=== PATIENT | male | born 1925 | race Caucasian/White ===

== ENCOUNTER 2016-04-29 08:48 | Day surgery (SDC) | payer BC ==
[2016-04-28 15:10] VITALS: BMI 21.2
[2016-04-29] MEDS ORDERED: PROPOFOL 20 ML ONE (09:50)
[2016-04-29 10:59] VITALS: TEMP 97.4
[2016-04-29 11:59] VITALS: BP 134/52; PULSE 61
--- NOTE | 2016-04-30 12:42 | PATH ---
Surgical Pathology Report Patient Name: JAYY SPANGLER [facility]. Rec. #: [id number] /Age/Gender: 1925 (Age: 89) / M Account: [id number] Location: [facility]-ENDOSCOPY Taken: 04/29/2016 Received: 04/29/2016 Reported: 04/30/2016 Physicians: Risa Alvarez M.D. Specimen(s) Received A: BX 2ND PORTION DUODENUM & BULB B: BX ANTRUM C: BX GE JUNCTION Clinical History Dysphagia, history of Schatzki's ring Hiatal hernia, hemorrhagic gastritis Final Diagnosis A. DUODENUM, SECOND PORTION AND BULB, BIOPSY: DUODENAL MUCOSA WITH MILD CHRONIC INFLAMMATION AND FOCAL ARABELLA'S GLANDS HYPERPLASIA. NO HISTOLOGIC EVIDENCE OF GLUTEN SENSITIVE ENTEROPATHY (CELIAC DISEASE). B. STOMACH, ANTRUM, BIOPSY: GASTRIC ANTRAL MUCOSA WITH MODERATE CHRONIC GASTRITIS AND MILD REACTIVE GASTROPATHY. IMMUNOSTAIN FOR H. PYLORI IS NEGATIVE FOR ORGANISMS. C. GE JUNCTION, BIOPSY: SQUAMOUS EPITHELIUM WITH CHRONIC INFLAMMATION AND REFLUX TYPE CHANGES. NO COLUMNAR EPITHELIUM PRESENT (NO INTESTINAL METAPLASIA/HOWARD'S ESOPHAGUS IDENTIFIED). Electronically Signed Laureano Moore M.D. Gross Description A. Received in formalin, labeled "biopsy second portion of duodenum and duodenal bulb" are 3 gonzales, irregular portions of soft tissue averaging 0.3 cm in greatest dimension. The specimens are submitted in toto in one cassette. B. Received in formalin, labeled "biopsy antrum" are 2 gonzales, irregular portions of soft tissue measuring 0.2 and 0.6 cm in greatest dimension. The specimens are submitted in toto in one cassette. C. Received in formalin, labeled "biopsy GE junction" are 5 gonzales, irregular portions of soft tissue ranging from 0.1-0.3 cm in greatest dimension. The specimens are submitted in toto in one cassette. DL04/29/2016 saudi04/29/2016
== END 2016-04-29 11:50 | disposition home or self-care (01) ==
LOC: JASU-ENDO 08:48
PROVIDERS: ATTEND Internal Medicine Gastroenterology
PROC: 0DB68ZX Excision of Stomach, Via Natural or Artificial Opening Endoscopic, Diagnostic (ICD-10-PCS; 2016-04-29)
PROC: 0DB58ZX Excision of Esophagus, Via Natural or Artificial Opening Endoscopic, Diagnostic (ICD-10-PCS; 2016-04-29)
PROC: 0DB98ZX Excision of Duodenum, Via Natural or Artificial Opening Endoscopic, Diagnostic (ICD-10-PCS; principal; 2016-04-29 10:00)
DX: K21.9 Gastro-esophageal reflux disease without esophagitis (principal); K44.9 Diaphragmatic hernia without obstruction or gangrene; K22.8 Other specified diseases of esophagus; K31.9 Disease of stomach and duodenum, unspecified
CPT/HCPCS: 88305-TC; 88342-TC

== ENCOUNTER 2016-07-01 07:30 | Inpatient (IN) | payer BC ==
--- NOTE | 2016-07-01 07:45 | PDOC ---
History of Present Illness - General History Source: Patient Exam Limitations: No Limitations - History of Present Illness Initial Comments: 07/01/16 08:09 The patient is a 89 year old male, with a significant past medical history of HTN, lung CA, bladder CA, left nephrectomy and renal failure, CAD, paroxysmal afib, systolic heart failure, and hypercholesterolemia who presents to the emergency department with chest pain and SOB for about 10 days. He reports his symptoms have been getting progressively worse, stating that last night his symptoms had severely worsened. He reports his SOB is often worse with any strenuous activity like walking. He denies any changes in his SOB when lying down. He reports his chest pain is diffuse over his entire chest and is constant in nature. The patient ranks his chest pain a 7/10 in pain intensity. The patient also has chief complaints of a non productive cough. He denies any changes in his medications recently. He denies any recent fevers, chills, headache or dizziness. He denies any recent nausea, vomit, diarrhea or constipation. He denies any recent dysuria, frequency, urgency or hematuria. Allergies: Penicillins, Levofloxacin, and Sulfa. Past surgical history: PPM and left lobectomy. Social History: Former smoker. Denies EtOH use and drug use. PCP:Dr.Annabi MARTIN: <Akil Mcdonlad - Last Filed: 07/01/16 10:16> <Christiano Gomez - Last Filed: 07/01/16 10:22> - General Chief Complaint: Chest Pain Stated Complaint: CHEST PAIN Time Seen by Provider: 07/01/16 07:45 Past History <Akil Mcdonald - Last Filed: 07/01/16 10:16> - Past Medical History Anemia: No Asthma: No Cancer: Yes (lung ca, bladder ca) Cardiac Disorders: No CVA: No COPD: No CHF: No Dementia: No Diabetes: No GI Disorders: Yes (GERD, SCHATZKI'S RING, COLON POLYP, GASTRIC INTESTINAL METAPLASIA) Disorders: Yes (bladder tumor, polyps, BPH) HTN: Yes Hypercholesterolemia: Yes Liver Disease: No Seizures: No Thyroid Disease: No - Surgical History Abdominal Surgery: No Appendectomy: No Cardiac Surgery: Yes (PPM) Cholecystectomy: No Lung Surgery: Yes (left lobectomy) Neurologic Surgery: No Orthopedic Surgery: No - Psycho/Social/Smoking Cessation Hx Anxiety: No Suicidal Ideation: No Smoking Status: No Smoking History: Former smoker Years of Tobacco Use: 0 Have you smoked in the past 12 months: No Number of Cigarettes Smoked Daily: 0 If you are a former smoker, when did you quit?: 1994 Cigars Per Day: 0 Information on smoking cessation initiated: No Hx Alcohol Use: No Drug/Substance Use Hx: No Substance Use Type: None Hx Substance Use Treatment: No <Christiano Gomez - Last Filed: 07/01/16 10:22> - Past Medical History Allergies/Adverse Reactions: Allergies Allergy/AdvReac Type Severity Reaction Status Date / Time Penicillins Allergy Hives, Verified 02/12/15 00:02 throat swelling Sulfa (Sulfonamide Allergy EYE Verified 02/12/15 00:02 Antibiotics) SWELLING, [Sulfa(Sulfonamide ITCHING Antibiotics)] levofloxacin [From Levaquin] AdvReac Severe Itching Verified 02/14/15 19:14 Home Medications: Ambulatory Orders Isosorbide Mononitrate [Imdur] 60 mg PO DAILY 12/16/11 Metoprolol Succinate [Toprol XL -] 100 mg PO HS 08/17/12 Atorvastatin Ca [Lipitor] 10 mg PO HS 04/28/16 Sodium Bicarbonate - 650 mg PO BID 04/29/16 Review of Systems - Review of Systems Constitutional: No: Chills, Fever Respiratory: Yes: Cough, Shortness of Breath, SOB with Exertion Cardiac (ROS): Yes: Chest Pain. No: Edema, Palpitations, Syncope ABD/GI: No: Vomiting Neurological: No: Headache All Other Systems: Reviewed and Negative <Christiano Gomez - Last Filed: 07/01/16 10:22> *Physical Exam - Vital Signs Last Vital Signs Temp Pulse Resp BP Pulse Ox 97.3 F L 94 H 24 147/77 100 07/01/16 07:41 07/01/16 07:41 07/01/16 07:41 07/01/16 07:41 07/01/16 07:41 - Physical Exam Comments: 07/01/16 08:09 GENERAL: The patient is awake, alert, and fully oriented, in no acute distress. HEAD: Normal with no signs of trauma. EYES: Pupils equal, round and reactive to light, extraocular movements intact, sclera anicteric, conjunctiva clear with no pallor. ENT: Ears normal, nares patent, oropharynx clear without exudates. Moist mucous membranes. NECK: Normal range of motion, supple without lymphadenopathy, JVD, or masses. LUNGS: Decreased breath sounds Right Lower Lung field with crackles at the base.No wheezes. HEART: Regular rate and rhythm. 2/6 systolic murmur at the left sternal border. Pacemaker on the left upper chest. ABDOMEN: Soft/nontender/nondistended. BS wnl. No guarding or rebound. No palpable masses. No hepatosplenomegaly. EXTREMITIES: Normal range of motion, no edema. No clubbing or cyanosis. No cords , erythema, or tenderness. NEUROLOGICAL: Cranial nerves II through XII grossly intact. Normal speech, normal gait. PSYCH: Normal mood, normal affect. SKIN: Warm, Dry, normal turgor, no rashes or lesions noted. <Akil Mcdonald - Last Filed: 07/01/16 10:16> - Vital Signs Last Vital Signs Temp Pulse Resp BP Pulse Ox 97.3 F L 94 H 24 147/77 100 07/01/16 07:41 07/01/16 07:41 07/01/16 07:41 07/01/16 07:41 07/01/16 07:41 <Christiano Gomez - Last Filed: 07/01/16 10:22> Heart Score/ECG Review #1 ECG reviewed & interpreted by me at: 07:37 Compared to previous ECG there are: No significant change 07/01/16 08:32 Sinus with first-degree AV block and left bundle branch block, rate of 95. No secondary signs of acute ischemic change. When compared to prior EKGs, those were paced <Christiano Gomez - Last Filed: 07/01/16 10:22> ED Treatment Course - LABORATORY CBC & Chemistry Diagram: 07/01/16 07:52 07/01/16 07:52 - RADIOLOGY Radiograph Interpretation: 07/01/16 09:15 CHEST X-RAY impressions reported by : No evidence of acute intrathoracic abnormality seen. <Akil Mcdonald - Last Filed: 07/01/16 10:16> - LABORATORY CBC & Chemistry Diagram: 07/01/16 07:52 07/01/16 07:52 <Christiano Gomez - Last Filed: 07/01/16 10:22> Medical Decision Making - Medical Decision Making 07/01/16 10:06 Call made to , patient's PCP, awaiting call back. 07/01/16 10:16 Call back from , case discussed. <Akil Mcdonald - Last Filed: 07/01/16 10:16> - Medical Decision Making 07/01/16 08:32 A portion of this note was documented by scribe services under my direction. I have reviewed the details of the note, within reason, and agree with the documentation with the following case summary and management plan written by me. 89-year-old male with history of known CAD and systolic failure, sick sinus syndrome status post pacemaker presents with progressive chest pain and shortness of breath over the last 10 days. Positive cough but no fevers or chills. Vitals as noted. Exam as noted with right basilar crackles and decreased breath sounds No edema No acute distress 89-year-old male with known heart disease presents with progressive chest pain or shortness of breath over the last 10 days. CHF exacerbation, rule out ACS versus worsening valvular disease. Rule out infectious process. Labs, EKG Chest x-ray Aspirin Likely admission 07/01/16 10:06 CBC shows baseline anemia, chemistries notable for creatinine of 3.3 which is slightly above the patient's prior level of renal insufficiency in 2015. Chest x -ray shows no acute pathology. Clinically unchanged, no acute distress, will proceed with admission. Cardiology, Dr. Manzano, consulted. 07/01/16 10:21 Accepted for inpatient tele by Dr. Guillory. <Christiano Gomez - Last Filed: 07/01/16 10:22> *DC/Admit/Observation/Transfer - Attestations Scribe Attestion: 07/01/16 07:55 Documentation prepared by Akil Mcdonald, acting as medical delivery driver for Christiano Gomez MD. <Akil Mcdonald - Last Filed: 07/01/16 10:16> - Discharge Dispostion Admit: Yes <Christiano Gomez - Last Filed: 07/01/16 10:22> Diagnosis at time of Disposition: Acute on chronic systolic (congestive) heart failure, Precordial chest pain - Discharge Dispostion Condition at time of disposition: Fair - Referrals Referrals: Lida Guillory MD [Primary Care Provider] -
[2016-07-01] MEDS ORDERED: ASPIRIN 81 MG CHEWABLE TABLETS PO ONE (07:49)
[2016-07-01] MEDS ORDERED: ASPIRIN 81 MG CHEWABLE TABLETS ONE (07:54)
[2016-07-01 08:18] LABS: BASOPHIL 0.7 % (0-2.0); MCHC 30.4 g/dl (32.0-35.9); MEAN CELL VOLUME 63.3 fl (80-96); MEAN PLT VOLUME 9.1 fl (7.5-11.1); NEUTROPHILS 71.8 % (42.8-82.8); PLATELET COUNT 290 K/MM3 (134-434); RDW 17.6 % (11.9-15.9); WHITE BLOOD COUNT 12.1 K/mm3 (4.0-10.0)
[2016-07-01 08:39] LABS: INR 1.2 (0.82-1.09); PROTHROMBIN TIME (PATIENT) 13.3 SEC (9.98-11.88)
[2016-07-01 08:50] LABS: MCH 19.3 pg (25.7-33.7)
[2016-07-01 09:42] LABS: ALBUMIN 3.2 g/dl (3.4-5.0); ALK PHOS 92 U/L (45-117); ANION GAP 16 (8-16); BILIRUBIN,TOTAL 0.5 mg/dL (0.2-1.0); CALCIUM 9.1 mg/dL (8.5-10.1); CO2 14 mmol/L (21-32); CREATININE 3.3 mg/dL (0.7-1.3); GLUCOSE,RANDOM 93 mg/dL (74-106); MAGNESIUM 1.9 mg/dL (1.8-2.4); SGOT/AST 16 U/L (15-37); SGPT/ALT 16 U/L (12-78); TOT PROT 7.2 g/dl (6.4-8.2); TROPONIN I < 0.02 ng/ml (0.00-0.05)
[2016-07-01 12:02] LABS: HYPOCHROMIA 3+; MICROCYTOSIS 2+; OVALOCYTES 2+; POIKILOCYTOSIS 2+; TEAR DROP CELLS 1+
--- NOTE | 2016-07-01 12:41 | CON.CARD ---
Consult Consult Specialty:: Cardiology Referred by:: Christiano Coats MD Reason for Consultation:: Chest pain, dyspnea - History of Present Illness Chief Complaint: Chest pain, dyspnea History of Present Illness: The patient is a 89 year old male, with a significant past medical history of HTN, lung CA, bladder CA, left nephrectomy and renal failure, CAD, paroxysmal afib not on a/c due to recurrent hematuria and patient refusal, AV block s/p PPM , LV systolic heart failure with mod-severe AR, hyperlipidemia, mild ao root dilatation presented to the emergency department with atypical reproducible left chest wall pain worse with raising arm and exertional SOB, orthopnea and PND. He reports his SOB is often worse with any strenuous activity like walking accompanied with nonproductive cough. He denies near or true syncope, palpitations, PND or LE edema. Allergies: Penicillins, Levofloxacin, and Sulfa. Past surgical history: PPM and left lobectomy. Social History: Former smoker. Denies EtOH use and drug use. PCP:Dr.Annabi LUNAMO: - History Source History Provided By: Patient Limitations to Obtaining History: No Limitations - Past Medical History Cardio/Vascular: Yes: CAD, HTN, Hyperlipdemia Pulmonary: Yes: Cancer (lung--s/p lobectomy), COPD Gastrointestinal: Yes: GERD Renal/: Yes: Renal Inusuff, Cancer (bladder, TCC), Hematuria, Renal Calculi - Past Surgical History Past Surgical History: Yes: Colonoscopy, Nephrectomy, Permanent Pacemaker, Thoracotomy - Alcohol/Substance Use Hx Alcohol Use: No - Smoking History Smoking history: Former smoker Have you smoked in the past 12 months: No Aproximately how many cigarettes per day: 0 If you are a former smoker, when did you quit?: 1994 - Social History Usual Living Arrangement: With Spouse ADL: Independent 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, 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[place] History of Recent Travel: No Home Medications - Allergies Allergies/Adverse Reactions: Allergies Allergy/AdvReac Type Severity Reaction Status Date / Time Penicillins Allergy Hives, Verified 02/12/15 00:02 throat swelling Sulfa (Sulfonamide Allergy EYE Verified 02/12/15 00:02 Antibiotics) SWELLING, [Sulfa(Sulfonamide ITCHING Antibiotics)] levofloxacin [From Levaquin] AdvReac Severe Itching Verified 02/14/15 19:14 - Home Medications Home Medications: Ambulatory Orders Isosorbide Mononitrate [Imdur] 60 mg PO DAILY 12/16/11 Metoprolol Succinate [Toprol XL -] 100 mg PO HS 08/17/12 Atorvastatin Ca [Lipitor] 10 mg PO HS 04/28/16 Sodium Bicarbonate - 650 mg PO BID 04/29/16 Review of Systems - Review of Systems Cardiovascular: reports: Chest Pain Respiratory: reports: Exercise Intolerance, SOB on Exertion Vital Signs: Vital Signs Temperature 97.3 F L 07/01/16 07:41 Pulse Rate 86 07/01/16 11:12 Respiratory Rate 18 07/01/16 11:12 Blood Pressure 131/60 07/01/16 11:12 O2 Sat by Pulse Oximetry (%) 99 07/01/16 11:12 Constitutional: Yes: No Distress, Calm Neck: Yes: Supple Respiratory: Yes: Regular, Diminished, Other (Reproducible left sided chest wall tenderness) Gastrointestinal: Yes: Normal Bowel Sounds, Soft Cardiovascular: Yes: Regular Rate and Rhythm JVD: No Carotid Bruit: No Heart Sounds: Yes: S1, S2 Murmur: Yes: Systolic Murmur, Grade 1 Edema: No - Other Data Labs, Other Data: INR, PTT INR 1.20 (0.82-1.09) H 07/01/16 07:52 A-V paced @ 95 Ejection Fraction %: LVEF > or = 40 % Imaging - Results Chest X-ray: Report Reviewed (NAD) Problem List - Problems (1) Acute on chronic systolic (congestive) heart failure Code(s): I50.23 - ACUTE ON CHRONIC SYSTOLIC (CONGESTIVE) HEART FAILURE (2) CAD (coronary artery disease) Code(s): I25.10 - ATHSCL HEART DISEASE OF [place] CORONARY ARTERY W/O ANG PCTRS Qualifiers: Coronary Disease-Associated Artery/Lesion type: [place] artery Associated angina: without angina (3) Chronic kidney disease (CKD) Code(s): N18.9 - CHRONIC KIDNEY DISEASE, UNSPECIFIED Qualifiers: Chronic kidney disease stage: stage 3 (moderate) Qualified Code(s): N18.3 - Chronic kidney disease, stage 3 (moderate) (4) HTN (hypertension) Code(s): I10 - ESSENTIAL (PRIMARY) HYPERTENSION Qualifiers: Hypertension type: essential hypertension Qualified Code(s): I10 - Essential (primary) hypertension (5) History of permanent cardiac pacemaker placement Code(s): Z95.0 - PRESENCE OF CARDIAC PACEMAKER (6) Hypercholesteremia Code(s): E78.0 - PURE HYPERCHOLESTEROLEMIA * DO NOT USE * (7) Precordial chest pain Code(s): R07.2 - PRECORDIAL PAIN (8) Sick sinus syndrome Code(s): I49.5 - SICK SINUS SYNDROME (9) Paroxysmal atrial fibrillation Code(s): I48.0 - PAROXYSMAL ATRIAL FIBRILLATION Assessment/Plan 03/14/2015 Echo: BSH, mod decreased LV fxn, mild ao dilatation 4.0 cm, mod- severe AR, mild MR, TR, RVSP 30-40 mmHg 1. Acute on chronic systolic failure with h/o mod-severe AR 2. Single vessel CAD with neg MPI 3. PAF not on a/c due to patient refusal and recurrent hematuria 4. AV block s/p PPM ([employer]) 5. HCVD 6. Mild aortic root dilatation 4.0 cm 7. CKD post resection of kidney mass 8. Bladder ca post TURBT with recurrent hematuria 9. Anemia of chronic kidney disease 10. Atypical chest pain syndrome P:1. IV diuresis with monitor diuretic response, renal fxn and electrolytes 2. Continue Toprol XL 100 qd, Imdur 90 qd, Lipitor 10 qd 3. Echocardiogram to assess ventricular and valve fxn 4. Thank you for consultative opportunity
--- NOTE | 2016-07-01 12:48 | EKG ---
Test Reason : Blood Pressure : / mmHG Vent. Rate : 095 BPM Atrial Rate : 095 BPM P-R Int : 270 ms QRS Dur : 144 ms QT Int : 368 ms P-R-T Axes : 025 001 191 degrees QTc Int : 462 ms SINUS RHYTHM WITH 1ST DEGREE A-V BLOCK LEFT BUNDLE BRANCH BLOCK ABNORMAL ECG WHEN COMPARED WITH ECG OF 13-FEB-2015 10:52, SINUS RHYTHM HAS REPLACED ELECTRONIC VENTRICULAR PACEMAKER Confirmed by EBONI IVERSON, MARY KAY ([id number]) on 07/01/2016 12:47:39 PM Referred By: Confirmed By:MARY KAY LYN MD
--- NOTE | 2016-07-01 14:17 | PN ---
[id number] PAIN SYNDROME CHF COPD H/O LUNG CA S/P RESECTION RUL NODULE PAF S/P PPM 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 BLADDER CA GERD PLAN LASIX O2 INHALED BRONCHODILATORS MONITOR LYTES ECHO DAILY WTS Problem List - Problems (1) Acute on chronic systolic (congestive) heart failure Code(s): I50.23 - ACUTE ON CHRONIC SYSTOLIC (CONGESTIVE) HEART FAILURE (2) Acute worsening of stage 3 chronic kidney disease Code(s): N18.3 - CHRONIC KIDNEY DISEASE, STAGE 3 (MODERATE) (3) Angina pectoris Code(s): I20.9 - ANGINA PECTORIS, UNSPECIFIED (4) CAD (coronary artery disease) Code(s): I25.10 - ATHSCL HEART DISEASE OF [place] CORONARY ARTERY W/O ANG PCTRS (5) Chronic kidney disease (CKD) Code(s): N18.9 - CHRONIC KIDNEY DISEASE, UNSPECIFIED (6) Congestive heart failure (CHF) Code(s): I50.9 - HEART FAILURE, UNSPECIFIED Qualifiers: Qualified Code(s): I50.33 - Acute on chronic diastolic (congestive) heart failure (7) HTN (hypertension) Code(s): I10 - ESSENTIAL (PRIMARY) HYPERTENSION Qualifiers: Qualified Code(s): I10 - Essential (primary) hypertension (8) History of lobectomy of lung Code(s): Z98.89 - OTHER SPECIFIED POSTPROCEDURAL STATES * DO NOT USE * (9) History of permanent cardiac pacemaker placement Code(s): Z95.0 - PRESENCE OF CARDIAC PACEMAKER (10) Hypercholesteremia Code(s): E78.0 - PURE HYPERCHOLESTEROLEMIA * DO NOT USE * (11) Lung nodule Code(s): R91.1 - SOLITARY PULMONARY NODULE (12) Paroxysmal atrial fibrillation Code(s): I48.0 - PAROXYSMAL ATRIAL FIBRILLATION (13) COPD (chronic obstructive pulmonary disease) Code(s): J44.9 - CHRONIC OBSTRUCTIVE PULMONARY DISEASE, UNSPECIFIED Qualifiers : Qualified Code(s): J44.9 - Chronic obstructive pulmonary disease, unspecified
[2016-07-01] MEDS: FUROSEMIDE 100 MG/10 ML INJECTABLE VIAL IVPB SCH (15:49)
[2016-07-01] MEDS: HEPARIN NA (PORCINE) 5,000 UNITS/ML 1ML VIAL SQ SCH ×2 (15:50→21:52)
[2016-07-01] MEDS: ACETAMINOPHEN 325 MG TABLET (FP) PO PRN (16:02)
[2016-07-01] MEDS: ALBUTEROL SO4 2.5/IPRATROPIUM 0.5 INH SOL 3 ML VIAL.NEB. NEB PRN ×2 (17:13→22:14)
--- NOTE | 2016-07-01 19:49 | CONS ---
PULMONARY CONSULTATION DATE OF CONSULTATION: 07/01/2016 REFERRING PHYSICIAN: Lida Guillory MD HISTORY OF PRESENT ILLNESS: The patient is an 89-year-old white male known to me in previous office visit as well as hospitalization. PAST MEDICAL HISTORY: COPD, history of hypertension, lung CA status post left lower lobe resection, history of bladder CA, history of left nephrectomy secondary to renal cell CA, chronic kidney disease, ASHD, paroxysmal atrial fibrillation, systolic heart failure, hypercholesterolemia, hypertension. Visits [facility] with complaint of chest pain and shortness of breath for about 10 days duration. Patient denied any nausea, vomiting or diaphoresis. He states he has been getting chest discomfort on both sides of his chest. He also has a cough, which is nonproductive; denies any fevers or chills. He says he has increasing shortness of breath with exertion. Denies any shortness of breath at rest. He denies orthopnea or PND.Pt said this chest pain was diffuse and not exacerbated by movement and/or exertion. He denies hemoptysis. He denies any fevers. He denies any recent travel. There is no history of DVT or PE in the past. PAST MEDICAL HISTORY: Past medical history again includes lung CA status post resection, bladder CA, history of left nephrectomy secondary to the CA, chronic kidney disease, ASHD, paroxysmal atrial fibrillation, congestive heart failure, hypercholesterolemia, COPD and hypertension. REVIEW OF SYSTEMS: No orthopnea, no PND. Positive chest pain, positive shortness of breath with exertion. No fevers, no chills. Positive cough, nonproductive. No abdominal pain. CURRENT MEDICATIONS: Sodium bicarbonate, Tylenol, heparin, Toprol, Lipitor, Lasix and Imdur. PHYSICAL EXAMINATION: General: He is a well-developed male, awake, alert, in no acute distress. Vital signs: He is currently afebrile. Blood pressure is 124/50. Respiratory rate is 22. Heart rate is 74 and regular. O2 saturation 89% on room air. HEENT: Normocephalic/atraumatic. Neck: Supple. Heart: Regular. S1, S2. Chest: Clear. Abdomen: Soft. Bowel sounds are positive. Extremities: No cyanosis or edema. LABS: BUN 84. Creatinine 3.3. BNP 20,018. INR is 1.20. WBC is 12.1, hemoglobin 9.6, hematocrit 31.6 with a platelet count of 290,000. Chest x-ray reveals no acute infiltrates or effusions. IMPRESSION: 1. Dyspnea. History of cough. Positive mild decompensated congestive heart failure. 2. Chronic obstructive pulmonary disease. 3. Chest pain syndrome, likely musculoskeletal. 4. History of lung cancer status post resection. 5. Chronic kidney disease. 6. Atherosclerotic heart disease. 7. Paroxysmal atrial fibrillation. 8. Right upper lobe nodule, as noted on previous CAT scan with increased mild right upper lobe ground-glass opacity. PLAN: 1. Continue Lasix. 2. Supplemental O2. 3. Inhaled bronchodilators. Will follow with you. DONELL FLORES M.D. MANE/[id number] MTDD
--- NOTE | 2016-07-01 20:07 | HP ---
Admitting History and Physical - Admission History of Present Illness: 89 year old male, with a significant past medical history of HTN, lung CA, bladder CA, left nephrectomy and renal failure, CAD, paroxysmal afib, systolic heart failure, and hypercholesterolemia who presents to the emergency department with chest pain and SOB for about 10 days. He reports his symptoms have been getting progressively worse, stating that last night his symptoms had severely worsened. He reports his SOB is often worse with any strenuous activity like walking. He denies any changes in his SOB when lying down. He reports his chest pain is diffuse over his entire chest and is constant in nature. The patient ranks his chest pain a 7/10 in pain intensity. The patient also has chief complaints of a non productive cough. He denies any changes in his medications recently. He denies any recent fevers, chills, headache or dizziness. He denies any recent nausea, vomit, diarrhea or constipation. He denies any recent dysuria, frequency, urgency or hematuria. - Past Medical History Cardiovascular: Yes: CAD, HTN, Hyperlipdemia Pulmonary: Yes: Cancer (lung--s/p lobectomy), COPD Gastrointestinal: Yes: GERD Renal/: Yes: Renal Inusuff, Cancer (bladder, TCC), Hematuria, Renal Calculi Heme/Onc: Yes: Anemia - Past Surgical History Past Surgical History: Yes: Colonoscopy, Nephrectomy, Permanent Pacemaker, Thoracotomy - Smoking History Smoking history: Former smoker Have you smoked in the past 12 months: No Aproximately how many cigarettes per day: 0 If you are a former smoker, when did you quit?: 1994 - Alcohol/Substance Use Hx Alcohol Use: No - Social History ADL: Independent 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, 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[place] History of Recent Travel: No Home Medications - Allergies Allergies/Adverse Reactions: Allergies Allergy/AdvReac Type Severity Reaction Status Date / Time Penicillins Allergy Hives, Verified 02/12/15 00:02 throat swelling Sulfa (Sulfonamide Allergy EYE Verified 02/12/15 00:02 Antibiotics) SWELLING, [Sulfa(Sulfonamide ITCHING Antibiotics)] levofloxacin [From Levaquin] AdvReac Severe Itching Verified 02/14/15 19:14 - Home Medications Home Medications: Ambulatory Orders Isosorbide Mononitrate [Imdur] 60 mg PO DAILY 12/16/11 Metoprolol Succinate [Toprol XL -] 100 mg PO HS 08/17/12 Atorvastatin Ca [Lipitor] 10 mg PO HS 04/28/16 Sodium Bicarbonate - 650 mg PO BID 04/29/16 Review of Systems - Review of Systems Constitutional: reports: Weakness Cardiovascular: reports: Chest Pain, Shortness of Breath Respiratory: reports: SOB on Exertion Gastrointestinal: denies: Abdominal Pain, Constipation Physical Examination Vital Signs: Vital Signs Temperature 97.4 F L 07/01/16 17:00 Pulse Rate 91 H 07/01/16 17:00 Respiratory Rate 20 07/01/16 17:00 Blood Pressure 148/73 07/01/16 17:00 O2 Sat by Pulse Oximetry (%) 99 07/01/16 15:00 Cardiovascular: Yes: Murmur, S1, S2 Respiratory: Yes: Rales (AT THE BASES) Gastrointestinal: Yes: Normal Bowel Sounds, Soft. No: Tenderness Edema: No Imaging - Results X-ray: Report Reviewed Problem List - Problems (1) Acute on chronic systolic (congestive) heart failure Assessment/Plan: IV LASIX MONITOR LABS CARDIO ON BOARD Code(s): I50.23 - ACUTE ON CHRONIC SYSTOLIC (CONGESTIVE) HEART FAILURE (2) CAD (coronary artery disease) Assessment/Plan: FOLLOW CE TELE Code(s): I25.10 - ATHSCL HEART DISEASE OF [place] CORONARY ARTERY W/O ANG PCTRS Qualifiers: Coronary Disease-Associated Artery/Lesion type: [place] artery Associated angina: without angina (3) Lung cancer Assessment/Plan: PULM CONSULT Code(s): C34.90 - MALIGNANT NEOPLASM OF UNSP PART OF UNSP BRONCHUS OR LUNG (4) Valvular heart disease Assessment/Plan: MOD TO SEVERE PER CARDIO Code(s): I38 - ENDOCARDITIS, VALVE UNSPECIFIED
[2016-07-01] MEDS: METOPROLOL SUCCINATE 100 MG TAB.SR.24H (FP) PO SCH (21:51)
[2016-07-01] MEDS: ATORVASTATIN CA 10 MG TABLET (FP) PO SCH (21:52)
[2016-07-01] MEDS: SODIUM BICARBONATE 650 MG TABLET PO SCH (21:52)
[2016-07-02 07:50] LABS: EOSINOPHIL 0.7 % (0-4.5); MCHC 31.4 g/dl (32.0-35.9); MEAN CELL VOLUME 62.4 fl (80-96); MEAN PLT VOLUME 9.5 fl (7.5-11.1); NEUTROPHILS 81.8 % (42.8-82.8); PLATELET COUNT 278 K/MM3 (134-434); RDW 17.7 % (11.9-15.9); WHITE BLOOD COUNT 10.6 K/mm3 (4.0-10.0)
--- NOTE | 2016-07-02 08:07 | PN ---
Progress Note, Physician History of Present Illness: LITTLE IMPROVEMENT - Current Medication List Current Medications: Active Medications Acetaminophen (Tylenol -) 650 mg PO Q4H PRN PRN Reason: FEVER OR PAIN Last Admin: 07/01/16 16:02 Dose: 650 mg Albuterol/Ipratropium (Duoneb -) 1 amp NEB Q4H PRN PRN Reason: SHORTNESS OF BREATH Last Admin: 07/01/16 22:14 Dose: 1 amp Atorvastatin Calcium (Lipitor -) 10 mg PO HS [facility] Last Admin: 07/01/16 21:52 Dose: 10 mg Furosemide (Lasix Injection -) 80 mg IVPB DAILY [facility] Last Admin: 07/01/16 15:49 Dose: 80 mg Heparin Sodium (Porcine) (Heparin -) 5,000 unit SQ BID [facility] Last Admin: 07/01/16 21:52 Dose: 5,000 unit Isosorbide Mononitrate (Imdur -) 60 mg PO DAILY [facility] Metoprolol Succinate (Toprol Xl -) 100 mg PO [facility] Last Admin: 07/01/16 21:51 Dose: 100 mg Sodium Bicarbonate (Sodium Bicarbonate -) 650 mg PO BID [facility] Last Admin: 07/01/16 21:52 Dose: 650 mg - Objective Vital Signs: Vital Signs Temperature 97.2 F L 07/02/16 06:00 Pulse Rate 94 H 07/02/16 06:00 Respiratory Rate 20 07/02/16 06:00 Blood Pressure 131/72 07/02/16 06:00 O2 Sat by Pulse Oximetry (%) 100 07/02/16 06:00 Cardiovascular: Yes: Murmur, S1, S2 Respiratory: Yes: Regular, CTA Bilaterally Gastrointestinal: Yes: Normal Bowel Sounds, Soft Edema: No Labs: INR, PTT INR 1.20 (0.82-1.09) H 07/01/16 07:52 Problem List - Problems (1) Acute on chronic systolic (congestive) heart failure Assessment/Plan: IV LASIX MONITOR LABS CARDIO ON BOARD Code(s): I50.23 - ACUTE ON CHRONIC SYSTOLIC (CONGESTIVE) HEART FAILURE (2) CAD (coronary artery disease) Assessment/Plan: FOLLOW CE TELE Code(s): I25.10 - ATHSCL HEART DISEASE OF [place] CORONARY ARTERY W/O ANG PCTRS Qualifiers: Coronary Disease-Associated Artery/Lesion type: [place] artery Associated angina: without angina (3) Lung cancer Assessment/Plan: PULM CONSULT Code(s): C34.90 - MALIGNANT NEOPLASM OF UNSP PART OF UNSP BRONCHUS OR LUNG (4) Valvular heart disease Assessment/Plan: MOD TO SEVERE PER CARDIO Code(s): I38 - ENDOCARDITIS, VALVE UNSPECIFIED
[2016-07-02 08:18] LABS: MCH 19.6 pg (25.7-33.7)
[2016-07-02 08:31] LABS: ALBUMIN 3.2 g/dl (3.4-5.0); BILIRUBIN,TOTAL 0.3 mg/dL (0.2-1.0); CALCIUM 8.9 mg/dL (8.5-10.1); CREATININE 3.4 mg/dL (0.7-1.3); TOT PROT 7.3 g/dl (6.4-8.2)
[2016-07-02 08:34] LABS: TROPONIN I 0.03 ng/ml (0.00-0.05)
[2016-07-02] MEDS: SODIUM BICARBONATE 650 MG TABLET PO SCH ×3 (09:35→21:26)
[2016-07-02] MEDS: ISOSORBIDE MONONITRATE 60 MG TAB.SR.24H (FP) PO SCH (09:36)
[2016-07-02] MEDS: FUROSEMIDE 100 MG/10 ML INJECTABLE VIAL IVPB SCH (09:36)
[2016-07-02] MEDS: HEPARIN NA (PORCINE) 5,000 UNITS/ML 1ML VIAL SQ SCH ×2 (09:36→21:26)
[2016-07-02 10:20] VITALS: BMI 19.2
--- NOTE | 2016-07-02 10:20 | CON.NEP ---
Consult Consult Specialty:: Nephrology Referred by:: Dr Guillory Reason for Consultation:: CKD - History of Present Illness Chief Complaint: Dyspnea and Chest Pain History of Present Illness: The patient is a 89 year old male, with a significant past medical history of HTN, Lung CA, Bladder CA, Left Nephrectomy and Renal Failure, CAD, Paroxysmal Afib, Systolic heart failure, and Hypercholesterolemia who presents to the emergency department with chest pain and SOB. Pt now without CP or dyspnea and has lost ~ 10 lbs since admission Asked to evaluate pt for his CKD which has been chronic and in stage 4 for more than a year. Recently had a urinary trat infection with suggestion of a moderate right hydronephrosis on out pt sonogram from the urologist office. Pt reports tyhat the recent UC grew out a resistant organism to oral abx and he was advised to come to hospital to receive IV abx Has not been on NSAIDs HAs some dysuria Was on Lasix intermittently as an outpatient (even though he has an allergy to sulfa) but stopped after the edema resolved - History Source History Provided By: Patient, Medical Record - Past Medical History Cardio/Vascular: Yes: CAD, HTN, Hyperlipdemia Pulmonary: Yes: Cancer (lung--s/p lobectomy), COPD Gastrointestinal: Yes: GERD Renal/: Yes: Renal Inusuff, Cancer (bladder, TCC), Hematuria, Renal Calculi - Past Surgical History Past Surgical History: Yes: Colonoscopy, Nephrectomy, Permanent Pacemaker, Thoracotomy - Alcohol/Substance Use Hx Alcohol Use: No - Smoking History Smoking history: Former smoker Have you smoked in the past 12 months: No Aproximately how many cigarettes per day: 0 If you are a former smoker, when did you quit?: 1994 - Social History Usual Living Arrangement: With Spouse ADL: Independent 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, 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[place] History of Recent Travel: No Home Medications - Allergies Allergies/Adverse Reactions: Allergies Allergy/AdvReac Type Severity Reaction Status Date / Time Penicillins Allergy Hives, Verified 02/12/15 00:02 throat swelling Sulfa (Sulfonamide Allergy EYE Verified 02/12/15 00:02 Antibiotics) SWELLING, [Sulfa(Sulfonamide ITCHING Antibiotics)] levofloxacin [From Levaquin] AdvReac Severe Itching Verified 02/14/15 19:14 - Home Medications Home Medications: Ambulatory Orders Isosorbide Mononitrate [Imdur] 60 mg PO DAILY 12/16/11 Metoprolol Succinate [Toprol XL -] 100 mg PO HS 08/17/12 Atorvastatin Ca [Lipitor] 10 mg PO HS 04/28/16 Sodium Bicarbonate - 650 mg PO BID 04/29/16 Nephrology Consult - Height Height: 5 ft 1 in - Weight Weight: 101 lb 12.8 oz - BMI Body Mass Index (BMI): 19.2 - Lab Results CBC,BMP: CBC, BMP 07/02/16 05:35 07/02/16 05:35 Laboratory Tests 07/01/16 07/01/16 07/02/16 07:52 13:54 05:35 Calcium 8.9 Total Bilirubin 0.3 D AST 16 ALT 18 Alkaline Phosphatase 97 Creatine Kinase 38 L Troponin I < 0.02 D 0.02 0.03 D B-Natriuretic Peptide 46992.82 H Total Protein 7.3 Albumin 3.2 L Anion Gap: Anion Gap Anion Gap 11 (8-16) 07/02/16 05:35 - Imaging Chest X-ray: Report Reviewed (No pleural effusion or congestion) EKG: Report Reviewed (NSR with 1st degree AVB and LBBB) - Physical Examination Vital Signs: Vital Signs Temperature 97.2 F L 07/02/16 06:00 Pulse Rate 94 H 07/02/16 06:00 Respiratory Rate 20 07/02/16 06:00 Blood Pressure 131/72 07/02/16 06:00 O2 Sat by Pulse Oximetry (%) 100 07/02/16 06:00 Cardiovascular: Yes: S1, S2, Other (Distant S1 S2 with faint systolic murmur). No: JVD Gastrointestinal: Yes: Abdomen, Obese. 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 with recurrent hematuria and recent resistant UTI S/P Dyspnea and CP from acute on chronic systolic failure with h/o mod-severe AR CAD and PAF not on a/c due to patient refusal and recurrent hematuria S/p PPM ([employer]) Anemia of chronic kidney disease on Procrit Plan Would reduce the lasix to 40 mgs po daily UA and UC Renal US with pre and post void bladder views Hold Procrit for now NaHCO3 to TID Repeat labs in am and pt aware that if he needs a interventional cardiologic procedure he may develop worsening azotemia and need for dialysis Discussed with cardiology Will follow Thank You DR Durant
--- NOTE | 2016-07-02 11:13 | PN ---
Progress Note, Physician History of Present Illness: Dyspnea somewhat improved, reports atypical chest wall discomfort. - Current Medication List Current Medications: Active Medications Acetaminophen (Tylenol -) 650 mg PO Q4H PRN PRN Reason: FEVER OR PAIN Last Admin: 07/01/16 16:02 Dose: 650 mg Albuterol/Ipratropium (Duoneb -) 1 amp NEB Q4H PRN PRN Reason: SHORTNESS OF BREATH Last Admin: 07/01/16 22:14 Dose: 1 amp Atorvastatin Calcium (Lipitor -) 10 mg PO [facility] Last Admin: 07/01/16 21:52 Dose: 10 mg Furosemide (Lasix -) 40 mg PO DAILY [facility] Heparin Sodium (Porcine) (Heparin -) 5,000 unit SQ BID [facility] Last Admin: 07/02/16 09:36 Dose: 5,000 unit Isosorbide Mononitrate (Imdur -) 60 mg PO DAILY [facility] Last Admin: 07/02/16 09:36 Dose: 60 mg Metoprolol Succinate (Toprol Xl -) 100 mg PO [facility] Last Admin: 07/01/16 21:51 Dose: 100 mg Sodium Bicarbonate (Sodium Bicarbonate -) 650 mg PO TID [facility] - Objective Vital Signs: Vital Signs Temperature 98 F 07/02/16 10:00 Pulse Rate 87 07/02/16 10:00 Respiratory Rate 18 07/02/16 10:00 Blood Pressure 114/63 07/02/16 10:00 O2 Sat by Pulse Oximetry (%) 100 07/02/16 06:00 Constitutional: Yes: No Distress, Calm, Thin Neck: Yes: Supple Cardiovascular: Yes: Regular Rate and Rhythm, Murmur Respiratory: Yes: Regular, Diminished Gastrointestinal: Yes: Normal Bowel Sounds, Soft Edema: No Labs: CBC, BMP 07/02/16 05:35 07/02/16 05:35 INR, PTT INR 1.20 (0.82-1.09) H 07/01/16 07:52 Problem List - Problems (1) Acute on chronic systolic (congestive) heart failure Code(s): I50.23 - ACUTE ON CHRONIC SYSTOLIC (CONGESTIVE) HEART FAILURE (2) CAD (coronary artery disease) Code(s): I25.10 - ATHSCL HEART DISEASE OF [place] CORONARY ARTERY W/O ANG PCTRS Qualifiers: Coronary Disease-Associated Artery/Lesion type: [place] artery Associated angina: without angina (3) Chronic kidney disease (CKD) Code(s): N18.9 - CHRONIC KIDNEY DISEASE, UNSPECIFIED Qualifiers: Chronic kidney disease stage: stage 3 (moderate) Qualified Code(s): N18.3 - Chronic kidney disease, stage 3 (moderate) (4) HTN (hypertension) Code(s): I10 - ESSENTIAL (PRIMARY) HYPERTENSION Qualifiers: Hypertension type: essential hypertension Qualified Code(s): I10 - Essential (primary) hypertension (5) History of permanent cardiac pacemaker placement Code(s): Z95.0 - PRESENCE OF CARDIAC PACEMAKER (6) Hypercholesteremia Code(s): E78.0 - PURE HYPERCHOLESTEROLEMIA * DO NOT USE * (7) Precordial chest pain Code(s): R07.2 - PRECORDIAL PAIN (8) Sick sinus syndrome Code(s): I49.5 - SICK SINUS SYNDROME (9) Paroxysmal atrial fibrillation Code(s): I48.0 - PAROXYSMAL ATRIAL FIBRILLATION Assessment/Plan 03/14/2015 Echo: BSH, mod decreased LV fxn, mild ao dilatation 4.0 cm, mod- severe AR, mild MR, TR, RVSP 30-40 mmHg 1. Acute on chronic systolic failure with h/o mod-severe AR improving 2. Single vessel CAD with neg MPI 3. PAF not on a/c due to patient refusal and recurrent hematuria 4. AV block s/p PPM ([employer]) 5. HCVD 6. Mild aortic root dilatation 4.0 cm 7. 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 Bladder ca post TURBT with recurrent hematuria 9. Anemia of chronic kidney disease 10. Atypical chest pain syndrome P:1. Noted reduction to Lasix 40 qd with monitor diuretic response, renal fxn and electrolytes, ruled out for IA 2. Continue Toprol XL 100 qd, Imdur 60 qd, Lipitor 10 qd 3. F/u echocardiogram to assess ventricular and valve fxn, renal ultrasound 4. Encourage ambulation
[2016-07-02 11:43] LABS: BASOPHIL 0.8 % (0-2.0); EOSINOPHIL 1.1 % (0-4.5); MCHC 31.2 g/dl (32.0-35.9); MEAN CELL VOLUME 62.8 fl (80-96); MEAN PLT VOLUME 8.8 fl (7.5-11.1); NEUTROPHILS 69.2 % (42.8-82.8); PLATELET COUNT 276 K/MM3 (134-434); RDW 17.3 % (11.9-15.9); WHITE BLOOD COUNT 10.3 K/mm3 (4.0-10.0)
[2016-07-02 11:55] LABS: MCH 19.6 pg (25.7-33.7)
--- NOTE | 2016-07-02 15:49 | PN ---
Progress Note (short form) - Note Progress Note: Dyspnea seems a little better. Some musculoskeletal discomfort. Intake & Output 06/29/16 06/30/16 07/01/16 07/02/16 23:59 23:59 23:59 23:59 Intake Total 260 130 Output Total 625 75 Balance -365 55 Weight 112 lb 101 lb 12.8 oz Last Vital Signs Temp Pulse Resp BP Pulse Ox 97.4 F L 91 H 18 119/66 99 07/02/16 13:48 07/02/16 13:48 07/02/16 13:48 07/02/16 13:48 07/02/16 09:00 Active Medications Acetaminophen (Tylenol -) 650 mg PO Q4H PRN PRN Reason: FEVER OR PAIN Last Admin: 07/01/16 16:02 Dose: 650 mg Albuterol/Ipratropium (Duoneb -) 1 amp NEB Q4H PRN PRN Reason: SHORTNESS OF BREATH Last Admin: 07/01/16 22:14 Dose: 1 amp Atorvastatin Calcium (Lipitor -) 10 mg PO [facility] Last Admin: 07/01/16 21:52 Dose: 10 mg Furosemide (Lasix -) 40 mg PO DAILY [facility] Heparin Sodium (Porcine) (Heparin -) 5,000 unit SQ BID [facility] Last Admin: 07/02/16 09:36 Dose: 5,000 unit Isosorbide Mononitrate (Imdur -) 60 mg PO DAILY [facility] Last Admin: 07/02/16 09:36 Dose: 60 mg Metoprolol Succinate (Toprol Xl -) 100 mg PO [facility] Last Admin: 07/01/16 21:51 Dose: 100 mg Sodium Bicarbonate (Sodium Bicarbonate -) 650 mg PO TID [facility] Last Admin: 07/02/16 13:36 Dose: 650 mg Constitutional: Yes: NAD Neck: Yes: Supple Cardiovascular: Yes: Regular Rate and Rhythm, Murmur Respiratory: Yes: Regular, Diminished at the bases Gastrointestinal: Yes: Normal Bowel Sounds, Soft Edema: No Labs: Laboratory Results - last 24 hr 07/02/16 07/02/16 07/02/16 05:35 05:35 11:20 WBC 10.6 H 10.3 H RBC 5.09 4.82 Hgb 10.0 L 9.5 L Hct 31.8 L 30.3 L MCV 62.4 L 62.8 L MCHC 31.4 L 31.2 L RDW 17.7 H 17.3 H Plt Count 278 276 MPV 9.5 8.8 Neutrophils % 81.8 69.2 Lymphocytes % 11.2 D 20.9 D Monocytes % 5.3 8.0 Eosinophils % 0.7 1.1 Basophils % 1.0 0.8 Sodium 139 Potassium 4.8 Chloride 108 H Carbon Dioxide 20 L D Anion Gap 11 BUN 90 H Creatinine 3.4 H Creat Clearance w eGFR 17.18 Random Glucose 114 H D Calcium 8.9 Total Bilirubin 0.3 D AST 16 ALT 18 Alkaline Phosphatase 97 Troponin I 0.03 D Total Protein 7.3 Albumin 3.2 L Problem List - Problems (1) Acute on chronic systolic (congestive) heart failure Code(s): I50.23 - ACUTE ON CHRONIC SYSTOLIC (CONGESTIVE) HEART FAILURE (2) CAD (coronary artery disease) Code(s): I25.10 - ATHSCL HEART DISEASE OF [place] CORONARY ARTERY W/O ANG PCTRS Qualifiers: Coronary Disease-Associated Artery/Lesion type: [place] artery Associated angina: without angina (3) Chronic kidney disease (CKD) Code(s): N18.9 - CHRONIC KIDNEY DISEASE, UNSPECIFIED Qualifiers: Chronic kidney disease stage: stage 3 (moderate) Qualified Code(s): N18.3 - Chronic kidney disease, stage 3 (moderate) (4) HTN (hypertension) Code(s): I10 - ESSENTIAL (PRIMARY) HYPERTENSION Qualifiers: Hypertension type: essential hypertension Qualified Code(s): I10 - Essential (primary) hypertension (5) History of permanent cardiac pacemaker placement Code(s): Z95.0 - PRESENCE OF CARDIAC PACEMAKER (6) Hypercholesteremia Code(s): E78.0 - PURE HYPERCHOLESTEROLEMIA * DO NOT USE * (7) Precordial chest pain Code(s): R07.2 - PRECORDIAL PAIN (8) Sick sinus syndrome Code(s): I49.5 - SICK SINUS SYNDROME (9) Paroxysmal atrial fibrillation Code(s): I48.0 - PAROXYSMAL ATRIAL FIBRILLATION (10) 1.9 cm RUL ground glass opacity with solid components (looks like AIS) PLAN: BD TX PRN Lasix O2 as needed Due to age and overall condition, would manage RUL lesion conservatively PT Dr Daigle
[2016-07-02] MEDS: ATORVASTATIN CA 10 MG TABLET (FP) PO SCH (21:26)
[2016-07-02] MEDS: METOPROLOL SUCCINATE 100 MG TAB.SR.24H (FP) PO SCH (21:26)
[2016-07-02 22:29] LABS: URINE APPEARANCE CLOUDY; URINE BILIRUBIN NEGATIVE (NEGATIVE); URINE BLOOD 2+ (NEGATIVE); URINE COLOR YELLOW; URINE GLUCOSE (UA) NEGATIVE (NEGATIVE); URINE KETONE NEGATIVE (NEGATIVE); URINE LEUK ESTERASE 3+ (NEGATIVE); URINE NITRITE NEGATIVE (NEGATIVE); URINE PROTEIN NEGATIVE (NEGATIVE); URINE UROBILINOGEN NEGATIVE E.U./dl (0.2-1.0)
[2016-07-02 22:35] LABS: URINE BACTERIA MODERATE /hpf (NONE SEEN); URINE RBC 46 /hpf (0-3); URINE WBC 1591 /hpf (3-5)
[2016-07-03] MEDS: SODIUM BICARBONATE 650 MG TABLET PO SCH ×3 (05:35→21:16)
[2016-07-03] MEDS: ACETAMINOPHEN 325 MG TABLET (FP) PO PRN ×2 (08:53→18:00)
[2016-07-03] MEDS: HEPARIN NA (PORCINE) 5,000 UNITS/ML 1ML VIAL SQ SCH ×2 (09:13→21:16)
[2016-07-03] MEDS: ISOSORBIDE MONONITRATE 60 MG TAB.SR.24H (FP) PO SCH (09:13)
[2016-07-03] MEDS: FUROSEMIDE 40 MG TABLET (FP) PO SCH (09:13)
--- NOTE | 2016-07-03 09:20 | PN ---
Progress Note, Physician History of Present Illness: SOME IMPROVEMENT STILL SOB ON EXERTION - Current Medication List Current Medications: Active Medications Acetaminophen (Tylenol -) 650 mg PO Q4H PRN PRN Reason: FEVER OR PAIN Last Admin: 07/03/16 08:53 Dose: 650 mg Albuterol/Ipratropium (Duoneb -) 1 amp NEB Q4H PRN PRN Reason: SHORTNESS OF BREATH Last Admin: 07/01/16 22:14 Dose: 1 amp Atorvastatin Calcium (Lipitor -) [address] [facility] Last Admin: 07/02/16 21:26 Dose: 10 mg Furosemide (Lasix -) 40 mg PO DAILY [facility] Last Admin: 07/03/16 09:13 Dose: 40 mg Heparin Sodium (Porcine) (Heparin -) 5,000 unit SQ BID [facility] Last Admin: 07/03/16 09:13 Dose: 5,000 unit Isosorbide Mononitrate (Imdur -) 60 mg PO DAILY [facility] Last Admin: 07/03/16 09:13 Dose: 60 mg Metoprolol Succinate (Toprol Xl -) [address] [facility] Last Admin: 07/02/16 21:26 Dose: 100 mg Sodium Bicarbonate (Sodium Bicarbonate -) 650 mg PO TID [facility] Last Admin: 07/03/16 05:35 Dose: 650 mg - Objective Vital Signs: Vital Signs Temperature 97.9 F 07/03/16 06:27 Pulse Rate 84 07/03/16 06:27 Respiratory Rate 16 07/03/16 06:27 Blood Pressure 123/63 07/03/16 06:27 O2 Sat by Pulse Oximetry (%) 98 07/02/16 20:43 Cardiovascular: Yes: Murmur, S1, S2 Respiratory: Yes: Regular, CTA Bilaterally, On Nasal O2 Gastrointestinal: Yes: Normal Bowel Sounds, Soft Edema: No Labs: CBC, BMP 07/02/16 11:20 07/02/16 05:35 INR, PTT INR 1.20 (0.82-1.09) H 07/01/16 07:52 Problem List - Problems (1) Acute on chronic systolic (congestive) heart failure Assessment/Plan: IV LASIX--TO PO MONITOR LABS CARDIO ON BOARD Code(s): I50.23 - ACUTE ON CHRONIC SYSTOLIC (CONGESTIVE) HEART FAILURE (2) CAD (coronary artery disease) Assessment/Plan: FOLLOW CE TELE Code(s): I25.10 - ATHSCL HEART DISEASE OF [place] CORONARY ARTERY W/O ANG PCTRS Qualifiers: Coronary Disease-Associated Artery/Lesion type: [place] artery Associated angina: without angina (3) Lung cancer Assessment/Plan: PULM CONSULT Code(s): C34.90 - MALIGNANT NEOPLASM OF UNSP PART OF UNSP BRONCHUS OR LUNG (4) Valvular heart disease Assessment/Plan: MOD TO SEVERE PER CARDIO--WILL D/W CARDIO D/W PT AND FAMILY Code(s): I38 - ENDOCARDITIS, VALVE UNSPECIFIED
--- NOTE | 2016-07-03 10:16 | PN ---
Progress Note (short form) - Note Progress Note: S: 89 year old gentleman, known case of Coronary artery disease, angina pectoris , paroxysmal atrial fibrillation, s/p permanent pacemaker for advanced AV block , history of hypertension, s/p left nephrectomy, chronic kidney disease, mitral regurgitation, tricuspid regurgitation, left ventricular systolic dysfunction, hyperlipidemia, aortic valvular disease with aortic regurgitation. Patient was admitted with history of dyspnea and chest discomfort, found to be in congestive heart failure, since admission he has mild dyspnea on exertion, no PND or orthopnea reported. Presently he denies havign chest discomfort. Patient had a syncopal episode while sitting on a toilet. No known history of seizures. Echocardiogram had revealed moderate left ventricular systolic function with regional wall abnormalities and severe mitral and tricuspid regurgitation was reported. There was moderate to severe aortic insufficiency and moderate pulmonary hypertension in association with mild to moderate reduction right ventricular systolic function. Active Medications Generic Name Dose Route Start Last Admin Trade Name Freq PRN Reason Stop Dose Admin Acetaminophen 650 mg 07/01/16 13:05 07/03/16 08:53 Tylenol - PO 650 mg Q4H PRN Administration FEVER OR PAIN Albuterol/Ipratropium 1 amp 07/01/16 14:18 07/01/16 22:14 Duoneb - NEB 1 amp Q4H PRN Administration SHORTNESS OF BREATH Atorvastatin Calcium 10 mg 07/01/16 22:00 07/02/16 21:26 Lipitor - PO 10 mg HS BATSHEVA Administration Furosemide 40 mg 07/03/16 10:00 07/03/16 09:13 Lasix - PO 40 mg DAILY BATSHEVA Administration Heparin Sodium (Porcine) 5,000 unit 07/01/16 13:15 07/03/16 09:13 Heparin - SQ 5,000 unit BID BATSHEVA Administration Isosorbide Mononitrate 60 mg 07/02/16 10:00 07/03/16 09:13 Imdur - PO 60 mg DAILY BATSHEVA Administration Metoprolol Succinate 100 mg 07/01/16 22:00 07/02/16 21:26 Toprol Xl - PO 100 mg HS BATSHEVA Administration Sodium Bicarbonate 650 mg 07/02/16 14:00 07/03/16 05:35 Sodium Bicarbonate - PO 650 mg TID BATSHEVA Administration O: 89 year old male was in no acute distress, mild pallor, no cyanosis, clubbing , or jaundice. Last Vital Signs Temp Pulse Resp BP Pulse Ox 97.9 F 84 16 123/63 98 07/03/16 06:27 07/03/16 06:27 07/03/16 06:27 07/03/16 06:27 07/02/16 20:43 Neck: Supple, no JVD, positive HJR, mildly pulsatile neck veins, carotids were equal and upstrokes were normal, no thyromegaly appreciated. Heart: PMI was in the 5th intercostal space, no heaves or thrills were appreciated, grade I-II/ apical systolic murmur, murmur was also heard along the lower left sternal border. Unable to appreciate a diastolic murmur, no gallops were heard. Lungs: Fine crepitations at the right base posteriorly. Decrease breath sounds at the left base. Abdomen: Soft, nontender, no hepatosplenomegaly appreciated, and no palpable masses were felt. Extremities: No calf tenderness or dependent edema. CBC, BMP 07/02/16 11:20 07/02/16 05:35 Laboratory Results - last 24 hr 07/02/16 07/02/16 11:20 22:05 WBC 10.3 H RBC 4.82 Hgb 9.5 L Hct 30.3 L MCV 62.8 L MCHC 31.2 L RDW 17.3 H Plt Count 276 MPV 8.8 Neutrophils % 69.2 Lymphocytes % 20.9 D Monocytes % 8.0 Eosinophils % 1.1 Basophils % 0.8 Urine Color Yellow Urine Appearance Cloudy Urine pH 5.0 Ur Specific [place] 1.009 Urine Protein Negative Urine Glucose (UA) Negative Urine Ketones Negative Urine Blood 2+ H Urine Nitrite Negative Urine Bilirubin Negative Urine Urobilinogen Negative Ur Leukocyte Esterase 3+ H D Urine RBC 46 Urine WBC 1591 Urine Bacteria Moderate Impression: (1) Acute on chronic systolic (congestive) heart failure, currently NYHA class II Code(s): I50.23 - ACUTE ON CHRONIC SYSTOLIC (CONGESTIVE) HEART FAILURE (2) CAD (coronary artery disease), angina pectoris Code(s): I25.10 - ATHSCL HEART DISEASE OF [place] CORONARY ARTERY W/O ANG PCTRS Qualifiers: Coronary Disease-Associated Artery/Lesion type: [place] artery Associated angina: without angina (3) Left ventricular systolic dysfunction of atleast moderate severity Code(s): I51.9 - HEART DISEASE, UNSPECIFIED (4) Right ventricular systolic dysfunction of atleast moderate severity Code(s): I51.9 - HEART DISEASE, UNSPECIFIED (5) Severe mitral regurgitation by doppler interrogation Code(s): I34.0 - NONRHEUMATIC MITRAL (VALVE) INSUFFICIENCY (6) Severe tricuspid regurgitation by doppler interrogation Code(s): I07.1 - RHEUMATIC TRICUSPID INSUFFICIENCY (7)Moderate to severe aortic regurgitation by doppler interrogation Code(s): I35.1 - NONRHEUMATIC AORTIC (VALVE) INSUFFICIENCY (8) HTN (hypertension), hypertensive cardiovascular disease Code(s): I10 - ESSENTIAL (PRIMARY) HYPERTENSION Qualifiers: Hypertension type: essential hypertension Qualified Code(s): I10 - Essential (primary) hypertension (9) Moderate pulmonary hypertension Code(s): I27.2 - OTHER SECONDARY PULMONARY HYPERTENSION (10) History of permanent cardiac pacemaker placement Code(s): Z95.0 - PRESENCE OF CARDIAC PACEMAKER (11) Hypercholesteremia Code(s): E78.0 - PURE HYPERCHOLESTEROLEMIA * DO NOT USE * (12) History of advanced AV Block Code(s): I44.30 - UNSPECIFIED ATRIOVENTRICULAR BLOCK (13) History of Paroxysmal atrial fibrillation Code(s): I48.0 - PAROXYSMAL ATRIAL FIBRILLATION (14) Chronic kidney disease (CKD) Code(s): N18.9 - CHRONIC KIDNEY DISEASE, UNSPECIFIED Qualifiers: Chronic kidney disease stage: stage 3 (moderate) Qualified Code(s): N18.3 - Chronic kidney disease, stage 3 (moderate) (15) S/P left nephrectomy for Carcinoma Code(s): Z90.5 - ACQUIRED ABSENCE OF KIDNEY (16) S/P partial cystectomy for bladder CA Code(s): Z98.890 - OTHER SPECIFIED POSTPROCEDURAL STATES (17) History of recent syncope, etiology to be determined, possibly vasovagal Code(s): R55 - SYNCOPE AND COLLAPSE (18) Anemia most likely related to chronic kidney disease Code(s): D64.9 - ANEMIA, UNSPECIFIED Recommendations: 1. Increase the dose of Isosorbide to 90 mg under close monitoring of blood pressure and if necessary maximize it to 120 mg PO. 2. If chest pain were to recur consider adding Ranexa 500 mg POD Q12H. 3. Check blood pressure supine and standing. 4. Pacemaker interrogation to exclude the possibility of ventricular or supraventricular arrhythmias. 5. Close follow up of electrolytes and renal function. 6. Monitor daily weights. 7. Further suggestions will depend upon the response to the adjustment of therapy. Case discussed with Dr. Lida Guillory. Prognosis: Guarded Attestation: Documentation prepared by Neel Alberto, acting as medical radiation tech for Renato Irene MD.
--- NOTE | 2016-07-03 10:38 | PN ---
Progress Note, Physician History of Present Illness: Pt seen and examined at bedside. He is awake and alert. He says he feels better today. He denies shortness of breath at rest or while laying down. He denies dysuria. He denies lower extremity edema. - Current Medication List Current Medications: Active Medications Acetaminophen (Tylenol -) 650 mg PO Q4H PRN PRN Reason: FEVER OR PAIN Last Admin: 07/03/16 08:53 Dose: 650 mg Albuterol/Ipratropium (Duoneb -) 1 amp NEB Q4H PRN PRN Reason: SHORTNESS OF BREATH Last Admin: 07/01/16 22:14 Dose: 1 amp Atorvastatin Calcium (Lipitor -) 10 mg PO HS [facility] Last Admin: 07/02/16 21:26 Dose: 10 mg Furosemide (Lasix -) 40 mg PO DAILY [facility] Last Admin: 07/03/16 09:13 Dose: 40 mg Heparin Sodium (Porcine) (Heparin -) 5,000 unit SQ BID [facility] Last Admin: 07/03/16 09:13 Dose: 5,000 unit Isosorbide Mononitrate (Imdur -) 60 mg PO DAILY [facility] Last Admin: 07/03/16 09:13 Dose: 60 mg Metoprolol Succinate (Toprol Xl -) 100 mg PO HS [facility] Last Admin: 07/02/16 21:26 Dose: 100 mg Sodium Bicarbonate (Sodium Bicarbonate -) 650 mg PO TID [facility] Last Admin: 07/03/16 05:35 Dose: 650 mg - Objective Vital Signs: Vital Signs Temperature 97.9 F 07/03/16 06:27 Pulse Rate 84 07/03/16 06:27 Respiratory Rate 16 07/03/16 06:27 Blood Pressure 123/63 07/03/16 06:27 O2 Sat by Pulse Oximetry (%) 98 07/02/16 20:43 Constitutional: Yes: Calm Eyes: Yes: Conjunctiva Clear HENT: Yes: Atraumatic Neck: Yes: Supple Cardiovascular: Yes: S1, S2 Respiratory: Yes: CTA Bilaterally Gastrointestinal: Yes: Soft Genitourinary: Yes: WNL Musculoskeletal: Yes: WNL Edema: No Neurological: Yes: Oriented Psychiatric: Yes: Oriented Labs: CBC, BMP 07/02/16 11:20 07/02/16 05:35 INR, PTT INR 1.20 (0.82-1.09) H 07/01/16 07:52 Problem List - Problems (1) CAD (coronary artery disease) Code(s): I25.10 - ATHSCL HEART DISEASE OF [place] CORONARY ARTERY W/O ANG PCTRS Qualifiers: Coronary Disease-Associated Artery/Lesion type: [place] artery Associated angina: without angina (2) COPD (chronic obstructive pulmonary disease) Code(s): J44.9 - CHRONIC OBSTRUCTIVE PULMONARY DISEASE, UNSPECIFIED (3) Chronic kidney disease (CKD) Code(s): N18.9 - CHRONIC KIDNEY DISEASE, UNSPECIFIED Qualifiers: Chronic kidney disease stage: stage 3 (moderate) Qualified Code(s): N18.3 - Chronic kidney disease, stage 3 (moderate) (4) Congestive heart failure (CHF) Code(s): I50.9 - HEART FAILURE, UNSPECIFIED Qualifiers: Congestive heart failure type: diastolic Congestive heart failure chronicity: acute on chronic Qualified Code(s): I50.33 - Acute on chronic diastolic (congestive) heart failure (5) HTN (hypertension) Code(s): I10 - ESSENTIAL (PRIMARY) HYPERTENSION Qualifiers: Hypertension type: essential hypertension Qualified Code(s): I10 - Essential (primary) hypertension Assessment/Plan Current Medications Generic Name Dose Route Start Last Admin Trade Name Freq PRN Reason Stop Dose Admin Acetaminophen 650 mg 07/01/16 13:05 07/03/16 08:53 Tylenol - PO 650 mg Q4H PRN Administration FEVER OR PAIN Albuterol/Ipratropium 1 amp 07/01/16 14:18 07/01/16 22:14 Duoneb - NEB 1 amp Q4H PRN Administration SHORTNESS OF BREATH Atorvastatin Calcium 10 mg 07/01/16 22:00 07/02/16 21:26 Lipitor - PO 10 mg HS BATSHEVA Administration Furosemide 40 mg 07/03/16 10:00 07/03/16 09:13 Lasix - PO 40 mg DAILY BATSHEVA Administration Heparin Sodium (Porcine) 5,000 unit 07/01/16 13:15 07/03/16 09:13 Heparin - SQ 5,000 unit BID BATSHEVA Administration Isosorbide Mononitrate 60 mg 07/02/16 10:00 07/03/16 09:13 Imdur - PO 60 mg DAILY BATSHEVA Administration Metoprolol Succinate 100 mg 07/01/16 22:00 07/02/16 21:26 Toprol Xl - PO 100 mg HS BATSHEVA Administration Sodium Bicarbonate 650 mg 07/02/16 14:00 07/03/16 05:35 Sodium Bicarbonate - PO 650 mg TID BATSHEVA Administration Impression 1. CKD 2. solitary right kidney 3. hx of bladder cancer 4. hx of UTI 5. CHF 6. CAD 7. mod to severe AR 8. p-a-fib 9. hx PPM 10. anemia Plan - renal ultrasound reviewed, he has mild right sided hydro - recommend urology evaluation - follow up bloodwork from today - cont bicarb - follow up urine culture - can cont with lasix at 40 and monitor volume status closely - will follow Dr Alas
[2016-07-03 11:20] LABS: CREATININE 3.5 mg/dL (0.7-1.3)
--- NOTE | 2016-07-03 11:30 | PN ---
Progress Note, Physician History of Present Illness: pulmonary alert,mild chest discomfort,+ mild helm - Current Medication List Current Medications: Active Medications Acetaminophen (Tylenol -) 650 mg PO Q4H PRN PRN Reason: FEVER OR PAIN Last Admin: 07/03/16 08:53 Dose: 650 mg Albuterol/Ipratropium (Duoneb -) 1 amp NEB Q4H PRN PRN Reason: SHORTNESS OF BREATH Last Admin: 07/01/16 22:14 Dose: 1 amp Atorvastatin Calcium (Lipitor -) 10 mg PO HS [facility] Last Admin: 07/02/16 21:26 Dose: 10 mg Furosemide (Lasix -) 40 mg PO DAILY [facility] Last Admin: 07/03/16 09:13 Dose: 40 mg Heparin Sodium (Porcine) (Heparin -) 5,000 unit SQ BID [facility] Last Admin: 07/03/16 09:13 Dose: 5,000 unit Isosorbide Mononitrate (Imdur -) 60 mg PO DAILY [facility] Last Admin: 07/03/16 09:13 Dose: 60 mg Metoprolol Succinate (Toprol Xl -) 100 mg PO HS [facility] Last Admin: 07/02/16 21:26 Dose: 100 mg Sodium Bicarbonate (Sodium Bicarbonate -) 650 mg PO TID [facility] Last Admin: 07/03/16 05:35 Dose: 650 mg - Objective Vital Signs: Vital Signs Temperature 97.9 F 07/03/16 06:27 Pulse Rate 84 07/03/16 06:27 Respiratory Rate 16 07/03/16 06:27 Blood Pressure 123/63 07/03/16 06:27 O2 Sat by Pulse Oximetry (%) 98 07/03/16 09:00 Constitutional: Yes: Calm, Thin Eyes: Yes: WNL HENT: Yes: WNL Neck: Yes: WNL Cardiovascular: Yes: Regular Rate and Rhythm, S1, S2 Respiratory: Yes: Diminished Gastrointestinal: Yes: Normal Bowel Sounds, Soft Extremities: Yes: WNL Edema: No Labs: CBC, BMP 07/02/16 11:20 07/03/16 10:10 INR, PTT INR 1.20 (0.82-1.09) H 07/01/16 07:52 Problem List - Problems (1) Acute on chronic systolic (congestive) heart failure Code(s): I50.23 - ACUTE ON CHRONIC SYSTOLIC (CONGESTIVE) HEART FAILURE (2) Acute worsening of stage 3 chronic kidney disease Code(s): N18.3 - CHRONIC KIDNEY DISEASE, STAGE 3 (MODERATE) (3) Angina pectoris Code(s): I20.9 - ANGINA PECTORIS, UNSPECIFIED (4) CAD (coronary artery disease) Code(s): I25.10 - ATHSCL HEART DISEASE OF [place] CORONARY ARTERY W/O ANG PCTRS Qualifiers: Coronary Disease-Associated Artery/Lesion type: [place] artery Associated angina: without angina (5) Chronic kidney disease (CKD) Code(s): N18.9 - CHRONIC KIDNEY DISEASE, UNSPECIFIED Qualifiers: Chronic kidney disease stage: stage 3 (moderate) Qualified Code(s): N18.3 - Chronic kidney disease, stage 3 (moderate) (6) Congestive heart failure (CHF) Code(s): I50.9 - HEART FAILURE, UNSPECIFIED Qualifiers: Congestive heart failure type: diastolic Congestive heart failure chronicity: acute on chronic Qualified Code(s): I50.33 - Acute on chronic diastolic (congestive) heart failure (7) HTN (hypertension) Code(s): I10 - ESSENTIAL (PRIMARY) HYPERTENSION Qualifiers: Hypertension type: essential hypertension Qualified Code(s): I10 - Essential (primary) hypertension (8) History of lobectomy of lung Code(s): Z98.89 - OTHER SPECIFIED POSTPROCEDURAL STATES * DO NOT USE * (9) History of permanent cardiac pacemaker placement Code(s): Z95.0 - PRESENCE OF CARDIAC PACEMAKER (10) Hypercholesteremia Code(s): E78.0 - PURE HYPERCHOLESTEROLEMIA * DO NOT USE * (11) Lung nodule Code(s): R91.1 - SOLITARY PULMONARY NODULE (12) Paroxysmal atrial fibrillation Code(s): I48.0 - PAROXYSMAL ATRIAL FIBRILLATION (13) COPD (chronic obstructive pulmonary disease) Code(s): J44.9 - CHRONIC OBSTRUCTIVE PULMONARY DISEASE, UNSPECIFIED Assessment/Plan IMP CHEST PAIN SYNDROME CHF COPD H/O LUNG CA S/P RESECTION RUL NODULE PAF S/P PPM 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 BLADDER CA GERD PLAN LASIX O2 INHALED BRONCHODILATORS MONITOR LYTES DAILY WTS Problem List - Problems (1) Acute on chronic systolic (congestive) heart failure Code(s): I50.23 - ACUTE ON CHRONIC SYSTOLIC (CONGESTIVE) HEART FAILURE (2) Acute worsening of stage 3 chronic kidney disease Code(s): N18.3 - CHRONIC KIDNEY DISEASE, STAGE 3 (MODERATE) (3) Angina pectoris Code(s): I20.9 - ANGINA PECTORIS, UNSPECIFIED (4) CAD (coronary artery disease) Code(s): I25.10 - ATHSCL HEART DISEASE OF [place] CORONARY ARTERY W/O ANG PCTRS Qualifiers: Coronary Disease-Associated Artery/Lesion type: [place] artery Associated angina: without angina (5) Chronic kidney disease (CKD) Code(s): N18.9 - CHRONIC KIDNEY DISEASE, UNSPECIFIED Qualifiers: Chronic kidney disease stage: stage 3 (moderate) Qualified Code(s): N18.3 - Chronic kidney disease, stage 3 (moderate) (6) Congestive heart failure (CHF) Code(s): I50.9 - HEART FAILURE, UNSPECIFIED Qualifiers: Congestive heart failure type: diastolic Congestive heart failure chronicity: acute on chronic Qualified Code(s): I50.33 - Acute on chronic diastolic (congestive) heart failure (7) HTN (hypertension) Code(s): I10 - ESSENTIAL (PRIMARY) HYPERTENSION Qualifiers: Hypertension type: essential hypertension Qualified Code(s): I10 - Essential (primary) hypertension (8) History of lobectomy of lung Code(s): Z98.89 - OTHER SPECIFIED POSTPROCEDURAL STATES * DO NOT USE * (9) History of permanent cardiac pacemaker placement Code(s): Z95.0 - PRESENCE OF CARDIAC PACEMAKER (10) Hypercholesteremia Code(s): E78.0 - PURE HYPERCHOLESTEROLEMIA * DO NOT USE * (11) Lung nodule Code(s): R91.1 - SOLITARY PULMONARY NODULE (12) Paroxysmal atrial fibrillation Code(s): I48.0 - PAROXYSMAL ATRIAL FIBRILLATION (13) COPD (chronic obstructive pulmonary disease) Code(s): J44.9 - CHRONIC OBSTRUCTIVE PULMONARY DISEASE, UNSPECIFIED
[2016-07-03] MEDS: ATORVASTATIN CA 10 MG TABLET (FP) PO SCH (21:16)
[2016-07-03] MEDS: METOPROLOL SUCCINATE 100 MG TAB.SR.24H (FP) PO SCH (21:16)
[2016-07-04] MEDS: SODIUM BICARBONATE 650 MG TABLET PO SCH ×3 (06:17→22:03)
[2016-07-04] MEDS: ISOSORBIDE MONONITRATE 60 MG TAB.SR.24H (FP) PO SCH (09:43)
[2016-07-04] MEDS: HEPARIN NA (PORCINE) 5,000 UNITS/ML 1ML VIAL SQ SCH ×2 (09:43→22:03)
[2016-07-04] MEDS: FUROSEMIDE 40 MG TABLET (FP) PO SCH (09:43)
--- NOTE | 2016-07-04 10:39 | PN ---
Progress Note, Physician Chief Complaint: HAD D/W PATIENT & DOES NOT FEEL GOOD C/O NO BM x 4 DAYS - Current Medication List Current Medications: Active Medications Acetaminophen (Tylenol -) 650 mg PO Q4H PRN PRN Reason: FEVER OR PAIN Last Admin: 07/03/16 18:00 Dose: 650 mg Albuterol/Ipratropium (Duoneb -) 1 amp NEB Q4H PRN PRN Reason: SHORTNESS OF BREATH Last Admin: 07/01/16 22:14 Dose: 1 amp Atorvastatin Calcium (Lipitor -) 10 mg PO HS [facility] Last Admin: 07/03/16 21:16 Dose: 10 mg Furosemide (Lasix -) 40 mg PO DAILY [facility] Last Admin: 07/04/16 09:43 Dose: 40 mg Heparin Sodium (Porcine) (Heparin -) 5,000 unit SQ BID [facility] Last Admin: 07/04/16 09:43 Dose: 5,000 unit Isosorbide Mononitrate (Imdur -) 60 mg PO DAILY [facility] Last Admin: 07/04/16 09:43 Dose: 60 mg Metoprolol Succinate (Toprol Xl -) 100 mg PO [facility] Last Admin: 07/03/16 21:16 Dose: 100 mg Sodium Bicarbonate (Sodium Bicarbonate -) 650 mg PO TID [facility] Last Admin: 07/04/16 06:17 Dose: 650 mg - Objective Vital Signs: Vital Signs Temperature 98 F 07/04/16 06:25 Pulse Rate 85 07/04/16 06:25 Respiratory Rate 16 07/04/16 06:25 Blood Pressure 100/56 07/04/16 06:25 O2 Sat by Pulse Oximetry (%) 98 07/03/16 21:00 Constitutional: Yes: Calm HENT: Yes: WNL Neck: Yes: WNL Cardiovascular: Yes: WNL Respiratory: Yes: WNL Gastrointestinal: Yes: WNL Edema: No Labs: CBC, BMP 07/02/16 11:20 07/03/16 10:10 INR, PTT INR 1.20 (0.82-1.09) H 07/01/16 07:52 Problem List - Problems (1) UTI (urinary tract infection) Code(s): N39.0 - URINARY TRACT INFECTION, SITE NOT SPECIFIED Assessment/Plan (1) Acute on chronic systolic (congestive) heart failure Assessment/Plan: LASIX MONITOR LABS CARDIO ON BOARD Code(s): I50.23 - ACUTE ON CHRONIC SYSTOLIC (CONGESTIVE) HEART FAILURE (2) CAD (coronary artery disease) Assessment/Plan: FOLLOW CE -> NEG TELE Code(s): I25.10 - ATHSCL HEART DISEASE OF [place] CORONARY ARTERY W/O ANG PCTRS Qualifiers: Coronary Disease-Associated Artery/Lesion type: [place] artery Associated angina: without angina (3) Lung cancer Assessment/Plan: PULM CONSULT Code(s): C34.90 - MALIGNANT NEOPLASM OF UNSP PART OF UNSP BRONCHUS OR LUNG (4) Valvular heart disease Assessment/Plan: MOD TO SEVERE PER CARDIO--WILL D/W CARDIO D/W PT AND FAMILY Code(s): I38 - ENDOCARDITIS, VALVE UNSPECIFIED (5) UTI (urinary tract infection) Code(s): N39.0 - URINARY TRACT INFECTION, SITE NOT SPECIFIED WBC ELEVATED UCx +jorge MULTIPLE DRUG ALLERGY ID CONSULTED PASTOR PECK
--- NOTE | 2016-07-04 11:21 | PN ---
Progress Note (short form) - Note Progress Note: RENAL Pt is awake and alert having pain in right flank Last Vital Signs Temp Pulse Resp BP Pulse Ox 97.2 F L 90 20 122/67 98 07/04/16 10:00 07/04/16 10:00 07/04/16 10:00 07/04/16 10:00 07/03/16 21:00 lungs clear cvs s1 s2 rr abd soft ext no edema neuro a+ox3 CBC, BMP 07/02/16 11:20 07/03/16 10:10 Current Medications Generic Name Dose Route Start Last Admin Trade Name Freq PRN Reason Stop Dose Admin Acetaminophen 650 mg 07/01/16 13:05 07/03/16 18:00 Tylenol - PO 650 mg Q4H PRN Administration FEVER OR PAIN Albuterol/Ipratropium 1 amp 07/01/16 14:18 07/01/16 22:14 Duoneb - NEB 1 amp Q4H PRN Administration SHORTNESS OF BREATH Atorvastatin Calcium 10 mg 07/01/16 22:00 07/03/16 21:16 Lipitor - PO 10 mg HS BATSHEVA Administration Furosemide 40 mg 07/03/16 10:00 07/04/16 09:43 Lasix - PO 40 mg DAILY BATSHEVA Administration Heparin Sodium (Porcine) 5,000 unit 07/01/16 13:15 07/04/16 09:43 Heparin - SQ 5,000 unit BID BATSHEVA Administration Isosorbide Mononitrate 60 mg 07/02/16 10:00 07/04/16 09:43 Imdur - PO 60 mg DAILY BATSHEVA Administration Metoprolol Succinate 100 mg 07/01/16 22:00 07/03/16 21:16 Toprol Xl - PO 100 mg HS BATSHEVA Administration Sodium Bicarbonate 650 mg 07/02/16 14:00 07/04/16 06:17 Sodium Bicarbonate - PO 650 mg TID BATSHEVA Administration Impression 1. CKD 2. solitary right kidney 3. hx of bladder cancer 4. hx of UTI 5. CHF 6. CAD 7. mod to severe AR 8. p-a-fib 9. hx PPM 10. anemia Plan - agree with CT scan without contrast -hold lasix for now - monitor renal function MV
--- NOTE | 2016-07-04 11:45 | PN ---
Progress Note, Physician History of Present Illness: PULMONARY ALERT,LESS DYSPNEIC,MILD CHEST DISCOMFORT - Current Medication List Current Medications: Active Medications Acetaminophen (Tylenol -) 650 mg PO Q4H PRN PRN Reason: FEVER OR PAIN Last Admin: 07/03/16 18:00 Dose: 650 mg Albuterol/Ipratropium (Duoneb -) 1 amp NEB Q4H PRN PRN Reason: SHORTNESS OF BREATH Last Admin: 07/01/16 22:14 Dose: 1 amp Atorvastatin Calcium (Lipitor -) 10 mg PO HS [facility] Last Admin: 07/03/16 21:16 Dose: 10 mg Heparin Sodium (Porcine) (Heparin -) 5,000 unit SQ BID [facility] Last Admin: 07/04/16 09:43 Dose: 5,000 unit Isosorbide Mononitrate (Imdur -) 60 mg PO DAILY [facility] Last Admin: 07/04/16 09:43 Dose: 60 mg Metoprolol Succinate (Toprol Xl -) 100 mg PO [facility] Last Admin: 07/03/16 21:16 Dose: 100 mg Sodium Bicarbonate (Sodium Bicarbonate -) 650 mg PO TID [facility] Last Admin: 07/04/16 06:17 Dose: 650 mg - Objective Vital Signs: Vital Signs Temperature 97.2 F L 07/04/16 10:00 Pulse Rate 90 07/04/16 10:00 Respiratory Rate 20 07/04/16 10:00 Blood Pressure 122/67 07/04/16 10:00 O2 Sat by Pulse Oximetry (%) 98 07/03/16 21:00 Constitutional: Yes: Well Nourished, Calm, Thin Eyes: Yes: WNL HENT: Yes: WNL Neck: Yes: WNL Cardiovascular: Yes: Regular Rate and Rhythm, S1, S2 Respiratory: Yes: Diminished Gastrointestinal: Yes: Normal Bowel Sounds, Soft Extremities: Yes: WNL Edema: No Labs: Problem List - Problems (1) Acute on chronic systolic (congestive) heart failure Code(s): I50.23 - ACUTE ON CHRONIC SYSTOLIC (CONGESTIVE) HEART FAILURE (2) Acute worsening of stage 3 chronic kidney disease Code(s): N18.3 - CHRONIC KIDNEY DISEASE, STAGE 3 (MODERATE) (3) Angina pectoris Code(s): I20.9 - ANGINA PECTORIS, UNSPECIFIED (4) CAD (coronary artery disease) Code(s): I25.10 - ATHSCL HEART DISEASE OF [place] CORONARY ARTERY W/O ANG PCTRS Qualifiers: Coronary Disease-Associated Artery/Lesion type: [place] artery Associated angina: without angina (5) Chronic kidney disease (CKD) Code(s): N18.9 - CHRONIC KIDNEY DISEASE, UNSPECIFIED Qualifiers: Chronic kidney disease stage: stage 3 (moderate) Qualified Code(s): N18.3 - Chronic kidney disease, stage 3 (moderate) (6) Congestive heart failure (CHF) Code(s): I50.9 - HEART FAILURE, UNSPECIFIED Qualifiers: Congestive heart failure type: diastolic Congestive heart failure chronicity: acute on chronic Qualified Code(s): I50.33 - Acute on chronic diastolic (congestive) heart failure (7) HTN (hypertension) Code(s): I10 - ESSENTIAL (PRIMARY) HYPERTENSION Qualifiers: Hypertension type: essential hypertension Qualified Code(s): I10 - Essential (primary) hypertension (8) History of lobectomy of lung Code(s): Z98.89 - OTHER SPECIFIED POSTPROCEDURAL STATES * DO NOT USE * (9) History of permanent cardiac pacemaker placement Code(s): Z95.0 - PRESENCE OF CARDIAC PACEMAKER (10) Hypercholesteremia Code(s): E78.0 - PURE HYPERCHOLESTEROLEMIA * DO NOT USE * (11) Lung nodule Code(s): R91.1 - SOLITARY PULMONARY NODULE (12) Paroxysmal atrial fibrillation Code(s): I48.0 - PAROXYSMAL ATRIAL FIBRILLATION (13) COPD (chronic obstructive pulmonary disease) Code(s): J44.9 - CHRONIC OBSTRUCTIVE PULMONARY DISEASE, UNSPECIFIED Assessment/Plan IMP CHEST PAIN SYNDROME CHF COPD H/O LUNG CA S/P RESECTION RUL NODULE PAF S/P PPM 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 BLADDER CA GERD PLAN LASIX O2 INHALED BRONCHODILATORS MONITOR LYTES DAILY WTS Problem List - Problems (1) Acute on chronic systolic (congestive) heart failure Code(s): I50.23 - ACUTE ON CHRONIC SYSTOLIC (CONGESTIVE) HEART FAILURE (2) Acute worsening of stage 3 chronic kidney disease Code(s): N18.3 - CHRONIC KIDNEY DISEASE, STAGE 3 (MODERATE) (3) Angina pectoris Code(s): I20.9 - ANGINA PECTORIS, UNSPECIFIED (4) CAD (coronary artery disease) Code(s): I25.10 - ATHSCL HEART DISEASE OF [place] CORONARY ARTERY W/O ANG PCTRS Qualifiers: Coronary Disease-Associated Artery/Lesion type: [place] artery Associated angina: without angina (5) Chronic kidney disease (CKD) Code(s): N18.9 - CHRONIC KIDNEY DISEASE, UNSPECIFIED Qualifiers: Chronic kidney disease stage: stage 3 (moderate) Qualified Code(s): N18.3 - Chronic kidney disease, stage 3 (moderate) (6) Congestive heart failure (CHF) Code(s): I50.9 - HEART FAILURE, UNSPECIFIED Qualifiers: Congestive heart failure type: diastolic Congestive heart failure chronicity: acute on chronic Qualified Code(s): I50.33 - Acute on chronic diastolic (congestive) heart failure (7) HTN (hypertension) Code(s): I10 - ESSENTIAL (PRIMARY) HYPERTENSION Qualifiers: Hypertension type: essential hypertension Qualified Code(s): I10 - Essential (primary) hypertension (8) History of lobectomy of lung Code(s): Z98.89 - OTHER SPECIFIED POSTPROCEDURAL STATES * DO NOT USE * (9) History of permanent cardiac pacemaker placement Code(s): Z95.0 - PRESENCE OF CARDIAC PACEMAKER (10) Hypercholesteremia Code(s): E78.0 - PURE HYPERCHOLESTEROLEMIA * DO NOT USE * (11) Lung nodule Code(s): R91.1 - SOLITARY PULMONARY NODULE (12) Paroxysmal atrial fibrillation Code(s): I48.0 - PAROXYSMAL ATRIAL FIBRILLATION (13) COPD (chronic obstructive pulmonary disease) Code(s): J44.9 - CHRONIC OBSTRUCTIVE PULMONARY DISEASE, UNSPECIFIED
--- NOTE | 2016-07-04 11:46 | PN ---
Progress Note (short form) - Note Progress Note: ID Consult dictated
--- NOTE | 2016-07-04 13:48 | PN ---
Progress Note, Physician Chief Complaint: Events noted Complains of weakness Less shortness of breath today History of Present Illness: Patient was seen and examined. Awake and alert. Chart was reviewed Denies chest pain or palpitations. Less SOB, but feels weak and loss of appetite - Current Medication List Current Medications: Active Medications Acetaminophen (Tylenol -) 650 mg PO Q4H PRN PRN Reason: FEVER OR PAIN Last Admin: 07/03/16 18:00 Dose: 650 mg Albuterol/Ipratropium (Duoneb -) 1 amp NEB Q4H PRN PRN Reason: SHORTNESS OF BREATH Last Admin: 07/01/16 22:14 Dose: 1 amp Atorvastatin Calcium (Lipitor -) 10 mg PO HS [facility] Last Admin: 07/03/16 21:16 Dose: 10 mg Heparin Sodium (Porcine) (Heparin -) 5,000 unit SQ BID [facility] Last Admin: 07/04/16 09:43 Dose: 5,000 unit Aztreonam 1 gm/ Dextrose 50 mls @ 100 mls/hr IVPB DAILY [facility] PRN Reason: Protocol Isosorbide Mononitrate (Imdur -) 60 mg PO DAILY [facility] Last Admin: 07/04/16 09:43 Dose: 60 mg Metoprolol Succinate (Toprol Xl -) 100 mg PO HS [facility] Last Admin: 07/03/16 21:16 Dose: 100 mg Sodium Bicarbonate (Sodium Bicarbonate -) 650 mg PO TID [facility] Last Admin: 07/04/16 06:17 Dose: 650 mg - Objective Vital Signs: Vital Signs Temperature 97.2 F L 07/04/16 10:00 Pulse Rate 90 07/04/16 10:00 Respiratory Rate 20 07/04/16 10:00 Blood Pressure 122/67 07/04/16 10:00 O2 Sat by Pulse Oximetry (%) 98 07/03/16 21:00 Neck: Yes: Supple Cardiovascular: Yes: Regular Rate and Rhythm, Murmur (Soft SM), S1, S2 Respiratory: Yes: Diminished Gastrointestinal: Yes: Normal Bowel Sounds, Soft. No: Tenderness Edema: No Additional Findings/Remarks: - Review of Systems Constitutional: denies: Chills, Fever Cardiovascular: denies: Chest Pain, Palpitations, (+) Shortness of Breath Respiratory: denies: Cough, Hemoptysis, Orthopnea, PND, (+) SOB, SOB on Exertion Gastrointestinal: denies: Melena, Nausea. denies: Abdominal Pain, Constipation , Diarrhea, Rectal Bleeding, Vomiting Genitourinary: denies: Dysuria Neurological: denies: Syncope. denies: Dizziness, Headache, Seizure Labs: CBC, BMP 07/02/16 11:20 07/03/16 10:10 INR, PTT INR 1.20 (0.82-1.09) H 07/01/16 07:52 - ....Imaging Cat Scan: Report Reviewed (Abdomen CT as noted) Problem List - Problems (1) Acute on chronic systolic (congestive) heart failure Code(s): I50.23 - ACUTE ON CHRONIC SYSTOLIC (CONGESTIVE) HEART FAILURE (2) Angina pectoris Code(s): I20.9 - ANGINA PECTORIS, UNSPECIFIED (3) Aortic regurgitation Code(s): I35.1 - NONRHEUMATIC AORTIC (VALVE) INSUFFICIENCY Qualifiers: Cardiac valve disease etiology: nonrheumatic Qualified Code(s): I35.1 - Nonrheumatic aortic (valve) insufficiency (4) CAD (coronary artery disease) Code(s): I25.10 - ATHSCL HEART DISEASE OF [place] CORONARY ARTERY W/O ANG PCTRS Qualifiers: Coronary Disease-Associated Artery/Lesion type: [place] artery Associated angina: without angina (5) COPD (chronic obstructive pulmonary disease) Code(s): J44.9 - CHRONIC OBSTRUCTIVE PULMONARY DISEASE, UNSPECIFIED Qualifiers : COPD type: unspecified COPD Qualified Code(s): J44.9 - Chronic obstructive pulmonary disease, unspecified (6) Chronic kidney disease (CKD) Code(s): N18.9 - CHRONIC KIDNEY DISEASE, UNSPECIFIED Qualifiers: Chronic kidney disease stage: stage 3 (moderate) Qualified Code(s): N18.3 - Chronic kidney disease, stage 3 (moderate) (7) Congestive heart failure (CHF) Code(s): I50.9 - HEART FAILURE, UNSPECIFIED Qualifiers: Congestive heart failure type: diastolic Congestive heart failure chronicity: acute on chronic Qualified Code(s): I50.33 - Acute on chronic diastolic (congestive) heart failure (8) HTN (hypertension) Code(s): I10 - ESSENTIAL (PRIMARY) HYPERTENSION Qualifiers: Hypertension type: essential hypertension Qualified Code(s): I10 - Essential (primary) hypertension (9) History of permanent cardiac pacemaker placement Code(s): Z95.0 - PRESENCE OF CARDIAC PACEMAKER (10) Hypercholesteremia Code(s): E78.0 - PURE HYPERCHOLESTEROLEMIA * DO NOT USE * (11) Left ventricular dysfunction Code(s): I51.9 - HEART DISEASE, UNSPECIFIED (12) Mitral regurgitation Code(s): I34.0 - NONRHEUMATIC MITRAL (VALVE) INSUFFICIENCY Qualifiers: Cardiac valve disease etiology: nonrheumatic Qualified Code(s): I34.0 - Nonrheumatic mitral (valve) insufficiency (13) Paroxysmal atrial fibrillation Code(s): I48.0 - PAROXYSMAL ATRIAL FIBRILLATION (14) Pulmonary hypertension Code(s): I27.2 - OTHER SECONDARY PULMONARY HYPERTENSION (15) Sick sinus syndrome Code(s): I49.5 - SICK SINUS SYNDROME (16) Tricuspid regurgitation Code(s): I07.1 - RHEUMATIC TRICUSPID INSUFFICIENCY Qualifiers: Cardiac valve disease etiology: nonrheumatic Qualified Code(s): I36.1 - Nonrheumatic tricuspid (valve) insufficiency Assessment/Plan 1. Acute on chronic systolic failure with h/o mod-severe aortic valve regurgitation 2. Single vessel CAD with negative nuclear myocardial perfusion imaging 3. PAF not on a/c due to patient refusal and recurrent hematuria 4. AV block s/p PPM (Medtronic) 5. HCVD 6. Mild aortic root dilatation 7. 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 Bladder cancer post TURBT with recurrent hematuria 9. Anemia of chronic kidney disease 10. Atypical chest pain syndrome PLAN: 1. Continue Toprol XL 100 mg qd, Imdur 60 mg qd and Lipitor 10 mg qd (titrate as tolerated) 2. Transthoracic echocardiography revealed moderate LV systolic dysfunction, moderate RV systolic dysfunction, severe MR, severe TR, moderate to severe AR and moderate TR 3. Imdur may be uptitrated or Ranexa may be added if clinically indicated 4. Diuretic has been stopped, but may be used as needed. Monitor renal function and electrolytes Further plans are to follow Donn Batres MD
[2016-07-04] MEDS: AZTREONAM 1 GM in DEXTROSE 5%-WATER - 50 ML IVPB SCH (14:14)
[2016-07-04] MEDS: POLYETHYLENE GLYCOL 3350 119 GM BTL PO SCH (14:24)
[2016-07-04] MEDS: ACETAMINOPHEN 325 MG TABLET (FP) PO PRN (22:00)
[2016-07-04] MEDS: METOPROLOL SUCCINATE 100 MG TAB.SR.24H (FP) PO SCH (22:03)
[2016-07-04] MEDS: ATORVASTATIN CA 10 MG TABLET (FP) PO SCH (22:03)
[2016-07-05] MEDS: SODIUM BICARBONATE 650 MG TABLET PO SCH ×3 (05:15→21:32)
[2016-07-05 07:28] LABS: BASOPHIL 0.5 % (0-2.0); EOSINOPHIL 0.6 % (0-4.5); MCHC 31.1 g/dl (32.0-35.9); MEAN CELL VOLUME 61.7 fl (80-96); MEAN PLT VOLUME 9.7 fl (7.5-11.1); NEUTROPHILS 76.5 % (42.8-82.8); PLATELET COUNT 242 K/MM3 (134-434); WHITE BLOOD COUNT 11.3 K/mm3 (4.0-10.0)
[2016-07-05 07:41] LABS: MCH 19.2 pg (25.7-33.7)
[2016-07-05 08:01] LABS: ALBUMIN 2.7 g/dl (3.4-5.0); CALCIUM 8.8 mg/dL (8.5-10.1)
[2016-07-05 08:04] LABS: BILIRUBIN,TOTAL 0.3 mg/dL (0.2-1.0); CREATININE 3.7 mg/dL (0.7-1.3); TOT PROT 6.7 g/dl (6.4-8.2)
[2016-07-05] MEDS: HEPARIN NA (PORCINE) 5,000 UNITS/ML 1ML VIAL SQ SCH ×2 (09:09→21:32)
[2016-07-05] MEDS: AZTREONAM 1 GM in DEXTROSE 5%-WATER - 50 ML IVPB SCH (09:09)
[2016-07-05] MEDS: POLYETHYLENE GLYCOL 3350 119 GM BTL PO SCH (09:10)
--- NOTE | 2016-07-05 09:28 | PN ---
Progress Note, Physician Chief Complaint: HAD D/W /PATIENT/FAMILY CONCERNED ABOUT PAST REACTION TO A DIURETIC AT HOME -> NO REACTION ON LASIX ASKING IF PATIENT WILL CONTINUE PROCRIT -> RENAL ON CASE - Current Medication List Current Medications: Active Medications Acetaminophen (Tylenol -) 650 mg PO Q4H PRN PRN Reason: FEVER OR PAIN Last Admin: 07/04/16 22:00 Dose: 650 mg Albuterol/Ipratropium (Duoneb -) 1 amp NEB Q4H PRN PRN Reason: SHORTNESS OF BREATH Last Admin: 07/01/16 22:14 Dose: 1 amp Atorvastatin Calcium (Lipitor -) 10 mg PO HS [facility] Last Admin: 07/04/16 22:03 Dose: 10 mg Heparin Sodium (Porcine) (Heparin -) 5,000 unit SQ BID [facility] Last Admin: 07/05/16 09:09 Dose: 5,000 unit Aztreonam 1 gm/ Dextrose 50 mls @ 100 mls/hr IVPB DAILY [facility] PRN Reason: Protocol Last Admin: 07/05/16 09:09 Dose: 100 mls/hr Isosorbide Mononitrate (Imdur -) 60 mg PO DAILY [facility] Last Admin: 07/04/16 09:43 Dose: 60 mg Metoprolol Succinate (Toprol Xl -) 100 mg PO HS [facility] Last Admin: 07/04/16 22:03 Dose: 100 mg Polyethylene Glycol (Miralax (For Daily Use) -) 17 gm PO DAILY [facility] Last Admin: 07/05/16 09:10 Dose: 17 gm Sodium Bicarbonate (Sodium Bicarbonate -) 650 mg PO TID [facility] Last Admin: 07/05/16 05:15 Dose: 650 mg - Objective Vital Signs: Vital Signs Temperature 97.9 F 07/05/16 06:00 Pulse Rate 85 07/05/16 06:00 Respiratory Rate 18 07/05/16 06:00 Blood Pressure 97/53 07/05/16 06:00 O2 Sat by Pulse Oximetry (%) 98 07/04/16 21:00 Constitutional: Yes: Calm Neck: Yes: WNL Cardiovascular: Yes: WNL Respiratory: Yes: WNL Gastrointestinal: Yes: WNL Edema: No Labs: CBC, BMP 07/05/16 05:35 07/05/16 05:35 INR, PTT INR 1.20 (0.82-1.09) H 07/01/16 07:52 Problem List - Problems (1) UTI (urinary tract infection) Code(s): N39.0 - URINARY TRACT INFECTION, SITE NOT SPECIFIED (2) CAD (coronary artery disease) Code(s): I25.10 - ATHSCL HEART DISEASE OF [place] CORONARY ARTERY W/O ANG PCTRS Qualifiers: Coronary Disease-Associated Artery/Lesion type: [place] artery Associated angina: without angina (3) Chronic kidney disease (CKD) Code(s): N18.9 - CHRONIC KIDNEY DISEASE, UNSPECIFIED Qualifiers: Chronic kidney disease stage: stage 3 (moderate) Qualified Code(s): N18.3 - Chronic kidney disease, stage 3 (moderate) (4) Congestive heart failure (CHF) Code(s): I50.9 - HEART FAILURE, UNSPECIFIED Qualifiers: Congestive heart failure type: diastolic Congestive heart failure chronicity: acute on chronic Qualified Code(s): I50.33 - Acute on chronic diastolic (congestive) heart failure (5) HTN (hypertension) Code(s): I10 - ESSENTIAL (PRIMARY) HYPERTENSION Qualifiers: Hypertension type: essential hypertension Qualified Code(s): I10 - Essential (primary) hypertension (6) Hydronephrosis Code(s): N13.30 - UNSPECIFIED HYDRONEPHROSIS (7) S/p nephrectomy Code(s): Z90.5 - ACQUIRED ABSENCE OF KIDNEY Assessment/Plan (1) Acute on chronic systolic (congestive) heart failure Assessment/Plan: LASIX STOPPED -> WILL D/W PCP IF HAD PAST REACTION TO DIURETIC AT HOME MONITOR LABS CARDIO ON BOARD Code(s): I50.23 - ACUTE ON CHRONIC SYSTOLIC (CONGESTIVE) HEART FAILURE (2) CAD (coronary artery disease) Assessment/Plan: FOLLOW CE -> NEG TELE Code(s): I25.10 - ATHSCL HEART DISEASE OF [place] CORONARY ARTERY W/O ANG PCTRS Qualifiers: Coronary Disease-Associated Artery/Lesion type: [place] artery Associated angina: without angina (3) Lung cancer Assessment/Plan: PULM CONSULT Code(s): C34.90 - MALIGNANT NEOPLASM OF UNSP PART OF UNSP BRONCHUS OR LUNG (4) Valvular heart disease Assessment/Plan: MOD TO SEVERE CARDIO ON CASE Code(s): I38 - ENDOCARDITIS, VALVE UNSPECIFIED (5) UTI (urinary tract infection) Code(s): N39.0 - URINARY TRACT INFECTION, SITE NOT SPECIFIED WBC ELEVATED UCx +jorge MULTIPLE DRUG ALLERGY ID CONSULTED CT SHOWS WORSE R HYDRONEPHROSIS. BLADDER NODULE. PROSTATE HYPODENSITY? 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
[2016-07-05 09:38] LABS: HYPOCHROMIA 2+; PLATELET COMMENT2 NO CLOTTING DETECTED; PLATELET COMMENT3 FEW LARGE PLTS; PLATELET ESTIMATE ADEQUATE (NORMAL); POIKILOCYTOSIS 2+; POLYCHROMASIA 1+
[2016-07-05 09:39] LABS: ANISOCYTOSIS 2+; MICROCYTOSIS 2+; SPHEROCYTE 1+; TEAR DROP CELLS 1+
[2016-07-05] MEDS: ISOSORBIDE MONONITRATE 60 MG TAB.SR.24H (FP) PO SCH (10:00)
--- NOTE | 2016-07-05 10:05 | PN ---
Progress Note, Physician Chief Complaint: Events noted Complains of weakness Less shortness of breath and feels better History of Present Illness: Patient was seen and examined. Awake and alert. Chart was reviewed Denies chest pain or palpitations. Less SOB. Weakness and loss of appetite persists - Current Medication List Current Medications: Active Medications Acetaminophen (Tylenol -) 650 mg PO Q4H PRN PRN Reason: FEVER OR PAIN Last Admin: 07/04/16 22:00 Dose: 650 mg Albuterol/Ipratropium (Duoneb -) 1 amp NEB Q4H PRN PRN Reason: SHORTNESS OF BREATH Last Admin: 07/01/16 22:14 Dose: 1 amp Atorvastatin Calcium (Lipitor -) 10 mg PO HS [facility] Last Admin: 07/04/16 22:03 Dose: 10 mg Heparin Sodium (Porcine) (Heparin -) 5,000 unit SQ BID [facility] Last Admin: 07/05/16 09:09 Dose: 5,000 unit Aztreonam 1 gm/ Dextrose 50 mls @ 100 mls/hr IVPB DAILY [facility] PRN Reason: Protocol Last Admin: 07/05/16 09:09 Dose: 100 mls/hr Isosorbide Mononitrate (Imdur -) 60 mg PO DAILY [facility] Last Admin: 07/04/16 09:43 Dose: 60 mg Metoprolol Succinate (Toprol Xl -) 100 mg PO [facility] Last Admin: 07/04/16 22:03 Dose: 100 mg Polyethylene Glycol (Miralax (For Daily Use) -) 17 gm PO DAILY [facility] Last Admin: 07/05/16 09:10 Dose: 17 gm Sodium Bicarbonate (Sodium Bicarbonate -) 650 mg PO TID [facility] Last Admin: 07/05/16 05:15 Dose: 650 mg - Objective Vital Signs: Vital Signs Temperature 97.9 F 07/05/16 06:00 Pulse Rate 85 07/05/16 06:00 Respiratory Rate 18 07/05/16 06:00 Blood Pressure 97/53 07/05/16 06:00 O2 Sat by Pulse Oximetry (%) 98 07/04/16 21:00 Neck: Yes: Supple Cardiovascular: Yes: Regular Rate and Rhythm, Murmur (Soft SM), S1, S2 Respiratory: Yes: Diminished Gastrointestinal: Yes: Normal Bowel Sounds, Soft. No: Tenderness Edema: No Additional Findings/Remarks: - Review of Systems Constitutional: denies: Chills, Fever Cardiovascular: denies: Chest Pain, Palpitations, (+) Shortness of Breath Respiratory: denies: Cough, Hemoptysis, Orthopnea, PND, (+) SOB, SOB on Exertion Gastrointestinal: denies: Melena, Nausea. denies: Abdominal Pain, Constipation , Diarrhea, Rectal Bleeding, Vomiting Genitourinary: denies: Dysuria Neurological: denies: Syncope. denies: Dizziness, Headache, Seizure Labs: CBC, BMP 07/05/16 05:35 07/05/16 05:35 INR, PTT INR 1.20 (0.82-1.09) H 07/01/16 07:52 Problem List - Problems (1) Acute on chronic systolic (congestive) heart failure Code(s): I50.23 - ACUTE ON CHRONIC SYSTOLIC (CONGESTIVE) HEART FAILURE (2) Angina pectoris Code(s): I20.9 - ANGINA PECTORIS, UNSPECIFIED (3) Aortic regurgitation Code(s): I35.1 - NONRHEUMATIC AORTIC (VALVE) INSUFFICIENCY Qualifiers: Cardiac valve disease etiology: nonrheumatic Qualified Code(s): I35.1 - Nonrheumatic aortic (valve) insufficiency (4) CAD (coronary artery disease) Code(s): I25.10 - ATHSCL HEART DISEASE OF [place] CORONARY ARTERY W/O ANG PCTRS Qualifiers: Coronary Disease-Associated Artery/Lesion type: [place] artery Associated angina: without angina (5) COPD (chronic obstructive pulmonary disease) Code(s): J44.9 - CHRONIC OBSTRUCTIVE PULMONARY DISEASE, UNSPECIFIED Qualifiers : COPD type: unspecified COPD Qualified Code(s): J44.9 - Chronic obstructive pulmonary disease, unspecified (6) Chronic kidney disease (CKD) Code(s): N18.9 - CHRONIC KIDNEY DISEASE, UNSPECIFIED Qualifiers: Chronic kidney disease stage: stage 3 (moderate) Qualified Code(s): N18.3 - Chronic kidney disease, stage 3 (moderate) (7) Congestive heart failure (CHF) Code(s): I50.9 - HEART FAILURE, UNSPECIFIED Qualifiers: Congestive heart failure type: diastolic Congestive heart failure chronicity: acute on chronic Qualified Code(s): I50.33 - Acute on chronic diastolic (congestive) heart failure (8) HTN (hypertension) Code(s): I10 - ESSENTIAL (PRIMARY) HYPERTENSION Qualifiers: Hypertension type: essential hypertension Qualified Code(s): I10 - Essential (primary) hypertension (9) History of permanent cardiac pacemaker placement Code(s): Z95.0 - PRESENCE OF CARDIAC PACEMAKER (10) Hypercholesteremia Code(s): E78.0 - PURE HYPERCHOLESTEROLEMIA * DO NOT USE * (11) Left ventricular dysfunction Code(s): I51.9 - HEART DISEASE, UNSPECIFIED (12) Mitral regurgitation Code(s): I34.0 - NONRHEUMATIC MITRAL (VALVE) INSUFFICIENCY Qualifiers: Cardiac valve disease etiology: nonrheumatic Qualified Code(s): I34.0 - Nonrheumatic mitral (valve) insufficiency (13) Paroxysmal atrial fibrillation Code(s): I48.0 - PAROXYSMAL ATRIAL FIBRILLATION (14) Pulmonary hypertension Code(s): I27.2 - OTHER SECONDARY PULMONARY HYPERTENSION (15) Sick sinus syndrome Code(s): I49.5 - SICK SINUS SYNDROME (16) Tricuspid regurgitation Code(s): I07.1 - RHEUMATIC TRICUSPID INSUFFICIENCY Qualifiers: Cardiac valve disease etiology: nonrheumatic Qualified Code(s): I36.1 - Nonrheumatic tricuspid (valve) insufficiency Assessment/Plan 1. Acute on chronic systolic failure with h/o mod-severe aortic valve regurgitation 2. Mitral valve and tricuspid valve disease 3. Single vessel CAD with negative nuclear myocardial perfusion imaging 4. 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 HCVD 8. Mild aortic root dilatation 9. 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 Continue Toprol XL 100 mg qd, Imdur 60 mg qd and Lipitor 10 mg qd (titrate as tolerated) 2. Transthoracic echocardiography revealed moderate LV systolic dysfunction, moderate RV systolic dysfunction, severe MR, severe TR, moderate to severe AR and moderate TR 3. Imdur may be uptitrated or Ranexa may be added if clinically indicated 4. Diuretic may be used as needed. Monitor renal function and electrolytes Further plans are to follow Donn Batres MD
--- NOTE | 2016-07-05 11:18 | PN ---
Progress Note, Physician History of Present Illness: PULMONARY ALERT,FEELING BETTER,LESS CP,,LESS - Current Medication List Current Medications: Active Medications Acetaminophen (Tylenol -) 650 mg PO Q4H PRN PRN Reason: FEVER OR PAIN Last Admin: 07/04/16 22:00 Dose: 650 mg Albuterol/Ipratropium (Duoneb -) 1 amp NEB Q4H PRN PRN Reason: SHORTNESS OF BREATH Last Admin: 07/01/16 22:14 Dose: 1 amp Atorvastatin Calcium (Lipitor -) 10 mg PO HS [facility] Last Admin: 07/04/16 22:03 Dose: 10 mg Heparin Sodium (Porcine) (Heparin -) 5,000 unit SQ BID [facility] Last Admin: 07/05/16 09:09 Dose: 5,000 unit Aztreonam 1 gm/ Dextrose 50 mls @ 100 mls/hr IVPB DAILY [facility] PRN Reason: Protocol Last Admin: 07/05/16 09:09 Dose: 100 mls/hr Isosorbide Mononitrate (Imdur -) 60 mg PO DAILY [facility] Last Admin: 07/04/16 09:43 Dose: 60 mg Metoprolol Succinate (Toprol Xl -) 100 mg PO HS [facility] Last Admin: 07/04/16 22:03 Dose: 100 mg Polyethylene Glycol (Miralax (For Daily Use) -) 17 gm PO DAILY [facility] Last Admin: 07/05/16 09:10 Dose: 17 gm Sodium Bicarbonate (Sodium Bicarbonate -) 650 mg PO TID [facility] Last Admin: 07/05/16 05:15 Dose: 650 mg - Objective Vital Signs: Vital Signs Temperature 97.4 F L 07/05/16 10:00 Pulse Rate 84 07/05/16 10:00 Respiratory Rate 20 07/05/16 10:00 Blood Pressure 98/54 07/05/16 10:00 O2 Sat by Pulse Oximetry (%) 97 07/05/16 09:00 Constitutional: Yes: Calm, Thin Eyes: Yes: WNL HENT: Yes: WNL Neck: Yes: WNL Cardiovascular: Yes: Regular Rate and Rhythm, S1, S2 Respiratory: Yes: Diminished Gastrointestinal: Yes: Normal Bowel Sounds, Soft Extremities: Yes: WNL Edema: No Labs: CBC, BMP 07/05/16 05:35 07/05/16 05:35 INR, PTT INR 1.20 (0.82-1.09) H 07/01/16 07:52 Problem List - Problems (1) Acute on chronic systolic (congestive) heart failure Code(s): I50.23 - ACUTE ON CHRONIC SYSTOLIC (CONGESTIVE) HEART FAILURE (2) Acute worsening of stage 3 chronic kidney disease Code(s): N18.3 - CHRONIC KIDNEY DISEASE, STAGE 3 (MODERATE) (3) Angina pectoris Code(s): I20.9 - ANGINA PECTORIS, UNSPECIFIED (4) CAD (coronary artery disease) Code(s): I25.10 - ATHSCL HEART DISEASE OF [place] CORONARY ARTERY W/O ANG PCTRS Qualifiers: Coronary Disease-Associated Artery/Lesion type: [place] artery Associated angina: without angina (5) Chronic kidney disease (CKD) Code(s): N18.9 - CHRONIC KIDNEY DISEASE, UNSPECIFIED Qualifiers: Chronic kidney disease stage: stage 3 (moderate) Qualified Code(s): N18.3 - Chronic kidney disease, stage 3 (moderate) (6) Congestive heart failure (CHF) Code(s): I50.9 - HEART FAILURE, UNSPECIFIED Qualifiers: Congestive heart failure type: diastolic Congestive heart failure chronicity: acute on chronic Qualified Code(s): I50.33 - Acute on chronic diastolic (congestive) heart failure (7) HTN (hypertension) Code(s): I10 - ESSENTIAL (PRIMARY) HYPERTENSION Qualifiers: Hypertension type: essential hypertension Qualified Code(s): I10 - Essential (primary) hypertension (8) History of lobectomy of lung Code(s): Z98.89 - OTHER SPECIFIED POSTPROCEDURAL STATES * DO NOT USE * (9) History of permanent cardiac pacemaker placement Code(s): Z95.0 - PRESENCE OF CARDIAC PACEMAKER (10) Hypercholesteremia Code(s): E78.0 - PURE HYPERCHOLESTEROLEMIA * DO NOT USE * (11) Lung nodule Code(s): R91.1 - SOLITARY PULMONARY NODULE (12) Paroxysmal atrial fibrillation Code(s): I48.0 - PAROXYSMAL ATRIAL FIBRILLATION (13) COPD (chronic obstructive pulmonary disease) Code(s): J44.9 - CHRONIC OBSTRUCTIVE PULMONARY DISEASE, UNSPECIFIED Qualifiers : COPD type: unspecified COPD Qualified Code(s): J44.9 - Chronic obstructive pulmonary disease, unspecified Assessment/Plan IMP CHEST PAIN SYNDROME IMPROVING CHF COPD H/O LUNG CA S/P RESECTION RUL NODULE PAF S/P PPM 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 BLADDER CA GERD PLAN ANTIBIOTICS O2 INHALED BRONCHODILATORS MONITOR LYTES DAILY WTS Problem List - Problems (1) Acute on chronic systolic (congestive) heart failure Code(s): I50.23 - ACUTE ON CHRONIC SYSTOLIC (CONGESTIVE) HEART FAILURE (2) Acute worsening of stage 3 chronic kidney disease Code(s): N18.3 - CHRONIC KIDNEY DISEASE, STAGE 3 (MODERATE) (3) Angina pectoris Code(s): I20.9 - ANGINA PECTORIS, UNSPECIFIED (4) CAD (coronary artery disease) Code(s): I25.10 - ATHSCL HEART DISEASE OF [place] CORONARY ARTERY W/O ANG PCTRS Qualifiers: Coronary Disease-Associated Artery/Lesion type: [place] artery Associated angina: without angina (5) Chronic kidney disease (CKD) Code(s): N18.9 - CHRONIC KIDNEY DISEASE, UNSPECIFIED Qualifiers: Chronic kidney disease stage: stage 3 (moderate) Qualified Code(s): N18.3 - Chronic kidney disease, stage 3 (moderate) (6) Congestive heart failure (CHF) Code(s): I50.9 - HEART FAILURE, UNSPECIFIED Qualifiers: Congestive heart failure type: diastolic Congestive heart failure chronicity: acute on chronic Qualified Code(s): I50.33 - Acute on chronic diastolic (congestive) heart failure (7) HTN (hypertension) Code(s): I10 - ESSENTIAL (PRIMARY) HYPERTENSION Qualifiers: Hypertension type: essential hypertension Qualified Code(s): I10 - Essential (primary) hypertension (8) History of lobectomy of lung Code(s): Z98.89 - OTHER SPECIFIED POSTPROCEDURAL STATES * DO NOT USE * (9) History of permanent cardiac pacemaker placement Code(s): Z95.0 - PRESENCE OF CARDIAC PACEMAKER (10) Hypercholesteremia Code(s): E78.0 - PURE HYPERCHOLESTEROLEMIA * DO NOT USE * (11) Lung nodule Code(s): R91.1 - SOLITARY PULMONARY NODULE (12) Paroxysmal atrial fibrillation Code(s): I48.0 - PAROXYSMAL ATRIAL FIBRILLATION (13) COPD (chronic obstructive pulmonary disease) Code(s): J44.9 - CHRONIC OBSTRUCTIVE PULMONARY DISEASE, UNSPECIFIED
--- NOTE | 2016-07-05 12:36 | PN ---
Progress Note (short form) - Note Progress Note: RENAL Pt is awake and alert having pain in right flank lungs clear cvs s1 s2 rr abd soft ext no edema neuro a+ox3 CBC, BMP 07/05/16 05:35 07/05/16 05:35 Current Medications Generic Name Dose Route Start Last Admin Trade Name Freq PRN Reason Stop Dose Admin Acetaminophen 650 mg 07/01/16 13:05 07/04/16 22:00 Tylenol - PO 650 mg Q4H PRN Administration FEVER OR PAIN Albuterol/Ipratropium 1 amp 07/01/16 14:18 07/01/16 22:14 Duoneb - NEB 1 amp Q4H PRN Administration SHORTNESS OF BREATH Atorvastatin Calcium 10 mg 07/01/16 22:00 07/04/16 22:03 Lipitor - PO 10 mg HS BATSHEVA Administration Heparin Sodium (Porcine) 5,000 unit 07/01/16 13:15 07/05/16 09:09 Heparin - SQ 5,000 unit BID BATSHEVA Administration Aztreonam 1 gm/ Dextrose 50 mls @ 100 mls/hr 07/04/16 12:15 07/05/16 09:09 IVPB 100 mls/hr DAILY BATSHEVA Administration Protocol Isosorbide Mononitrate 60 mg 07/02/16 10:00 07/04/16 09:43 Imdur - PO 60 mg DAILY BATSHEVA Administration Metoprolol Succinate 100 mg 07/01/16 22:00 07/04/16 22:03 Toprol Xl - PO 100 mg HS BATSHEVA Administration Polyethylene Glycol 17 gm 07/04/16 14:00 07/05/16 09:10 Miralax (For Daily Use) - PO 17 gm DAILY BATSHEVA Administration Sodium Bicarbonate 650 mg 07/02/16 14:00 07/05/16 05:15 Sodium Bicarbonate - PO 650 mg TID BATSHEVA Administration Impression 1. CKD 2. solitary right kidney 3. hx of bladder cancer 4. hx of UTI 5. CHF 6. CAD 7. mod to severe AR 8. p-a-fib 9. hx PPM 10. anemia 11. increased hydronephrosis, bladder nodule Plan - urology follow - hold lasix for now - monitor renal function MV
[2016-07-05] MEDS: ACETAMINOPHEN 325 MG TABLET (FP) PO PRN (14:13)
--- NOTE | 2016-07-05 16:07 | CONS ---
DATE OF CONSULTATION: DATE OF DICTATION: 07/05/2016 The patient is an 89-year-old male with multiple medical problems, evaluated for urinary tract infection. The patient has a history of bladder cancer as well as kidney cancer, status post left nephrectomy, according to the notes. He had been seen as an outpatient in a urologist's office and was found to have a resistant urinary tract infection as well as right-sided hydronephrosis. He is now admitted to the hospital on July 01, 2016, with increasing shortness of breath and chest discomfort for 10 days. A urine analysis done on admission showed many white cells, urine culture is growing gram-negative rods. CAT scan of the abdomen and pelvis shows mild right hydronephrosis. He denies any dysuria or hematuria. He states he has had some right-sided flank pain. Past medical history positive for bladder cancer, lung cancer, COPD, paroxysmal atrial fibrillation, hyperlipidemia, hypertension, chronic kidney disease, coronary artery disease. PAST SURGICAL HISTORY: Status post left nephrectomy, history of lobectomy, permanent pacemaker. Allergies to PENICILLIN, SULFA, and LEVAQUIN. Patient reports developing some difficulty breathing and throat swelling after PENICILLIN approximately 25 years ago. He developed a rashes with SULFA and LEVAQUIN. Medications include Imdur, Toprol, Lipitor. SOCIAL HISTORY: Former smoker. Originally from [place], [place] the [place]. LABORATORY DATA: White count 10.3, creatinine 3.5. Urine analysis: 1591 white cells. PHYSICAL EXAMINATION: General: He is chronically ill appearing, not acutely toxic. Vital Signs: Temperature 97.9. Blood pressure 124/65. Pulse 84, regular. Respirations 20 per minute. Eyes: Sclerae anicteric. Heart Sounds: S1, S2. Lungs: Diminished breath sounds bilaterally. Abdomen: Soft. No tenderness elicited. No suprapubic or flank tenderness. Extremities: Positive for edema. IMPRESSION: 1. Urinary tract infection. 2. Possible right pyelonephritis. 3. Right hydronephrosis. 4. Multiple antibiotic allergies. 5. Chronic kidney disease, status post left nephrectomy. Pending identification of urine isolates, empiric antibiotic coverage with Azactam, adjusted for renal failure. Further recommendations pending culture results. Will follow. Thank you for the kind referral. NBA MATHEW M.D. [id number]
[2016-07-05] MEDS: ATORVASTATIN CA 10 MG TABLET (FP) PO SCH (21:32)
[2016-07-05] MEDS: METOPROLOL SUCCINATE 100 MG TAB.SR.24H (FP) PO SCH (21:32)
[2016-07-06] MEDS: ACETAMINOPHEN 325 MG TABLET (FP) PO PRN (04:01)
[2016-07-06] MEDS: SODIUM BICARBONATE 650 MG TABLET PO SCH ×3 (06:25→22:27)
--- NOTE | 2016-07-06 08:29 | PN ---
Progress Note, Physician History of Present Illness: SOME IMPROVEMENT STILL SOB ON EXERTION - Current Medication List Current Medications: Active Medications Acetaminophen (Tylenol -) 650 mg PO Q4H PRN PRN Reason: FEVER OR PAIN Last Admin: 07/06/16 04:01 Dose: 650 mg Albuterol/Ipratropium (Duoneb -) 1 amp NEB Q4H PRN PRN Reason: SHORTNESS OF BREATH Last Admin: 07/01/16 22:14 Dose: 1 amp Atorvastatin Calcium (Lipitor -) 10 mg PO [facility] Last Admin: 07/05/16 21:32 Dose: 10 mg Heparin Sodium (Porcine) (Heparin -) 5,000 unit SQ BID [facility] Last Admin: 07/05/16 21:32 Dose: 5,000 unit Aztreonam 1 gm/ Dextrose 50 mls @ 100 mls/hr IVPB DAILY [facility] PRN Reason: Protocol Last Admin: 07/05/16 09:09 Dose: 100 mls/hr Isosorbide Mononitrate (Imdur -) 60 mg PO DAILY [facility] Last Admin: 07/05/16 10:00 Dose: Not Given Metoprolol Succinate (Toprol Xl -) 100 mg PO [facility] Last Admin: 07/05/16 21:32 Dose: 100 mg Polyethylene Glycol (Miralax (For Daily Use) -) 17 gm PO DAILY [facility] Last Admin: 07/05/16 09:10 Dose: 17 gm Sodium Bicarbonate (Sodium Bicarbonate -) 650 mg PO TID [facility] Last Admin: 07/06/16 06:25 Dose: 650 mg - Objective Vital Signs: Vital Signs Temperature 98.1 F 07/06/16 06:00 Pulse Rate 82 07/06/16 06:00 Respiratory Rate 18 07/06/16 06:00 Blood Pressure 100/54 07/06/16 06:00 O2 Sat by Pulse Oximetry (%) 99 07/06/16 06:00 Cardiovascular: Yes: Murmur, S1, S2 Respiratory: Yes: Regular, CTA Bilaterally Gastrointestinal: Yes: Normal Bowel Sounds, Soft Labs: CBC, BMP 07/05/16 05:35 07/05/16 05:35 INR, PTT INR 1.20 (0.82-1.09) H 07/01/16 07:52 Problem List - Problems (1) Acute on chronic systolic (congestive) heart failure Assessment/Plan: IV LASIX--TO PO--ON HOLD MONITOR LABS CARDIO ON BOARD Code(s): I50.23 - ACUTE ON CHRONIC SYSTOLIC (CONGESTIVE) HEART FAILURE (2) CAD (coronary artery disease) Assessment/Plan: FOLLOW CE TELE Code(s): I25.10 - ATHSCL HEART DISEASE OF [place] CORONARY ARTERY W/O ANG PCTRS Qualifiers: Coronary Disease-Associated Artery/Lesion type: [place] artery Associated angina: without angina (3) Lung cancer Assessment/Plan: PULM CONSULT Code(s): C34.90 - MALIGNANT NEOPLASM OF UNSP PART OF UNSP BRONCHUS OR LUNG (4) Valvular heart disease Assessment/Plan: MOD TO SEVERE PER CARDIO-- D/W CARDIO--TO REVIEW OLD TESTING AND ASSES IF CANDIDATE FOR SURGERY D/W PT AND FAMILY Code(s): I38 - ENDOCARDITIS, VALVE UNSPECIFIED
[2016-07-06 08:54] LABS: BASOPHIL 0.8 % (0-2.0); EOSINOPHIL 1.8 % (0-4.5); MCHC 30.6 g/dl (32.0-35.9); MEAN CELL VOLUME 62.1 fl (80-96); MEAN PLT VOLUME 8.8 fl (7.5-11.1); NEUTROPHILS 76.3 % (42.8-82.8); PLATELET COUNT 239 K/MM3 (134-434); RDW 17.4 % (11.9-15.9); WHITE BLOOD COUNT 9.6 K/mm3 (4.0-10.0)
[2016-07-06] MEDS: AZTREONAM 1 GM in DEXTROSE 5%-WATER - 50 ML IVPB SCH (09:17)
[2016-07-06] MEDS: HEPARIN NA (PORCINE) 5,000 UNITS/ML 1ML VIAL SQ SCH ×2 (09:18→22:27)
[2016-07-06] MEDS: ISOSORBIDE MONONITRATE 60 MG TAB.SR.24H (FP) PO SCH (09:18)
[2016-07-06] MEDS: POLYETHYLENE GLYCOL 3350 119 GM BTL PO SCH (09:29)
[2016-07-06 09:42] LABS: CALCIUM 8.9 mg/dL (8.5-10.1); CREATININE 3.8 mg/dL (0.7-1.3)
--- NOTE | 2016-07-06 11:04 | PN ---
Progress Note, Physician History of Present Illness: PULMONARY ALERT,FEELING BETTER,LESS CP,DYSPNEA IMPROVING - Current Medication List Current Medications: Active Medications Acetaminophen (Tylenol -) 650 mg PO Q4H PRN PRN Reason: FEVER OR PAIN Last Admin: 07/06/16 04:01 Dose: 650 mg Albuterol/Ipratropium (Duoneb -) 1 amp NEB Q4H PRN PRN Reason: SHORTNESS OF BREATH Last Admin: 07/01/16 22:14 Dose: 1 amp Atorvastatin Calcium (Lipitor -) 10 mg PO HS [facility] Last Admin: 07/05/16 21:32 Dose: 10 mg Heparin Sodium (Porcine) (Heparin -) 5,000 unit SQ BID [facility] Last Admin: 07/06/16 09:18 Dose: 5,000 unit Aztreonam 1 gm/ Dextrose 50 mls @ 100 mls/hr IVPB DAILY [facility] PRN Reason: Protocol Last Admin: 07/06/16 09:17 Dose: 100 mls/hr Isosorbide Mononitrate (Imdur -) 60 mg PO DAILY [facility] Last Admin: 07/06/16 09:18 Dose: 60 mg Metoprolol Succinate (Toprol Xl -) 100 mg PO HS [facility] Last Admin: 07/05/16 21:32 Dose: 100 mg Polyethylene Glycol (Miralax (For Daily Use) -) 17 gm PO DAILY [facility] Last Admin: 07/06/16 09:29 Dose: Not Given Sodium Bicarbonate (Sodium Bicarbonate -) 650 mg PO TID [facility] Last Admin: 07/06/16 06:25 Dose: 650 mg - Objective Vital Signs: Vital Signs Temperature 98.1 F 07/06/16 06:00 Pulse Rate 82 07/06/16 06:00 Respiratory Rate 18 07/06/16 06:00 Blood Pressure 100/54 07/06/16 06:00 O2 Sat by Pulse Oximetry (%) 99 07/06/16 06:00 Constitutional: Yes: Calm, Thin Eyes: Yes: WNL HENT: Yes: WNL Neck: Yes: WNL Cardiovascular: Yes: Regular Rate and Rhythm, S1, S2 Respiratory: Yes: Diminished Gastrointestinal: Yes: Normal Bowel Sounds, Soft Extremities: Yes: WNL Edema: No Labs: CBC, BMP 07/06/16 08:35 07/06/16 08:35 INR, PTT INR 1.20 (0.82-1.09) H 07/01/16 07:52 Problem List - Problems (1) Acute on chronic systolic (congestive) heart failure Code(s): I50.23 - ACUTE ON CHRONIC SYSTOLIC (CONGESTIVE) HEART FAILURE (2) Acute worsening of stage 3 chronic kidney disease Code(s): N18.3 - CHRONIC KIDNEY DISEASE, STAGE 3 (MODERATE) (3) Angina pectoris Code(s): I20.9 - ANGINA PECTORIS, UNSPECIFIED (4) CAD (coronary artery disease) Code(s): I25.10 - ATHSCL HEART DISEASE OF [place] CORONARY ARTERY W/O ANG PCTRS Qualifiers: Coronary Disease-Associated Artery/Lesion type: [place] artery Associated angina: without angina (5) Chronic kidney disease (CKD) Code(s): N18.9 - CHRONIC KIDNEY DISEASE, UNSPECIFIED Qualifiers: Chronic kidney disease stage: stage 3 (moderate) Qualified Code(s): N18.3 - Chronic kidney disease, stage 3 (moderate) (6) Congestive heart failure (CHF) Code(s): I50.9 - HEART FAILURE, UNSPECIFIED Qualifiers: Congestive heart failure type: diastolic Congestive heart failure chronicity: acute on chronic Qualified Code(s): I50.33 - Acute on chronic diastolic (congestive) heart failure (7) HTN (hypertension) Code(s): I10 - ESSENTIAL (PRIMARY) HYPERTENSION Qualifiers: Hypertension type: essential hypertension Qualified Code(s): I10 - Essential (primary) hypertension (8) History of lobectomy of lung Code(s): Z98.89 - OTHER SPECIFIED POSTPROCEDURAL STATES * DO NOT USE * (9) History of permanent cardiac pacemaker placement Code(s): Z95.0 - PRESENCE OF CARDIAC PACEMAKER (10) Hypercholesteremia Code(s): E78.0 - PURE HYPERCHOLESTEROLEMIA * DO NOT USE * (11) Lung nodule Code(s): R91.1 - SOLITARY PULMONARY NODULE (12) Paroxysmal atrial fibrillation Code(s): I48.0 - PAROXYSMAL ATRIAL FIBRILLATION (13) COPD (chronic obstructive pulmonary disease) Code(s): J44.9 - CHRONIC OBSTRUCTIVE PULMONARY DISEASE, UNSPECIFIED Qualifiers : COPD type: unspecified COPD Qualified Code(s): J44.9 - Chronic obstructive pulmonary disease, unspecified Assessment/Plan IMP CHEST PAIN SYNDROME IMPROVING CHF COPD H/O LUNG CA S/P RESECTION RUL NODULE PAF S/P PPM 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 BLADDER CA UTI GERD PLAN ANTIBIOTICS O2 INHALED BRONCHODILATORS MONITOR LYTES DAILY WTS Problem List - Problems (1) Acute on chronic systolic (congestive) heart failure Code(s): I50.23 - ACUTE ON CHRONIC SYSTOLIC (CONGESTIVE) HEART FAILURE (2) Acute worsening of stage 3 chronic kidney disease Code(s): N18.3 - CHRONIC KIDNEY DISEASE, STAGE 3 (MODERATE) (3) Angina pectoris Code(s): I20.9 - ANGINA PECTORIS, UNSPECIFIED (4) CAD (coronary artery disease) Code(s): I25.10 - ATHSCL HEART DISEASE OF [place] CORONARY ARTERY W/O ANG PCTRS Qualifiers: Coronary Disease-Associated Artery/Lesion type: [place] artery Associated angina: without angina (5) Chronic kidney disease (CKD) Code(s): N18.9 - CHRONIC KIDNEY DISEASE, UNSPECIFIED Qualifiers: Chronic kidney disease stage: stage 3 (moderate) Qualified Code(s): N18.3 - Chronic kidney disease, stage 3 (moderate) (6) Congestive heart failure (CHF) Code(s): I50.9 - HEART FAILURE, UNSPECIFIED Qualifiers: Congestive heart failure type: diastolic Congestive heart failure chronicity: acute on chronic Qualified Code(s): I50.33 - Acute on chronic diastolic (congestive) heart failure (7) HTN (hypertension) Code(s): I10 - ESSENTIAL (PRIMARY) HYPERTENSION Qualifiers: Hypertension type: essential hypertension Qualified Code(s): I10 - Essential (primary) hypertension (8) History of lobectomy of lung Code(s): Z98.89 - OTHER SPECIFIED POSTPROCEDURAL STATES * DO NOT USE * (9) History of permanent cardiac pacemaker placement Code(s): Z95.0 - PRESENCE OF CARDIAC PACEMAKER (10) Hypercholesteremia Code(s): E78.0 - PURE HYPERCHOLESTEROLEMIA * DO NOT USE * (11) Lung nodule Code(s): R91.1 - SOLITARY PULMONARY NODULE (12) Paroxysmal atrial fibrillation Code(s): I48.0 - PAROXYSMAL ATRIAL FIBRILLATION (13) COPD (chronic obstructive pulmonary disease) Code(s): J44.9 - CHRONIC OBSTRUCTIVE PULMONARY DISEASE, UNSPECIFIED
--- NOTE | 2016-07-06 15:41 | CONSULT ---
Consult Consult Specialty:: urology Referred by:: medicine Reason for Consultation:: hydronephrosis - History of Present Illness Chief Complaint: hematuria, hydronephrosis History of Present Illness: 89 year old male admitted with a UTI who has a history of bladder cancer and a unilateral kidney. He has ureteral dilation down to the level of the bladder on CT. but he us making blood tinged urine. Approx 500 cc / day - History Source History Provided By: Patient, Medical Record Limitations to Obtaining History: No Limitations - Past Medical History Cardio/Vascular: Yes: CAD, HTN, Hyperlipdemia Pulmonary: Yes: Cancer (lung--s/p lobectomy), COPD Gastrointestinal: Yes: GERD Renal/: Yes: Renal Inusuff, Cancer (bladder, TCC), Hematuria, Renal Calculi - Past Surgical History Past Surgical History: Yes: Colonoscopy, Nephrectomy, Permanent Pacemaker, Thoracotomy - Alcohol/Substance Use Hx Alcohol Use: No - Smoking History Smoking history: Former smoker Have you smoked in the past 12 months: No Aproximately how many cigarettes per day: 0 If you are a former smoker, when did you quit?: 1994 - Social History Usual Living Arrangement: With Spouse ADL: Independent 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, 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[place] History of Recent Travel: No Home Medications - Allergies Allergies/Adverse Reactions: Allergies Allergy/AdvReac Type Severity Reaction Status Date / Time Penicillins Allergy Hives, Verified 02/12/15 00:02 throat swelling Sulfa (Sulfonamide Allergy EYE Verified 02/12/15 00:02 Antibiotics) SWELLING, [Sulfa(Sulfonamide ITCHING Antibiotics)] levofloxacin [From Levaquin] AdvReac Severe Itching Verified 02/14/15 19:14 - Home Medications Home Medications: Ambulatory Orders Isosorbide Mononitrate [Imdur] 60 mg PO DAILY 12/16/11 Metoprolol Succinate [Toprol XL -] 100 mg PO HS 08/17/12 Atorvastatin Ca [Lipitor] 10 mg PO HS 04/28/16 Sodium Bicarbonate - 650 mg PO BID 04/29/16 Physical Exam Vital Signs: Vital Signs Temperature 98 F 07/06/16 10:00 Pulse Rate 90 07/06/16 11:00 Respiratory Rate 20 07/06/16 10:00 Blood Pressure 112/60 07/06/16 10:00 O2 Sat by Pulse Oximetry (%) 98 07/06/16 11:00 Constitutional: Yes: Well Nourished, No Distress, Calm Renal/: Yes: Hematuria. No: Bladder Distention, CVA Tenderness - Left, CVA Tenderness - Right, Valenzuela Present Labs: CBC, BMP 07/06/16 08:35 07/06/16 08:35 Imaging - Results Cat Scan: Report Reviewed Problem List - Problems (1) UTI (urinary tract infection) Code(s): N39.0 - URINARY TRACT INFECTION, SITE NOT SPECIFIED (2) Hydronephrosis determined by ultrasound Assessment/Plan: patient with chronically dilated ureter probably with reflux. He is making urine and is not likely obstructed. New finding on bladder on CT, will plan for cystoscopy once UTI is cleared. Code(s): N13.30 - UNSPECIFIED HYDRONEPHROSIS
--- NOTE | 2016-07-06 15:46 | PN ---
Progress Note, Physician History of Present Illness: No c/o dysuria No c/o R flank or suprapubic pain Afebrile WBC improved Tolerating Aztreonam without adverse rxn - Current Medication List Current Medications: Active Medications Acetaminophen (Tylenol -) 650 mg PO Q4H PRN PRN Reason: FEVER OR PAIN Last Admin: 07/06/16 04:01 Dose: 650 mg Atorvastatin Calcium (Lipitor -) 10 mg PO HS [facility] Last Admin: 07/05/16 21:32 Dose: 10 mg Heparin Sodium (Porcine) (Heparin -) 5,000 unit SQ BID [facility] Last Admin: 07/06/16 09:18 Dose: 5,000 unit Aztreonam 1 gm/ Dextrose 50 mls @ 100 mls/hr IVPB DAILY [facility] PRN Reason: Protocol Last Admin: 07/06/16 09:17 Dose: 100 mls/hr Isosorbide Mononitrate (Imdur -) 60 mg PO DAILY [facility] Last Admin: 07/06/16 09:18 Dose: 60 mg Metoprolol Succinate (Toprol Xl -) 100 mg PO [facility] Last Admin: 07/05/16 21:32 Dose: 100 mg Polyethylene Glycol (Miralax (For Daily Use) -) 17 gm PO DAILY [facility] Last Admin: 07/06/16 09:29 Dose: Not Given Sodium Bicarbonate (Sodium Bicarbonate -) 650 mg PO TID [facility] Last Admin: 07/06/16 14:26 Dose: 650 mg - Objective Vital Signs: Vital Signs Temperature 98 F 07/06/16 10:00 Pulse Rate 90 07/06/16 11:00 Respiratory Rate 20 07/06/16 10:00 Blood Pressure 112/60 07/06/16 10:00 O2 Sat by Pulse Oximetry (%) 98 07/06/16 11:00 Constitutional: Yes: No Distress Eyes: Yes: Conjunctiva Clear Cardiovascular: Yes: Regular Rate and Rhythm, S1, S2 Respiratory: Yes: CTA Bilaterally Gastrointestinal: Yes: Normal Bowel Sounds, Soft. No: Tenderness Labs: CBC, BMP 07/06/16 08:35 07/06/16 08:35 INR, PTT INR 1.20 (0.82-1.09) H 07/01/16 07:52 Assessment/Plan UTI- E coli Leukocytosis-improved CKD S/P nephrectomy Multiple drug allergies Continue aztreonam, adjusted for renal failure
--- NOTE | 2016-07-06 15:49 | PN ---
Progress Note, Physician History of Present Illness: Pt seen and examined at bedside. He is awake and alert. He denies shortness of breath. - Current Medication List Current Medications: Active Medications Acetaminophen (Tylenol -) 650 mg PO Q4H PRN PRN Reason: FEVER OR PAIN Last Admin: 07/06/16 04:01 Dose: 650 mg Atorvastatin Calcium (Lipitor -) 10 mg PO HS [facility] Last Admin: 07/05/16 21:32 Dose: 10 mg Heparin Sodium (Porcine) (Heparin -) 5,000 unit SQ BID [facility] Last Admin: 07/06/16 09:18 Dose: 5,000 unit Aztreonam 1 gm/ Dextrose 50 mls @ 100 mls/hr IVPB DAILY [facility] PRN Reason: Protocol Last Admin: 07/06/16 09:17 Dose: 100 mls/hr Isosorbide Mononitrate (Imdur -) 60 mg PO DAILY [facility] Last Admin: 07/06/16 09:18 Dose: 60 mg Metoprolol Succinate (Toprol Xl -) 100 mg PO [facility] Last Admin: 07/05/16 21:32 Dose: 100 mg Polyethylene Glycol (Miralax (For Daily Use) -) 17 gm PO DAILY [facility] Last Admin: 07/06/16 09:29 Dose: Not Given Sodium Bicarbonate (Sodium Bicarbonate -) 650 mg PO TID [facility] Last Admin: 07/06/16 14:26 Dose: 650 mg - Objective Vital Signs: Vital Signs Temperature 98 F 07/06/16 10:00 Pulse Rate 90 07/06/16 11:00 Respiratory Rate 20 07/06/16 10:00 Blood Pressure 112/60 07/06/16 10:00 O2 Sat by Pulse Oximetry (%) 98 07/06/16 11:00 Constitutional: Yes: Calm Eyes: Yes: Conjunctiva Clear HENT: Yes: Atraumatic Neck: Yes: Supple Cardiovascular: Yes: S1, S2 Respiratory: Yes: CTA Bilaterally Gastrointestinal: Yes: Soft Genitourinary: Yes: WNL Musculoskeletal: Yes: WNL Edema: No Neurological: Yes: Oriented Psychiatric: Yes: Oriented Labs: CBC, BMP 07/06/16 08:35 07/06/16 08:35 INR, PTT INR 1.20 (0.82-1.09) H 07/01/16 07:52 Problem List - Problems (1) CAD (coronary artery disease) Code(s): I25.10 - ATHSCL HEART DISEASE OF [place] CORONARY ARTERY W/O ANG PCTRS Qualifiers: Coronary Disease-Associated Artery/Lesion type: [place] artery Associated angina: without angina (2) COPD (chronic obstructive pulmonary disease) Code(s): J44.9 - CHRONIC OBSTRUCTIVE PULMONARY DISEASE, UNSPECIFIED Qualifiers : COPD type: unspecified COPD Qualified Code(s): J44.9 - Chronic obstructive pulmonary disease, unspecified (3) Chronic kidney disease (CKD) Code(s): N18.9 - CHRONIC KIDNEY DISEASE, UNSPECIFIED Qualifiers: Chronic kidney disease stage: stage 3 (moderate) Qualified Code(s): N18.3 - Chronic kidney disease, stage 3 (moderate) (4) Congestive heart failure (CHF) Code(s): I50.9 - HEART FAILURE, UNSPECIFIED Qualifiers: Congestive heart failure type: diastolic Congestive heart failure chronicity: acute on chronic Qualified Code(s): I50.33 - Acute on chronic diastolic (congestive) heart failure (5) HTN (hypertension) Code(s): I10 - ESSENTIAL (PRIMARY) HYPERTENSION Qualifiers: Hypertension type: essential hypertension Qualified Code(s): I10 - Essential (primary) hypertension Assessment/Plan Current Medications Generic Name Dose Route Start Last Admin Trade Name Freq PRN Reason Stop Dose Admin Acetaminophen 650 mg 07/01/16 13:05 07/06/16 04:01 Tylenol - PO 650 mg Q4H PRN Administration FEVER OR PAIN Atorvastatin Calcium 10 mg 07/01/16 22:00 07/05/16 21:32 Lipitor - PO 10 mg HS BATSHEVA Administration Heparin Sodium (Porcine) 5,000 unit 07/01/16 13:15 07/06/16 09:18 Heparin - SQ 5,000 unit BID BATSHEVA Administration Aztreonam 1 gm/ Dextrose 50 mls @ 100 mls/hr 07/04/16 12:15 07/06/16 09:17 IVPB 100 mls/hr DAILY [facility]HEVA Administration Protocol Isosorbide Mononitrate 60 mg 07/02/16 10:00 07/06/16 09:18 Imdur - PO 60 mg DAILY [facility]HEVA Administration Metoprolol Succinate 100 mg 07/01/16 22:00 07/05/16 21:32 Toprol Xl - PO 100 mg HS BATSHEVA Administration Polyethylene Glycol 17 gm 07/04/16 14:00 07/06/16 09:29 Miralax (For Daily Use) - PO Not Given DAILY [facility]HEVA Sodium Bicarbonate 650 mg 07/02/16 14:00 07/06/16 14:26 Sodium Bicarbonate - PO 650 mg TID BATSHEVA Administration Impression 1. CKD 2. solitary right kidney 3. hx of bladder cancer 4. UTI 5. CHF 6. CAD 7. mod to severe AR 8. p-a-fib 9. hx PPM 10. anemia Plan - renal function is worsening - hold lasix for now - follow up renal scan - will monitor renal function and evaluate for lasix daily - cont with bicarb - urology input appreciated - will follow Dr Alas
--- NOTE | 2016-07-06 15:59 | PN ---
Progress Note, Physician Chief Complaint: Events noted Complains of weakness Renal function noted History of Present Illness: Patient was seen and examined. Awake and alert. Chart was reviewed Denies chest pain or palpitations. Less SOB. Weakness and loss of appetite persists and renal function appears to be slowly worsening - Current Medication List Current Medications: Active Medications Acetaminophen (Tylenol -) 650 mg PO Q4H PRN PRN Reason: FEVER OR PAIN Last Admin: 07/06/16 04:01 Dose: 650 mg Atorvastatin Calcium (Lipitor -) 10 mg PO HS [facility] Last Admin: 07/05/16 21:32 Dose: 10 mg Heparin Sodium (Porcine) (Heparin -) 5,000 unit SQ BID [facility] Last Admin: 07/06/16 09:18 Dose: 5,000 unit Aztreonam 1 gm/ Dextrose 50 mls @ 100 mls/hr IVPB DAILY [facility] PRN Reason: Protocol Last Admin: 07/06/16 09:17 Dose: 100 mls/hr Isosorbide Mononitrate (Imdur -) 60 mg PO DAILY [facility] Last Admin: 07/06/16 09:18 Dose: 60 mg Metoprolol Succinate (Toprol Xl -) 100 mg PO [facility] Last Admin: 07/05/16 21:32 Dose: 100 mg Polyethylene Glycol (Miralax (For Daily Use) -) 17 gm PO DAILY [facility] Last Admin: 07/06/16 09:29 Dose: Not Given Sodium Bicarbonate (Sodium Bicarbonate -) 650 mg PO TID [facility] Last Admin: 07/06/16 14:26 Dose: 650 mg - Objective Vital Signs: Vital Signs Temperature 98 F 07/06/16 10:00 Pulse Rate 90 07/06/16 11:00 Respiratory Rate 20 07/06/16 10:00 Blood Pressure 112/60 07/06/16 10:00 O2 Sat by Pulse Oximetry (%) 98 07/06/16 11:00 Neck: Yes: Supple Cardiovascular: Yes: Regular Rate and Rhythm, S1, S2 Respiratory: Yes: Diminished Gastrointestinal: Yes: Normal Bowel Sounds, Soft. No: Tenderness Edema: No Additional Findings/Remarks: - Review of Systems Constitutional: denies: Chills, Fever Cardiovascular: denies: Chest Pain, Palpitations, (+) Shortness of Breath Respiratory: denies: Cough, Hemoptysis, Orthopnea, PND, (+) SOB, SOB on Exertion Gastrointestinal: denies: Melena, Nausea. denies: Abdominal Pain, Constipation , Diarrhea, Rectal Bleeding, Vomiting Genitourinary: denies: Dysuria Neurological: denies: Syncope. denies: Dizziness, Headache, Seizure Labs: CBC, BMP 07/06/16 08:35 07/06/16 08:35 INR, PTT INR 1.20 (0.82-1.09) H 07/01/16 07:52 Problem List - Problems (1) Acute on chronic systolic (congestive) heart failure Code(s): I50.23 - ACUTE ON CHRONIC SYSTOLIC (CONGESTIVE) HEART FAILURE (2) Angina pectoris Code(s): I20.9 - ANGINA PECTORIS, UNSPECIFIED (3) Aortic regurgitation Code(s): I35.1 - NONRHEUMATIC AORTIC (VALVE) INSUFFICIENCY Qualifiers: Cardiac valve disease etiology: nonrheumatic Qualified Code(s): I35.1 - Nonrheumatic aortic (valve) insufficiency (4) CAD (coronary artery disease) Code(s): I25.10 - ATHSCL HEART DISEASE OF [place] CORONARY ARTERY W/O ANG PCTRS Qualifiers: Coronary Disease-Associated Artery/Lesion type: [place] artery Associated angina: without angina (5) COPD (chronic obstructive pulmonary disease) Code(s): J44.9 - CHRONIC OBSTRUCTIVE PULMONARY DISEASE, UNSPECIFIED Qualifiers : COPD type: unspecified COPD Qualified Code(s): J44.9 - Chronic obstructive pulmonary disease, unspecified (6) Chronic kidney disease (CKD) Code(s): N18.9 - CHRONIC KIDNEY DISEASE, UNSPECIFIED Qualifiers: Chronic kidney disease stage: stage 3 (moderate) Qualified Code(s): N18.3 - Chronic kidney disease, stage 3 (moderate) (7) Congestive heart failure (CHF) Code(s): I50.9 - HEART FAILURE, UNSPECIFIED Qualifiers: Congestive heart failure type: diastolic Congestive heart failure chronicity: acute on chronic Qualified Code(s): I50.33 - Acute on chronic diastolic (congestive) heart failure (8) HTN (hypertension) Code(s): I10 - ESSENTIAL (PRIMARY) HYPERTENSION Qualifiers: Hypertension type: essential hypertension Qualified Code(s): I10 - Essential (primary) hypertension (9) History of permanent cardiac pacemaker placement Code(s): Z95.0 - PRESENCE OF CARDIAC PACEMAKER (10) Hypercholesteremia Code(s): E78.0 - PURE HYPERCHOLESTEROLEMIA * DO NOT USE * (11) Left ventricular dysfunction Code(s): I51.9 - HEART DISEASE, UNSPECIFIED (12) Mitral regurgitation Code(s): I34.0 - NONRHEUMATIC MITRAL (VALVE) INSUFFICIENCY Qualifiers: Cardiac valve disease etiology: nonrheumatic Qualified Code(s): I34.0 - Nonrheumatic mitral (valve) insufficiency (13) Paroxysmal atrial fibrillation Code(s): I48.0 - PAROXYSMAL ATRIAL FIBRILLATION (14) Pulmonary hypertension Code(s): I27.2 - OTHER SECONDARY PULMONARY HYPERTENSION (15) Sick sinus syndrome Code(s): I49.5 - SICK SINUS SYNDROME (16) Tricuspid regurgitation Code(s): I07.1 - RHEUMATIC TRICUSPID INSUFFICIENCY Qualifiers: Cardiac valve disease etiology: nonrheumatic Qualified Code(s): I36.1 - Nonrheumatic tricuspid (valve) insufficiency Assessment/Plan 1. Acute on chronic systolic failure with h/o mod-severe aortic valve regurgitation 2. Mitral valve and tricuspid valve disease 3. Single vessel CAD with negative nuclear myocardial perfusion imaging 4. 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 HCVD 8. Mild aortic root dilatation 9. 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 Continue Toprol XL 100 mg qd, Imdur 60 mg qd and Lipitor 10 mg qd (titrate as tolerated) 2. input noted. Further work up to follow 3. Imdur may be uptitrated or Ranexa may be added if clinically indicated 4. Diuretic may be used as needed. Monitor renal function and electrolytes Further plans are to follow Donn Batres MD
[2016-07-06] MEDS: METOPROLOL SUCCINATE 100 MG TAB.SR.24H (FP) PO SCH (22:27)
[2016-07-06] MEDS: ATORVASTATIN CA 10 MG TABLET (FP) PO SCH (22:27)
[2016-07-07] MEDS: ACETAMINOPHEN 325 MG TABLET (FP) PO PRN (03:13)
[2016-07-07] MEDS: SODIUM BICARBONATE 650 MG TABLET PO SCH ×3 (06:47→21:33)
[2016-07-07] MEDS ORDERED: PT OWN MED DRAWER 7, Y5N ONE (08:25)
--- NOTE | 2016-07-07 08:35 | PN ---
Progress Note (short form) - Note Progress Note: afebrile feels weak urine grossly clear CT with new finding of ventral exophytic bladder mass will plan for cystoscopy on am
--- NOTE | 2016-07-07 09:24 | PN ---
Progress Note, Physician History of Present Illness: SOME IMPROVEMENT LESS SOB ON EXERTION - Current Medication List Current Medications: Active Medications Acetaminophen (Tylenol -) 650 mg PO Q4H PRN PRN Reason: FEVER OR PAIN Last Admin: 07/07/16 03:13 Dose: 650 mg Atorvastatin Calcium (Lipitor -) 10 mg PO HS [facility] Last Admin: 07/06/16 22:27 Dose: 10 mg Heparin Sodium (Porcine) (Heparin -) 5,000 unit SQ BID [facility] Last Admin: 07/06/16 22:27 Dose: 5,000 unit Aztreonam 1 gm/ Dextrose 50 mls @ 100 mls/hr IVPB DAILY [facility] PRN Reason: Protocol Last Admin: 07/06/16 09:17 Dose: 100 mls/hr Isosorbide Mononitrate (Imdur -) 60 mg PO DAILY [facility] Last Admin: 07/06/16 09:18 Dose: 60 mg Metoprolol Succinate (Toprol Xl -) 100 mg PO [facility] Last Admin: 07/06/16 22:27 Dose: 100 mg Polyethylene Glycol (Miralax (For Daily Use) -) 17 gm PO DAILY [facility] Last Admin: 07/06/16 09:29 Dose: Not Given Sodium Bicarbonate (Sodium Bicarbonate -) 650 mg PO TID [facility] Last Admin: 07/07/16 06:47 Dose: 650 mg - Objective Vital Signs: Vital Signs Temperature 97.4 F L 07/07/16 02:00 Pulse Rate 72 07/07/16 06:00 Respiratory Rate 20 07/07/16 06:00 Blood Pressure 137/62 07/07/16 06:00 O2 Sat by Pulse Oximetry (%) 98 07/06/16 21:00 Cardiovascular: Yes: Regular Rate and Rhythm, Murmur Respiratory: Yes: Regular, CTA Bilaterally Gastrointestinal: Yes: Normal Bowel Sounds, Soft Labs: CBC, BMP 07/06/16 08:35 07/06/16 08:35 INR, PTT INR 1.20 (0.82-1.09) H 07/01/16 07:52 Problem List - Problems (1) Acute on chronic systolic (congestive) heart failure Assessment/Plan: IV LASIX--TO PO--ON HOLD MONITOR LABS CARDIO ON BOARD Code(s): I50.23 - ACUTE ON CHRONIC SYSTOLIC (CONGESTIVE) HEART FAILURE (2) CAD (coronary artery disease) Assessment/Plan: FOLLOW CE TELE Code(s): I25.10 - ATHSCL HEART DISEASE OF [place] CORONARY ARTERY W/O ANG PCTRS Qualifiers: Coronary Disease-Associated Artery/Lesion type: [place] artery Associated angina: without angina (3) Lung cancer Assessment/Plan: PULM CONSULT Code(s): C34.90 - MALIGNANT NEOPLASM OF UNSP PART OF UNSP BRONCHUS OR LUNG (4) Valvular heart disease Assessment/Plan: MOD TO SEVERE PER CARDIO-- D/W CARDIO--TO REVIEW OLD TESTING AND ASSES IF CANDIDATE FOR SURGERY D/W PT AND FAMILY Code(s): I38 - ENDOCARDITIS, VALVE UNSPECIFIED (5) Bladder mass Assessment/Plan: FOR CYSTO ON WEDNESDAY Code(s): N32.89 - OTHER SPECIFIED DISORDERS OF [place]
[2016-07-07] MEDS: AZTREONAM 1 GM in DEXTROSE 5%-WATER - 50 ML IVPB SCH (10:17)
[2016-07-07] MEDS: HEPARIN NA (PORCINE) 5,000 UNITS/ML 1ML VIAL SQ SCH ×2 (10:17→21:33)
[2016-07-07] MEDS: POLYETHYLENE GLYCOL 3350 119 GM BTL PO SCH (10:17)
[2016-07-07] MEDS: ISOSORBIDE MONONITRATE 60 MG TAB.SR.24H (FP) PO SCH (10:17)
--- NOTE | 2016-07-07 11:44 | PN ---
Progress Note (short form) - Note Progress Note: Chief Complaint: Events noted, notes reviewed, denies any chest pain or dyspnea , complaining of generalized weakness History of Present Illness: Seen and examined on telemetry. Events noted, notes reviewed, denies any chest pain or dyspnea, complaining of generalized weakness - Current Medication List Current Medications Acetaminophen (Tylenol -) 650 mg PO Q4H PRN PRN Reason: FEVER OR PAIN Last Admin: 07/07/16 03:13 Dose: 650 mg Atorvastatin Calcium (Lipitor -) 10 mg PO HS [facility] Last Admin: 07/06/16 22:27 Dose: 10 mg Heparin Sodium (Porcine) (Heparin -) 5,000 unit SQ BID [facility] Last Admin: 07/07/16 10:17 Dose: 5,000 unit Aztreonam 1 gm/ Dextrose 50 mls @ 100 mls/hr IVPB DAILY [facility] PRN Reason: Protocol Last Admin: 07/07/16 10:17 Dose: 100 mls/hr Isosorbide Mononitrate (Imdur -) 60 mg PO DAILY [facility] Last Admin: 07/07/16 10:17 Dose: 60 mg Metoprolol Succinate (Toprol Xl -) 100 mg PO [facility] Last Admin: 07/06/16 22:27 Dose: 100 mg Polyethylene Glycol (Miralax (For Daily Use) -) 17 gm PO DAILY [facility] Last Admin: 07/07/16 10:17 Dose: Not Given Sodium Bicarbonate (Sodium Bicarbonate -) 650 mg PO TID [facility] Last Admin: 07/07/16 06:47 Dose: 650 mg - Review of Systems Cardiovascular: As noted above Respiratory: denies: Cough or Sputum Production Gastrointestinal: denies: Nausea, Vomiting, Diarrhea, Constipation or Abdominal Pain Musculoskeletal: No symptoms reported Neurological: No symptoms reported - Objective Vital Signs: Last Vital Signs Temp Pulse Resp BP Pulse Ox 98.7 F 98 H 18 119/68 97 07/07/16 10:00 07/07/16 11:09 07/07/16 10:00 07/07/16 10:00 07/07/16 11:09 Neck: Supple Negative JVD Cardiovascular: S1 S2 Regular Rate and Rhythm Grade 2/6 SM Respiratory: Diminished Breath Sounds at the Bases Gastrointestinal: Soft benign Normal Bowel Sounds Ext: No Edema Labs: CBC, BMP 07/06/16 08:35 07/06/16 08:35 Assessment/Plan ASSESSMENT: 1. Acute on chronic LV systolic failure class II-III NYHA classification LV failure, resolving 2. Moderate-severe aortic valve regurgitation 3. Mitral valve and tricuspid valve regurgitation 4. CAD negative MPI study angina pectoris 5. PAF not on A/C due to patient refusal 6. AV block post PPM ([employer]'s device) 7. HTN 8. Acute on CKD 9. Bladder cancer post TURBT with recurrent hematuria 10. Anemia PLAN: 1. Continue Toprol XL 2. Continue Imdur 3. Continue Lipitor 4. Long conversation with the patient and his in reference to his progressive renal disease/renal failure and indication for HD in the near future , patient currently is reluctant to proceed with HD Nathaniel Manzano MD
--- NOTE | 2016-07-07 13:11 | PN ---
Progress Note, Physician History of Present Illness: Reports less R flank pain No dysuria. no hematuria No c/o fever/ chills WBC WNL Tolerating Aztreonam - Current Medication List Current Medications: Active Medications Acetaminophen (Tylenol -) 650 mg PO Q4H PRN PRN Reason: FEVER OR PAIN Last Admin: 07/07/16 03:13 Dose: 650 mg Atorvastatin Calcium (Lipitor -) 10 mg PO HS [facility] Last Admin: 07/06/16 22:27 Dose: 10 mg Heparin Sodium (Porcine) (Heparin -) 5,000 unit SQ BID [facility] Last Admin: 07/07/16 10:17 Dose: 5,000 unit Aztreonam 1 gm/ Dextrose 50 mls @ 100 mls/hr IVPB DAILY [facility] PRN Reason: Protocol Last Admin: 07/07/16 10:17 Dose: 100 mls/hr Isosorbide Mononitrate (Imdur -) 60 mg PO DAILY [facility] Last Admin: 07/07/16 10:17 Dose: 60 mg Metoprolol Succinate (Toprol Xl -) 100 mg PO HS [facility] Last Admin: 07/06/16 22:27 Dose: 100 mg Polyethylene Glycol (Miralax (For Daily Use) -) 17 gm PO DAILY [facility] Last Admin: 07/07/16 10:17 Dose: Not Given Sodium Bicarbonate (Sodium Bicarbonate -) 650 mg PO TID [facility] Last Admin: 07/07/16 06:47 Dose: 650 mg - Objective Vital Signs: Vital Signs Temperature 98.7 F 07/07/16 10:00 Pulse Rate 98 H 07/07/16 11:09 Respiratory Rate 18 07/07/16 10:00 Blood Pressure 119/68 07/07/16 10:00 O2 Sat by Pulse Oximetry (%) 97 07/07/16 11:09 Constitutional: Yes: No Distress Eyes: Yes: Conjunctiva Clear Cardiovascular: Yes: Regular Rate and Rhythm, S1, S2 Respiratory: Yes: CTA Bilaterally Gastrointestinal: Yes: Normal Bowel Sounds, Soft. No: Tenderness Genitourinary: No: CVA Tenderness - Right Labs: CBC, BMP 07/06/16 08:35 07/06/16 08:35 INR, PTT INR 1.20 (0.82-1.09) H 07/01/16 07:52 Assessment/Plan UTI- E coli Leukocytosis- resolved CKD S/P nephrectomy Multiple drug allergies Continue aztreonam, adjusted for renal failure
--- NOTE | 2016-07-07 13:38 | PN ---
Progress Note (short form) - Note Progress Note: PULMONARY Breathing continues to improve. No chest pain. No cough or wheezing. Last Vital Signs Temp Pulse Resp BP Pulse Ox 98.7 F 98 H 18 119/68 97 07/07/16 10:00 07/07/16 11:09 07/07/16 10:00 07/07/16 10:00 07/07/16 11:09 Gen: NAD at rest Heart: RRR Lung: decreased breath sounds at the bases Abd: soft, nontender Ext: no edema CBC, BMP 07/06/16 08:35 07/06/16 08:35 Active Medications Acetaminophen (Tylenol -) 650 mg PO Q4H PRN PRN Reason: FEVER OR PAIN Last Admin: 07/07/16 03:13 Dose: 650 mg Atorvastatin Calcium (Lipitor -) 10 mg PO HS [facility] Last Admin: 07/06/16 22:27 Dose: 10 mg Heparin Sodium (Porcine) (Heparin -) 5,000 unit SQ BID [facility] Last Admin: 07/07/16 10:17 Dose: 5,000 unit Aztreonam 1 gm/ Dextrose 50 mls @ 100 mls/hr IVPB DAILY [facility] PRN Reason: Protocol Last Admin: 07/07/16 10:17 Dose: 100 mls/hr Isosorbide Mononitrate (Imdur -) 60 mg PO DAILY [facility] Last Admin: 07/07/16 10:17 Dose: 60 mg Metoprolol Succinate (Toprol Xl -) 100 mg PO HS [facility] Last Admin: 07/06/16 22:27 Dose: 100 mg Polyethylene Glycol (Miralax (For Daily Use) -) 17 gm PO DAILY [facility] Last Admin: 07/07/16 10:17 Dose: Not Given Sodium Bicarbonate (Sodium Bicarbonate -) 650 mg PO TID [facility] Last Admin: 07/07/16 13:37 Dose: 650 mg A/P Acute on Chronic LV Systolic Heart Failure Aortic Regurgitation Acute on Chronic Renal Failure Paroxysmal Atrial Fibrillation h/o Lung Ca COPD Lung Nodule UTI - lasix as needed - monitor urine output, creatinine - beta rohan - complete antibiotics - O2 as needed - DVT prophylaxis
--- NOTE | 2016-07-07 14:05 | PN ---
Progress Note, Physician History of Present Illness: Pt seen and examined at bedside. He is awake and alert. He denies shortness of breath. He is able to ambulate without difficulty with rehab. - Current Medication List Current Medications: Active Medications Acetaminophen (Tylenol -) 650 mg PO Q4H PRN PRN Reason: FEVER OR PAIN Last Admin: 07/07/16 03:13 Dose: 650 mg Atorvastatin Calcium (Lipitor -) 10 mg PO HS [facility] Last Admin: 07/06/16 22:27 Dose: 10 mg Heparin Sodium (Porcine) (Heparin -) 5,000 unit SQ BID [facility] Last Admin: 07/07/16 10:17 Dose: 5,000 unit Aztreonam 1 gm/ Dextrose 50 mls @ 100 mls/hr IVPB DAILY [facility] PRN Reason: Protocol Last Admin: 07/07/16 10:17 Dose: 100 mls/hr Isosorbide Mononitrate (Imdur -) 60 mg PO DAILY [facility] Last Admin: 07/07/16 10:17 Dose: 60 mg Metoprolol Succinate (Toprol Xl -) 100 mg PO HS [facility] Last Admin: 07/06/16 22:27 Dose: 100 mg Polyethylene Glycol (Miralax (For Daily Use) -) 17 gm PO DAILY [facility] Last Admin: 07/07/16 10:17 Dose: Not Given Sodium Bicarbonate (Sodium Bicarbonate -) 650 mg PO TID [facility] Last Admin: 07/07/16 13:37 Dose: 650 mg - Objective Vital Signs: Vital Signs Temperature 98.7 F 07/07/16 10:00 Pulse Rate 98 H 07/07/16 11:09 Respiratory Rate 18 07/07/16 10:00 Blood Pressure 119/68 07/07/16 10:00 O2 Sat by Pulse Oximetry (%) 97 07/07/16 11:09 Constitutional: Yes: Calm Eyes: Yes: Conjunctiva Clear HENT: Yes: Atraumatic Neck: Yes: Supple Cardiovascular: Yes: S1, S2 Respiratory: Yes: CTA Bilaterally Gastrointestinal: Yes: Soft Genitourinary: Yes: WNL Musculoskeletal: Yes: WNL Edema: No Neurological: Yes: Oriented Psychiatric: Yes: Oriented Labs: CBC, BMP 07/06/16 08:35 07/06/16 08:35 INR, PTT INR 1.20 (0.82-1.09) H 07/01/16 07:52 Problem List - Problems (1) CAD (coronary artery disease) Code(s): I25.10 - ATHSCL HEART DISEASE OF [place] CORONARY ARTERY W/O ANG PCTRS Qualifiers: Coronary Disease-Associated Artery/Lesion type: [place] artery Associated angina: without angina (2) COPD (chronic obstructive pulmonary disease) Code(s): J44.9 - CHRONIC OBSTRUCTIVE PULMONARY DISEASE, UNSPECIFIED Qualifiers : COPD type: unspecified COPD Qualified Code(s): J44.9 - Chronic obstructive pulmonary disease, unspecified (3) Chronic kidney disease (CKD) Code(s): N18.9 - CHRONIC KIDNEY DISEASE, UNSPECIFIED Qualifiers: Chronic kidney disease stage: stage 3 (moderate) Qualified Code(s): N18.3 - Chronic kidney disease, stage 3 (moderate) (4) Congestive heart failure (CHF) Code(s): I50.9 - HEART FAILURE, UNSPECIFIED Qualifiers: Congestive heart failure type: diastolic Congestive heart failure chronicity: acute on chronic Qualified Code(s): I50.33 - Acute on chronic diastolic (congestive) heart failure (5) HTN (hypertension) Code(s): I10 - ESSENTIAL (PRIMARY) HYPERTENSION Qualifiers: Hypertension type: essential hypertension Qualified Code(s): I10 - Essential (primary) hypertension Assessment/Plan Current Medications Generic Name Dose Route Start Last Admin Trade Name Freq PRN Reason Stop Dose Admin Acetaminophen 650 mg 07/01/16 13:05 07/07/16 03:13 Tylenol - PO 650 mg Q4H PRN Administration FEVER OR PAIN Atorvastatin Calcium 10 mg 07/01/16 22:00 07/06/16 22:27 Lipitor - PO 10 mg HS BATSHEVA Administration Heparin Sodium (Porcine) 5,000 unit 07/01/16 13:15 07/07/16 10:17 Heparin - SQ 5,000 unit BID BATSHEVA Administration Aztreonam 1 gm/ Dextrose 50 mls @ 100 mls/hr 07/04/16 12:15 07/07/16 10:17 IVPB 100 mls/hr DAILY B[facility]HEVA Administration Protocol Isosorbide Mononitrate 60 mg 07/02/16 10:00 07/07/16 10:17 Imdur - PO 60 mg DAILY BATSHEVA Administration Metoprolol Succinate 100 mg 07/01/16 22:00 07/06/16 22:27 Toprol Xl - PO 100 mg HS BATSHEVA Administration Polyethylene Glycol 17 gm 07/04/16 14:00 07/07/16 10:17 Miralax (For Daily Use) - PO Not Given DAILY BATSHEVA Sodium Bicarbonate 650 mg 07/02/16 14:00 07/07/16 13:37 Sodium Bicarbonate - PO 650 mg TID BATSHEVA Administration IMPRESSION: Scintigraphic findings of right ureteral outlet obstruction. Status post left nephrectomy Impression 1. CKD 2. solitary right kidney 3. hx of bladder cancer 4. UTI 5. CHF 6. CAD 7. mod to severe AR 8. p-a-fib 9. hx PPM 10. anemia Plan - check bmp as renal function was worsening - again discussed possibility of HD with pt and his , he would like to hold off for now - cont current meds - renal diet and fluid restriction - urology follow up for renal scan findings noted - cont with bicarb - will follow Dr Alas
[2016-07-07] MEDS: METOPROLOL SUCCINATE 100 MG TAB.SR.24H (FP) PO SCH (21:33)
[2016-07-07] MEDS: ATORVASTATIN CA 10 MG TABLET (FP) PO SCH (21:33)
[2016-07-08] MEDS: SODIUM BICARBONATE 650 MG TABLET PO SCH ×3 (05:44→21:37)
[2016-07-08 07:08] LABS: ALBUMIN 2.7 g/dl (3.4-5.0); BILIRUBIN,TOTAL 0.2 mg/dL (0.2-1.0); CALCIUM 8.8 mg/dL (8.5-10.1); TOT PROT 6.6 g/dl (6.4-8.2)
[2016-07-08 07:09] LABS: CREATININE 3.2 mg/dL (0.7-1.3)
[2016-07-08] MEDS ORDERED: PT OWN MED DRAWER 7, Y5N ONE (08:46)
--- NOTE | 2016-07-08 09:03 | PN ---
Progress Note, Physician History of Present Illness: SOME IMPROVEMENT LESS SOB ON EXERTION - Current Medication List Current Medications: Active Medications Acetaminophen (Tylenol -) 650 mg PO Q4H PRN PRN Reason: FEVER OR PAIN Last Admin: 07/07/16 03:13 Dose: 650 mg Atorvastatin Calcium (Lipitor -) 10 mg PO HS [facility] Last Admin: 07/07/16 21:33 Dose: 10 mg Heparin Sodium (Porcine) (Heparin -) 5,000 unit SQ BID [facility] Last Admin: 07/07/16 21:33 Dose: 5,000 unit Aztreonam 1 gm/ Dextrose 50 mls @ 100 mls/hr IVPB DAILY [facility] PRN Reason: Protocol Last Admin: 07/07/16 10:17 Dose: 100 mls/hr Isosorbide Mononitrate (Imdur -) 60 mg PO DAILY [facility] Last Admin: 07/07/16 10:17 Dose: 60 mg Metoprolol Succinate (Toprol Xl -) 100 mg PO [facility] Last Admin: 07/07/16 21:33 Dose: 100 mg Polyethylene Glycol (Miralax (For Daily Use) -) 17 gm PO DAILY [facility] Last Admin: 07/07/16 10:17 Dose: Not Given Sodium Bicarbonate (Sodium Bicarbonate -) 650 mg PO TID [facility] Last Admin: 07/08/16 05:44 Dose: 650 mg - Objective Vital Signs: Vital Signs Temperature 98 F 07/08/16 07:44 Pulse Rate 74 07/08/16 07:44 Respiratory Rate 22 07/08/16 07:44 Blood Pressure 122/59 07/08/16 07:44 O2 Sat by Pulse Oximetry (%) 98 07/07/16 21:00 Cardiovascular: Yes: Regular Rate and Rhythm Respiratory: Yes: Regular, CTA Bilaterally Gastrointestinal: Yes: Normal Bowel Sounds, Soft Edema: No Labs: CBC, BMP 07/06/16 08:35 07/08/16 05:35 INR, PTT INR 1.20 (0.82-1.09) H 07/01/16 07:52 Problem List - Problems (1) Acute on chronic systolic (congestive) heart failure Assessment/Plan: IV LASIX--TO PO--ON HOLD MONITOR LABS CARDIO ON BOARD Code(s): I50.23 - ACUTE ON CHRONIC SYSTOLIC (CONGESTIVE) HEART FAILURE (2) CAD (coronary artery disease) Assessment/Plan: FOLLOW CE TELE Code(s): I25.10 - ATHSCL HEART DISEASE OF [place] CORONARY ARTERY W/O ANG PCTRS Qualifiers: Coronary Disease-Associated Artery/Lesion type: [place] artery Associated angina: without angina (3) Lung cancer Assessment/Plan: PULM CONSULT Code(s): C34.90 - MALIGNANT NEOPLASM OF UNSP PART OF UNSP BRONCHUS OR LUNG (4) Valvular heart disease Assessment/Plan: MOD TO SEVERE PER CARDIO-- D/W CARDIO--TO REVIEW OLD TESTING AND ASSES IF CANDIDATE FOR SURGERY D/W PT AND FAMILY Code(s): I38 - ENDOCARDITIS, VALVE UNSPECIFIED (5) Bladder mass Assessment/Plan: FOR CYSTO ON WEDNESDAY Code(s): N32.89 - OTHER SPECIFIED DISORDERS OF BLADDER
[2016-07-08] MEDS: HEPARIN NA (PORCINE) 5,000 UNITS/ML 1ML VIAL SQ SCH (10:21)
[2016-07-08] MEDS: AZTREONAM 1 GM in DEXTROSE 5%-WATER - 50 ML IVPB SCH (10:21)
[2016-07-08] MEDS: POLYETHYLENE GLYCOL 3350 119 GM BTL PO SCH (10:21)
[2016-07-08] MEDS: ISOSORBIDE MONONITRATE 60 MG TAB.SR.24H (FP) PO SCH (10:21)
--- NOTE | 2016-07-08 10:27 | PN ---
Progress Note (short form) - Note Progress Note: S: 89 year old gentleman, known case of Coronary artery disease, angina pectoris , paroxysmal atrial fibrillation, s/p permanent pacemaker for advanced AV block , mitral regurgitation, tricuspid regurgitation, left ventricular systolic dysfunction, hyperlipidemia, aortic valvular disease with aortic regurgitation, history of hypertension, s/p left nephrectomy, chronic kidney disease. Patient is scheduled to undergo a cystoscopy. He denies having chest pain or discomfort, no dyspnea reported. Has been ambulating without symptoms, no history of palpitations. Active Medications Generic Name Dose Route Start Last Admin Trade Name Freq PRN Reason Stop Dose Admin Acetaminophen 650 mg 07/01/16 13:05 07/07/16 03:13 Tylenol - PO 650 mg Q4H PRN Administration FEVER OR PAIN Atorvastatin Calcium 10 mg 07/01/16 22:00 07/07/16 21:33 Lipitor - PO 10 mg HS BATSHEVA Administration Heparin Sodium (Porcine) 5,000 unit 07/01/16 13:15 07/08/16 10:21 Heparin - SQ 5,000 unit BID BATSHEVA Administration Aztreonam 1 gm/ Dextrose 50 mls @ 100 mls/hr 07/04/16 12:15 07/08/16 10:21 IVPB 100 mls/hr DAILY [facility]HE[facility] Administration Protocol Isosorbide Mononitrate 60 mg 07/02/16 10:00 07/08/16 10:21 Imdur - PO 60 mg DAILY [facility]HEVA Administration Metoprolol Succinate 100 mg 07/01/16 22:00 07/07/16 21:33 Toprol Xl - PO 100 mg HS BATSHEVA Administration Polyethylene Glycol 17 gm 07/04/16 14:00 07/08/16 10:21 Miralax (For Daily Use) - PO Not Given DAILY [facility]HEVA Sodium Bicarbonate 650 mg 07/02/16 14:00 07/08/16 05:44 Sodium Bicarbonate - PO 650 mg TID BATSHEVA Administration O: 89 year old male was in no acute distress, no pallor, cyanosis, clubbing, or jaundice. Last Vital Signs Temp Pulse Resp BP Pulse Ox 98 F 74 22 122/59 98 07/08/16 07:44 07/08/16 07:44 07/08/16 07:44 07/08/16 07:44 07/07/16 21:00 Neck: Supple, no JVD, negative HJR, carotids were equal and upstrokes were normal, no thyromegaly appreciated. Heart: PMI was in the 5th intercostal space, no heaves or thrills, S1 was normal , S2 was split, ejection systolic murmur grade I/ at the second right intercoastal space No diastolic murmur or gallops were appreciated. Lungs: Clear on auscultation bilaterally. Abdomen: Soft, nontender, no hepatosplenomegaly appreciated, and no palpable masses were felt. Extremities: No calf tenderness or dependent edema. CBC, BMP 07/06/16 08:35 07/08/16 05:35 Laboratory Results - last 24 hr 07/08/16 05:35 Sodium 141 Potassium 5.0 Chloride 105 Carbon Dioxide 25 Anion Gap 11 BUN 105 H* Creatinine 3.2 H Creat Clearance w eGFR 18.42 Random Glucose 83 D Calcium 8.8 Total Bilirubin 0.2 D AST 35 D ALT 31 D Alkaline Phosphatase 78 Total Protein 6.6 Albumin 2.7 L Impression: (1) Acute on chronic systolic (congestive) heart failure, currently NYHA class II Code(s): I50.23 - ACUTE ON CHRONIC SYSTOLIC (CONGESTIVE) HEART FAILURE (2) CAD (coronary artery disease), angina pectoris Code(s): I25.10 - ATHSCL HEART DISEASE OF [place] CORONARY ARTERY W/O ANG PCTRS Qualifiers: Coronary Disease-Associated Artery/Lesion type: [place] artery Associated angina: without angina (3) Chronic kidney disease (CKD) Code(s): N18.9 - CHRONIC KIDNEY DISEASE, UNSPECIFIED Qualifiers: Chronic kidney disease stage: stage 3 (moderate) Qualified Code(s): N18.3 - Chronic kidney disease, stage 3 (moderate) (4) S/P left nephrectomy for Carcinoma Code(s): Z90.5 - ACQUIRED ABSENCE OF KIDNEY (5) Severe mitral regurgitation by doppler interrogation Code(s): I34.0 - NONRHEUMATIC MITRAL (VALVE) INSUFFICIENCY (6) Severe tricuspid regurgitation by doppler interrogation Code(s): I07.1 - RHEUMATIC TRICUSPID INSUFFICIENCY (7)Moderate to severe aortic regurgitation by doppler interrogation Code(s): I35.1 - NONRHEUMATIC AORTIC (VALVE) INSUFFICIENCY (8) HTN (hypertension), hypertensive cardiovascular disease Code(s): I10 - ESSENTIAL (PRIMARY) HYPERTENSION Qualifiers: Hypertension type: essential hypertension Qualified Code(s): I10 - Essential (primary) hypertension (9) Moderate pulmonary hypertension Code(s): I27.2 - OTHER SECONDARY PULMONARY HYPERTENSION (10) History of permanent cardiac pacemaker placement Code(s): Z95.0 - PRESENCE OF CARDIAC PACEMAKER (11) Hypercholesteremia Code(s): E78.0 - PURE HYPERCHOLESTEROLEMIA * DO NOT USE * (12) History of advanced AV Block Code(s): I44.30 - UNSPECIFIED ATRIOVENTRICULAR BLOCK (13) History of Paroxysmal atrial fibrillation Code(s): I48.0 - PAROXYSMAL ATRIAL FIBRILLATION (14) Left ventricular systolic dysfunction of atleast moderate severity Code(s): I51.9 - HEART DISEASE, UNSPECIFIED (15) Right ventricular systolic dysfunction of atleast moderate severity Code(s): I51.9 - HEART DISEASE, UNSPECIFIED (16) S/P partial cystectomy for bladder CA Code(s): Z98.890 - OTHER SPECIFIED POSTPROCEDURAL STATES (17) History of recent syncope, etiology to be determined, possibly vasovagal Code(s): R55 - SYNCOPE AND COLLAPSE (18) Anemia most likely related to chronic kidney disease Code(s): D64.9 - ANEMIA, UNSPECIFIED Recommendations: 1. Patient should receive his cardiac medications with a sip of water on the day of the contemplated procedure. 2. close cardiopulmonary monitoring during and following the procedure. Prognosis: Guarded Attestation: Documentation prepared by Neel Alberto, acting as medical receptionist for Renato Irene MD.
--- NOTE | 2016-07-08 11:39 | PN ---
Progress Note, Physician History of Present Illness: Pt seen and examined at bedside. He is awake and alert. He denies shortness of breath. He is ambulating without difficulty. - Current Medication List Current Medications: Active Medications Acetaminophen (Tylenol -) 650 mg PO Q4H PRN PRN Reason: FEVER OR PAIN Last Admin: 07/07/16 03:13 Dose: 650 mg Atorvastatin Calcium (Lipitor -) 10 mg PO HS [facility] Last Admin: 07/07/16 21:33 Dose: 10 mg Heparin Sodium (Porcine) (Heparin -) 5,000 unit SQ BID [facility] Last Admin: 07/08/16 10:21 Dose: 5,000 unit Aztreonam 1 gm/ Dextrose 50 mls @ 100 mls/hr IVPB DAILY [facility] PRN Reason: Protocol Last Admin: 07/08/16 10:21 Dose: 100 mls/hr Isosorbide Mononitrate (Imdur -) 60 mg PO DAILY [facility] Last Admin: 07/08/16 10:21 Dose: 60 mg Metoprolol Succinate (Toprol Xl -) 100 mg PO [facility] Last Admin: 07/07/16 21:33 Dose: 100 mg Polyethylene Glycol (Miralax (For Daily Use) -) 17 gm PO DAILY [facility] Last Admin: 07/08/16 10:21 Dose: Not Given Sodium Bicarbonate (Sodium Bicarbonate -) 650 mg PO TID [facility] Last Admin: 07/08/16 05:44 Dose: 650 mg - Objective Vital Signs: Vital Signs Temperature 98 F 07/08/16 07:44 Pulse Rate 74 07/08/16 07:44 Respiratory Rate 22 07/08/16 08:00 Blood Pressure 122/59 07/08/16 07:44 O2 Sat by Pulse Oximetry (%) 96 07/08/16 08:00 Constitutional: Yes: Calm Eyes: Yes: Conjunctiva Clear HENT: Yes: Atraumatic Neck: Yes: Supple Cardiovascular: Yes: S1, S2 Respiratory: Yes: Regular Gastrointestinal: Yes: Normal Bowel Sounds, Soft Genitourinary: Yes: WNL Musculoskeletal: Yes: WNL Extremities: Yes: WNL Edema: No Neurological: Yes: Oriented Psychiatric: Yes: Oriented Labs: CBC, BMP 07/06/16 08:35 07/08/16 05:35 INR, PTT INR 1.20 (0.82-1.09) H 07/01/16 07:52 Problem List - Problems (1) CAD (coronary artery disease) Code(s): I25.10 - ATHSCL HEART DISEASE OF [place] CORONARY ARTERY W/O ANG PCTRS Qualifiers: Coronary Disease-Associated Artery/Lesion type: [place] artery Associated angina: without angina (2) COPD (chronic obstructive pulmonary disease) Code(s): J44.9 - CHRONIC OBSTRUCTIVE PULMONARY DISEASE, UNSPECIFIED Qualifiers : COPD type: unspecified COPD Qualified Code(s): J44.9 - Chronic obstructive pulmonary disease, unspecified (3) Chronic kidney disease (CKD) Code(s): N18.9 - CHRONIC KIDNEY DISEASE, UNSPECIFIED Qualifiers: Chronic kidney disease stage: stage 3 (moderate) Qualified Code(s): N18.3 - Chronic kidney disease, stage 3 (moderate) (4) Congestive heart failure (CHF) Code(s): I50.9 - HEART FAILURE, UNSPECIFIED Qualifiers: Congestive heart failure type: diastolic Congestive heart failure chronicity: acute on chronic Qualified Code(s): I50.33 - Acute on chronic diastolic (congestive) heart failure (5) HTN (hypertension) Code(s): I10 - ESSENTIAL (PRIMARY) HYPERTENSION Qualifiers: Hypertension type: essential hypertension Qualified Code(s): I10 - Essential (primary) hypertension Assessment/Plan Current Medications Generic Name Dose Route Start Last Admin Trade Name Freq PRN Reason Stop Dose Admin Acetaminophen 650 mg 07/01/16 13:05 07/07/16 03:13 Tylenol - PO 650 mg Q4H PRN Administration FEVER OR PAIN Atorvastatin Calcium 10 mg 07/01/16 22:00 07/07/16 21:33 Lipitor - PO 10 mg HS BATSHEVA Administration Heparin Sodium (Porcine) 5,000 unit 07/01/16 13:15 07/08/16 10:21 Heparin - SQ 5,000 unit BID BATSHEVA Administration Aztreonam 1 gm/ Dextrose 50 mls @ 100 mls/hr 07/04/16 12:15 07/08/16 10:21 IVPB 100 mls/hr DAILY B[facility]HE[facility] Administration Protocol Isosorbide Mononitrate 60 mg 07/02/16 10:00 07/08/16 10:21 Imdur - PO 60 mg DAILY [facility]HEVA Administration Metoprolol Succinate 100 mg 07/01/16 22:00 07/07/16 21:33 Toprol Xl - PO 100 mg HS BATSHEVA Administration Polyethylene Glycol 17 gm 07/04/16 14:00 07/08/16 10:21 Miralax (For Daily Use) - PO Not Given DAILY B[facility]HEVA Sodium Bicarbonate 650 mg 07/02/16 14:00 07/08/16 05:44 Sodium Bicarbonate - PO 650 mg TID BATSHEVA Administration IMPRESSION: Scintigraphic findings of right ureteral outlet obstruction. Status post left nephrectomy Impression 1. CKD 2. solitary right kidney 3. hx of bladder cancer 4. UTI 5. CHF 6. CAD 7. mod to severe AR 8. p-a-fib 9. hx PPM 10. anemia Plan - cysto in am - renal function is improving - will hold off lasix - cont renal diet - cont current meds - cotn with sodium bicarb - will follow Dr Alas
--- NOTE | 2016-07-08 12:29 | PN ---
Progress Note, Physician History of Present Illness: PULMONARY ALERT,DOING WELL,-C/O SOB,-CP - Current Medication List Current Medications: Active Medications Acetaminophen (Tylenol -) 650 mg PO Q4H PRN PRN Reason: FEVER OR PAIN Last Admin: 07/07/16 03:13 Dose: 650 mg Atorvastatin Calcium (Lipitor -) 10 mg PO HS [facility] Last Admin: 07/07/16 21:33 Dose: 10 mg Heparin Sodium (Porcine) (Heparin -) 5,000 unit SQ BID [facility] Last Admin: 07/08/16 10:21 Dose: 5,000 unit Aztreonam 1 gm/ Dextrose 50 mls @ 100 mls/hr IVPB DAILY [facility] PRN Reason: Protocol Last Admin: 07/08/16 10:21 Dose: 100 mls/hr Isosorbide Mononitrate (Imdur -) 60 mg PO DAILY [facility] Last Admin: 07/08/16 10:21 Dose: 60 mg Metoprolol Succinate (Toprol Xl -) 100 mg PO HS [facility] Last Admin: 07/07/16 21:33 Dose: 100 mg Polyethylene Glycol (Miralax (For Daily Use) -) 17 gm PO DAILY [facility] Last Admin: 07/08/16 10:21 Dose: Not Given Sodium Bicarbonate (Sodium Bicarbonate -) 650 mg PO TID [facility] Last Admin: 07/08/16 05:44 Dose: 650 mg - Objective Vital Signs: Vital Signs Temperature 98 F 07/08/16 07:44 Pulse Rate 74 07/08/16 07:44 Respiratory Rate 22 07/08/16 08:00 Blood Pressure 122/59 07/08/16 07:44 O2 Sat by Pulse Oximetry (%) 96 07/08/16 08:00 Constitutional: Yes: Calm, Thin Eyes: Yes: WNL HENT: Yes: WNL Neck: Yes: WNL Cardiovascular: Yes: Regular Rate and Rhythm, S1, S2 Respiratory: Yes: Diminished Gastrointestinal: Yes: Normal Bowel Sounds, Soft Extremities: Yes: WNL Edema: No Labs: CBC, BMP 07/06/16 08:35 07/08/16 05:35 INR, PTT INR 1.20 (0.82-1.09) H 07/01/16 07:52 Problem List - Problems (1) Acute on chronic systolic (congestive) heart failure Code(s): I50.23 - ACUTE ON CHRONIC SYSTOLIC (CONGESTIVE) HEART FAILURE (2) Acute worsening of stage 3 chronic kidney disease Code(s): N18.3 - CHRONIC KIDNEY DISEASE, STAGE 3 (MODERATE) (3) Angina pectoris Code(s): I20.9 - ANGINA [place], UNSPECIFIED (4) CAD (coronary artery disease) Code(s): I25.10 - ATHSCL HEART DISEASE OF [place] CORONARY ARTERY W/O ANG PCTRS Qualifiers: Coronary Disease-Associated Artery/Lesion type: [place] artery Associated angina: without angina (5) Chronic kidney disease (CKD) Code(s): N18.9 - CHRONIC KIDNEY DISEASE, UNSPECIFIED Qualifiers: Chronic kidney disease stage: stage 3 (moderate) Qualified Code(s): N18.3 - Chronic kidney disease, stage 3 (moderate) (6) Congestive heart failure (CHF) Code(s): I50.9 - HEART FAILURE, UNSPECIFIED Qualifiers: Congestive heart failure type: diastolic Congestive heart failure chronicity: acute on chronic Qualified Code(s): I50.33 - Acute on chronic diastolic (congestive) heart failure (7) HTN (hypertension) Code(s): I10 - ESSENTIAL (PRIMARY) HYPERTENSION Qualifiers: Hypertension type: essential hypertension Qualified Code(s): I10 - Essential (primary) hypertension (8) History of lobectomy of lung Code(s): Z98.89 - OTHER SPECIFIED POSTPROCEDURAL STATES * DO NOT USE * (9) History of permanent cardiac pacemaker placement Code(s): Z95.0 - PRESENCE OF CARDIAC PACEMAKER (10) Hypercholesteremia Code(s): E78.0 - PURE HYPERCHOLESTEROLEMIA * DO NOT USE * (11) Lung nodule Code(s): R91.1 - SOLITARY PULMONARY NODULE (12) Paroxysmal atrial fibrillation Code(s): I48.0 - PAROXYSMAL ATRIAL FIBRILLATION (13) COPD (chronic obstructive pulmonary disease) Code(s): J44.9 - CHRONIC OBSTRUCTIVE PULMONARY DISEASE, UNSPECIFIED Qualifiers : COPD type: unspecified COPD Qualified Code(s): J44.9 - Chronic obstructive pulmonary disease, unspecified Assessment/Plan IMP CHEST PAIN SYNDROME IMPROVING CHF COPD H/O LUNG CA S/P RESECTION RUL NODULE PAF S/P PPM 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 BLADDER CA UTI GERD PLAN ANTIBIOTICS O2 INHALED BRONCHODILATORS MONITOR LYTES DAILY WTS CYSTO IN AM Problem List - Problems (1) Acute on chronic systolic (congestive) heart failure Code(s): I50.23 - ACUTE ON CHRONIC SYSTOLIC (CONGESTIVE) HEART FAILURE (2) Acute worsening of stage 3 chronic kidney disease Code(s): N18.3 - CHRONIC KIDNEY DISEASE, STAGE 3 (MODERATE) (3) Angina pectoris Code(s): I20.9 - ANGINA [place], UNSPECIFIED (4) CAD (coronary artery disease) Code(s): I25.10 - ATHSCL HEART DISEASE OF [place] CORONARY ARTERY W/O ANG PCTRS Qualifiers: Coronary Disease-Associated Artery/Lesion type: [place] artery Associated angina: without angina (5) Chronic kidney disease (CKD) Code(s): N18.9 - CHRONIC KIDNEY DISEASE, UNSPECIFIED Qualifiers: Chronic kidney disease stage: stage 3 (moderate) Qualified Code(s): N18.3 - Chronic kidney disease, stage 3 (moderate) (6) Congestive heart failure (CHF) Code(s): I50.9 - HEART FAILURE, UNSPECIFIED Qualifiers: Congestive heart failure type: diastolic Congestive heart failure chronicity: acute on chronic Qualified Code(s): I50.33 - Acute on chronic diastolic (congestive) heart failure (7) HTN (hypertension) Code(s): I10 - ESSENTIAL (PRIMARY) HYPERTENSION Qualifiers: Hypertension type: essential hypertension Qualified Code(s): I10 - Essential (primary) hypertension (8) History of lobectomy of lung Code(s): Z98.89 - OTHER SPECIFIED POSTPROCEDURAL STATES * DO NOT USE * (9) History of permanent cardiac pacemaker placement Code(s): Z95.0 - PRESENCE OF CARDIAC PACEMAKER (10) Hypercholesteremia Code(s): E78.0 - PURE HYPERCHOLESTEROLEMIA * DO NOT USE * (11) Lung nodule Code(s): R91.1 - SOLITARY PULMONARY NODULE (12) Paroxysmal atrial fibrillation Code(s): I48.0 - PAROXYSMAL ATRIAL FIBRILLATION (13) COPD (chronic obstructive pulmonary disease) Code(s): J44.9 - CHRONIC OBSTRUCTIVE PULMONARY DISEASE, UNSPECIFIED
[2016-07-08] MEDS: ATORVASTATIN CA 10 MG TABLET (FP) PO SCH (21:37)
[2016-07-08] MEDS: ACETAMINOPHEN 325 MG TABLET (FP) PO PRN (21:37)
[2016-07-08] MEDS: METOPROLOL SUCCINATE 100 MG TAB.SR.24H (FP) PO SCH (21:37)
[2016-07-09] MEDS: SODIUM BICARBONATE 650 MG TABLET PO SCH ×3 (06:49→22:55)
--- NOTE | 2016-07-09 08:54 | PN ---
Progress Note, Physician History of Present Illness: SOME IMPROVEMENT LESS SOB ON EXERTION - Current Medication List Current Medications: Active Medications Acetaminophen (Tylenol -) 650 mg PO Q4H PRN PRN Reason: FEVER OR PAIN Last Admin: 07/08/16 21:37 Dose: 650 mg Atorvastatin Calcium (Lipitor -) 10 mg PO HS [facility] Last Admin: 07/08/16 21:37 Dose: 10 mg Aztreonam 1 gm/ Dextrose 50 mls @ 100 mls/hr IVPB DAILY [facility] PRN Reason: Protocol Last Admin: 07/08/16 10:21 Dose: 100 mls/hr Isosorbide Mononitrate (Imdur -) 60 mg PO DAILY [facility] Last Admin: 07/08/16 10:21 Dose: 60 mg Metoprolol Succinate (Toprol Xl -) 100 mg PO HS [facility] Last Admin: 07/08/16 21:37 Dose: 100 mg Polyethylene Glycol (Miralax (For Daily Use) -) 17 gm PO DAILY [facility] Last Admin: 07/08/16 10:21 Dose: Not Given Sodium Bicarbonate (Sodium Bicarbonate -) 650 mg PO TID [facility] Last Admin: 07/09/16 06:49 Dose: 650 mg - Objective Vital Signs: Vital Signs Temperature 98.1 F 07/09/16 08:08 Pulse Rate 64 07/09/16 08:08 Respiratory Rate 18 07/09/16 08:08 Blood Pressure 123/64 07/09/16 08:08 O2 Sat by Pulse Oximetry (%) 98 07/08/16 21:00 Cardiovascular: Yes: Regular Rate and Rhythm, Murmur Respiratory: Yes: Regular, CTA Bilaterally Gastrointestinal: Yes: Normal Bowel Sounds, Soft Labs: CBC, BMP 07/06/16 08:35 07/08/16 05:35 INR, PTT INR 1.20 (0.82-1.09) H 07/01/16 07:52 Problem List - Problems (1) Acute on chronic systolic (congestive) heart failure Assessment/Plan: IV LASIX--TO PO--ON HOLD MONITOR LABS CARDIO ON BOARD Code(s): I50.23 - ACUTE ON CHRONIC SYSTOLIC (CONGESTIVE) HEART FAILURE (2) CAD (coronary artery disease) Assessment/Plan: FOLLOW CE TELE Code(s): I25.10 - ATHSCL HEART DISEASE OF [place] CORONARY ARTERY W/O ANG PCTRS Qualifiers: Coronary Disease-Associated Artery/Lesion type: [place] artery Associated angina: without angina (3) Lung cancer Assessment/Plan: PULM CONSULT Code(s): C34.90 - MALIGNANT NEOPLASM OF UNSP PART OF UNSP BRONCHUS OR LUNG (4) Valvular heart disease Assessment/Plan: MOD TO SEVERE PER CARDIO-- D/W CARDIO--TO REVIEW OLD TESTING AND ASSES IF CANDIDATE FOR SURGERY D/W PT AND FAMILY Code(s): I38 - ENDOCARDITIS, VALVE UNSPECIFIED (5) Bladder mass Assessment/Plan: FOR CYSTO ON WEDNESDAY Code(s): N32.89 - OTHER SPECIFIED DISORDERS OF BLADDER
[2016-07-09] MEDS ORDERED: ONDANSETRON 4 MG/2 ML VIAL IVPUSH PRN ×2 (09:55→12:02)
[2016-07-09] MEDS ORDERED: PROMETHAZINE HCL 25 MG/1 ML VIAL IVPUSH PRN (09:55)
[2016-07-09] MEDS ORDERED: LACTATED RINGERS SOLUTION 1,000 ML IV SCH ×2 (10:00→12:02)
[2016-07-09] MEDS: POLYETHYLENE GLYCOL 3350 119 GM BTL PO SCH (10:00)
[2016-07-09] MEDS ORDERED: LIDOCAINE HCL/PF 2% SDV 5ML VIAL ONE (10:04)
[2016-07-09] MEDS ORDERED: PROPOFOL 20 ML ONE (10:04)
[2016-07-09] MEDS ORDERED: AZTREONAM 1 GM VIAL (RESTRICTED TO ID) IVPB ONE (10:10)
[2016-07-09] MEDS ORDERED: DEXAMETHASONE SOD PHOSPHATE 4 MG/1 ML VIAL ONE (10:25)
[2016-07-09] MEDS ORDERED: SEVOFLURANE 250 ML BTL ONE (11:11)
[2016-07-09] MEDS ORDERED: FUROSEMIDE 40 MG/4 ML INJECTABLE VIAL ONE (11:19)
--- NOTE | 2016-07-09 11:32 | OP ---
Operative Note - Note: Operative Date: 07/09/16 Pre-Operative Diagnosis: bladder tumor Operation: cysto/turbt Post-Operative Diagnosis: Same as Pre-op Surgeon: William Dc Anesthesiologist/MANAGEMENT NURSE RN: Rafat Joseph Anesthesia: General Specimens Removed: bladder tumor Estimated Blood Loss (mls): 5 Drains & Tubes with Location: 18fr newman Operative Report Dictated: Yes
[2016-07-09] MEDS: ISOSORBIDE MONONITRATE 60 MG TAB.SR.24H (FP) PO SCH ×2 (13:36→13:38)
[2016-07-09] MEDS: AZTREONAM 1 GM in DEXTROSE 5%-WATER - 50 ML IVPB SCH (13:38)
--- NOTE | 2016-07-09 13:46 | PN ---
Progress Note (short form) - Note Progress Note: PULMONARY s/p cysto/TURBT. Denies shortness of breath or chest pain. Last Vital Signs Temp Pulse Resp BP Pulse Ox 97.8 F 99 H 18 143/72 100 07/09/16 13:05 07/09/16 13:05 07/09/16 13:05 07/09/16 13:05 07/09/16 13:05 Gen: NAD at rest Heart: RRR Lung: decreased breath sounds at the bases Abd: soft, nontender Ext: no edema CBC, BMP 07/06/16 08:35 07/08/16 05:35 Active Medications Acetaminophen (Tylenol -) 650 mg PO Q4H PRN PRN Reason: FEVER OR PAIN Atorvastatin Calcium (Lipitor -) 10 mg PO HS [facility] Aztreonam 1 gm/ Dextrose 50 mls @ 100 mls/hr IVPB DAILY [facility] PRN Reason: Protocol Lactated Ringer's (Lactated Ringers Solution) 1,000 mls @ 125 mls/hr IV ASDIR [facility] Isosorbide Mononitrate (Imdur -) 60 mg PO DAILY [facility] Last Admin: 07/09/16 13:36 Dose: 60 mg Metoprolol Succinate (Toprol Xl -) 100 mg PO HS [facility] Ondansetron HCl (Zofran Injection) 4 mg IVPUSH Q6H PRN PRN Reason: NAUSEA AND/OR VOMITING Stop: 07/09/16 15:56 Polyethylene Glycol (Miralax (For Daily Use) -) 17 gm PO DAILY [facility] Sodium Bicarbonate (Sodium Bicarbonate -) 650 mg PO TID [facility] Last Admin: 07/09/16 13:36 Dose: 650 mg A/P Acute on Chronic LV Systolic Heart Failure Aortic Regurgitation Acute on Chronic Renal Failure Paroxysmal Atrial Fibrillation h/o Lung Ca COPD Lung Nodule UTI - lasix as needed - monitor urine output, creatinine - beta rohan - s/p antibiotics - O2 as needed - DVT prophylaxis
--- NOTE | 2016-07-09 15:50 | PN ---
Progress Note, Physician History of Present Illness: Pt seen and examined at bedside. He is awake and appears comfortable. He had the cysto today. Pt now has a newman. He denies shortness of breath. - Current Medication List Current Medications: Active Medications Acetaminophen (Tylenol -) 650 mg PO Q4H PRN PRN Reason: FEVER OR PAIN Atorvastatin Calcium (Lipitor -) 10 mg PO HS [facility] Aztreonam 1 gm/ Dextrose 50 mls @ 100 mls/hr IVPB DAILY [facility] PRN Reason: Protocol Lactated Ringer's (Lactated Ringers Solution) 1,000 mls @ 125 mls/hr IV ASDIR [facility] Isosorbide Mononitrate (Imdur -) 60 mg PO DAILY [facility] Last Admin: 07/09/16 13:36 Dose: 60 mg Metoprolol Succinate (Toprol Xl -) 100 mg PO HS [facility] Ondansetron HCl (Zofran Injection) 4 mg IVPUSH Q6H PRN PRN Reason: NAUSEA AND/OR VOMITING Stop: 07/09/16 15:56 Polyethylene Glycol (Miralax (For Daily Use) -) 17 gm PO DAILY [facility] Sodium Bicarbonate (Sodium Bicarbonate -) 650 mg PO TID [facility] Last Admin: 07/09/16 13:36 Dose: 650 mg - Objective Vital Signs: Vital Signs Temperature 97.6 F 07/09/16 14:15 Pulse Rate 74 07/09/16 14:15 Respiratory Rate 20 07/09/16 14:15 Blood Pressure 121/65 07/09/16 14:15 O2 Sat by Pulse Oximetry (%) 100 07/09/16 13:05 Constitutional: Yes: Calm Eyes: Yes: Conjunctiva Clear HENT: Yes: Atraumatic Neck: Yes: Supple Cardiovascular: Yes: S1, S2 Respiratory: Yes: CTA Bilaterally Gastrointestinal: Yes: Normal Bowel Sounds, Soft Genitourinary: Yes: Newman Present, Hematuria Musculoskeletal: Yes: WNL Edema: No Neurological: Yes: Oriented Psychiatric: Yes: Oriented Labs: CBC, BMP 07/06/16 08:35 07/08/16 05:35 INR, PTT INR 1.20 (0.82-1.09) H 07/01/16 07:52 Problem List - Problems (1) CAD (coronary artery disease) Code(s): I25.10 - ATHSCL HEART DISEASE OF [place] CORONARY ARTERY W/O ANG PCTRS Qualifiers: Coronary Disease-Associated Artery/Lesion type: [place] artery Associated angina: without angina (2) COPD (chronic obstructive pulmonary disease) Code(s): J44.9 - CHRONIC OBSTRUCTIVE PULMONARY DISEASE, UNSPECIFIED Qualifiers : COPD type: unspecified COPD Qualified Code(s): J44.9 - Chronic obstructive pulmonary disease, unspecified (3) Chronic kidney disease (CKD) Code(s): N18.9 - CHRONIC KIDNEY DISEASE, UNSPECIFIED Qualifiers: Chronic kidney disease stage: stage 3 (moderate) Qualified Code(s): N18.3 - Chronic kidney disease, stage 3 (moderate) (4) Congestive heart failure (CHF) Code(s): I50.9 - HEART FAILURE, UNSPECIFIED Qualifiers: Congestive heart failure type: diastolic Congestive heart failure chronicity: acute on chronic Qualified Code(s): I50.33 - Acute on chronic diastolic (congestive) heart failure (5) HTN (hypertension) Code(s): I10 - ESSENTIAL (PRIMARY) HYPERTENSION Qualifiers: Hypertension type: essential hypertension Qualified Code(s): I10 - Essential (primary) hypertension Assessment/Plan Current Medications Generic Name Dose Route Start Last Admin Trade Name Freq PRN Reason Stop Dose Admin Acetaminophen 650 mg 07/09/16 12:02 Tylenol - PO Q4H PRN FEVER OR PAIN Atorvastatin Calcium 10 mg 07/09/16 22:00 Lipitor - PO HS [facility] Aztreonam 1 gm/ Dextrose 50 mls @ 100 mls/hr 07/10/16 10:00 IVPB DAILY [facility] Protocol Lactated Ringer's 1,000 mls @ 125 mls/hr 07/09/16 12:02 Lactated Ringers Solution IV ASDIR [facility] Isosorbide Mononitrate 60 mg 07/10/16 10:00 07/09/16 13:36 Imdur - PO 60 mg DAILY [facility] Administration Metoprolol Succinate 100 mg 07/09/16 22:00 Toprol Xl - PO HS [facility] Ondansetron HCl 4 mg 07/09/16 12:02 Zofran Injection IVPUSH 07/09/16 15:56 Q6H PRN NAUSEA AND/OR VOMITING Polyethylene Glycol 17 gm 07/10/16 10:00 Miralax (For Daily Use) - PO DAILY [facility] Sodium Bicarbonate 650 mg 07/09/16 14:00 07/09/16 13:36 Sodium Bicarbonate - PO 650 mg TID [facility] Administration IMPRESSION: Scintigraphic findings of right ureteral outlet obstruction. Status post left nephrectomy Impression 1. CKD 2. solitary right kidney 3. hx of bladder cancer 4. UTI 5. CHF 6. CAD 7. mod to severe AR 8. p-a-fib 9. hx PPM 10. anemia 11. s/p cysto 12. gross hematuria Plan - stop LR - will order bloodwork - monitor urine output - urology input appreciated - will hold off lasix - cont renal diet - cont current meds - will follow Dr Alas
--- NOTE | 2016-07-09 16:34 | PN ---
Progress Note, Physician Chief Complaint: Events noted Post cystoscopy/TURBT History of Present Illness: Patient was seen and examined. Awake and alert. Chart was reviewed Denies chest pain or palpitations. Less SOB. Post TURBT Hematuria - Current Medication List Current Medications: Active Medications Acetaminophen (Tylenol -) 650 mg PO Q4H PRN PRN Reason: FEVER OR PAIN Atorvastatin Calcium (Lipitor -) 10 mg PO HS [facility] Aztreonam 1 gm/ Dextrose 50 mls @ 100 mls/hr IVPB DAILY [facility] PRN Reason: Protocol Isosorbide Mononitrate (Imdur -) 60 mg PO DAILY [facility] Last Admin: 07/09/16 13:36 Dose: 60 mg Metoprolol Succinate (Toprol Xl -) 100 mg PO HS [facility] Polyethylene Glycol (Miralax (For Daily Use) -) 17 gm PO DAILY [facility] Sodium Bicarbonate (Sodium Bicarbonate -) 650 mg PO TID [facility] Last Admin: 07/09/16 13:36 Dose: 650 mg - Objective Vital Signs: Vital Signs Temperature 97.6 F 07/09/16 14:15 Pulse Rate 74 07/09/16 14:15 Respiratory Rate 20 07/09/16 14:15 Blood Pressure 121/65 07/09/16 14:15 O2 Sat by Pulse Oximetry (%) 100 07/09/16 13:05 Neck: Yes: Supple Cardiovascular: Yes: Regular Rate and Rhythm, S1, S2 Respiratory: Yes: CTA Bilaterally Gastrointestinal: Yes: Normal Bowel Sounds, Soft. No: Tenderness Edema: No Additional Findings/Remarks: - Review of Systems Constitutional: denies: Chills, Fever Cardiovascular: denies: Chest Pain, Palpitations, (-) Shortness of Breath Respiratory: denies: Cough, Hemoptysis, Orthopnea, PND, (-) SOB, SOB on Exertion Gastrointestinal: denies: Melena, Nausea. denies: Abdominal Pain, Constipation , Diarrhea, Rectal Bleeding, Vomiting Genitourinary: denies: Dysuria Neurological: denies: Syncope. denies: Dizziness, Headache, Seizure Labs: 07/08/16 05:35 Problem List - Problems (1) Acute on chronic systolic (congestive) heart failure Code(s): I50.23 - ACUTE ON CHRONIC SYSTOLIC (CONGESTIVE) HEART FAILURE (2) Angina pectoris Code(s): I20.9 - ANGINA PECTORIS, UNSPECIFIED (3) Aortic regurgitation Code(s): I35.1 - NONRHEUMATIC AORTIC (VALVE) INSUFFICIENCY Qualifiers: Cardiac valve disease etiology: nonrheumatic Qualified Code(s): I35.1 - Nonrheumatic aortic (valve) insufficiency (4) CAD (coronary artery disease) Code(s): I25.10 - ATHSCL HEART DISEASE OF [place] CORONARY ARTERY W/O ANG PCTRS Qualifiers: Coronary Disease-Associated Artery/Lesion type: [place] artery Associated angina: without angina (5) COPD (chronic obstructive pulmonary disease) Code(s): J44.9 - CHRONIC OBSTRUCTIVE PULMONARY DISEASE, UNSPECIFIED Qualifiers : COPD type: unspecified COPD Qualified Code(s): J44.9 - Chronic obstructive pulmonary disease, unspecified (6) Chronic kidney disease (CKD) Code(s): N18.9 - CHRONIC KIDNEY DISEASE, UNSPECIFIED Qualifiers: Chronic kidney disease stage: stage 3 (moderate) Qualified Code(s): N18.3 - Chronic kidney disease, stage 3 (moderate) (7) Congestive heart failure (CHF) Code(s): I50.9 - HEART FAILURE, UNSPECIFIED Qualifiers: Congestive heart failure type: diastolic Congestive heart failure chronicity: acute on chronic Qualified Code(s): I50.33 - Acute on chronic diastolic (congestive) heart failure (8) HTN (hypertension) Code(s): I10 - ESSENTIAL (PRIMARY) HYPERTENSION Qualifiers: Hypertension type: essential hypertension Qualified Code(s): I10 - Essential (primary) hypertension (9) History of permanent cardiac pacemaker placement Code(s): Z95.0 - PRESENCE OF CARDIAC PACEMAKER (10) Hypercholesteremia Code(s): E78.0 - PURE HYPERCHOLESTEROLEMIA * DO NOT USE * (11) Left ventricular dysfunction Code(s): I51.9 - HEART DISEASE, UNSPECIFIED (12) Mitral regurgitation Code(s): I34.0 - NONRHEUMATIC MITRAL (VALVE) INSUFFICIENCY Qualifiers: Cardiac valve disease etiology: nonrheumatic Qualified Code(s): I34.0 - Nonrheumatic mitral (valve) insufficiency (13) Paroxysmal atrial fibrillation Code(s): I48.0 - PAROXYSMAL ATRIAL FIBRILLATION (14) Pulmonary hypertension Code(s): I27.2 - OTHER SECONDARY PULMONARY HYPERTENSION (15) Sick sinus syndrome Code(s): I49.5 - SICK SINUS SYNDROME (16) Tricuspid regurgitation Code(s): I07.1 - RHEUMATIC TRICUSPID INSUFFICIENCY Qualifiers: Cardiac valve disease etiology: nonrheumatic Qualified Code(s): I36.1 - Nonrheumatic tricuspid (valve) insufficiency Assessment/Plan 1. Acute on chronic systolic failure with h/o mod-severe aortic valve regurgitation 2. Mitral valve and tricuspid valve disease 3. Single vessel CAD with negative nuclear myocardial perfusion imaging 4. 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 HCVD 8. Mild aortic root dilatation 9. 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 Continue Toprol XL 100 mg qd, Imdur 60 mg qd and Lipitor 10 mg qd (titrate as tolerated) 2. Continue Imdur 3. Diuretic may be used as needed. Monitor renal function and electrolytes 4. follow up Further plans are to follow Donn Batres MD
[2016-07-09] MEDS: ACETAMINOPHEN 325 MG TABLET (FP) PO PRN (18:14)
[2016-07-09] MEDS ORDERED: HYDROmorphone HCL CARPU-JECT 1 MG/1 ML DISP.SYRIN IVPB PRN (21:38)
[2016-07-09] MEDS ORDERED: METOPROLOL SUCCINATE 100 MG TAB.SR.24H (FP) PO SCH (22:00)
[2016-07-09] MEDS ORDERED: ATORVASTATIN CA 10 MG TABLET (FP) PO SCH (22:00)
--- NOTE | 2016-07-09 22:11 | OP ---
DATE OF OPERATION: DATE OF DICTATION: 07/09/2016 PREOPERATIVE DIAGNOSIS: Bladder tumor. POSTOPERATIVE DIAGNOSIS: Bladder tumor. PROCEDURE: Transurethral resection of bladder tumor. 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 Most recently admitted for fluid overload. CT scan was done on admission and he is noted to have a mass, appeared mostly exophytic on the anterior wall of the bladder. for cystoscopy and resection. 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 DESCRIPTION OF PROCEDURE: The patient was taken to the operating room and placed on the operating table. With cardiac monitoring and general anesthesia established, he was prepped and draped in the dorsal lithotomy position. The 26 sheath resectoscope was inserted through the urethra without difficulty and it was noted prostatic urethra was status post TUR and wide open. The bladder was visualized. The bladder has, in the past, looked somewhat irregular. There was a large diverticulum anteriorly and a portion of this had a lot of erythema but no mass per se. This area of erythema and irregularity was resected and sent to Pathology for analysis and then was cauterized. A very large right ureteral orifice was seen consistent with his reflux nephropathy. No actual intraluminal mass lesions were seen. Resectoscope was then removed and an 18-[place] Valenzuela was placed to straight drainage. [place] tinged urine was retrieved. The patient was awoken from anesthesia and transferred to the recovery room in stable condition. There were no complications. Estimated blood loss was minimal. KALLI MCKENNA M.D. 1 [id number]
[2016-07-10] MEDS: ACETAMINOPHEN 325 MG TABLET (FP) PO PRN (05:28)
[2016-07-10] MEDS: SODIUM BICARBONATE 650 MG TABLET PO SCH (05:28)
--- NOTE | 2016-07-10 08:00 | PN ---
Progress Note, Physician Chief Complaint: Pt. pain controlled, eating comfortably. No GA complaints. - Current Medication List Current Medications: Active Medications Acetaminophen (Tylenol -) 650 mg PO Q4H PRN PRN Reason: FEVER OR PAIN Last Admin: 07/10/16 05:28 Dose: 650 mg Atorvastatin Calcium (Lipitor -) 10 mg PO HS [facility] Last Admin: 07/09/16 22:55 Dose: 10 mg Hydromorphone HCl (Dilaudid Injection -) 1 mg IVPB Q3H PRN PRN Reason: PAIN Last Admin: 07/09/16 22:55 Dose: 1 mg Aztreonam 1 gm/ Dextrose 50 mls @ 100 mls/hr IVPB DAILY [facility] PRN Reason: Protocol Isosorbide Mononitrate (Imdur -) 60 mg PO DAILY [facility] Last Admin: 07/09/16 13:36 Dose: 60 mg Metoprolol Succinate (Toprol Xl -) 100 mg PO HS [facility] Last Admin: 07/09/16 22:55 Dose: 100 mg Polyethylene Glycol (Miralax (For Daily Use) -) 17 gm PO DAILY [facility] Sodium Bicarbonate (Sodium Bicarbonate -) 650 mg PO TID [facility] Last Admin: 07/10/16 05:28 Dose: 650 mg - Objective Vital Signs: Vital Signs Temperature 97.9 F 07/10/16 05:00 Pulse Rate 97 H 07/10/16 05:00 Respiratory Rate 18 07/10/16 05:00 Blood Pressure 129/60 07/10/16 05:00 O2 Sat by Pulse Oximetry (%) 98 07/09/16 21:00 Constitutional: Yes: Well Nourished, No Distress, Calm Musculoskeletal: Yes: WNL Neurological: Yes: WNL, Alert, Oriented ...Motor Strength: WNL Labs: CBC, BMP 07/06/16 08:35 INR, PTT INR 1.20 (0.82-1.09) H 07/01/16 07:52 Assessment/Plan POD#1 s/p Cysto with TURBT under GA. Doing well. D/C from anesthesia care.
[2016-07-10 08:24] VITALS: BP 128/77; PULSE 64; TEMP 98
[2016-07-10 08:32] LABS: CALCIUM 8.6 mg/dL (8.5-10.1)
[2016-07-10 08:34] LABS: CREATININE 3.3 mg/dL (0.7-1.3)
--- NOTE | 2016-07-10 08:53 | DS ---
Physical Examination Vital Signs: Vital Signs Temperature 98 F 07/10/16 08:23 Pulse Rate 64 07/10/16 08:23 Respiratory Rate 22 07/10/16 08:23 Blood Pressure 128/77 07/10/16 08:23 O2 Sat by Pulse Oximetry (%) 98 07/09/16 21:00 Cardiovascular: Yes: Regular Rate and Rhythm Respiratory: Yes: Regular, CTA Bilaterally Gastrointestinal: Yes: Normal Bowel Sounds, Soft Labs: CBC, BMP 07/06/16 08:35 07/10/16 06:07 Discharge Summary Reason For Visit: CHF,CHEST PAIN Current Active Problems ACS (acute coronary syndrome) (Acute) AV block (Acute) Acute on chronic systolic (congestive) heart failure (Acute) Acute pulmonary edema (Acute) Acute worsening of stage 3 chronic kidney disease (Acute) Allergy to multiple antibiotics (Acute) Anemia (Acute) Angina pectoris (Acute) Aortic regurgitation (Acute) Back pain (Acute) Bladder mass (Acute) CAD (coronary artery disease) (Acute) COPD (chronic obstructive pulmonary disease) (Acute) Chronic kidney disease (CKD) (Acute) Congestive heart failure (CHF) (Acute) HTN (hypertension) (Acute) Hemoptysis (Acute) History of lobectomy of lung (Acute) History of partial cystectomy (Acute) History of permanent cardiac pacemaker placement (Acute) Hydronephrosis (Acute) Hydronephrosis determined by ultrasound (Acute) Hypercholesteremia (Acute) Left ventricular dysfunction (Acute) Lung cancer (Acute) Lung nodule (Acute) Mitral regurgitation (Acute) PNA (pneumonia) (Acute) Paroxysmal atrial fibrillation (Acute) Precordial chest pain (Acute) Pulmonary hypertension (Acute) Right ventricular dysfunction (Acute) S/p nephrectomy (Acute) Sick sinus syndrome (Acute) Syncope (Acute) Tricuspid regurgitation (Acute) Valvular heart disease (Acute) Hospital Course: 89 year old male, with a significant past medical history of HTN, lung CA, bladder CA, left nephrectomy and renal failure, CAD, paroxysmal afib, systolic heart failure, and hypercholesterolemia who presents to the emergency department with chest pain and SOB for about 10 days. He reports his symptoms have been getting progressively worse, stating that last night his symptoms had severely worsened. He reports his SOB is often worse with any strenuous activity like walking. He denies any changes in his SOB when lying down. He reports his chest pain is diffuse over his entire chest and is constant in nature. The patient ranks his chest pain a 7/10 in pain intensity. The patient also has chief complaints of a non productive cough. He denies any changes in his medications recently. He denies any recent fevers, chills, headache or dizziness. He denies any recent nausea, vomit, diarrhea or constipation. He denies any recent dysuria, frequency, urgency or hematuria. - Past Medical History Cardiovascular: Yes: CAD, HTN, Hyperlipdemia Pulmonary: Yes: Cancer (lung--s/p lobectomy), COPD Gastrointestinal: Yes: GERD Renal/: Yes: Renal Inusuff, Cancer (bladder, TCC), Hematuria, Renal Calculi Heme/Onc: Yes: Anemia - Past Surgical History Past Surgical History: Yes: Colonoscopy, Nephrectomy, Permanent Pacemaker, Thoracotomy Problems (1) Acute on chronic systolic (congestive) heart failure Assessment/Plan: IV LASIX--TO PO--ON HOLD MONITOR LABS CARDIO ON BOARD Code(s): I50.23 - ACUTE ON CHRONIC SYSTOLIC (CONGESTIVE) HEART FAILURE (2) CAD (coronary artery disease) Assessment/Plan: FOLLOW CE TELE Code(s): I25.10 - ATHSCL HEART DISEASE OF [place] CORONARY ARTERY W/O ANG PCTRS Qualifiers: Coronary Disease-Associated Artery/Lesion type: [place] artery Associated angina: without angina (3) Lung cancer Assessment/Plan: PULM CONSULT Code(s): C34.90 - MALIGNANT NEOPLASM OF UNSP PART OF UNSP BRONCHUS OR LUNG (4) Valvular heart disease Assessment/Plan: MOD TO SEVERE PER CARDIO-- D/W CARDIO--TO REVIEW OLD TESTING AND ASSES IF CANDIDATE FOR SURGERY D/W PT AND FAMILY Code(s): I38 - ENDOCARDITIS, VALVE UNSPECIFIED (5) Bladder mass Assessment/Plan: Operative Date: 07/09/16 Pre-Operative Diagnosis: bladder tumor Operation: cysto/turbt Post-Operative Diagnosis: Same as Pre-op Surgeon: William Dc Code(s): N32.89 - OTHER SPECIFIED DISORDERS OF BLADDER - Instructions Diet, Activity, Other Instructions: regular diet. resume pre admission meds. follow up next week with Dr. Dc for newman removal. Referrals: Lida Guillory MD [Primary Care Provider] - 2 Weeks Disposition: HOME - Home Medications Comprehensive Discharge Medication List: Ambulatory Orders Isosorbide Mononitrate [Imdur] 60 mg PO DAILY 12/16/11 Metoprolol Succinate [Toprol XL -] 100 mg PO HS 08/17/12 Atorvastatin Ca [Lipitor] 10 mg PO HS 04/28/16 Sodium Bicarbonate - 650 mg PO BID 04/29/16 Polyethylene Glycol 3350 [Miralax 119 gm Btl -] 17 gm PO DAILY [facility] 07/10/16
[2016-07-10] MEDS: ISOSORBIDE MONONITRATE 60 MG TAB.SR.24H (FP) PO SCH (09:45)
[2016-07-10] MEDS ORDERED: POLYETHYLENE GLYCOL 3350 119 GM BTL PO SCH (10:00)
[2016-07-10] MEDS ORDERED: AZTREONAM 1 GM in DEXTROSE 5%-WATER - 50 ML IVPB SCH (10:00)
--- NOTE | 2016-07-10 10:02 | PN ---
Progress Note (short form) - Note Progress Note: S: 89 year old gentleman, known case of Coronary artery disease, angina pectoris , paroxysmal atrial fibrillation, s/p permanent pacemaker for advanced AV block , hyperlipidemia, aortic valvular disease with aortic regurgitation, history of hypertension, s/p left nephrectomy, chronic kidney disease, tricuspid regurgitation, mitral regurgitation and left ventricular systolic dysfunction. Patient had TURBT, no history of chest pain or discomfort, dyspnea, lightheadedness or dizziness. Discharge is being contemplated. Active Medications Generic Name Dose Route Start Last Admin Trade Name Freq PRN Reason Stop Dose Admin Acetaminophen 650 mg 07/09/16 12:02 07/10/16 05:28 Tylenol - PO 650 mg Q4H PRN Administration FEVER OR PAIN Atorvastatin Calcium 10 mg 07/09/16 22:00 07/09/16 22:55 Lipitor - PO 10 mg HS BATSHEVA Administration Hydromorphone HCl 1 mg 07/09/16 21:38 07/09/16 22:55 Dilaudid Injection - IVPB 1 mg Q3H PRN Administration PAIN Aztreonam 1 gm/ Dextrose 50 mls @ 100 mls/hr 07/10/16 10:00 07/10/16 09:45 IVPB 100 mls/hr DAILY BATSHEVA Administration Protocol Isosorbide Mononitrate 60 mg 07/10/16 10:00 07/10/16 09:45 Imdur - PO 60 mg DAILY BATSHEVA Administration Metoprolol Succinate 100 mg 07/09/16 22:00 07/09/16 22:55 Toprol Xl - PO 100 mg HS BATSHEVA Administration Polyethylene Glycol 17 gm 07/10/16 10:00 07/10/16 09:47 Miralax (For Daily Use) - PO 17 gm DAILY BATSHEVA Administration Sodium Bicarbonate 650 mg 07/09/16 14:00 07/10/16 05:28 Sodium Bicarbonate - PO 650 mg TID BATSHEVA Administration O: 89 year old male was in no acute distress, no pallor, cyanosis, clubbing, or jaundice. Last Vital Signs Temp Pulse Resp BP Pulse Ox 98 F 64 22 128/77 98 07/10/16 08:23 07/10/16 08:23 07/10/16 08:23 07/10/16 08:23 07/09/16 21:00 Neck: Supple, no JVD, negative HJR, carotids were equal and upstrokes were normal, no thyromegaly appreciated. Heart: PMI was in the 5th intercostal space, no heaves or thrills, S1 was normal , S2 was split, ejection systolic murmur grade I/ at the second right intercoastal space No diastolic murmur or gallops were appreciated. Lungs: Clear on auscultation bilaterally. Abdomen: Soft, nontender, no hepatosplenomegaly appreciated, and no palpable masses were felt. Extremities: No calf tenderness or dependent edema. CBC, BMP 07/06/16 08:35 07/10/16 06:07 Laboratory Results - last 24 hr 07/10/16 06:07 Sodium 137 Potassium 5.6 H Chloride 100 Carbon Dioxide 28 Anion Gap 9 BUN 95 H Creatinine 3.3 H Random Glucose 100 D Calcium 8.6 Impression: (1) CAD (coronary artery disease), angina pectoris Code(s): I25.10 - ATHSCL HEART DISEASE OF [place] CORONARY ARTERY W/O ANG PCTRS Qualifiers: Coronary Disease-Associated Artery/Lesion type: [place] artery Associated angina: without angina (2) Acute on chronic systolic (congestive) heart failure, currently NYHA class II Code(s): I50.23 - ACUTE ON CHRONIC SYSTOLIC (CONGESTIVE) HEART FAILURE (3) Chronic kidney disease (CKD) Code(s): N18.9 - CHRONIC KIDNEY DISEASE, UNSPECIFIED Qualifiers: Chronic kidney disease stage: stage 3 (moderate) Qualified Code(s): N18.3 - Chronic kidney disease, stage 3 (moderate) (4) S/P left nephrectomy for Carcinoma Code(s): Z90.5 - ACQUIRED ABSENCE OF KIDNEY (5) Severe mitral regurgitation by doppler interrogation Code(s): I34.0 - NONRHEUMATIC MITRAL (VALVE) INSUFFICIENCY (6) Severe tricuspid regurgitation by doppler interrogation Code(s): I07.1 - RHEUMATIC TRICUSPID INSUFFICIENCY (7)Moderate to severe aortic regurgitation by doppler interrogation Code(s): I35.1 - NONRHEUMATIC AORTIC (VALVE) INSUFFICIENCY (8) HTN (hypertension), hypertensive cardiovascular disease Code(s): I10 - ESSENTIAL (PRIMARY) HYPERTENSION Qualifiers: Hypertension type: essential hypertension Qualified Code(s): I10 - Essential (primary) hypertension (9) Moderate pulmonary hypertension Code(s): I27.2 - OTHER SECONDARY PULMONARY HYPERTENSION (10) History of permanent cardiac pacemaker placement Code(s): Z95.0 - PRESENCE OF CARDIAC PACEMAKER (11) Hypercholesteremia Code(s): E78.0 - PURE HYPERCHOLESTEROLEMIA * DO NOT USE * (12) History of advanced AV Block Code(s): I44.30 - UNSPECIFIED ATRIOVENTRICULAR BLOCK (13) History of Paroxysmal atrial fibrillation Code(s): I48.0 - PAROXYSMAL ATRIAL FIBRILLATION (14) Left ventricular systolic dysfunction of atleast moderate severity Code(s): I51.9 - HEART DISEASE, UNSPECIFIED (15) Right ventricular systolic dysfunction of atleast moderate severity Code(s): I51.9 - HEART DISEASE, UNSPECIFIED (16) S/P partial cystectomy for bladder CA Code(s): Z98.890 - OTHER SPECIFIED POSTPROCEDURAL STATES (17) History of recent syncope, etiology to be determined, possibly vasovagal Code(s): R55 - SYNCOPE AND COLLAPSE (18) Anemia most likely related to chronic kidney disease Code(s): D64.9 - ANEMIA, UNSPECIFIED Recommendations: 1. Outpatient follow up with Dr. Manzano. 2. Continue current cardiac medications. 3. Pacemaker follow up according to protocol. Attestation: Documentation prepared by Neel Alberto, acting as medical aides teacher for Renato Irene MD.
--- NOTE | 2016-07-10 10:42 | PN ---
Progress Note (short form) - Note Progress Note: patient feels better this morning, urine draining from newman, minimally tinged discharge home with newman, return next week for removal Problem List - Problems (1) UTI (urinary tract infection) Code(s): N39.0 - URINARY TRACT INFECTION, SITE NOT SPECIFIED (2) Hydronephrosis determined by ultrasound Code(s): N13.30 - UNSPECIFIED HYDRONEPHROSIS
--- NOTE | 2016-07-10 11:00 | PATH ---
Surgical Pathology Report Patient Name: JAYY SPANGLER Med. Rec. #: [id number] /Age/Gender: 1925 (Age: 89) / M Account: [id number] Location: 4 W TELEMETRY U Taken: 07/09/2016 Received: 07/09/2016 Reported: 07/10/2016 Physicians: William Dc M.D. Specimen(s) Received BLADDER TUMOR Clinical History Bladder tumor Final Diagnosis BLADDER TUMOR, TUR: PORTIONS OF UROTHELIAL MUCOSA WITH THERMAL ARTIFACT AND DENUDMENT OF EPITHELIUM, ALONG WITH ACUTE INFLAMMATION. NO CARCINOMA IS IDENTIFIED. FIBROSIS AND ELASTOSIS OF LAMINA PROPRIA PRESENT. MUSCULARIS PROPRIA IS PRESENT AND IS FREE OF CARCINOMA. Comment: Recommend correlation with clinical findings and follow up as clinically indicated. Electronically Signed Archie Sandra M.D. Gross Description Received in formalin labeled "bladder tumor," are 4 gonzales soft tissue fragments ranging from less than 0.1-0.4 cm in greatest dimension. The specimens are submitted in toto in one cassette. 07/09/201607/09/2016
== END 2016-07-10 13:12 | disposition home or self-care (01) | DRG 987 ==
LOC: JER 07:30 → JERBED 10:22 → J4W 11:20
PROVIDERS: ADMIT Family Medicine; ATTEND Family Medicine
PROC: 0TBB8ZZ Excision of Bladder, Via Natural or Artificial Opening Endoscopic (ICD-10-PCS; principal; 2016-07-09 11:00)
DX: I13.0 Hypertensive heart and chronic kidney disease with heart failure and stage 1 through stage 4 chronic kidney disease, or unspecified chronic kidney disease (principal); I50.23 Acute on chronic systolic (congestive) heart failure; N39.0 Urinary tract infection, site not specified; Q60.0 Renal agenesis, unilateral; N18.4 Chronic kidney disease, stage 4 (severe); N13.30 Unspecified hydronephrosis; N17.9 Acute kidney failure, unspecified; I25.10 Atherosclerotic heart disease of native coronary artery without angina pectoris; I48.0 Paroxysmal atrial fibrillation; K21.9 Gastro-esophageal reflux disease without esophagitis; B96.20 Unspecified Escherichia coli [E. coli] as the cause of diseases classified elsewhere; E78.00 Pure hypercholesterolemia, unspecified; N32.89 Other specified disorders of bladder; K22.2 Esophageal obstruction; I08.2 Rheumatic disorders of both aortic and tricuspid valves; R07.2 Precordial pain; K63.5 Polyp of colon; I27.2 Other secondary pulmonary hypertension; R91.1 Solitary pulmonary nodule; J44.9 Chronic obstructive pulmonary disease, unspecified; D63.1 Anemia in chronic kidney disease; N40.0 Benign prostatic hyperplasia without lower urinary tract symptoms; Z85.118 Personal history of other malignant neoplasm of bronchus and lung; Z95.0 Presence of cardiac pacemaker; Z85.51 Personal history of malignant neoplasm of bladder; Z90.5 Acquired absence of kidney; Z87.891 Personal history of nicotine dependence; Z87.442 Personal history of urinary calculi; Z88.8 Allergy status to other drugs, medicaments and biological substances
CPT/HCPCS: 36415; 71010-TC; 74176-TC; 76775-TC; 76856-TC; 78708-TC; 80048; 80053; 81003; 81015; 82550; 83735; 83880; 84484; 85025; 85610; 87086; 87186; 88307-TC; 93005; 93010; 93306-TC; 94640; 94760; 97116-GP; 97161-GP; 97164-GP; 99284-25; A9562; J1644

== ENCOUNTER 2016-07-13 06:03 | Inpatient (IN) | payer BC, OTHER ==
--- NOTE | 2016-07-13 06:51 | PDOC ---
History of Present Illness - General Chief Complaint: Hematuria Stated Complaint: NOT ABLE TO UNRINATE Time Seen by Provider: 07/13/16 06:16 History Source: Family Exam Limitations: No Limitations - History of Present Illness Travel History: No Initial Comments: 07/13/16 06:41 89yo Male patient w/ PmHx: Bladder Ca, Lung Nodule, CHF, presented to ED by son c/o inability to urinate. Son states patient recently admitted to this hospital for CHF by Dr. Guillory and d/c on Wednesday. Son also states patient had a procedure done by Dr. Dc, "scraping of bladder" Wednesday morning. He was d/ c'd to home with newman, which was removed by visiting nurse at home. Since then , patient experiencing dysuria per son. He states patient has not emptied bladder since yesterday evening, and not blood in urine when he tried to go. Denies fever, Abd pain, n/v/d, rash, diff breathing, back pain, chills, or any other complaints at this time. Past History - Travel Traveled outside of the country in the last 30 days: No Close contact w/someone who was outside of country & ill: No - Past Medical History Allergies/Adverse Reactions: Allergies Allergy/AdvReac Type Severity Reaction Status Date / Time Penicillins Allergy Hives, Verified 07/13/16 06:28 throat swelling Sulfa (Sulfonamide Allergy EYE Verified 07/13/16 06:28 Antibiotics) SWELLING, [Sulfa(Sulfonamide ITCHING Antibiotics)] levofloxacin [From Levaquin] AdvReac Severe Itching Verified 07/13/16 06:28 Home Medications: Ambulatory Orders Isosorbide Mononitrate [Imdur] 60 mg PO DAILY 12/16/11 Metoprolol Succinate [Toprol XL -] 100 mg PO HS 08/17/12 Atorvastatin Ca [Lipitor] 10 mg PO HS 04/28/16 Sodium Bicarbonate - 650 mg PO BID 04/29/16 Polyethylene Glycol 3350 [Miralax 119 gm Btl -] 17 gm PO DAILY bottle 07/10/16 Anemia: No Asthma: No Cancer: Yes (lung ca, bladder ca) Cardiac Disorders: No CVA: No COPD: No CHF: No Dementia: No Diabetes: No GI Disorders: Yes (GERD, SCHATZKI'S RING, COLON POLYP, GASTRIC INTESTINAL METAPLASIA) Disorders: Yes (bladder tumor, polyps, BPH) HTN: Yes Hypercholesterolemia: Yes Liver Disease: No Seizures: No Thyroid Disease: No - Surgical History Abdominal Surgery: No Appendectomy: No Cardiac Surgery: Yes (PPM) Cholecystectomy: No Lung Surgery: Yes (left lobectomy) Neurologic Surgery: No Orthopedic Surgery: No - Psycho/Social/Smoking Cessation Hx Anxiety: No Suicidal Ideation: No Smoking Status: No Smoking History: Former smoker Years of Tobacco Use: 0 Have you smoked in the past 12 months: No Number of Cigarettes Smoked Daily: 0 If you are a former smoker, when did you quit?: 1994 Cigars Per Day: 0 Information on smoking cessation initiated: No Hx Alcohol Use: No Drug/Substance Use Hx: No Substance Use Type: None Hx Substance Use Treatment: No Abd/GI Specific PMHX - Complaint Specific PMHX Colitis: No Diverticulitis: No Gall Bladder Disease: No GERD: No Hepatitis: No Irritable Bowel Synd (IBS): No Pancreatitis: No GI Ulcer Disease: No Review of Systems - Review of Systems Able to Perform ROS?: Yes Is the patient limited Chilean proficient: No Constitutional: No: Chills, Fever Respiratory: No: Cough, Stridor, Wheezing, Hemoptysis Cardiac (ROS): No: Chest Pain, Palpitations, Syncope, Chest Tightness ABD/GI: No: Diarrhea, Nausea, Rectal Bleeding, Vomiting : Yes: Dysuria, Hematuria, Pain. No: Burning, Discharge, Frequency, Flank Pain, Urgency Musculoskeletal: No: Back Pain All Other Systems: Reviewed and Negative *Physical Exam - Vital Signs Last Vital Signs Temp Pulse Resp BP Pulse Ox 98.7 F 109 H 22 123/79 99 07/13/16 06:27 07/13/16 06:27 07/13/16 06:27 07/13/16 06:27 07/13/16 06:27 - Physical Exam General Appearance: Yes: Appropriately Dressed, Apparent Distress, Moderate Distress. No: Mild Distress, Severe Distress Neck: positive: Trachea midline, Supple. negative: Stridor, Lymphadenopathy (R) , Lymphadenopathy (L) Respiratory/Chest: positive: Lungs Clear, Decreased Breath Sounds. negative: Respiratory Distress, Accessory Muscle Use, Labored Respiration, Rapid RR Cardiovascular: positive: Regular Rhythm, Tachycardia Gastrointestinal/Abdominal: positive: Normal Bowel Sounds, Soft, Distended ( Bladder). negative: Tender, Guarding, Rebound Musculoskeletal: positive: Normal Inspection. negative: CVA Tenderness, Vertebral Tenderness Extremity: positive: Normal Capillary Refill, Normal Inspection, Normal Range of Motion Integumentary: positive: Dry, Warm, Pale Neurologic: positive: Fully Oriented, Alert, Normal Mood/Affect, Normal Response *DC/Admit/Observation/Transfer Diagnosis at time of Disposition: Hematuria, Dysuria - Discharge Dispostion Condition at time of disposition: Improved Admit: Yes
[2016-07-13] MEDS ORDERED: LIDOCAINE HCL 2% JELLY 10 ML CARTRIDGE ONE (06:58)
[2016-07-13 07:58] LABS: BASOPHIL 0.6 % (0-2.0); EOSINOPHIL 0.9 % (0-4.5); MCHC 30.8 g/dl (32.0-35.9); MEAN CELL VOLUME 62.8 fl (80-96); MEAN PLT VOLUME 8.6 fl (7.5-11.1); NEUTROPHILS 80.7 % (42.8-82.8); PLATELET COUNT 218 K/MM3 (134-434); RDW 16.8 % (11.9-15.9); WHITE BLOOD COUNT 9.9 K/mm3 (4.0-10.0)
[2016-07-13 08:07] LABS: MCH 19.3 pg (25.7-33.7)
[2016-07-13 08:08] LABS: INR 1.12 (0.82-1.09); PROTHROMBIN TIME (PATIENT) 12.3 SEC (9.98-11.88)
[2016-07-13 08:11] LABS: ACTIVATED PTT 30.7 SECONDS (26.9-34.4)
[2016-07-13 08:14] LABS: ALBUMIN 2.7 g/dl (3.4-5.0); BILIRUBIN,TOTAL 0.4 mg/dL (0.2-1.0); CALCIUM 8.4 mg/dL (8.5-10.1); CREATININE 2.7 mg/dL (0.7-1.3); TOT PROT 6.4 g/dl (6.4-8.2)
[2016-07-13 08:14] LABS: URINE APPEARANCE CLOUDY; URINE BILIRUBIN NEGATIVE (NEGATIVE); URINE COLOR RED; URINE GLUCOSE (UA) NEGATIVE (NEGATIVE); URINE KETONE NEGATIVE (NEGATIVE); URINE NITRITE NEGATIVE (NEGATIVE); URINE UROBILINOGEN NEGATIVE E.U./dl (0.2-1.0)
[2016-07-13 08:18] LABS: TROPONIN I 0.07 ng/ml (0.00-0.05)
[2016-07-13 08:18] LABS: URINE BLOOD 3+ (NEGATIVE); URINE LEUK ESTERASE 3+ (NEGATIVE); URINE PROTEIN 2+ (NEGATIVE)
[2016-07-13 08:19] LABS: CALCIUM OXALATE CRYSTALS MANY /hpf (NONE SEEN); URINE BACTERIA MANY /hpf (NONE SEEN); URINE RBC 4212 /hpf (0-3); URINE WBC 426 /hpf (3-5)
[2016-07-13] MEDS ORDERED: ACETAMINOPHEN 325 MG TABLET (FP) ONE (08:44)
[2016-07-13] MEDS ORDERED: ACETAMINOPHEN 500 MG TABLET (FP) PO ONE (08:50)
--- NOTE | 2016-07-13 09:05 | HP ---
Admitting History and Physical - Admission History of Present Illness: 89yo Male patient w/ PmHx: Bladder Ca, Lung Nodule, CHF, presented to ED by son c/o inability to urinate. Son states patient recently admitted to this hospital for CHF by Dr. Guillory and d/c on Wednesday. Son also states patient had a procedure done by Dr. Dc, "scraping of bladder" Wednesday morning. He was d/ c'd to home with newman, which was removed by visiting nurse at home. Since then , patient experiencing dysuria per son. He states patient has not emptied bladder since yesterday evening, and not blood in urine when he tried to go. Denies fever, Abd pain, n/v/d, rash, diff breathing, back pain, chills, or any other complaints at this time. now with a catheter--feels some relief c/o suprapubic pain - Past Medical History Cardiovascular: Yes: CAD, HTN, Hyperlipdemia Pulmonary: Yes: Cancer (lung--s/p lobectomy), COPD Gastrointestinal: Yes: GERD Renal/: Yes: Renal Inusuff, Cancer (bladder, TCC), Hematuria, Renal Calculi Heme/Onc: Yes: Anemia - Past Surgical History Past Surgical History: Yes: Colonoscopy, Nephrectomy, Permanent Pacemaker, Thoracotomy - Smoking History Smoking history: Former smoker Have you smoked in the past 12 months: No Aproximately how many cigarettes per day: 0 If you are a former smoker, when did you quit?: 1994 - Alcohol/Substance Use Hx Alcohol Use: No - Social History ADL: Independent 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, 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[place] History of Recent Travel: No Home Medications - Allergies Allergies/Adverse Reactions: Allergies Allergy/AdvReac Type Severity Reaction Status Date / Time Penicillins Allergy Hives, Verified 07/13/16 06:28 throat swelling Sulfa (Sulfonamide Allergy EYE Verified 07/13/16 06:28 Antibiotics) SWELLING, [Sulfa(Sulfonamide ITCHING Antibiotics)] levofloxacin [From Levaquin] AdvReac Severe Itching Verified 07/13/16 06:28 - Home Medications Home Medications: Ambulatory Orders Isosorbide Mononitrate [Imdur] 60 mg PO DAILY 12/16/11 Metoprolol Succinate [Toprol XL -] 100 mg PO HS 08/17/12 Atorvastatin Ca [Lipitor] 10 mg PO HS 04/28/16 Sodium Bicarbonate - 650 mg PO BID 04/29/16 Polyethylene Glycol 3350 [Miralax 119 gm Btl -] 17 gm PO DAILY bottle 07/10/16 Review of Systems - Review of Systems Cardiovascular: reports: No Symptoms Respiratory: reports: No Symptoms Gastrointestinal: reports: No Symptoms Genitourinary: reports: Dysuria, Hematuria Physical Examination Vital Signs: Vital Signs Temperature 98.7 F 07/13/16 06:27 Pulse Rate 106 H 07/13/16 08:01 Respiratory Rate 18 07/13/16 08:01 Blood Pressure 127/79 07/13/16 08:01 O2 Sat by Pulse Oximetry (%) 99 07/13/16 08:01 Cardiovascular: Yes: Regular Rate and Rhythm, Murmur Respiratory: Yes: Regular, CTA Bilaterally Gastrointestinal: Yes: Normal Bowel Sounds, Soft, Tenderness Edema: No Labs: CBC, BMP 07/13/16 07:25 07/13/16 07:25 Problem List - Problems (1) Chronic kidney disease (CKD) Assessment/Plan: monitor renal function Code(s): N18.9 - CHRONIC KIDNEY DISEASE, UNSPECIFIED (2) Hematuria Assessment/Plan: CBI Code(s): R31.9 - HEMATURIA, UNSPECIFIED (3) UTI (urinary tract infection) Assessment/Plan: ABX PER ID Code(s): N39.0 - URINARY TRACT INFECTION, SITE NOT SPECIFIED (4) Urinary retention Assessment/Plan: NEWMAN CBI Code(s): R33.9 - RETENTION OF URINE, UNSPECIFIED
[2016-07-13] MEDS ORDERED: CEFTRIAXONE 1 GM in DEXTROSE 5%-WATER - 100 ML IVPB SCH (10:00)
[2016-07-13] MEDS: SODIUM BICARBONATE 650 MG TABLET PO SCH ×2 (10:41→21:41)
[2016-07-13] MEDS: POLYETHYLENE GLYCOL 3350 119 GM BTL PO SCH (10:41)
[2016-07-13] MEDS: ISOSORBIDE MONONITRATE 60 MG TAB.SR.24H (FP) PO SCH (10:41)
[2016-07-13 10:55] VITALS: BMI 21.2
[2016-07-13 11:46] LABS: ANISOCYTOSIS 2+; HYPOCHROMIA 3+; MICROCYTOSIS 2+; TARGET CELLS FEW; TEAR DROP CELLS FEW
[2016-07-13] MEDS: ALBUTEROL SO4 2.5/IPRATROPIUM 0.5 INH SOL 3 ML VIAL.NEB. NEB SCH ×3 (13:07→23:36)
--- NOTE | 2016-07-13 14:03 | PN ---
Progress Note (short form) - Note Progress Note: ID Consult dictated UTI/Sepsis secondary to UTI Bladder ca S/P TURBT S/P AUR Multiple antibiotic allergies CKD Solitary kidney Pending c/s empiric Aztreonam CBI follow up
[2016-07-13] MEDS: ACETAMINOPHEN 325 MG TABLET (FP) PO PRN (17:01)
--- NOTE | 2016-07-13 17:21 | CON.GU ---
Consult - History of Present Illness History of Present Illness: 89 yo male s/p cysto/bladder biopsy last week, now readmitted with urinary retntion and gross hematuria. Currenlty foly with CBI and urine pink. No fever/ chills. Path shows inflammation-no carcinoma - Past Medical History Cardio/Vascular: Yes: CAD, HTN, Hyperlipdemia Pulmonary: Yes: Cancer (lung--s/p lobectomy), COPD Gastrointestinal: Yes: GERD Renal/: Yes: Renal Inusuff, Cancer (bladder, TCC), Hematuria, Renal Calculi - Past Surgical History Past Surgical History: Yes: Colonoscopy, Nephrectomy, Permanent Pacemaker, Thoracotomy - Alcohol/Substance Use Hx Alcohol Use: No - Smoking History Smoking history: Former smoker Have you smoked in the past 12 months: No Aproximately how many cigarettes per day: 0 If you are a former smoker, when did you quit?: 1994 - Social History Usual Living Arrangement: With Spouse ADL: Independent 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, 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[place] History of Recent Travel: No Home Medications - Allergies Allergies/Adverse Reactions: Allergies Allergy/AdvReac Type Severity Reaction Status Date / Time Penicillins Allergy Hives, Verified 07/13/16 06:28 throat swelling Sulfa (Sulfonamide Allergy EYE Verified 07/13/16 06:28 Antibiotics) SWELLING, [Sulfa(Sulfonamide ITCHING Antibiotics)] levofloxacin [From Levaquin] AdvReac Severe Itching Verified 07/13/16 06:28 - Home Medications Home Medications: Ambulatory Orders Isosorbide Mononitrate [Imdur] 60 mg PO DAILY 12/16/11 Metoprolol Succinate [Toprol XL -] 100 mg PO HS 08/17/12 Atorvastatin Ca [Lipitor] 10 mg PO HS 04/28/16 Sodium Bicarbonate - 650 mg PO BID 04/29/16 Polyethylene Glycol 3350 [Miralax 119 gm Btl -] 17 gm PO DAILY bottle 07/10/16 Physical Exam- Vital Signs: Vital Signs Temperature 98.2 F 07/13/16 10:48 Pulse Rate 101 H 07/13/16 10:48 Respiratory Rate 20 07/13/16 10:48 Blood Pressure 115/59 07/13/16 10:48 O2 Sat by Pulse Oximetry (%) 97 07/13/16 10:48 Gastrointestinal: Yes: Soft (non distended, not tender) Problem List - Problems (1) Gross hematuria Assessment/Plan: cont newman to CBI will stop cbi in am if urine clear Code(s): R31.0 - GROSS HEMATURIA
--- NOTE | 2016-07-13 20:45 | CONS ---
DATE OF CONSULTATION: 07/13/2016 The patient is an 89-year-old male who was evaluated for UTI and possible urosepsis. He was recently admitted to [facility] from July 01 to July 10 after presenting with congestive heart failure. His course at that time was complicated by urinary tract infection, dysuria, right-sided flank pain. He was noted to have many white cells. He was empirically treated with Azactam. Urine culture grew pansensitive E coli. The patient underwent a TURBT on July 09, 2016, after CAT scan revealed a bladder lesion. Postoperatively he had gross hematuria. He was discharged home with a Valenzuela catheter. The Valenzuela catheter was discontinued by visiting nurse services. He now returns with complaints of acute urinary retention. He reports that since the Valenzuela catheter was removed, he had been unable to void. He experienced some suprapubic and right-sided flank pain. He was advised to return to the emergency room, where a catheter was placed. He is presently on continuous bladder irrigation. Urine has remained hemorrhagic. He denies any recent fever or chills. Patient has multiple antibiotic allergies, however, had tolerated Azactam on his past admission. Past medical history positive for lung cancer, bladder cancer, COPD, paroxysmal atrial fibrillation, hypertension, hyperlipidemia, coronary artery disease, chronic kidney disease. PAST SURGICAL HISTORY: Status post pacemaker, status post left nephrectomy. Allergies to PENICILLIN, SULFA, LEVAQUIN. Patient reported dyspnea and throat swelling with PENICILLIN 25 years ago. SOCIAL HISTORY: Lives at home with his . He is a former smoker. SYSTEMS REVIEW: Neurologic: No loss of consciousness, seizure activity, focal weakness. Cardiac: Negative chest pain or palpitations. Respiratory: Negative cough or sputum production. Gastrointestinal: Negative vomiting or diarrhea. Genitourinary: As per HPI. LABORATORY DATA: White count 9.9, hematocrit 27.0, platelet count 218. BUN 60, creatinine 2.7. Liver enzymes normal. Urinalysis: 426 white cells, 4212 red cells. PHYSICAL EXAMINATION: General: He is awake and alert. He is not acutely toxic appearing. Vital Signs: Temperature 98.2. Blood pressure 115/59. Pulse 101, irregular. Respirations 20 per minute. Eyes: Sclerae anicteric. Heart Sounds: Irregular, S1, S2. Lungs: Clear. Abdomen: Soft. There is mild right-sided abdominal and right flank tenderness as well as some suprapubic tenderness. Extremities: Negative for edema. IMPRESSION: 1. Status post acute urinary retention, likely secondary to clot retention. 2. Urinary tract infection, possible sepsis secondary to urinary tract infection. 3. Chronic kidney disease, status post left nephrectomy. 4. Bladder cancer. 5. Multiple antibiotic allergies. Will obtain blood cultures, await urine culture. Empiric antibiotic coverage of this patient with multiple antibiotic allergies, with Azactam adjusted for chronic kidney disease. Will follow. Thank you for the kind referral. NBA MATHEW M.D. YEHUDA/[id number]
[2016-07-13] MEDS: ATORVASTATIN CA 10 MG TABLET (FP) PO SCH (21:41)
[2016-07-13] MEDS: AZTREONAM 0.5 GM in DEXTROSE 5%-WATER - 50 ML IVPB SCH (21:41)
[2016-07-13] MEDS: METOPROLOL SUCCINATE 100 MG TAB.SR.24H (FP) PO SCH (21:41)
[2016-07-14] MEDS: ACETAMINOPHEN 325 MG TABLET (FP) PO PRN ×3 (01:45→23:44)
[2016-07-14] MEDS: ALBUTEROL SO4 2.5/IPRATROPIUM 0.5 INH SOL 3 ML VIAL.NEB. NEB SCH ×4 (06:01→23:32)
[2016-07-14 07:45] LABS: BASOPHIL 0.3 % (0-2.0); EOSINOPHIL 0.4 % (0-4.5); MCHC 30.7 g/dl (32.0-35.9); MEAN CELL VOLUME 62.8 fl (80-96); MEAN PLT VOLUME 8.6 fl (7.5-11.1); NEUTROPHILS 77.2 % (42.8-82.8); PLATELET COUNT 219 K/MM3 (134-434); RDW 16.9 % (11.9-15.9); WHITE BLOOD COUNT 9.4 K/mm3 (4.0-10.0)
[2016-07-14 07:54] LABS: MCH 19.3 pg (25.7-33.7)
[2016-07-14 08:14] LABS: ALBUMIN 2.5 g/dl (3.4-5.0); CALCIUM 8.4 mg/dL (8.5-10.1)
[2016-07-14 08:17] LABS: BILIRUBIN,TOTAL 0.5 mg/dL (0.2-1.0); CREATININE 2.7 mg/dL (0.7-1.3); TOT PROT 5.9 g/dl (6.4-8.2)
--- NOTE | 2016-07-14 08:43 | PN ---
Progress Note (short form) - Note Progress Note: Tm 89 feels better has urethral pain no suprapubic tenderness on Azactam urine clear on brisk CBI HCT 25.8 Creat 2.7 (stable) will slow down CBI blood transfusion as per DR Guillory Problem List - Problems (1) Gross hematuria Code(s): R31.0 - GROSS HEMATURIA
--- NOTE | 2016-07-14 09:05 | PN ---
Progress Note, Physician History of Present Illness: FEELS BETTER - Current Medication List Current Medications: Active Medications Acetaminophen (Tylenol -) 650 mg PO Q4H PRN PRN Reason: FEVER OR PAIN Last Admin: 07/14/16 01:45 Dose: 650 mg Albuterol/Ipratropium (Duoneb -) 1 amp NEB QIDR [facility] Last Admin: 07/14/16 06:01 Dose: 1 amp Atorvastatin Calcium (Lipitor -) 10 mg PO HS [facility] Last Admin: 07/13/16 21:41 Dose: 10 mg Furosemide (Lasix Injection -) 40 mg IVPUSH ONCE ONE Stop: 07/14/16 09:05 Aztreonam 0.5 gm/ Dextrose 50 mls @ 100 mls/hr IVPB BID BATSHEVA PRN Reason: Protocol Last Admin: 07/13/16 21:41 Dose: 100 mls/hr Isosorbide Mononitrate (Imdur -) 60 mg PO DAILY [facility] Last Admin: 07/13/16 10:41 Dose: 60 mg Metoprolol Succinate (Toprol Xl -) 100 mg PO [facility] Last Admin: 07/13/16 21:41 Dose: 100 mg Polyethylene Glycol (Miralax (For Daily Use) -) 17 gm PO DAILY [facility] Last Admin: 07/13/16 10:41 Dose: 17 gm Sodium Bicarbonate (Sodium Bicarbonate -) 650 mg PO BID [facility] Last Admin: 07/13/16 21:41 Dose: 650 mg - Objective Vital Signs: Vital Signs Temperature 98.4 F 07/14/16 06:30 Pulse Rate 20 L 07/14/16 06:30 Respiratory Rate 90 H 07/14/16 06:30 Blood Pressure 117/63 07/14/16 06:30 O2 Sat by Pulse Oximetry (%) 97 07/13/16 20:33 Cardiovascular: Yes: Regular Rate and Rhythm Respiratory: Yes: Regular, CTA Bilaterally Gastrointestinal: Yes: Normal Bowel Sounds, Soft Genitourinary: Yes: Garcia Present, Other (CBI) Labs: CBC, BMP 07/14/16 06:00 07/14/16 06:00 INR, PTT INR 1.12 (0.82-1.09) 07/13/16 07:25 Problem List - Problems (1) Chronic kidney disease (CKD) Assessment/Plan: monitor renal function Code(s): N18.9 - CHRONIC KIDNEY DISEASE, UNSPECIFIED (2) Hematuria Assessment/Plan: CBI PER URO Code(s): R31.9 - HEMATURIA, UNSPECIFIED (3) UTI (urinary tract infection) Assessment/Plan: ABX PER ID Code(s): N39.0 - URINARY TRACT INFECTION, SITE NOT SPECIFIED (4) Urinary retention Assessment/Plan: GARCIA CBI Code(s): R33.9 - RETENTION OF URINE, UNSPECIFIED (5) Anemia Assessment/Plan: TRANSFUSE PRBC Code(s): D64.9 - ANEMIA, UNSPECIFIED
[2016-07-14] MEDS ORDERED: PT OWN MED DRAWER 7, Y5N ONE ×2 (10:39→11:49)
[2016-07-14] MEDS: POLYETHYLENE GLYCOL 3350 119 GM BTL PO SCH (10:46)
[2016-07-14] MEDS: SODIUM BICARBONATE 650 MG TABLET PO SCH ×2 (10:46→21:34)
[2016-07-14] MEDS ORDERED: FUROSEMIDE 40 MG/4 ML INJECTABLE VIAL IVPUSH ONE (11:00)
[2016-07-14] MEDS: ISOSORBIDE MONONITRATE 60 MG TAB.SR.24H (FP) PO SCH (11:23)
[2016-07-14] MEDS: AZTREONAM 0.5 GM in DEXTROSE 5%-WATER - 50 ML IVPB SCH ×2 (12:52→21:34)
[2016-07-14] MEDS ORDERED: FUROSEMIDE 40 MG/4 ML INJECTABLE VIAL ONE (14:08)
--- NOTE | 2016-07-14 15:21 | PN ---
Progress Note, Physician History of Present Illness: CBI in progress No c/o flank or suprapubic pain Temps down- afebrile - Current Medication List Current Medications: Active Medications Acetaminophen (Tylenol -) 650 mg PO Q4H PRN PRN Reason: FEVER OR PAIN Last Admin: 07/14/16 01:45 Dose: 650 mg Albuterol/Ipratropium (Duoneb -) 1 amp NEB QIDR [facility] Last Admin: 07/14/16 13:00 Dose: 1 amp Atorvastatin Calcium (Lipitor -) 10 mg PO [facility] Last Admin: 07/13/16 21:41 Dose: 10 mg Aztreonam 0.5 gm/ Dextrose 50 mls @ 100 mls/hr IVPB BID [facility] PRN Reason: Protocol Last Admin: 07/14/16 12:52 Dose: Not Given Isosorbide Mononitrate (Imdur -) 60 mg PO DAILY [facility] Last Admin: 07/14/16 11:23 Dose: Not Given Metoprolol Succinate (Toprol Xl -) 100 mg PO [facility] Last Admin: 07/13/16 21:41 Dose: 100 mg Polyethylene Glycol (Miralax (For Daily Use) -) 17 gm PO DAILY [facility] Last Admin: 07/14/16 10:46 Dose: 17 gm Sodium Bicarbonate (Sodium Bicarbonate -) 650 mg PO BID [facility] Last Admin: 07/14/16 10:46 Dose: 650 mg - Objective Vital Signs: Vital Signs Temperature 98.0 F 07/14/16 14:00 Pulse Rate 72 07/14/16 14:00 Respiratory Rate 20 07/14/16 14:00 Blood Pressure 112/59 07/14/16 09:45 O2 Sat by Pulse Oximetry (%) 97 07/14/16 09:00 Constitutional: Yes: No Distress Eyes: Yes: Conjunctiva Clear Cardiovascular: Yes: Regular Rate and Rhythm, S1, S2 Respiratory: Yes: CTA Bilaterally Gastrointestinal: Yes: Normal Bowel Sounds, Soft. No: Tenderness Genitourinary: Yes: Other (CBI in progress Clear urine in newman bag) Edema: No Labs: CBC, BMP 07/14/16 06:00 07/14/16 06:00 INR, PTT INR 1.12 (0.82-1.09) 07/13/16 07:25 Assessment/Plan UTI/Possible sepsis secondary to UTI Bladder ca s/p TURBT S/P AUR CKD/ Solitary kidney Multiple antibiotic allergies Await urine c/s Continue Aztreonam
--- NOTE | 2016-07-14 17:30 | EKG ---
Test Reason : Blood Pressure : / mmHG Vent. Rate : 099 BPM Atrial Rate : 099 BPM P-R Int : 258 ms QRS Dur : 140 ms QT Int : 390 ms P-R-T Axes : 006 038 239 degrees QTc Int : 500 ms SINUS RHYTHM WITH 1ST DEGREE A-V BLOCK POSSIBLE LEFT ATRIAL ENLARGEMENT LEFT BUNDLE BRANCH BLOCK ABNORMAL ECG WHEN COMPARED WITH ECG OF 13-JUL-2016 09:17, NO SIGNIFICANT CHANGE WAS FOUND Confirmed by TACHO IVERSON, ONIEL ([id number]) on 07/14/2016 5:30:44 PM Referred By: TIMMY MARIEE Confirmed By:ONIEL TITUS MD
--- NOTE | 2016-07-14 17:43 | EKG ---
Test Reason : Blood Pressure : / mmHG Vent. Rate : 110 BPM Atrial Rate : 096 BPM P-R Int : 000 ms QRS Dur : 130 ms QT Int : 348 ms P-R-T Axes : 000 071 265 degrees QTc Int : 470 ms WIDE QRS RHYTHM LIKELY SINUS TACHYCARDIA LEFT BUNDLE BRANCH BLOCK ABNORMAL ECG WHEN COMPARED WITH ECG OF 01-JUL-2016 07:37, VENT. RATE HAS INCREASED Confirmed by ONIEL TITUS MD ([id number]) on 07/14/2016 5:42:40 PM Referred By: Confirmed By:ONIEL TITUS MD
[2016-07-14] MEDS: METOPROLOL SUCCINATE 100 MG TAB.SR.24H (FP) PO SCH (21:34)
[2016-07-14] MEDS: ATORVASTATIN CA 10 MG TABLET (FP) PO SCH (21:34)
[2016-07-15] MEDS: ALBUTEROL SO4 2.5/IPRATROPIUM 0.5 INH SOL 3 ML VIAL.NEB. NEB SCH ×3 (06:31→18:25)
[2016-07-15 08:46] LABS: BASOPHIL 0.4 % (0-2.0); EOSINOPHIL 0.9 % (0-4.5); MCH 21.6 pg (25.7-33.7); MCHC 32.1 g/dl (32.0-35.9); MEAN CELL VOLUME 67.5 fl (80-96); MEAN PLT VOLUME 8.8 fl (7.5-11.1); NEUTROPHILS 80.2 % (42.8-82.8); PLATELET COUNT 222 K/MM3 (134-434); RDW 22.5 % (11.9-15.9); WHITE BLOOD COUNT 7.6 K/mm3 (4.0-10.0)
[2016-07-15 09:11] LABS: ALBUMIN 2.6 g/dl (3.4-5.0); CALCIUM 8.4 mg/dL (8.5-10.1)
[2016-07-15 09:12] LABS: BILIRUBIN,TOTAL 0.4 mg/dL (0.2-1.0); CREATININE 2.7 mg/dL (0.7-1.3); TOT PROT 6.8 g/dl (6.4-8.2)
[2016-07-15] MEDS ORDERED: PT OWN MED DRAWER 7, Y5N ONE ×2 (09:20→23:05)
[2016-07-15] MEDS: POLYETHYLENE GLYCOL 3350 119 GM BTL PO SCH (09:21)
[2016-07-15] MEDS: AZTREONAM 0.5 GM in DEXTROSE 5%-WATER - 50 ML IVPB SCH ×2 (09:21→23:51)
[2016-07-15] MEDS: SODIUM BICARBONATE 650 MG TABLET PO SCH ×2 (09:22→23:09)
[2016-07-15] MEDS: ISOSORBIDE MONONITRATE 60 MG TAB.SR.24H (FP) PO SCH (09:22)
--- NOTE | 2016-07-15 10:17 | PN ---
Progress Note, Physician History of Present Illness: FEELS BETTER NO CP OR SOB NO FURTHER BLEEDING - Current Medication List Current Medications: Active Medications Acetaminophen (Tylenol -) 650 mg PO Q4H PRN PRN Reason: FEVER OR PAIN Last Admin: 07/14/16 23:44 Dose: 650 mg Albuterol/Ipratropium (Duoneb -) 1 amp NEB QIDR [facility] Last Admin: 07/15/16 06:31 Dose: 1 amp Atorvastatin Calcium (Lipitor -) 10 mg PO [facility] Last Admin: 07/14/16 21:34 Dose: 10 mg Aztreonam 0.5 gm/ Dextrose 50 mls @ 100 mls/hr IVPB BID [facility] PRN Reason: Protocol Last Admin: 07/15/16 09:21 Dose: 100 mls/hr Isosorbide Mononitrate (Imdur -) 60 mg PO DAILY [facility] Last Admin: 07/15/16 09:22 Dose: 60 mg Metoprolol Succinate (Toprol Xl -) 100 mg PO [facility] Last Admin: 07/14/16 21:34 Dose: 100 mg Polyethylene Glycol (Miralax (For Daily Use) -) 17 gm PO DAILY [facility] Last Admin: 07/15/16 09:21 Dose: Not Given Sodium Bicarbonate (Sodium Bicarbonate -) 650 mg PO BID [facility] Last Admin: 07/15/16 09:22 Dose: 650 mg - Objective Vital Signs: Vital Signs Temperature 98.0 F 07/15/16 06:35 Pulse Rate 100 H 07/15/16 06:35 Respiratory Rate 20 07/15/16 06:35 Blood Pressure 137/60 07/15/16 06:35 O2 Sat by Pulse Oximetry (%) 98 07/15/16 07:56 Cardiovascular: Yes: Regular Rate and Rhythm, Murmur Respiratory: Yes: Regular, CTA Bilaterally Gastrointestinal: Yes: Normal Bowel Sounds, Soft. No: Tenderness Genitourinary: Yes: Garcia Present. No: Hematuria Labs: CBC, BMP 07/15/16 08:00 07/15/16 08:00 INR, PTT INR 1.12 (0.82-1.09) 07/13/16 07:25 Problem List - Problems (1) Chronic kidney disease (CKD) Assessment/Plan: monitor renal function Code(s): N18.9 - CHRONIC KIDNEY DISEASE, UNSPECIFIED (2) Hematuria Assessment/Plan: CBI PER URO Code(s): R31.9 - HEMATURIA, UNSPECIFIED (3) UTI (urinary tract infection) Assessment/Plan: ABX PER ID Code(s): N39.0 - URINARY TRACT INFECTION, SITE NOT SPECIFIED (4) Urinary retention Assessment/Plan: GARCIA CBI Code(s): R33.9 - RETENTION OF URINE, UNSPECIFIED (5) Anemia Assessment/Plan: S/P TRANSFUSE PRBC STABLE NOW Code(s): D64.9 - ANEMIA, UNSPECIFIED
--- NOTE | 2016-07-15 10:32 | PN ---
Progress Note (short form) - Note Progress Note: urine is clear on slow CBI. Patient is feeling better. Clamp CBI discharge planning
[2016-07-15] MEDS ORDERED: HEPARIN NA (PORCINE) 5,000 UNITS/ML 1ML VIAL IVPUSH PRN ×8 (12:30→15:36)
[2016-07-15] MEDS ORDERED: HEPARIN - 25,000 UNIT in SODIUM CHLORIDE 495 ML IV SCH (12:30)
[2016-07-15] MEDS ORDERED: CLOPIDOGREL BISULFATE 300 MG TABLET PO ONE (12:31)
[2016-07-15] MEDS ORDERED: ASPIRIN 325 MG TABLET PO ONE (12:31)
--- NOTE | 2016-07-15 12:44 | RAPID ---
Physical Examination Vital Signs: Vital Signs Temperature 97.8 F 07/15/16 12:09 Pulse Rate 111 H 07/15/16 12:09 Respiratory Rate 16 07/15/16 09:30 Blood Pressure 122/68 07/15/16 12:09 O2 Sat by Pulse Oximetry (%) 98 07/15/16 07:56 Constitutional: Yes: Anxious, Moderate Distress, Thin Cardiovascular: Yes: Regular Rate and Rhythm, Murmur, S1, S2 Respiratory: Yes: Regular, Diminished, Rales Gastrointestinal: Yes: Normal Bowel Sounds, Soft Musculoskeletal: Yes: WNL Extremities: Yes: WNL Edema: No Peripheral Pulses WNL: Yes Integumentary: Yes: WNL Neurological: Yes: Alert, Oriented ...Motor Strength: WNL Psychiatric: Yes: Alert, Oriented Labs: CBC, BMP 07/15/16 08:00 07/15/16 08:00 Rapid Response - Rapid Response Assessment: rapid response was called about a 89 year old Male patient with past medical history Bladder Ca, Lung Nodule, CHF, recently discharge from the hospital for CHF who presented to ED by son c/o inability to urinate. Pt patient suddenly had dull substernal severe chest pain, feeling likely someone is sitting on my chest accompanied by shortness of breath, feeling of impending doom. Chest pain was non radiating, chest pain reduced after a few minutes. Pt said he never had chest pain like that before. No n/v, no diaphoresis, no fever or chills. Chest r/o ACS -NSTEMI Plan STAT ekg Chest XRay Cardiac profile ASA 325mg once Plavix 300mg PO one Heparin drip Pt is already on betablocker and statin case discussed with ophthalmic tech Dr Batres, consulted Transfer to telemetry Dr Guillory made aware by nursing staff and is supposed to follow up on all labs and imaging, and provide further management
[2016-07-15] MEDS ORDERED: HEPARIN INFUSION - 500 ML IVPB SCH ×2 (12:45→15:36)
--- NOTE | 2016-07-15 13:21 | EKG ---
Test Reason : Blood Pressure : / mmHG Vent. Rate : 094 BPM Atrial Rate : 094 BPM P-R Int : 000 ms QRS Dur : 134 ms QT Int : 364 ms P-R-T Axes : 000 024 255 degrees QTc Int : 455 ms SINUS RHYTHM WITH MARKED SINUS ARRHYTHMIA WITH 1ST DEGREE A-V BLOCK LEFT BUNDLE BRANCH BLOCK ABNORMAL ECG WHEN COMPARED WITH ECG OF 13-JUL-2016 06:33, SINUS RHYTHM HAS REPLACED WIDE QRS RHYTHM Confirmed by EBONI IVERSON, MARY KAY ([id number]) on 07/15/2016 1:21:16 PM Referred By: Confirmed By:MARY KAY LYN MD
--- NOTE | 2016-07-15 20:43 | PN ---
Progress Note, Physician History of Present Illness: Developed chest pain; transferred to telemetry CBI in progress No c/o suprapubic or flank pain Temps down Afebrile - Current Medication List Current Medications: Active Medications Acetaminophen (Tylenol -) 650 mg PO Q4H PRN PRN Reason: FEVER OR PAIN Albuterol/Ipratropium (Duoneb -) 1 amp NEB QIDR [facility] Last Admin: 07/15/16 18:25 Dose: 1 amp Atorvastatin Calcium (Lipitor -) 10 mg PO HS [facility] Heparin Sodium (Porcine) (Heparin -) 5,000 unit IVPUSH PRN PRN PRN Reason: Heparin Heparin Sodium (Porcine) (Heparin -) 1,000 unit IVPUSH PRN PRN PRN Reason: Heparin Aztreonam 0.5 gm/ Dextrose 50 mls @ 100 mls/hr IVPB BID [facility] PRN Reason: Protocol Heparin Sodium/Dextrose (Heparin Infusion -) 500 mls @ 16 mls/hr IVPB TITR [facility] ; 800 UNITS/HR PRN Reason: Protocol Isosorbide Mononitrate (Imdur -) 60 mg PO DAILY [facility] Metoprolol Succinate (Toprol Xl -) 100 mg PO HS [facility] Polyethylene Glycol (Miralax (For Daily Use) -) 17 gm PO DAILY [facility] Sodium Bicarbonate (Sodium Bicarbonate -) 650 mg PO BID [facility] - Objective Vital Signs: Vital Signs Temperature 97.5 F L 07/15/16 17:00 Pulse Rate 96 H 07/15/16 17:00 Respiratory Rate 18 07/15/16 17:00 Blood Pressure 114/63 07/15/16 17:00 O2 Sat by Pulse Oximetry (%) 98 07/15/16 07:56 Constitutional: Yes: No Distress Eyes: Yes: Conjunctiva Clear Cardiovascular: Yes: Regular Rate and Rhythm, S1, S2 Respiratory: Yes: CTA Bilaterally Gastrointestinal: Yes: Normal Bowel Sounds, Soft Genitourinary: Yes: Other (urine in newman pink-tinged) Labs: CBC, BMP 07/15/16 08:00 07/15/16 08:00 INR, PTT INR 1.12 (0.82-1.09) 07/13/16 07:25 Assessment/Plan UTI/Possible sepsis secondary to UTI Bladder ca s/p TURBT S/P AUR CKD/ Solitary kidney Multiple antibiotic allergies Urine c/s E coli (s) Aztreonam Continue Aztreonam
[2016-07-15] MEDS: ATORVASTATIN CA 10 MG TABLET (FP) PO SCH (23:09)
[2016-07-15] MEDS: METOPROLOL SUCCINATE 100 MG TAB.SR.24H (FP) PO SCH (23:09)
[2016-07-15] MEDS: ACETAMINOPHEN 325 MG TABLET (FP) PO PRN (23:09)
[2016-07-16] MEDS: ALBUTEROL SO4 2.5/IPRATROPIUM 0.5 INH SOL 3 ML VIAL.NEB. NEB SCH ×5 (00:14→23:36)
[2016-07-16] MEDS ORDERED: oxyCODONE HCL 5 MG TABLET PO ONE ×2 (01:26→02:00)
[2016-07-16] MEDS: ACETAMINOPHEN 325 MG TABLET (FP) PO PRN (06:05)
[2016-07-16 08:01] LABS: BASOPHIL 0.3 % (0-2.0); EOSINOPHIL 0.7 % (0-4.5); MCH 21.8 pg (25.7-33.7); MCHC 32.3 g/dl (32.0-35.9); MEAN CELL VOLUME 67.6 fl (80-96); MEAN PLT VOLUME 8.9 fl (7.5-11.1); NEUTROPHILS 73.7 % (42.8-82.8); PLATELET COUNT 246 K/MM3 (134-434); WHITE BLOOD COUNT 8.6 K/mm3 (4.0-10.0)
[2016-07-16] MEDS ORDERED: LIDOCAINE HCL 2% JELLY (30 ML/TUBE) TP PRN (08:26)
--- NOTE | 2016-07-16 08:27 | PN ---
Progress Note, Physician History of Present Illness: FEELS BETTER--NO FURTHER CP NO SOB RECURRENCE OF BLEEDING--HEMATURIA C/O PAIN IN PENIS - Current Medication List Current Medications: Active Medications Acetaminophen (Tylenol -) 650 mg PO Q4H PRN PRN Reason: FEVER OR PAIN Last Admin: 07/16/16 06:05 Dose: 650 mg Albuterol/Ipratropium (Duoneb -) 1 amp NEB QIDR [facility]S [facility]CLUDE 234 BEDS AT [facility] Last Admin: 07/16/16 06:13 Dose: 1 amp Atorvastatin Calcium (Lipitor -) 10 mg PO [facility] Last Admin: 07/15/16 23:09 Dose: 10 mg Heparin Sodium (Porcine) (Heparin -) 5,000 unit IVPUSH PRN PRN PRN Reason: Heparin Heparin Sodium (Porcine) (Heparin -) 1,000 unit IVPUSH PRN PRN PRN Reason: Heparin Last Admin: 07/15/16 21:36 Dose: 1,000 unit Aztreonam 0.5 gm/ Dextrose 50 mls @ 100 mls/hr IVPB BID [facility]CLUDE 234 BEDS AT [facility] PRN Reason: Protocol Last Admin: 07/15/16 23:51 Dose: 100 mls/hr Heparin Sodium/Dextrose (Heparin Infusion -) 500 mls @ 16 mls/hr IVPB TITR [facility] ; 800 UNITS/HR PRN Reason: Protocol Last Titration: 07/15/16 21:48 Dose: 900 units/hr Isosorbide Mononitrate (Imdur -) 60 mg PO DAILY [facility] 234 BEDS AT [facility] Metoprolol Succinate (Toprol Xl -) 100 mg PO [facility] Last Admin: 07/15/16 23:09 Dose: 100 mg Polyethylene Glycol (Miralax (For Daily Use) -) 17 gm PO DAILY [facility] 234 BEDS AT [facility] Sodium Bicarbonate (Sodium Bicarbonate -) 650 mg PO BID [facility] 234 BEDS AT [facility] Last Admin: 07/15/16 23:09 Dose: 650 mg - Objective Vital Signs: Vital Signs Temperature 98.1 F 07/16/16 06:00 Pulse Rate 102 H 07/16/16 06:00 Respiratory Rate 20 07/16/16 06:00 Blood Pressure 138/74 07/16/16 06:00 O2 Sat by Pulse Oximetry (%) 97 07/15/16 21:00 Cardiovascular: Yes: Tachycardia, S1, S2 Respiratory: Yes: Regular, CTA Bilaterally Gastrointestinal: Yes: Normal Bowel Sounds, Soft, Hernia (INGUINAL). No: Tenderness Genitourinary: Yes: Hematuria. No: Scrotal Edema Edema: No Labs: INR, PTT INR 1.12 (0.82-1.09) 07/13/16 07:25 Problem List - Problems (1) Hematuria Assessment/Plan: CBI URO F/U STOP HEPARIN Code(s): R31.9 - HEMATURIA, UNSPECIFIED (2) Chronic kidney disease (CKD) Assessment/Plan: monitor renal function Code(s): N18.9 - CHRONIC KIDNEY DISEASE, UNSPECIFIED (3) UTI (urinary tract infection) Assessment/Plan: ABX PER ID Code(s): N39.0 - URINARY TRACT INFECTION, SITE NOT SPECIFIED (4) Urinary retention Code(s): R33.9 - RETENTION OF URINE, UNSPECIFIED (5) Anemia Assessment/Plan: S/P TRANSFUSE PRBC STABLE NOW Code(s): D64.9 - ANEMIA, UNSPECIFIED (6) Chest pain Assessment/Plan: FOLLOW LABS EKG DC HEPARIN DUE TO HEMATURIA Code(s): R07.9 - CHEST PAIN, UNSPECIFIED (7) Penile pain Assessment/Plan: LIDOCAINE URO Code(s): N48.89 - OTHER SPECIFIED DISORDERS OF PENIS (8) Arrhythmia Assessment/Plan: CHECK LYTES Code(s): I49.9 - CARDIAC ARRHYTHMIA, UNSPECIFIED
[2016-07-16 09:07] LABS: ALBUMIN 2.5 g/dl (3.4-5.0); BILIRUBIN,TOTAL 0.4 mg/dL (0.2-1.0); CALCIUM 8.3 mg/dL (8.5-10.1); CREATININE 2.5 mg/dL (0.7-1.3); TOT PROT 6.6 g/dl (6.4-8.2)
[2016-07-16 09:10] LABS: TROPONIN I 0.04 ng/ml (0.00-0.05)
[2016-07-16] MEDS ORDERED: LIDOCAINE HCL 2% JELLY (5 ML/TUBE) TP PRN (10:06)
--- NOTE | 2016-07-16 10:18 | PN ---
Progress Note (short form) - Note Progress Note: afebrile CBI had been stopped yesterday for clear urine, however, pt then received heparin for acute chest pain and subsequenty had to have CBI restarted for development of hematuria No suprapubic tenderness abd soft cont CBI to stop Heparin Problem List - Problems (1) Gross hematuria Code(s): R31.0 - GROSS HEMATURIA
--- NOTE | 2016-07-16 10:55 | CON.CARD ---
Consult Consult Specialty:: Cardiology Referred by:: Dr. 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 He had TURBT last hospitalization. He presented this time with urinary retention and hematuria. He had cystoscopy. He developed chest pain yesterday and was transferred to telemetry. ECG does not reveal significant changes and serial troponin was not elevated. Currently, he denies chest pain, shortness of breath or palpitation. He denies paroxysmal nocturnal dyspnea or orthopnea. He denies fever or chills. He denies headache or lightheadedness. Cardiology consultation was called for further evaluation. - History Source History Provided By: Patient, Medical Record Limitations to Obtaining History: No Limitations - Past Medical History Cardio/Vascular: Yes: AFIB, CAD, CHF, HTN, Hyperlipdemia Pulmonary: Yes: Cancer (lung--s/p lobectomy), COPD Gastrointestinal: Yes: GERD Renal/: Yes: Renal Inusuff, Cancer (bladder, TCC), Hematuria, Renal Calculi - Past Surgical History Past Surgical History: Yes: Colonoscopy, Nephrectomy, Permanent Pacemaker, Thoracotomy - Alcohol/Substance Use Hx Alcohol Use: No - Smoking History Smoking history: Former smoker Have you smoked in the past 12 months: No Aproximately how many cigarettes per day: 0 If you are a former smoker, when did you quit?: 1994 - Social History Usual Living Arrangement: With Spouse ADL: Independent 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, 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[place] History of Recent Travel: No Home Medications - Allergies Allergies/Adverse Reactions: Allergies Allergy/AdvReac Type Severity Reaction Status Date / Time Penicillins Allergy Hives, Verified 07/13/16 06:28 throat swelling Sulfa (Sulfonamide Allergy EYE Verified 07/13/16 06:28 Antibiotics) SWELLING, [Sulfa(Sulfonamide ITCHING Antibiotics)] levofloxacin [From Levaquin] AdvReac Severe Itching Verified 07/13/16 06:28 - Home Medications Home Medications: Ambulatory Orders Isosorbide Mononitrate [Imdur] 60 mg PO DAILY 12/16/11 Metoprolol Succinate [Toprol XL -] 100 mg PO HS 08/17/12 Atorvastatin Ca [Lipitor] 10 mg PO HS 04/28/16 Sodium Bicarbonate - 650 mg PO BID 04/29/16 Polyethylene Glycol 3350 [Miralax 119 gm Btl -] 17 gm PO DAILY bottle 07/10/16 Review of Systems - Review of Systems Constitutional: denies: Chills, Fever Cardiovascular: reports: Chest Pain. denies: Palpitations, Shortness of Breath Respiratory: denies: Cough, Hemoptysis, Orthopnea, PND, SOB, SOB on Exertion Gastrointestinal: denies: Abdominal Pain, Constipation, Diarrhea, Melena, Nausea , Rectal Bleeding, Vomiting Genitourinary: reports: Hematuria Neurological: denies: Dizziness, Headache, Seizure, Syncope Vital Signs: Vital Signs Temperature 98.1 F 07/16/16 06:00 Pulse Rate 102 H 07/16/16 06:00 Respiratory Rate 20 07/16/16 06:00 Blood Pressure 138/74 07/16/16 06:00 O2 Sat by Pulse Oximetry (%) 97 07/15/16 21:00 Neck: Yes: Supple Respiratory: Yes: Diminished Gastrointestinal: Yes: Normal Bowel Sounds, Soft. No: Tenderness Renal/: Yes: Hematuria Cardiovascular: Yes: Regular Rate and Rhythm JVD: No Carotid Bruit: No PMI: Non-Displaced Heart Sounds: Yes: S1, S2. No: Gallop Murmur: Yes: Systolic Murmur, Grade 1 Edema: No - Other Data Labs, Other Data: CBC, BMP 07/16/16 05:50 07/16/16 05:50 INR, PTT INR 1.12 (0.82-1.09) 07/13/16 07:25 Troponin, BNP 07/15/16 07/16/16 12:45 05:50 Troponin I 0.04 D 0.04 Sinus with LBBB and T abnormality Echo: Report Reviewed Imaging - Results Chest X-ray: Report Reviewed (No infiltrates) X-ray: Report Reviewed (Abdominal Xray) EKG: Report Reviewed Problem List - Problems (1) CAD (coronary artery disease) Code(s): I25.10 - ATHSCL HEART DISEASE OF [place] CORONARY ARTERY W/O ANG PCTRS Qualifiers: Coronary Disease-Associated Artery/Lesion type: [place] artery Associated angina: without angina (2) Chest pain Code(s): R07.9 - CHEST PAIN, UNSPECIFIED Qualifiers: Chest pain type: unspecified Qualified Code(s): R07.9 - Chest pain, unspecified (3) Chronic kidney disease (CKD) Code(s): N18.9 - CHRONIC KIDNEY DISEASE, UNSPECIFIED (4) HTN (hypertension) Code(s): I10 - ESSENTIAL (PRIMARY) HYPERTENSION Qualifiers: Hypertension type: essential hypertension Qualified Code(s): I10 - Essential (primary) hypertension (5) Hematuria Code(s): R31.9 - HEMATURIA, UNSPECIFIED (6) History of permanent cardiac pacemaker placement Code(s): Z95.0 - PRESENCE OF CARDIAC PACEMAKER (7) Hypercholesteremia Code(s): E78.0 - PURE HYPERCHOLESTEROLEMIA * DO NOT USE * (8) Sick sinus syndrome Code(s): I49.5 - SICK SINUS SYNDROME (9) Urinary retention Code(s): R33.9 - RETENTION OF URINE, UNSPECIFIED (10) AV block Code(s): I44.30 - UNSPECIFIED ATRIOVENTRICULAR BLOCK (11) Acute on chronic systolic (congestive) heart failure Code(s): I50.23 - ACUTE ON CHRONIC SYSTOLIC (CONGESTIVE) HEART FAILURE (12) Anemia Code(s): D64.9 - ANEMIA, UNSPECIFIED (13) Aortic regurgitation Code(s): I35.1 - NONRHEUMATIC AORTIC (VALVE) INSUFFICIENCY Qualifiers: Cardiac valve disease etiology: nonrheumatic Qualified Code(s): I35.1 - Nonrheumatic aortic (valve) insufficiency (14) Bladder mass Code(s): N32.89 - OTHER SPECIFIED DISORDERS OF BLADDER (15) COPD (chronic obstructive pulmonary disease) Code(s): J44.9 - CHRONIC OBSTRUCTIVE PULMONARY DISEASE, UNSPECIFIED Qualifiers : COPD type: unspecified COPD Qualified Code(s): J44.9 - Chronic obstructive pulmonary disease, unspecified (16) Paroxysmal atrial fibrillation Code(s): I48.0 - PAROXYSMAL ATRIAL FIBRILLATION (17) S/p nephrectomy Code(s): Z90.5 - ACQUIRED ABSENCE OF KIDNEY Assessment/Plan 1. Hematuria post cystoscopy, underlying bladder CA 2. Acute on chronic systolic LV failure and history of moderate to severe AR 3. CAD with negative MPI 4. AV block s/p PPM 5. PAF not on A/C due to above reasons 6. HTN/HCVD 7. CKD post resection of kidney mass 8. Anemia of chronic kidney disease PLAN: 1. Serial cardiac enzyme negative X 2 sets and currently asymptomatic and ECG unremarkable 2. Continue Toprol XL, Imdur and Lipitor 3. Continue with management 4. Antibiotic coverage per ID May transfer back to floor care Further plans are to follow Donn Batres MD
[2016-07-16] MEDS: oxyCODONE HCL 5 MG TABLET PO PRN (11:28)
[2016-07-16] MEDS: ISOSORBIDE MONONITRATE 60 MG TAB.SR.24H (FP) PO SCH (11:29)
[2016-07-16] MEDS: SODIUM BICARBONATE 650 MG TABLET PO SCH ×2 (11:29→22:26)
[2016-07-16] MEDS: AZTREONAM 0.5 GM in DEXTROSE 5%-WATER - 50 ML IVPB SCH ×2 (11:30→23:03)
[2016-07-16] MEDS: POLYETHYLENE GLYCOL 3350 119 GM BTL PO SCH (11:31)
[2016-07-16 11:56] LABS: ANISOCYTOSIS 1+; FRAGMENTED CELL 1+; HYPOCHROMIA 3+; MICROCYTOSIS 1+; OVALOCYTES 2+; TARGET CELLS 1+; TEAR DROP CELLS RARE
[2016-07-16] MEDS ORDERED: MAG HYDROX/AL HYDROX/SIMETH 30 ML UNIT-DOSE CUP PO PRN (14:58)
--- NOTE | 2016-07-16 16:17 | EKG ---
Test Reason : Blood Pressure : / mmHG Vent. Rate : 105 BPM Atrial Rate : 107 BPM P-R Int : 000 ms QRS Dur : 138 ms QT Int : 380 ms P-R-T Axes : 000 050 250 degrees QTc Int : 502 ms SINUS TACHYCARDIA WITH 1ST DEGREE A-V BLOCK PREMATURE VENTRICULAR COMPLEXES LEFT BUNDLE BRANCH BLOCK ABNORMAL ECG WHEN COMPARED WITH ECG OF 15-JUL-2016 12:23, PREMATURE VENTRICULAR COMPLEXES ARE NOW PRESENT Confirmed by ABRAHAN IVERSON, MARISSA ([id number]) on 07/16/2016 4:16:46 PM Referred By: Confirmed By:MARISSA GAUTHIER MD
--- NOTE | 2016-07-16 16:20 | EKG ---
Test Reason : Blood Pressure : / mmHG Vent. Rate : 106 BPM Atrial Rate : 106 BPM P-R Int : 000 ms QRS Dur : 134 ms QT Int : 362 ms P-R-T Axes : 000 038 220 degrees QTc Int : 480 ms SINUS TACHYCARDIA WITH 1ST DEGREE A-V BLOCK LEFT BUNDLE BRANCH BLOCK ABNORMAL ECG Confirmed by MARISSA GAUTHIER MD ([id number]) on 07/16/2016 4:20:04 PM Referred By: Jaxon MAIER Confirmed By:MARISSA GAUTHIER MD
[2016-07-16] MEDS ORDERED: PT OWN MED DRAWER 7, Y5N ONE (22:17)
[2016-07-16] MEDS: ATORVASTATIN CA 10 MG TABLET (FP) PO SCH (22:26)
[2016-07-16] MEDS: METOPROLOL SUCCINATE 100 MG TAB.SR.24H (FP) PO SCH (22:26)
[2016-07-17] MEDS: oxyCODONE HCL 5 MG TABLET PO PRN (04:24)
[2016-07-17] MEDS: ALBUTEROL SO4 2.5/IPRATROPIUM 0.5 INH SOL 3 ML VIAL.NEB. NEB SCH ×3 (06:59→17:50)
[2016-07-17 07:43] LABS: MCH 21.6 pg (25.7-33.7); MEAN CELL VOLUME 67.6 fl (80-96); MEAN PLT VOLUME 8.4 fl (7.5-11.1); PLATELET COUNT 250 K/MM3 (134-434); RDW 22.5 % (11.9-15.9)
--- NOTE | 2016-07-17 08:51 | PN ---
Progress Note, Physician History of Present Illness: FEELS BETTER--NO FURTHER CP NO SOB RECURRENCE OF BLEEDING--HEMATURIA--RESOLVING C/O PAIN IN PENIS--RESOLVED - Current Medication List Current Medications: Active Medications Acetaminophen (Tylenol -) 650 mg PO Q4H PRN PRN Reason: FEVER OR PAIN Last Admin: 07/16/16 06:05 Dose: 650 mg Al Hydroxide/Mg Hydroxide (Mylanta Oral Suspension -) 30 ml PO QID PRN PRN Reason: INDIGESTION Albuterol/Ipratropium (Duoneb -) 1 amp NEB QIDR [facility] Last Admin: 07/17/16 06:59 Dose: Not Given Atorvastatin Calcium (Lipitor -) 10 mg PO [facility] Last Admin: 07/16/16 22:26 Dose: 10 mg Aztreonam 0.5 gm/ Dextrose 50 mls @ 100 mls/hr IVPB BID [facility] PRN Reason: Protocol Last Admin: 07/16/16 23:03 Dose: 100 mls/hr Isosorbide Mononitrate (Imdur -) 60 mg PO DAILY [facility] Last Admin: 07/16/16 11:29 Dose: 60 mg Lidocaine HCl (Xylocaine 2% Jelly) 1 applic TP TID PRN PRN Reason: PAIN Metoprolol Succinate (Toprol Xl -) 100 mg PO [facility] Last Admin: 07/16/16 22:26 Dose: 100 mg Oxycodone HCl (Roxicodone -) 5 mg PO Q6H PRN PRN Reason: PAIN Last Admin: 07/17/16 04:24 Dose: 5 mg Polyethylene Glycol (Miralax (For Daily Use) -) 17 gm PO DAILY [facility] Last Admin: 07/16/16 11:31 Dose: Not Given Sodium Bicarbonate (Sodium Bicarbonate -) 650 mg PO BID [facility] Last Admin: 07/16/16 22:26 Dose: 650 mg - Objective Vital Signs: Vital Signs Temperature 98.1 F 07/17/16 06:00 Pulse Rate 97 H 07/17/16 06:00 Respiratory Rate 20 07/17/16 06:00 Blood Pressure 116/66 07/17/16 06:00 O2 Sat by Pulse Oximetry (%) 97 07/16/16 21:00 Cardiovascular: Yes: Regular Rate and Rhythm Respiratory: Yes: Regular, CTA Bilaterally Gastrointestinal: Yes: Normal Bowel Sounds, Soft Genitourinary: Yes: Valenzuela Present, Hematuria (MUCH BETTER) Labs: CBC, BMP 07/17/16 06:30 07/16/16 05:50 INR, PTT INR 1.12 (0.82-1.09) 07/13/16 07:25 Problem List - Problems (1) Hematuria Assessment/Plan: CBI ON HOLD BY URO URO F/U OFF HEPARIN Code(s): R31.9 - HEMATURIA, UNSPECIFIED (2) Chronic kidney disease (CKD) Assessment/Plan: monitor renal function Code(s): N18.9 - CHRONIC KIDNEY DISEASE, UNSPECIFIED (3) UTI (urinary tract infection) Assessment/Plan: ABX PER ID ON AZTREONAM ID F/U Code(s): N39.0 - URINARY TRACT INFECTION, SITE NOT SPECIFIED (4) Urinary retention Code(s): R33.9 - RETENTION OF URINE, UNSPECIFIED (5) Anemia Assessment/Plan: S/P TRANSFUSE PRBC STABLE NOW Code(s): D64.9 - ANEMIA, UNSPECIFIED (6) Chest pain Assessment/Plan: RESOLVED FOLLOW LABS--CE NEGATIVE EKG NO ISCHEMIC CHANGES DC HEPARIN DUE TO HEMATURIA CARDIO CONSULT NOTED--PT CLEARED Code(s): R07.9 - CHEST PAIN, UNSPECIFIED Qualifiers: Chest pain type: unspecified Qualified Code(s): R07.9 - Chest pain, unspecified (7) Penile pain Assessment/Plan: LIDOCAINE URO Code(s): N48.89 - OTHER SPECIFIED DISORDERS OF PENIS (8) Arrhythmia Assessment/Plan: CHECK LYTES--SEE CARDIO NOTE Laboratory Tests 07/16/16 07/16/16 05:50 08:45 Potassium 4.6 Magnesium 1.8 Code(s): I49.9 - CARDIAC ARRHYTHMIA, UNSPECIFIED
[2016-07-17] MEDS ORDERED: PT OWN MED DRAWER 7, Y5N ONE (09:16)
--- NOTE | 2016-07-17 11:02 | PN ---
Progress Note, Physician History of Present Illness: Denies chest pain or dyspnea. Hematuria improving. - Current Medication List Current Medications: Active Medications Acetaminophen (Tylenol -) 650 mg PO Q4H PRN PRN Reason: FEVER OR PAIN Last Admin: 07/16/16 06:05 Dose: 650 mg Al Hydroxide/Mg Hydroxide (Mylanta Oral Suspension -) 30 ml PO QID PRN PRN Reason: INDIGESTION Albuterol/Ipratropium (Duoneb -) 1 amp NEB QIDR [facility] Last Admin: 07/17/16 06:59 Dose: Not Given Atorvastatin Calcium (Lipitor -) 10 mg PO HS [facility] Last Admin: 07/16/16 22:26 Dose: 10 mg Aztreonam 0.5 gm/ Dextrose 50 mls @ 100 mls/hr IVPB BID [facility] PRN Reason: Protocol Last Admin: 07/16/16 23:03 Dose: 100 mls/hr Isosorbide Mononitrate (Imdur -) 60 mg PO DAILY [facility] Last Admin: 07/16/16 11:29 Dose: 60 mg Lidocaine HCl (Xylocaine 2% Jelly) 1 applic TP TID PRN PRN Reason: PAIN Metoprolol Succinate (Toprol Xl -) 100 mg PO [facility] Last Admin: 07/16/16 22:26 Dose: 100 mg Oxycodone HCl (Roxicodone -) 5 mg PO Q6H PRN PRN Reason: PAIN Last Admin: 07/17/16 04:24 Dose: 5 mg Polyethylene Glycol (Miralax (For Daily Use) -) 17 gm PO DAILY [facility] Last Admin: 07/16/16 11:31 Dose: Not Given Sodium Bicarbonate (Sodium Bicarbonate -) 650 mg PO BID [facility] Last Admin: 07/16/16 22:26 Dose: 650 mg - Objective Vital Signs: Vital Signs Temperature 98.1 F 07/17/16 06:00 Pulse Rate 97 H 07/17/16 06:00 Respiratory Rate 20 07/17/16 06:00 Blood Pressure 116/66 07/17/16 06:00 O2 Sat by Pulse Oximetry (%) 97 07/16/16 21:00 Constitutional: Yes: No Distress, Calm Neck: Yes: Supple Cardiovascular: Yes: Regular Rate and Rhythm Respiratory: Yes: Regular, Diminished Gastrointestinal: Yes: Normal Bowel Sounds, Soft Genitourinary: Yes: Hematuria Edema: No Labs: CBC, BMP 07/17/16 06:30 07/16/16 05:50 INR, PTT INR 1.12 (0.82-1.09) 07/13/16 07:25 Problem List - Problems (1) CAD (coronary artery disease) Code(s): I25.10 - ATHSCL HEART DISEASE OF [place] CORONARY ARTERY W/O ANG PCTRS Qualifiers: Coronary Disease-Associated Artery/Lesion type: [place] artery Associated angina: without angina (2) Chronic kidney disease (CKD) Code(s): N18.9 - CHRONIC KIDNEY DISEASE, UNSPECIFIED (3) HTN (hypertension) Code(s): I10 - ESSENTIAL (PRIMARY) HYPERTENSION Qualifiers: Hypertension type: essential hypertension Qualified Code(s): I10 - Essential (primary) hypertension (4) Hematuria Code(s): R31.9 - HEMATURIA, UNSPECIFIED (5) History of permanent cardiac pacemaker placement Code(s): Z95.0 - PRESENCE OF CARDIAC PACEMAKER (6) Hypercholesteremia Code(s): E78.0 - PURE HYPERCHOLESTEROLEMIA * DO NOT USE * (7) Sick sinus syndrome Code(s): I49.5 - SICK SINUS SYNDROME (8) AV block Code(s): I44.30 - UNSPECIFIED ATRIOVENTRICULAR BLOCK (9) Anemia Code(s): D64.9 - ANEMIA, UNSPECIFIED (10) Aortic regurgitation Code(s): I35.1 - NONRHEUMATIC AORTIC (VALVE) INSUFFICIENCY Qualifiers: Cardiac valve disease etiology: nonrheumatic Qualified Code(s): I35.1 - Nonrheumatic aortic (valve) insufficiency (11) History of partial cystectomy Code(s): Z98.890 - OTHER SPECIFIED POSTPROCEDURAL STATES (12) Left ventricular dysfunction Code(s): I51.9 - HEART DISEASE, UNSPECIFIED (13) Paroxysmal atrial fibrillation Code(s): I48.0 - PAROXYSMAL ATRIAL FIBRILLATION (14) S/p nephrectomy Code(s): Z90.5 - ACQUIRED ABSENCE OF KIDNEY Assessment/Plan 1. Hematuria post cystoscopy, underlying bladder CA 2. Chronic systolic LV failure and history of moderate to severe AR 3. CAD with negative MPI 4. AV block s/p PPM 5. PAF not on A/C due to above reasons 6. HTN/HCVD 7. CKD post resection of kidney mass 8. Anemia of chronic kidney disease PLAN: 1. Ruled out for [place] 2. Continue Toprol XL 100 qd, Imdur 60 qd and Lipitor 10 qhs 3. Continue with management 4. Antibiotic course per ID
[2016-07-17] MEDS: SODIUM BICARBONATE 650 MG TABLET PO SCH ×2 (11:50→23:01)
[2016-07-17] MEDS: AZTREONAM 0.5 GM in DEXTROSE 5%-WATER - 50 ML IVPB SCH ×2 (11:50→23:02)
[2016-07-17] MEDS: ISOSORBIDE MONONITRATE 60 MG TAB.SR.24H (FP) PO SCH (11:50)
[2016-07-17] MEDS: POLYETHYLENE GLYCOL 3350 119 GM BTL PO SCH (12:00)
--- NOTE | 2016-07-17 12:41 | PN ---
Progress Note (short form) - Note Progress Note: afebrile urine light pink abd soft if urine remains grossly clear/light pink-will d/c newman tomorrow Problem List - Problems (1) Gross hematuria Code(s): R31.0 - GROSS HEMATURIA
[2016-07-17] MEDS: METOPROLOL SUCCINATE 100 MG TAB.SR.24H (FP) PO SCH (23:01)
[2016-07-17] MEDS: ATORVASTATIN CA 10 MG TABLET (FP) PO SCH (23:02)
[2016-07-18] MEDS: ALBUTEROL SO4 2.5/IPRATROPIUM 0.5 INH SOL 3 ML VIAL.NEB. NEB SCH ×4 (00:33→18:10)
[2016-07-18] MEDS: ACETAMINOPHEN 325 MG TABLET (FP) PO PRN (03:59)
[2016-07-18 08:04] LABS: MCH 21.6 pg (25.7-33.7); MCHC 31.9 g/dl (32.0-35.9); MEAN CELL VOLUME 67.6 fl (80-96); MEAN PLT VOLUME 8.5 fl (7.5-11.1); PLATELET COUNT 242 K/MM3 (134-434); RDW 22.5 % (11.9-15.9); WHITE BLOOD COUNT 7.4 K/mm3 (4.0-10.0)
[2016-07-18] MEDS ORDERED: PT OWN MED DRAWER 7, Y5N ONE (09:45)
[2016-07-18] MEDS: POLYETHYLENE GLYCOL 3350 119 GM BTL PO SCH (10:00)
--- NOTE | 2016-07-18 10:27 | PN ---
Progress Note (short form) - Note Progress Note: afebrile urine light pink off CBI x 4 hrs abd soft will d/c newman for voiding trial Problem List - Problems (1) Gross hematuria Code(s): R31.0 - GROSS HEMATURIA
--- NOTE | 2016-07-18 10:43 | PN ---
Progress Note, Physician Chief Complaint: had d/w patient & dressed ready to go home urinated a little mild blood - Current Medication List Current Medications: Active Medications Acetaminophen (Tylenol -) 650 mg PO Q4H PRN PRN Reason: FEVER OR PAIN Last Admin: 07/18/16 03:59 Dose: 650 mg Al Hydroxide/Mg Hydroxide (Mylanta Oral Suspension -) 30 ml PO QID PRN PRN Reason: INDIGESTION Albuterol/Ipratropium (Duoneb -) 1 amp NEB QIDR [facility] Last Admin: 07/18/16 07:42 Dose: 1 amp Atorvastatin Calcium (Lipitor -) 10 mg PO [facility] Last Admin: 07/17/16 23:02 Dose: 10 mg Aztreonam 0.5 gm/ Dextrose 50 mls @ 100 mls/hr IVPB BID [facility] PRN Reason: Protocol Last Admin: 07/17/16 23:02 Dose: 100 mls/hr Isosorbide Mononitrate (Imdur -) 60 mg PO DAILY [facility] Last Admin: 07/17/16 11:50 Dose: 60 mg Lidocaine HCl (Xylocaine 2% Jelly) 1 applic TP TID PRN PRN Reason: PAIN Metoprolol Succinate (Toprol Xl -) 100 mg PO [facility] Last Admin: 07/17/16 23:01 Dose: 100 mg Oxycodone HCl (Roxicodone -) 5 mg PO Q6H PRN PRN Reason: PAIN Last Admin: 07/17/16 04:24 Dose: 5 mg Polyethylene Glycol (Miralax (For Daily Use) -) 17 gm PO DAILY [facility] Last Admin: 07/17/16 12:00 Dose: Not Given Sodium Bicarbonate (Sodium Bicarbonate -) 650 mg PO BID [facility] Last Admin: 07/17/16 23:01 Dose: 650 mg - Objective Vital Signs: Vital Signs Temperature 98 F 07/18/16 07:00 Pulse Rate 87 07/18/16 07:00 Respiratory Rate 18 07/18/16 07:00 Blood Pressure 115/66 07/18/16 07:00 O2 Sat by Pulse Oximetry (%) 97 07/17/16 21:00 Constitutional: Yes: Calm Neck: Yes: WNL Cardiovascular: Yes: WNL Respiratory: Yes: WNL Gastrointestinal: Yes: WNL Edema: No Labs: CBC, BMP 07/18/16 06:00 04/06/17 05:50 INR, PTT INR 1.12 (0.82-1.09) 07/13/16 07:25 Problem List - Problems (1) HTN (hypertension) Code(s): I10 - ESSENTIAL (PRIMARY) HYPERTENSION Qualifiers: Hypertension type: essential hypertension Qualified Code(s): I10 - Essential (primary) hypertension (2) Hematuria Code(s): R31.9 - HEMATURIA, UNSPECIFIED (3) UTI (urinary tract infection) Code(s): N39.0 - URINARY TRACT INFECTION, SITE NOT SPECIFIED Assessment/Plan (1) Hematuria Assessment/Plan: F/U VOIDING TRIAL S/P DC GARCIA URO F/U Code(s): R31.9 - HEMATURIA, UNSPECIFIED (2) Chronic kidney disease (CKD) Assessment/Plan: monitor renal function Code(s): N18.9 - CHRONIC KIDNEY DISEASE, UNSPECIFIED (3) UTI (urinary tract infection) Assessment/Plan: ABX PER ID AZTREONAM -> STOPPED. NOW OBSERVING ID F/U Code(s): N39.0 - URINARY TRACT INFECTION, SITE NOT SPECIFIED (4) Urinary retention Code(s): R33.9 - RETENTION OF URINE, UNSPECIFIED (5) Anemia Assessment/Plan: S/P TRANSFUSE PRBC STABLE NOW Code(s): D64.9 - ANEMIA, UNSPECIFIED (6) Chest pain Assessment/Plan: RESOLVED FOLLOW LABS--CE NEGATIVE EKG NO ISCHEMIC CHANGES DC HEPARIN DUE TO HEMATURIA CARDIO CONSULT NOTED--PT CLEARED Code(s): R07.9 - CHEST PAIN, UNSPECIFIED Qualifiers: Chest pain type: unspecified Qualified Code(s): R07.9 - Chest pain, unspecified (7) Penile pain Assessment/Plan: LIDOCAINE URO Code(s): N48.89 - OTHER SPECIFIED DISORDERS OF PENIS (8) Arrhythmia Assessment/Plan: CHECK LYTES--SEE CARDIO NOTE Code(s): I49.9 - CARDIAC ARRHYTHMIA, UNSPECIFIED 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
[2016-07-18] MEDS: ISOSORBIDE MONONITRATE 60 MG TAB.SR.24H (FP) PO SCH (10:50)
[2016-07-18] MEDS: SODIUM BICARBONATE 650 MG TABLET PO SCH ×2 (10:50→21:37)
[2016-07-18] MEDS: AZTREONAM 0.5 GM in DEXTROSE 5%-WATER - 50 ML IVPB SCH ×2 (10:50→21:37)
--- NOTE | 2016-07-18 12:03 | PN ---
Progress Note, Physician Chief Complaint: Valenzuela catheter removed Pt waiting to void No c/o flank pain No fever/ chillls- afebrile WBC WNL BC (-) Completing course of aztreonam - Current Medication List Current Medications: Active Medications Acetaminophen (Tylenol -) 650 mg PO Q4H PRN PRN Reason: FEVER OR PAIN Last Admin: 07/18/16 03:59 Dose: 650 mg Al Hydroxide/Mg Hydroxide (Mylanta Oral Suspension -) 30 ml PO QID PRN PRN Reason: INDIGESTION Albuterol/Ipratropium (Duoneb -) 1 amp NEB QIDR [facility] Last Admin: 07/18/16 11:12 Dose: 1 amp Atorvastatin Calcium (Lipitor -) 10 mg PO [facility] Last Admin: 07/17/16 23:02 Dose: 10 mg Aztreonam 0.5 gm/ Dextrose 50 mls @ 100 mls/hr IVPB BID [facility] PRN Reason: Protocol Last Admin: 07/18/16 10:50 Dose: 100 mls/hr Isosorbide Mononitrate (Imdur -) 60 mg PO DAILY [facility] Last Admin: 07/18/16 10:50 Dose: 60 mg Lidocaine HCl (Xylocaine 2% Jelly) 1 applic TP TID PRN PRN Reason: PAIN Metoprolol Succinate (Toprol Xl -) 100 mg PO [facility] Last Admin: 07/17/16 23:01 Dose: 100 mg Oxycodone HCl (Roxicodone -) 5 mg PO Q6H PRN PRN Reason: PAIN Last Admin: 07/17/16 04:24 Dose: 5 mg Polyethylene Glycol (Miralax (For Daily Use) -) 17 gm PO DAILY [facility] Last Admin: 07/17/16 12:00 Dose: Not Given Sodium Bicarbonate (Sodium Bicarbonate -) 650 mg PO BID [facility] Last Admin: 07/18/16 10:50 Dose: 650 mg - Objective Vital Signs: Vital Signs Temperature 98 F 07/18/16 07:00 Pulse Rate 87 07/18/16 07:00 Respiratory Rate 18 07/18/16 07:00 Blood Pressure 115/66 07/18/16 07:00 O2 Sat by Pulse Oximetry (%) 97 07/17/16 21:00 Constitutional: Yes: No Distress Eyes: Yes: Conjunctiva Clear Cardiovascular: Yes: Regular Rate and Rhythm, S1, S2 Respiratory: Yes: CTA Bilaterally Gastrointestinal: Yes: Normal Bowel Sounds, Soft. No: Tenderness Labs: CBC, BMP 07/18/16 06:00 07/16/16 05:50 INR, PTT INR 1.12 (0.82-1.09) 07/13/16 07:25 Assessment/Plan UTI/Possible sepsis secondary to UTI Bladder ca s/p TURBT S/P AUR CKD/ Solitary kidney Multiple antibiotic allergies D/C Aztreonam after today, observe off
[2016-07-18] MEDS: METOPROLOL SUCCINATE 100 MG TAB.SR.24H (FP) PO SCH (21:37)
[2016-07-18] MEDS: ATORVASTATIN CA 10 MG TABLET (FP) PO SCH (21:37)
[2016-07-19] MEDS: ALBUTEROL SO4 2.5/IPRATROPIUM 0.5 INH SOL 3 ML VIAL.NEB. NEB SCH ×4 (00:11→18:28)
[2016-07-19 07:34] LABS: MCH 21.6 pg (25.7-33.7); MCHC 31.8 g/dl (32.0-35.9); MEAN PLT VOLUME 8.1 fl (7.5-11.1); PLATELET COUNT 258 K/MM3 (134-434); RDW 22.3 % (11.9-15.9); WHITE BLOOD COUNT 7.6 K/mm3 (4.0-10.0)
[2016-07-19 08:08] LABS: ALBUMIN 2.3 g/dl (3.4-5.0); BILIRUBIN,TOTAL 0.4 mg/dL (0.2-1.0); CALCIUM 8.2 mg/dL (8.5-10.1); COCKROFT - GAULT 14.17; CREATININE 2.6 mg/dL (0.7-1.3); MAGNESIUM 1.9 mg/dL (1.8-2.4)
[2016-07-19 08:09] LABS: TOT PROT 5.9 g/dl (6.4-8.2)
--- NOTE | 2016-07-19 09:02 | DS ---
Physical Examination Vital Signs: Vital Signs Temperature 98.3 F 07/19/16 06:00 Pulse Rate 99 H 07/19/16 06:00 Respiratory Rate 18 07/19/16 06:00 Blood Pressure 115/64 07/19/16 06:00 O2 Sat by Pulse Oximetry (%) 98 07/18/16 21:00 Findings/Remarks: NO DISTRESS AT BEDSIDE ANXIOUS TO GO HOME HAS SUPPORT & FAMILY WAITING FOR HIM AT HOME INSURES SAFETY Constitutional: Yes: Calm Neck: Yes: WNL Cardiovascular: Yes: WNL Respiratory: Yes: WNL Gastrointestinal: Yes: WNL Edema: No Integumentary: Yes: WNL. No: Laceration, Skin Tear Labs: CBC, BMP 07/19/16 06:00 07/19/16 06:00 Discharge Summary Reason For Visit: HEMATURIA/CHF/DYSURIA Current Active Problems ACS (acute coronary syndrome) (Acute) Acute pulmonary edema (Acute) Acute worsening of stage 3 chronic kidney disease (Acute) Allergy to multiple antibiotics (Acute) Angina pectoris (Acute) Arrhythmia (Acute) Back pain (Acute) CAD (coronary artery disease) (Acute) Chest pain (Acute) Chronic kidney disease (CKD) (Acute) Congestive heart failure (CHF) (Acute) Dysuria (Acute) Gross hematuria (Acute) HTN (hypertension) (Acute) Hematuria (Acute) Hemoptysis (Acute) History of lobectomy of lung (Acute) History of permanent cardiac pacemaker placement (Acute) Hydronephrosis (Acute) Hypercholesteremia (Acute) Lung cancer (Acute) Lung nodule (Acute) PNA (pneumonia) (Acute) Penile pain (Acute) Sick sinus syndrome (Acute) Urinary retention (Acute) Hospital Course: (1) Hematuria Assessment/Plan: GARCIA STOPPED URINATING URO ON CASE Code(s): R31.9 - HEMATURIA, UNSPECIFIED (2) Chronic kidney disease (CKD) Assessment/Plan: monitor renal function Code(s): N18.9 - CHRONIC KIDNEY DISEASE, UNSPECIFIED (3) UTI (urinary tract infection) Assessment/Plan: ABX PER ID AZTREONAM -> STOPPED. NOW OBSERVING ID F/U NO FEVER WBC NEG Code(s): N39.0 - URINARY TRACT INFECTION, SITE NOT SPECIFIED (4) Urinary retention Code(s): R33.9 - RETENTION OF URINE, UNSPECIFIED GARCIA STOPPED PVR 100 -> URO AWARE NEEDS OUTPT URO F/U (5) Anemia Assessment/Plan: S/P TRANSFUSE PRBC STABLE NOW Code(s): D64.9 - ANEMIA, UNSPECIFIED (6) Chest pain Assessment/Plan: RESOLVED FOLLOW LABS--CE NEGATIVE EKG NO ISCHEMIC CHANGES DC HEPARIN DUE TO HEMATURIA CARDIO CONSULT NOTED--PT CLEARED Code(s): R07.9 - CHEST PAIN, UNSPECIFIED Qualifiers: Chest pain type: unspecified Qualified Code(s): R07.9 - Chest pain, unspecified (7) Penile pain Assessment/Plan: LIDOCAINE URO Code(s): N48.89 - OTHER SPECIFIED DISORDERS OF [place] (8) Arrhythmia Assessment/Plan: CHECK LYTES--SEE CARDIO NOTE NEED OUTPT CARDIO F/U HAS H/O OCCASIONAL LIGHT DIZZINESS -> EDUCATION GIVEN. FAMILY INSURES SAFETY. 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
--- NOTE | 2016-07-19 09:43 | PN ---
Progress Note (short form) - Note Progress Note: afebrile urine light pink voiding spontaneously abd soft minimal pvr stable for discharge from standpoint Problem List - Problems (1) Gross hematuria Code(s): R31.0 - GROSS HEMATURIA
[2016-07-19] MEDS ORDERED: PT OWN MED DRAWER 7, Y5N ONE (09:51)
[2016-07-19] MEDS: SODIUM BICARBONATE 650 MG TABLET PO SCH (09:55)
[2016-07-19] MEDS: ISOSORBIDE MONONITRATE 60 MG TAB.SR.24H (FP) PO SCH (09:55)
--- NOTE | 2016-07-19 12:25 | PN ---
Progress Note, Physician History of Present Illness: Denies chest pain or dyspnea. Hematuria resolved, newman d/kristal, post mechanical fall without syncope. - Current Medication List Current Medications: Active Medications Acetaminophen (Tylenol -) 650 mg PO Q4H PRN PRN Reason: FEVER OR PAIN Last Admin: 07/18/16 03:59 Dose: 650 mg Al Hydroxide/Mg Hydroxide (Mylanta Oral Suspension -) 30 ml PO QID PRN PRN Reason: INDIGESTION Albuterol/Ipratropium (Duoneb -) 1 amp NEB QIDR [facility] Last Admin: 07/19/16 12:23 Dose: 1 amp Atorvastatin Calcium (Lipitor -) 10 mg PO HS [facility] Last Admin: 07/18/16 21:37 Dose: 10 mg Aztreonam 0.5 gm/ Dextrose 50 mls @ 100 mls/hr IVPB BID [facility] PRN Reason: Protocol Last Admin: 07/18/16 21:37 Dose: 100 mls/hr Isosorbide Mononitrate (Imdur -) 60 mg PO DAILY [facility] Last Admin: 07/19/16 09:55 Dose: 60 mg Lidocaine HCl (Xylocaine 2% Jelly) 1 applic TP TID PRN PRN Reason: PAIN Metoprolol Succinate (Toprol Xl -) 100 mg PO HS [facility] Last Admin: 07/18/16 21:37 Dose: 100 mg Oxycodone HCl (Roxicodone -) 5 mg PO Q6H PRN PRN Reason: PAIN Last Admin: 07/17/16 04:24 Dose: 5 mg Polyethylene Glycol (Miralax (For Daily Use) -) 17 gm PO DAILY [facility] Last Admin: 07/18/16 10:00 Dose: Not Given Sodium Bicarbonate (Sodium Bicarbonate -) 650 mg PO BID [facility] Last Admin: 07/19/16 09:55 Dose: 650 mg - Objective Vital Signs: Vital Signs Temperature 98.3 F 07/19/16 06:00 Pulse Rate 99 H 07/19/16 06:00 Respiratory Rate 18 07/19/16 06:00 Blood Pressure 115/64 07/19/16 06:00 O2 Sat by Pulse Oximetry (%) 98 07/18/16 21:00 Constitutional: Yes: No Distress, Calm Neck: Yes: Supple Cardiovascular: Yes: Regular Rate and Rhythm, Murmur (2/6 DM) Respiratory: Yes: Regular, Diminished Gastrointestinal: Yes: Normal Bowel Sounds, Soft Edema: No Labs: CBC, BMP 07/19/16 06:00 07/19/16 06:00 INR, PTT INR 1.12 (0.82-1.09) 07/13/16 07:25 Problem List - Problems (1) CAD (coronary artery disease) Code(s): I25.10 - ATHSCL HEART DISEASE OF [place] CORONARY ARTERY W/O ANG PCTRS (2) Chronic kidney disease (CKD) Code(s): N18.9 - CHRONIC KIDNEY DISEASE, UNSPECIFIED (3) HTN (hypertension) Code(s): I10 - ESSENTIAL (PRIMARY) HYPERTENSION Qualifiers: Qualified Code(s): I10 - Essential (primary) hypertension (4) Hematuria Code(s): R31.9 - HEMATURIA, UNSPECIFIED (5) History of permanent cardiac pacemaker placement Code(s): Z95.0 - PRESENCE OF CARDIAC PACEMAKER (6) Hypercholesteremia Code(s): E78.0 - PURE HYPERCHOLESTEROLEMIA * DO NOT USE * (7) Sick sinus syndrome Code(s): I49.5 - SICK SINUS SYNDROME (8) AV block Code(s): I44.30 - UNSPECIFIED ATRIOVENTRICULAR BLOCK (9) Anemia Code(s): D64.9 - ANEMIA, UNSPECIFIED (10) Aortic regurgitation Code(s): I35.1 - NONRHEUMATIC AORTIC (VALVE) INSUFFICIENCY Qualifiers: Qualified Code(s): I35.1 - Nonrheumatic aortic (valve) insufficiency (11) History of partial cystectomy Code(s): Z98.890 - OTHER SPECIFIED POSTPROCEDURAL STATES (12) Left ventricular dysfunction Code(s): I51.9 - HEART DISEASE, UNSPECIFIED (13) Paroxysmal atrial fibrillation Code(s): I48.0 - PAROXYSMAL ATRIAL FIBRILLATION (14) S/p nephrectomy Code(s): Z90.5 - ACQUIRED ABSENCE OF KIDNEY Assessment/Plan 1. Hematuria post cystoscopy, underlying bladder CA s/p TURBT 2. Chronic systolic LV failure and history of moderate to severe AR 3. CAD with negative MPI 4. AV block s/p PPM 5. PAF not on A/C due to above reasons 6. HTN/HCVD 7. CKD post resection of kidney mass 8. Anemia of chronic kidney disease 9. Gait instability PLAN: 1. Ruled out for [place] 2. Continue Toprol XL 100 qd, Imdur 60 qd and Lipitor 10 qhs 3. Continue with management 4. Completed antibiotic course per ID 5. PT, gait training
[2016-07-19] MEDS: AZTREONAM 0.5 GM in DEXTROSE 5%-WATER - 50 ML IVPB SCH (12:54)
[2016-07-19] MEDS: POLYETHYLENE GLYCOL 3350 119 GM BTL PO SCH (12:57)
[2016-07-19 17:26] VITALS: TEMP 97.5
[2016-07-19 17:27] VITALS: BP 126/72; PULSE 100
--- NOTE | 2016-07-19 18:11 | CONSULT ---
Consult - text type - Consultation Consultation Note: NEUROLOGY CONSULTATION is greatly appreciated: This 89 yo RH woman lives with his of 65 years. 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 Maintained on isordil, metoprolol, atorvastatin. S/P cystoscopy in June complicated by E. coli UTI treated here with azactam -07/10. D/C'ed to home with Valenzuela which was removed prior to readmission on 07/13 for urinary retention. Found to have recurrent E. coli UTI (urine TLL=558) again treated with azactam, completed today. Also, Valenzuela removed and urinating with some hesitancy. Admission bloods sig for microcystic anemia (H/H=7.9/25.8, MCV=62.8) and Cr/BUN= 2.7/59. Pt now wants to go home but claims he fell in the bathroom this AM without any prodromal symptoms such as lightheadedness, weakness, or visual changes. . He "slipped." No head trauma or LOC. He denies any pain in back, hips, etc. Denies prior falls or difficulty walking to me but did tell the RN's about prior falls. Walks at home independently without assistive devices. BP's today range from 88/58-126/72 without orthostatic chenges. MILO: Thin. No evidence of external head trauma. Full neck ROM. No spinal palpation tenderness. - Dioni's. NEURO: MS/speech: Normal CN II-XII: Normal without nystagmus. Motor: Course rest tremor. Normal strength. + cogwheel rigidity (L>R) . Normal reflexes. Toes downgoing. Coord: No FTN dystaxia Sensory: Normal. Romberg - Gait slightly flexed and shortened strides. No obvious festination. 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 Doubt syncope. SUGGEST:Follow orthostatic BP's and decrease BP and vasoactive meds if remains low. Follow H/H for continued blood loss (hematuria?). PT for gait as out patient. Neuro f/u as out patient for possible Rx of PD. Thank you very much, Ke Zamora MD
== END 2016-07-18 18:45 | disposition home or self-care (01) | DRG 699 ==
LOC: JER 06:03 → JERBED 06:55 → OBSVTOIN 08:58 → J6S 10:18 → J4W 07-15 14:25 → J7W 07-16 18:53
PROVIDERS: ADMIT Family Medicine; ATTEND Family Medicine
PROC: 30233N1 Transfusion of Nonautologous Red Blood Cells into Peripheral Vein, Percutaneous Approach (ICD-10-PCS; principal; 2016-07-14)
DX: N99.89 Other postprocedural complications and disorders of genitourinary system (principal); N39.0 Urinary tract infection, site not specified; I13.0 Hypertensive heart and chronic kidney disease with heart failure and stage 1 through stage 4 chronic kidney disease, or unspecified chronic kidney disease; R33.8 Other retention of urine; R91.1 Solitary pulmonary nodule; K21.9 Gastro-esophageal reflux disease without esophagitis; K22.2 Esophageal obstruction; K63.5 Polyp of colon; R31.0 Gross hematuria; E78.00 Pure hypercholesterolemia, unspecified; N40.0 Benign prostatic hyperplasia without lower urinary tract symptoms; I25.10 Atherosclerotic heart disease of native coronary artery without angina pectoris; I10 Essential (primary) hypertension; J44.9 Chronic obstructive pulmonary disease, unspecified; D64.9 Anemia, unspecified; R07.89 Other chest pain; I48.0 Paroxysmal atrial fibrillation; I49.9 Cardiac arrhythmia, unspecified; N48.89 Other specified disorders of penis; N18.9 Chronic kidney disease, unspecified; I50.9 Heart failure, unspecified; I35.1 Nonrheumatic aortic (valve) insufficiency; R26.89 Other abnormalities of gait and mobility; G20 Parkinson's disease; W01.0XXA Fall on same level from slipping, tripping and stumbling without subsequent striking against object, initial encounter; Z87.442 Personal history of urinary calculi; Z87.891 Personal history of nicotine dependence; Z95.0 Presence of cardiac pacemaker; Z85.51 Personal history of malignant neoplasm of bladder; Z85.118 Personal history of other malignant neoplasm of bronchus and lung; Z88.1 Allergy status to other antibiotic agents; Z90.5 Acquired absence of kidney; Y93.89 Activity, other specified; Y83.8 Other surgical procedures as the cause of abnormal reaction of the patient, or of later complication, without mention of misadventure at the time of the procedure; Y92.238 Other place in hospital as the place of occurrence of the external cause; Y99.8 Other external cause status
CPT/HCPCS: 36415; 36430; 71010-TC; 74000-TC; 80053; 81003; 81015; 82550; 83735; 84100; 84484; 85025; 85027; 85610; 85730; 86850; 86900; 86901; 86922; 87040; 87086; 87186; 93005; 93010; 94640; 97116-GP; 97161-GP; 99285-25; G0378; J1644; P9038; P9058

== ENCOUNTER 2016-07-21 00:58 | Observation (INO) | payer BC ==
--- NOTE | 2016-07-21 02:31 | PDOC ---
History of Present Illness - General History Source: Patient, Family <Neel Begum - Last Filed: 07/21/16 04:55> - General History Source: Patient Exam Limitations: No Limitations - History of Present Illness Initial Comments: 07/21/16 03:19 Patient is a 89 year old male with a significant past medical history of bladder ca, lung nodule and CHF who presents to the ED with hematuria and dysuria. Patient was recently admitted 07/13/16 for urinary retention and gross hematuria. Patient is cysto bladder biopsy previous week. On 07/13 patient had newman with CBI ordered by Dr. Dc. Prior to that patient was admitted on 07/01 for CHF and was dc on 07/10. He returns today as result of the dysuria and hematuria returning. He denies fever, chills, nausea, vomiting or diarrhea. Allergy: penicillins, sulfa, levofloxacin <Lavinia Pizarro - Last Filed: 07/21/16 05:55> - General Chief Complaint: Hematuria Stated Complaint: URINARY PROBLEM/BLEEDING Time Seen by Provider: 07/21/16 02:31 Past History - Past Medical History Anemia: No Asthma: No Cancer: Yes (lung ca, bladder ca) Cardiac Disorders: No CVA: No COPD: No CHF: No Dementia: No Diabetes: No GI Disorders: Yes (GERD, SCHATZKI'S RING, COLON POLYP, GASTRIC INTESTINAL METAPLASIA) Disorders: Yes (bladder tumor, polyps, BPH) HTN: Yes Hypercholesterolemia: Yes Liver Disease: No Seizures: No Thyroid Disease: No - Surgical History Abdominal Surgery: No Appendectomy: No Cardiac Surgery: Yes (PPM) Cholecystectomy: No Lung Surgery: Yes (left lobectomy) Neurologic Surgery: No Orthopedic Surgery: No - Psycho/Social/Smoking Cessation Hx Anxiety: No Suicidal Ideation: No Smoking Status: No Smoking History: Former smoker Years of Tobacco Use: 0 Have you smoked in the past 12 months: No Number of Cigarettes Smoked Daily: 0 If you are a former smoker, when did you quit?: 1995 Cigars Per Day: 0 Information on smoking cessation initiated: No Hx Alcohol Use: No Drug/Substance Use Hx: No Substance Use Type: None Hx Substance Use Treatment: No <Neel Begum - Last Filed: 07/21/16 04:55> <Lavinia Pizarro - Last Filed: 07/21/16 05:55> - Past Medical History Allergies/Adverse Reactions: Allergies Allergy/AdvReac Type Severity Reaction Status Date / Time Penicillins Allergy Hives, Verified 07/21/16 01:36 throat swelling Sulfa (Sulfonamide Allergy EYE Verified 07/21/16 01:36 Antibiotics) SWELLING, [Sulfa(Sulfonamide ITCHING Antibiotics)] levofloxacin [From Levaquin] AdvReac Severe Itching Verified 07/21/16 01:36 Home Medications: Ambulatory Orders Isosorbide Mononitrate [Imdur] 60 mg PO DAILY 12/16/11 Metoprolol Succinate [Toprol XL -] 100 mg PO HS 08/17/12 Atorvastatin Ca [Lipitor] 10 mg PO HS 04/28/16 Sodium Bicarbonate - 650 mg PO BID 04/29/16 Polyethylene Glycol 3350 [Miralax 119 gm Btl -] 17 gm PO DAILY bottle 07/10/16 Acetaminophen [Tylenol .Regular Strength -] 650 mg PO Q6H PRN #0 tablet Abd/GI Specific PMHX - Complaint Specific PMHX Colitis: No Diverticulitis: No Gall Bladder Disease: No GERD: No Hepatitis: No Irritable Bowel Synd (IBS): No Pancreatitis: No GI Ulcer Disease: No <Neel Begum - Last Filed: 07/21/16 04:55> Review of Systems - Review of Systems Able to Perform ROS?: Yes Comments:: 07/21/16 03:20 CONSTITUTIONAL: Absent: fever, chills, diaphoresis, generalized weakness, malaise, loss of appetite HEENT: Absent: rhinorrhea, nasal congestion, throat pain, throat swelling, difficulty swallowing, mouth swelling, ear pain, eye pain, visual Changes CARDIOVASCULAR: Absent: chest pain, syncope, palpitations, irregular heart rate, lightheadedness , peripheral edema RESPIRATORY: Absent: cough, shortness of breath, dyspnea with exertion, orthopnea, wheezing, stridor, hemoptysis GASTROINTESTINAL: Absent: abdominal pain, abdominal distension, nausea, vomiting, diarrhea, constipation, melena, hematochezia GENITOURINARY: Present: hematuria, dysuria Absent: frequency, urgency, hesitancy, flank pain, genital pain MUSCULOSKELETAL: Absent: myalgia, arthralgia, joint swelling SKIN: Absent: rash, itching, pallor HEMATOLOGIC/IMMUNOLOGIC: Absent: easy bleeding, easy bruising, lymphadenopathy, frequent infections ENDOCRINE: Absent: unexplained weight gain, unexplained weight loss, heat intolerance, cold intolerance NEUROLOGIC: Absent: headache, focal weakness or paresthesias, dizziness, unsteady gait, seizure, mental status changes, bladder or bowel incontinence PSYCHIATRIC: Absent: anxiety, depression, suicidal or homicidal ideation, hallucinations. <MoiraLavinia - Last Filed: 07/21/16 05:55> *Physical Exam - Vital Signs Last Vital Signs Temp Pulse Resp BP Pulse Ox 97.8 F 105 H 22 143/65 99 07/21/16 00:59 07/21/16 00:59 07/21/16 00:59 07/21/16 00:59 07/21/16 00:59 <Neel Begum - Last Filed: 07/21/16 04:55> - Vital Signs Last Vital Signs Temp Pulse Resp BP Pulse Ox 97.8 F 105 H 22 143/65 99 07/21/16 00:59 07/21/16 00:59 07/21/16 00:59 07/21/16 00:59 07/21/16 00:59 - Physical Exam Comments: 07/21/16 03:21 GENERAL: Well developed, well nourished. Awake and alert. In no acute distress. HEENT: Normocephalic, atraumatic. PERRLA, EOMI. No conjunctival pallor. Sclerae are non -icteric. Moist mucous membranes. Oropharynx is clear. NECK: Supple. Full ROM. No JVD. Carotid pulses 2+ and symmetric, without bruits. No thyromegaly. No lymphadenopathy. CARDIOVASCULAR: Regular rate and rhythm. No murmurs, rubs, or gallops. Distal pulses are 2+ and symmetric. PULMONARY: No evidence of respiratory distress. Lungs clear to auscultation bilaterally. No wheezing, rales or rhonchi. ABDOMINAL: Soft. Non-tender. Non-distended. No rebound or guarding. No organomegaly. Normoactive bowel sounds. MUSCULOSKELETAL Normal range of motion at all joints. No bony deformities or tenderness. No CVA tenderness. EXTREMITIES: No cyanosis. No clubbing. No edema. No calf tenderness. SKIN: Warm and dry. Normal capillary refill. No rashes. No jaundice. NEUROLOGICAL: Alert, awake, appropriate. Cranial nerves 2-12 intact. No deficits to light touch and temperature in face, upper extremities and lower extremities. No motor deficits in the in face, upper extremities and lower extremities. Normoreflexic in the upper and lower extremities. Normal speech. Toes are downgoing bilaterally. Gait is normal without ataxia. PSYCHIATRIC: Cooperative. Good eye contact. Appropriate mood and affect. <Lavinia Pizarro - Last Filed: 07/21/16 05:55> ED Treatment Course - LABORATORY CBC & Chemistry Diagram: 07/21/16 02:40 07/21/16 02:40 <Neel Begum - Last Filed: 07/21/16 04:55> - LABORATORY CBC & Chemistry Diagram: 07/21/16 02:40 07/21/16 02:40 <Lavinia Pizarro - Last Filed: 07/21/16 05:55> Medical Decision Making - Medical Decision Making 07/21/16 04:55 Dr. Begum: The scribe's documentation has been prepared under my direction and personally reviewed by me in its entirery. I confirm that the note above accurately reflects all work, treatment, procedures, and medical decision making performed by me. Pt will be readmitted for Hematuria and UTI. Pt was last on aztreonam, will restart, as pt has multiple drug allergies. <Neel Begum - Last Filed: 07/21/16 04:55> - Medical Decision Making 07/21/16 05:30 A page was placed to Dr. Chu at his service covering for Dr. Guillory. Awaiting a call back. 07/21/16 05:50 A second page was placed to Dr. Chu at his service. Awaiting a call back. 07/21/16 05:[address] Chu. <Lavinia Pizarro - Last Filed: 07/21/16 05:55> *DC/Admit/Observation/Transfer - Discharge Dispostion Admit: Yes <Neel Begum - Last Filed: 07/21/16 04:55> - Attestations Scribe Attestion: 07/21/16 03:21 Documentation prepared by CHAIM Staples, acting as medical technologist hematology for Neel Beugm DO. <Lavinia Pizarro - Last Filed: 07/21/16 05:55> Diagnosis at time of Disposition: Hematuria UTI (urinary tract infection) Qualifiers: Urinary tract infection type: acute cystitis Hematuria presence: without hematuria Qualified Code(s): N30.00 - Acute cystitis without hematuria - Referrals Referrals: Lida Guillory MD [Primary Care Provider] -
[2016-07-21 03:08] LABS: EOSINOPHIL 2.1 % (0-4.5); MCH 21.4 pg (25.7-33.7); MCHC 31.5 g/dl (32.0-35.9); MEAN CELL VOLUME 68.1 fl (80-96); MEAN PLT VOLUME 8.3 fl (7.5-11.1); NEUTROPHILS 73.8 % (42.8-82.8); PLATELET COUNT 309 K/MM3 (134-434); RDW 22.4 % (11.9-15.9); WHITE BLOOD COUNT 8.4 K/mm3 (4.0-10.0)
[2016-07-21 03:37] LABS: ALBUMIN 2.3 g/dl (3.4-5.0); CALCIUM 7.9 mg/dL (8.5-10.1); CREATININE 2.7 mg/dL (0.7-1.3)
[2016-07-21 03:38] LABS: BILIRUBIN,TOTAL 0.3 mg/dL (0.2-1.0); TOT PROT 6.1 g/dl (6.4-8.2)
[2016-07-21 04:42] LABS: URINE APPEARANCE TURBID; URINE BILIRUBIN 3+ (NEGATIVE); URINE COLOR DK. RED; URINE GLUCOSE (UA) TRACE (NEGATIVE); URINE KETONE 1+ (NEGATIVE); URINE UROBILINOGEN 4.0 E.U/dl E.U./dl (0.2-1.0)
[2016-07-21 04:43] LABS: URINE BLOOD 3+ (NEGATIVE); URINE LEUK ESTERASE 3+ (NEGATIVE); URINE NITRITE POSITIVE (NEGATIVE); URINE PROTEIN 3+ (NEGATIVE)
[2016-07-21 04:50] LABS: URINE BACTERIA FEW /hpf (NONE SEEN); URINE RBC >100 /hpf (0-3)
[2016-07-21] MEDS ORDERED: AZTREONAM 1 GM in DEXTROSE 5%-WATER - 50 ML IVPB ONE (04:57)
[2016-07-21 05:23] LABS: INR 1.2 (0.82-1.09); PROTHROMBIN TIME (PATIENT) 13.2 SEC (9.98-11.88)
[2016-07-21] MEDS ORDERED: ACETAMINOPHEN 325 MG TABLET (FP) PO PRN (06:27)
[2016-07-21 06:52] LABS: HYPOCHROMIA 2+; PLATELET ESTIMATE ADEQUATE (NORMAL); POIKILOCYTOSIS 2+; POLYCHROMASIA 1+
[2016-07-21 06:53] LABS: ANISOCYTOSIS 2+; MICROCYTOSIS 2+; OVALOCYTES 1+
[2016-07-21] MEDS ORDERED: SODIUM BICARBONATE 650 MG TABLET PO SCH (10:00)
[2016-07-21] MEDS: POLYETHYLENE GLYCOL 3350 119 GM BTL PO SCH (10:52)
[2016-07-21] MEDS: ISOSORBIDE MONONITRATE 60 MG TAB.SR.24H (FP) PO SCH (10:52)
--- NOTE | 2016-07-21 11:22 | PN ---
Progress Note (short form) - Note Progress Note: ID Consult dictated Recurrent gross hematuria Azotemia S/P nephrectomy Multiple antibiotic allergies Presently afebrile with normal WBC U/A only 10-20 WBC No evidence for systemic infection Observe off antibiotics Urology evaluation
--- NOTE | 2016-07-21 12:03 | CONS ---
DATE OF CONSULTATION: DATE OF DICTATION: 07/21/2016 INFECTIOUS DISEASE CONSULTATION HISTORY OF PRESENT ILLNESS: The patient is an 89-year-old male who was evaluated for recurrent gross hematuria. The patient has had several recent hospital admissions for gross hematuria and urinary tract infection. He had undergone a TURBT on July 09, 2016. His postoperative course was complicated by gross hematuria and clot retention. He required continuous bladder irrigation. Urine cultures recently have grown E. coli for which he received a course of Azactam. He has a history of multiple antibiotics. At the present time the patient is awake and responsive. He had experienced some mild dysuria which he reports has since resolved. He denies any suprapubic or flank pain. He denies any fever or chills. In the emergency room the patient was afebrile with a normal white blood cell count. Cultures are pending. PAST MEDICAL HISTORY: Positive for bladder CA status post TURBT, hypertension, congestive heart failure, history of kidney cancer status post left nephrectomy, lung cancer status post left lobectomy, and permanent pacemaker. ALLERGIES: THE PATIENT HAS A HISTORY OF MULTIPLE ANTIBIOTIC ALLERGIES INCLUDING PENICILLIN, SULFA, AND LEVOFLOXACIN. He has tolerated Azactam in the past. MEDICATIONS: Tylenol, Toprol, Lipitor, and Imdur. SOCIAL HISTORY: He lives at home with his . No active tobacco or alcohol use. He is a former smoker. SYSTEMS REVIEW: Neurologic: No loss of consciousness, seizure activity, or focal weakness. Cardiac: Negative chest pain or palpitations. Respiratory: Negative cough or sputum production. Gastrointestinal: Negative vomiting or diarrhea. Genitourinary: As per history of present illness. LABORATORY DATA: White count of 8.4, hematocrit of 27.5, and platelet count of 309. BUN of 54 and creatinine of 2.7. Urinalysis greater than 100 red cells, 10 to 20 white cells, cultures are pending. Chest x-ray shows some increased markings right lung field; officially read as negative. PHYSICAL EXAMINATION: General: He is awake and responsive. He is in no acute distress. Vital Signs: Temperature of 98.9, blood pressure of 143/65, pulse of 105 and regular, and respirations of 18 per minute. HEENT: Sclerae are anicteric. Cardiovascular: Heart sounds S1, S2. Lungs: Rales left mid and lower lung field. Abdomen: Soft. No tenderness is elicited. No suprapubic or flank tenderness. Extremities: Negative for edema. IMPRESSION: 1. Recurrent gross hematuria. 2. Azotemia. 3. Status post left nephrectomy. 4. Multiple antibiotic allergies. 5. History of Escherichia coli urinary tract infection. At the present time the patient is comfortable. He is afebrile with a normal white blood cell count. Urinalysis shows minimal pyuria. Advise urology evaluation. Will observe off antibiotic therapy. He presently has no symptoms of systemic infection. Concerned about the potential for developing resistant urinary tract pathogens in this patient with multiple antibiotic allergies. Thank you for the kind referral. NBA MATHEW M.D. [id number]
--- NOTE | 2016-07-21 12:23 | HP ---
Admitting History and Physical - Primary Care Physician PCP: Lida Guillory - Admission Chief Complaint: hematuria History of Present Illness: Patient is a 89 year old male with a significant past medical history of bladder ca, lung nodule and CHF who presents to the ED with hematuria and dysuria. Patient was recently admitted 07/13/16 for urinary retention and gross hematuria. Patient is cysto bladder biopsy previous week. On 07/13 patient had newman with CBI ordered by Dr. Dc. Prior to that patient was admitted on 07/01 for CHF and was dc on 07/10. He returns today as result of the dysuria and hematuria returning. He denies fever, chills, nausea, vomiting or diarrhea. Allergy: penicillins, sulfa, levofloxacin per patient yesterday he notice a few drops of blood while voiding then he felt the urge to go eveyr 15 minutes to urinate and noticed more blood to the point that it was neha bleeding with urinary frequency then he decided to come to ER h/h 8.11/05 in ER he got aztreonam as he multple drug allergies d/w ID no need for abx at this time as UA as there are only 10-20 WBC and multiple >300 rbc History Source: Patient, Medical Record - Past Medical History Cardiovascular: Yes: AFIB, CAD, CHF, HTN, Hyperlipdemia Pulmonary: Yes: Cancer (lung--s/p lobectomy), COPD Gastrointestinal: Yes: GERD Renal/: Yes: Renal Inusuff, Cancer (bladder, TCC), Hematuria, Renal Calculi Heme/Onc: Yes: Anemia - Past Surgical History Past Surgical History: Yes: Colonoscopy, Nephrectomy, Permanent Pacemaker, Thoracotomy - Smoking History Smoking history: Former smoker Have you smoked in the past 12 months: No Aproximately how many cigarettes per day: 0 If you are a former smoker, when did you quit?: 1994 - Alcohol/Substance Use Hx Alcohol Use: No - Social History ADL: Independent 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, 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[place] History of Recent Travel: No Home Medications - Allergies Allergies/Adverse Reactions: Allergies Allergy/AdvReac Type Severity Reaction Status Date / Time Penicillins Allergy Hives, Verified 07/21/16 01:36 throat swelling Sulfa (Sulfonamide Allergy EYE Verified 07/21/16 01:36 Antibiotics) SWELLING, [Sulfa(Sulfonamide ITCHING Antibiotics)] levofloxacin [From Levaquin] AdvReac Severe Itching Verified 07/21/16 01:36 - Home Medications Home Medications: Ambulatory Orders Isosorbide Mononitrate [Imdur] 60 mg PO DAILY 12/16/11 Metoprolol Succinate [Toprol XL -] 100 mg PO HS 08/17/12 Atorvastatin Ca [Lipitor] 10 mg PO HS 04/28/16 Sodium Bicarbonate - 650 mg PO BID 04/29/16 Polyethylene Glycol 3350 [Miralax 119 gm Btl -] 17 gm PO DAILY bottle 07/10/16 Acetaminophen [Tylenol .Regular Strength -] 650 mg PO Q6H PRN #0 tablet Review of Systems - Review of Systems Genitourinary: reports: Hematuria Physical Examination Vital Signs: Vital Signs Temperature 98.9 F 07/21/16 09:13 Pulse Rate 100 H 07/21/16 09:13 Respiratory Rate 18 07/21/16 09:13 Blood Pressure 130/77 07/21/16 09:13 O2 Sat by Pulse Oximetry (%) 99 07/21/16 09:13 Constitutional: Yes: Calm, Thin Neck: Yes: Trachea Midline Cardiovascular: Yes: Regular Rate and Rhythm, S1, S2 Respiratory: Yes: CTA Bilaterally Gastrointestinal: Yes: Normal Bowel Sounds, Soft Edema: No Neurological: Yes: Alert, Oriented Imaging - Results Chest X-ray: Report Reviewed Problem List - Problems (1) Hematuria Assessment/Plan: urolgy eval no need for abx iron awake overnight monitor h/h Code(s): R31.9 - HEMATURIA, UNSPECIFIED (2) Congestive heart failure (CHF) Assessment/Plan: imdur and metoprolol Code(s): I50.9 - HEART FAILURE, UNSPECIFIED Qualifiers: Congestive heart failure type: diastolic Congestive heart failure chronicity: acute on chronic Qualified Code(s): I50.33 - Acute on chronic diastolic (congestive) heart failure (3) Chronic kidney disease (CKD) Assessment/Plan: renal eval stop sodium bicarbonate Code(s): N18.9 - CHRONIC KIDNEY DISEASE, UNSPECIFIED (4) Hypercholesteremia Assessment/Plan: statin Code(s): E78.0 - PURE HYPERCHOLESTEROLEMIA * DO NOT USE *
--- NOTE | 2016-07-21 12:34 | EKG ---
Test Reason : Blood Pressure : / mmHG Vent. Rate : 094 BPM Atrial Rate : 094 BPM P-R Int : 000 ms QRS Dur : 138 ms QT Int : 380 ms P-R-T Axes : 000 010 217 degrees QTc Int : 475 ms SINUS RHYTHM WITH 1ST DEGREE A-V BLOCK WITH OCCASIONAL PREMATURE VENTRICULAR COMPLEXES LEFT BUNDLE BRANCH BLOCK ABNORMAL ECG WHEN COMPARED WITH ECG OF 16-JUL-2016 09:20, RHYTHM ABOVE CLINICAL CORRELATION IS RECOMMENDED Confirmed by STEPHANY IVERSON, JORDIN ([id number]) on 07/21/2016 12:34:46 PM Referred By: Confirmed By:JORDIN HAMMOND MD
--- NOTE | 2016-07-21 19:31 | CONSULT ---
Consult Consult Specialty:: Nephrology Reason for Consultation:: ckd and hematuria - History of Present Illness Chief Complaint: hematuria and dysuria History of Present Illness: Pt is an 89 year old male with pmhx of CKD, lung nodule, and bladder cancer who presents to the ER with hematuria and dysuria. He was recently admitted for retention. He follows with Dr Dc. He denies fevers or chills. He does have history of drug resistant UTI. He is awake and alert. - History Source History Provided By: Patient, Medical Record - Past Medical History Cardio/Vascular: Yes: AFIB, CAD, CHF, HTN, Hyperlipdemia Pulmonary: Yes: Cancer (lung--s/p lobectomy), COPD Gastrointestinal: Yes: GERD Renal/: Yes: Renal Inusuff, Cancer (bladder, TCC), Hematuria, Renal Calculi - Past Surgical History Past Surgical History: Yes: Colonoscopy, Nephrectomy, Permanent Pacemaker, Thoracotomy - Alcohol/Substance Use Hx Alcohol Use: No - Smoking History Smoking history: Former smoker Have you smoked in the past 12 months: No Aproximately how many cigarettes per day: 0 If you are a former smoker, when did you quit?: 1994 - Social History Usual Living Arrangement: With Spouse ADL: Independent 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, 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[place] History of Recent Travel: No Home Medications - Allergies Allergies/Adverse Reactions: Allergies Allergy/AdvReac Type Severity Reaction Status Date / Time Penicillins Allergy Hives, Verified 07/21/16 01:36 throat swelling Sulfa (Sulfonamide Allergy EYE Verified 07/21/16 01:36 Antibiotics) SWELLING, [Sulfa(Sulfonamide ITCHING Antibiotics)] levofloxacin [From Levaquin] AdvReac Severe Itching Verified 07/21/16 01:36 - Home Medications Home Medications: Ambulatory Orders Isosorbide Mononitrate [Imdur] 60 mg PO DAILY 12/16/11 Metoprolol Succinate [Toprol XL -] 100 mg PO HS 08/17/12 Atorvastatin Ca [Lipitor] 10 mg PO HS 04/28/16 Sodium Bicarbonate - 650 mg PO BID 04/29/16 Polyethylene Glycol 3350 [Miralax 119 gm Btl -] 17 gm PO DAILY bottle 07/10/16 Acetaminophen [Tylenol .Regular Strength -] 650 mg PO Q6H PRN #0 tablet Family Disease History - Family Disease History Family History: Denies Review of Systems - Review of Systems Constitutional: reports: No Symptoms Eyes: reports: No Symptoms HENT: reports: No Symptoms Neck: reports: No Symptoms Cardiovascular: reports: No Symptoms Respiratory: reports: No Symptoms Gastrointestinal: reports: No Symptoms Genitourinary: reports: Dysuria, Hematuria Musculoskeletal: reports: No Symptoms Neurological: reports: No Symptoms Endocrine: reports: No Symptoms Hematology/Lymphatic: reports: No Symptoms Physical Exam Vital Signs: Vital Signs Temperature 98.4 F 07/21/16 17:56 Pulse Rate 111 H 07/21/16 17:56 Respiratory Rate 16 07/21/16 18:03 Blood Pressure 110/57 07/21/16 17:56 O2 Sat by Pulse Oximetry (%) 96 07/21/16 18:03 Constitutional: Yes: Calm Eyes: Yes: Conjunctiva Clear HENT: Yes: Atraumatic Neck: Yes: Supple Cardiovascular: Yes: S1, S2 Respiratory: Yes: CTA Bilaterally Gastrointestinal: Yes: Soft Renal/: Yes: Hematuria Edema: No Neurological: Yes: Oriented Psychiatric: Yes: Oriented Imaging - Results Chest X-ray: Report Reviewed Problem List - Problems (1) CAD (coronary artery disease) Code(s): I25.10 - ATHSCL HEART DISEASE OF [place] CORONARY ARTERY W/O ANG PCTRS Qualifiers: Coronary Disease-Associated Artery/Lesion type: [place] artery Associated angina: without angina (2) Chronic kidney disease (CKD) Code(s): N18.9 - CHRONIC KIDNEY DISEASE, UNSPECIFIED (3) Congestive heart failure (CHF) Code(s): I50.9 - HEART FAILURE, UNSPECIFIED Qualifiers: Congestive heart failure type: diastolic Congestive heart failure chronicity: acute on chronic Qualified Code(s): I50.33 - Acute on chronic diastolic (congestive) heart failure (4) Gross hematuria Code(s): R31.0 - GROSS HEMATURIA (5) HTN (hypertension) Code(s): I10 - ESSENTIAL (PRIMARY) HYPERTENSION Qualifiers: Hypertension type: essential hypertension Qualified Code(s): I10 - Essential (primary) hypertension Assessment/Plan Current Medications Generic Name Dose Route Start Last Admin Trade Name Freq PRN Reason Stop Dose Admin Acetaminophen 650 mg 07/21/16 06:27 Tylenol - PO Q6H PRN FEVER OR PAIN Atorvastatin Calcium 10 mg 07/21/16 22:00 Lipitor - PO HS BATSHEVA Isosorbide Mononitrate 60 mg 07/21/16 10:00 07/21/16 10:52 Imdur - PO 60 mg DAILY BATSHEVA Administration Metoprolol Succinate 100 mg 07/21/16 22:00 Toprol Xl - PO HS BATSHEVA Polyethylene Glycol 17 gm 07/21/16 10:00 07/21/16 10:52 Miralax (For Daily Use) - PO 17 gm DAILY BATSHEVA Administration Laboratory Tests 07/08/16 07/10/16 07/21/16 05:35 06:07 02:40 Creatinine 3.2 H 3.3 H 2.7 H Impression 1. CKD 2. solitary right kidney 3. hx of bladder cancer 4. UTI 5. CHF 6. CAD 7. mod to severe AR 8. p-a-fib 9. hx PPM 10. anemia 11. s/p cysto 12. gross hematuria Plan - renal function is stable - urology evaluation - cont home meds - monitor renal function - follow up cultures - will follow Dr Alas
[2016-07-21] MEDS ORDERED: ATORVASTATIN CA 10 MG TABLET (FP) PO SCH (22:00)
[2016-07-21] MEDS ORDERED: METOPROLOL SUCCINATE 100 MG TAB.SR.24H (FP) PO SCH (22:00)
[2016-07-21] MEDS ORDERED: PT OWN MED DRAWER 7, Y5N ONE (22:08)
[2016-07-22 06:32] VITALS: PULSE 98
[2016-07-22 07:44] LABS: BASOPHIL 1.3 % (0-2.0); EOSINOPHIL 2.5 % (0-4.5); MCH 21.3 pg (25.7-33.7); MCHC 31.3 g/dl (32.0-35.9); MEAN CELL VOLUME 68.1 fl (80-96); MEAN PLT VOLUME 7.6 fl (7.5-11.1); NEUTROPHILS 65.8 % (42.8-82.8); PLATELET COUNT 297 K/MM3 (134-434); RDW 22.2 % (11.9-15.9)
[2016-07-22 08:02] LABS: ALBUMIN 2.2 g/dl (3.4-5.0); CALCIUM 8.3 mg/dL (8.5-10.1)
[2016-07-22 08:03] LABS: CALCIUM 8.3 mg/dL (8.5-10.1)
[2016-07-22 08:05] LABS: BILIRUBIN,TOTAL 0.5 mg/dL (0.2-1.0); COCKROFT - GAULT 15.14; CREATININE 2.3 mg/dL (0.7-1.3)
[2016-07-22 08:08] LABS: COCKROFT - GAULT 14.51; CREATININE 2.4 mg/dL (0.7-1.3); FERRITIN 280.599 ng/ml (16.4-293.9)
[2016-07-22] MEDS: POLYETHYLENE GLYCOL 3350 119 GM BTL PO SCH (09:25)
[2016-07-22] MEDS: ISOSORBIDE MONONITRATE 60 MG TAB.SR.24H (FP) PO SCH (09:25)
--- NOTE | 2016-07-22 10:29 | DS ---
Physical Examination Vital Signs: Vital Signs Temperature 97.5 F L 07/22/16 06:32 Pulse Rate 98 H 07/22/16 06:32 Respiratory Rate 20 07/22/16 06:32 Blood Pressure 111/68 07/22/16 06:32 O2 Sat by Pulse Oximetry (%) 96 07/21/16 18:03 Findings/Remarks: NO COMPLAINTS Cardiovascular: Yes: Regular Rate and Rhythm Respiratory: Yes: Regular, CTA Bilaterally Gastrointestinal: Yes: Normal Bowel Sounds. No: Tenderness Labs: CBC, BMP 07/22/16 06:00 07/22/16 06:00 Discharge Summary Reason For Visit: HEMATURIA UTI Current Active Problems ACS (acute coronary syndrome) (Acute) Acute pulmonary edema (Acute) Acute worsening of stage 3 chronic kidney disease (Acute) Allergy to multiple antibiotics (Acute) Angina pectoris (Acute) Arrhythmia (Acute) Back pain (Acute) CAD (coronary artery disease) (Acute) Chest pain (Acute) Chronic kidney disease (CKD) (Acute) Congestive heart failure (CHF) (Acute) Dysuria (Acute) Gross hematuria (Acute) HTN (hypertension) (Acute) Hematuria (Acute) Hemoptysis (Acute) History of lobectomy of lung (Acute) History of permanent cardiac pacemaker placement (Acute) Hydronephrosis (Acute) Hypercholesteremia (Acute) Lung cancer (Acute) Lung nodule (Acute) PNA (pneumonia) (Acute) Penile pain (Acute) Sick sinus syndrome (Acute) UTI (urinary tract infection) (Acute) Urinary retention (Acute) Hospital Course: Patient is a 89 year old male with a significant past medical history of bladder ca, lung nodule and CHF who presents to the ED with hematuria and dysuria. Patient was recently admitted 07/13/16 for urinary retention and gross hematuria. Patient is cysto bladder biopsy previous week. On 07/13 patient had newman with CBI ordered by Dr. Dc. Prior to that patient was admitted on 07/01 for CHF and was dc on 07/10. He returns today as result of the dysuria and hematuria returning. He denies fever, chills, nausea, vomiting or diarrhea. Allergy: penicillins, sulfa, levofloxacin per patient yesterday he notice a few drops of blood while voiding then he felt the urge to go eveyr 15 minutes to urinate and noticed more blood to the point that it was neha bleeding with urinary frequency then he decided to come to ER h/h 8.11/05 in ER he got aztreonam as he multple drug allergies d/w ID no need for abx at this time as UA as there are only 10-20 WBC and multiple >300 rbc History Source: Patient, Medical Record - Past Medical History Cardiovascular: Yes: AFIB, CAD, CHF, HTN, Hyperlipdemia Pulmonary: Yes: Cancer (lung--s/p lobectomy), COPD Gastrointestinal: Yes: GERD Renal/: Yes: Renal Inusuff, Cancer (bladder, TCC), Hematuria, Renal Calculi Heme/Onc: Yes: Anemia - Past Surgical History Past Surgical History: Yes: Colonoscopy, Nephrectomy, Permanent Pacemaker, Thoracotomy Problems (1) Hematuria Assessment/Plan: urolgy eval IF CLEARED THEN DC HOME no need for abx 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 h/h Code(s): R31.9 - HEMATURIA, UNSPECIFIED (2) Congestive heart failure (CHF) Assessment/Plan: imdur and metoprolol Code(s): I50.9 - HEART FAILURE, UNSPECIFIED Qualifiers: Congestive heart failure type: diastolic Congestive heart failure chronicity: acute on chronic Qualified Code(s): I50.33 - Acute on chronic diastolic (congestive) heart failure (3) Chronic kidney disease (CKD) Assessment/Plan: renal eval stop sodium bicarbonate Code(s): N18.9 - CHRONIC KIDNEY DISEASE, UNSPECIFIED (4) Hypercholesteremia Assessment/Plan: statin Code(s): E78.0 - PURE HYPERCHOLESTEROLEMIA * DO NOT USE * Condition: Improved - Instructions Referrals: Lida Guillory MD [Primary Care Provider] - 1 Week Disposition: HOME - Home Medications Comprehensive Discharge Medication List: Ambulatory Orders Isosorbide Mononitrate [Imdur] 60 mg PO DAILY 12/16/11 Metoprolol Succinate [Toprol XL -] 100 mg PO HS 08/17/12 Atorvastatin Ca [Lipitor] 10 mg PO HS 04/28/16 Sodium Bicarbonate - 650 mg PO BID 04/29/16 Polyethylene Glycol 3350 [Miralax 119 gm Btl -] 17 gm PO DAILY bottle 07/10/16 Acetaminophen [Tylenol .Regular Strength -] 650 mg PO Q6H PRN #0 tablet
--- NOTE | 2016-07-22 11:34 | PN ---
Progress Note, Physician History of Present Illness: Pt seen and examined at bedside. He feels that the urine is clearing up. He denies dysuria. He denies fevers or chills. - Current Medication List Current Medications: Active Medications Acetaminophen (Tylenol -) 650 mg PO Q6H PRN PRN Reason: FEVER OR PAIN Atorvastatin Calcium (Lipitor -) 10 mg PO HS [facility] Last Admin: 07/21/16 21:30 Dose: 10 mg Isosorbide Mononitrate (Imdur -) 60 mg PO DAILY [facility] Last Admin: 07/22/16 09:25 Dose: 60 mg Metoprolol Succinate (Toprol Xl -) 100 mg PO HS [facility] Last Admin: 07/21/16 21:30 Dose: 100 mg Polyethylene Glycol (Miralax (For Daily Use) -) 17 gm PO DAILY [facility] Last Admin: 07/22/16 09:25 Dose: Not Given - Objective Vital Signs: Vital Signs Temperature 97.5 F L 07/22/16 06:32 Pulse Rate 98 H 07/22/16 06:32 Respiratory Rate 20 07/22/16 06:32 Blood Pressure 111/68 07/22/16 06:32 O2 Sat by Pulse Oximetry (%) 96 07/21/16 18:03 Constitutional: Yes: Calm Eyes: Yes: Conjunctiva Clear HENT: Yes: Atraumatic Cardiovascular: Yes: S1, S2 Respiratory: Yes: Regular Gastrointestinal: Yes: Soft Genitourinary: Yes: WNL Musculoskeletal: Yes: WNL Edema: No Neurological: Yes: Oriented Psychiatric: Yes: Oriented Labs: CBC, BMP 07/22/16 06:00 07/22/16 06:00 INR, PTT INR 1.20 (0.82-1.09) H 07/21/16 02:45 Problem List - Problems (1) CAD (coronary artery disease) Code(s): I25.10 - ATHSCL HEART DISEASE OF [place] CORONARY ARTERY W/O ANG PCTRS Qualifiers: Coronary Disease-Associated Artery/Lesion type: [place] artery Associated angina: without angina (2) Chronic kidney disease (CKD) Code(s): N18.9 - CHRONIC KIDNEY DISEASE, UNSPECIFIED (3) Congestive heart failure (CHF) Code(s): I50.9 - HEART FAILURE, UNSPECIFIED Qualifiers: Congestive heart failure type: diastolic Congestive heart failure chronicity: acute on chronic Qualified Code(s): I50.33 - Acute on chronic diastolic (congestive) heart failure (4) Gross hematuria Code(s): R31.0 - GROSS HEMATURIA (5) HTN (hypertension) Code(s): I10 - ESSENTIAL (PRIMARY) HYPERTENSION Qualifiers: Hypertension type: essential hypertension Qualified Code(s): I10 - Essential (primary) hypertension Assessment/Plan Current Medications Generic Name Dose Route Start Last Admin Trade Name Freq PRN Reason Stop Dose Admin Acetaminophen 650 mg 07/21/16 06:27 Tylenol - PO Q6H PRN FEVER OR PAIN Atorvastatin Calcium 10 mg 07/21/16 22:00 07/21/16 21:30 Lipitor - PO 10 mg HS BATSHEVA Administration Isosorbide Mononitrate 60 mg 07/21/16 10:00 07/22/16 09:25 Imdur - PO 60 mg DAILY BATSHEVA Administration Metoprolol Succinate 100 mg 07/21/16 22:00 07/21/16 21:30 Toprol Xl - PO 100 mg HS BATSHEVA Administration Polyethylene Glycol 17 gm 07/21/16 10:00 07/22/16 09:25 Miralax (For Daily Use) - PO Not Given DAILY BATSHEVA Impression 1. CKD 2. solitary right kidney 3. hx of bladder cancer 4. UTI 5. CHF 6. CAD 7. mod to severe AR 8. p-a-fib 9. hx PPM 10. anemia 11. s/p cysto 12. gross hematuria Plan - hematuria is improving - urine culture negative - prelim blood culture negative - urology eval pending - pt can follow with us as outpt - cont current meds - will follow PRN Dr Alas
[2016-07-22 12:47] VITALS: BP 124/65; TEMP 97.7
[2016-07-23 06:06] LABS: SERUM IRON 39 ug/dL (38-169); TOTAL IRON BINDING CAPACITY 182 ug/dL (250-450); UIBC 143 ug/dL (111-343)
== END 2016-07-22 14:21 | disposition home or self-care (01) ==
LOC: JER 00:58 → INTOOBSV 04:53 → JERBED 04:53 → UNDOADMOB 04:53 → JERBED 06:25 → J8W 14:49 → JERBED 14:49 → J8W 14:49
PROVIDERS: ADMIT Family Medicine; ATTEND Family Medicine
DX: N30.01 Acute cystitis with hematuria (principal); I50.33 Acute on chronic diastolic (congestive) heart failure; K21.9 Gastro-esophageal reflux disease without esophagitis; R79.89 Other specified abnormal findings of blood chemistry; I12.9 Hypertensive chronic kidney disease with stage 1 through stage 4 chronic kidney disease, or unspecified chronic kidney disease; N18.9 Chronic kidney disease, unspecified; K22.2 Esophageal obstruction; Z86.010 Personal history of colon polyps; N40.0 Benign prostatic hyperplasia without lower urinary tract symptoms; E78.00 Pure hypercholesterolemia, unspecified; Z95.0 Presence of cardiac pacemaker; Z87.891 Personal history of nicotine dependence; Z85.51 Personal history of malignant neoplasm of bladder; Z85.118 Personal history of other malignant neoplasm of bronchus and lung; Z85.528 Personal history of other malignant neoplasm of kidney; Z90.5 Acquired absence of kidney; Z90.89 Acquired absence of other organs; Z90.2 Acquired absence of lung [part of]
CPT/HCPCS: 36415; 71010-TC; 76775-TC; 76856-TC; 80048; 80053; 81003; 81015; 82728; 83540; 83550; 85025; 85610; 86850; 86900; 86901; 87040; 87086; 93005; 93010; 99285-25; G0378

== ENCOUNTER 2017-01-28 07:15 | Inpatient (IN) | payer BC, OTHER ==
[2017-01-28 07:30] VITALS: BMI 20.7
[2017-01-28 08:07] LABS: BASOPHIL 1.1 % (0-2.0); EOSINOPHIL 2.5 % (0-4.5); MEAN CELL VOLUME 63.3 fl (80-96); MEAN PLT VOLUME 9.1 fl (7.5-11.1); NEUTROPHILS 57.6 % (42.8-82.8); PLATELET COUNT 150 K/MM3 (134-434); RDW 16.4 % (11.9-15.9); WHITE BLOOD COUNT 6.4 K/mm3 (4.0-10.0)
[2017-01-28 08:10] LABS: MCH 19.6 pg (25.7-33.7)
[2017-01-28 08:32] LABS: ALBUMIN 3.5 g/dl (3.4-5.0); ALK PHOS 87 U/L (45-117); ANION GAP 10 (8-16); BILIRUBIN,TOTAL 0.7 mg/dL (0.2-1.0); CALCIUM 8.5 mg/dL (8.5-10.1); CO2 21 mmol/L (21-32); CPK 47 IU/L (39-308); CREATININE 2.6 mg/dL (0.7-1.3); GLUCOSE,RANDOM 104 mg/dL (74-106); SGOT/AST 9 U/L (15-37); SGPT/ALT 13 U/L (12-78); TOT PROT 6.7 g/dl (6.4-8.2)
[2017-01-28 08:35] LABS: TROPONIN I 0.02 ng/ml (0.00-0.05)
--- NOTE | 2017-01-28 09:31 | PDOC ---
*Physical Exam - Vital Signs Last Vital Signs Temp Pulse Resp BP Pulse Ox 98.3 F 99 H 15 126/62 99 01/28/17 07:26 01/28/17 07:26 01/28/17 07:26 01/28/17 07:26 01/28/17 07:26 - Physical Exam Comments: 01/28/17 09:24 The patient was examined by [DARREN Quezada] under my direct supervision. I personally evaluated the patient. I concur with the above findings and the plan of care. ED Treatment Course - LABORATORY CBC & Chemistry Diagram: 01/28/17 08:00 01/28/17 08:00 - ADDITIONAL ORDERS Additional order review: Laboratory Results 01/28/17 08:00 Sodium 140 Potassium 4.4 Chloride 109 H Carbon Dioxide 21 Anion Gap 10 BUN 69 H D Creatinine 2.6 H Creat Clearance w eGFR 23.36 Random Glucose 104 D Calcium 8.5 Total Bilirubin 0.7 D AST 9 L D ALT 13 D Alkaline Phosphatase 87 Creatine Kinase 47 Troponin I 0.02 D Total Protein 6.7 Albumin 3.5 D 01/28/17 08:00 RBC 5.04 D MCV 63.3 L MCHC 31.0 L RDW 16.4 H D MPV 9.1 D Neutrophils % 57.6 Lymphocytes % 31.5 D Monocytes % 7.3 Eosinophils % 2.5 Basophils % 1.1 *DC/Admit/Observation/Transfer Diagnosis at time of Disposition: Hydronephrosis, Hemoptysis, Lung nodule, Lung cancer, Bladder mass
--- NOTE | 2017-01-28 09:39 | PDOC ---
History of Present Illness - General Chief Complaint: Chest Pain Stated Complaint: CHEST PAIN Time Seen by Provider: 01/28/17 07:37 History Source: Patient Exam Limitations: No Limitations - History of Present Illness Initial Comments: 01/28/17 07:41 89-year-old male presents to the emergency room with complaints of continual moist cough with intermittent blood-streaked sputum along with bilateral chest achiness relieved with Tylenol over the past 3 months. Patient states has seen his primary care physician Dr. Guillory was ordered blood work along with chest x- ray with negative findings. Patient also went to see his mechanical engineer Dr. Ellison a few weeks ago who recommended a CT but patient at this time refused. Patient states has history of lung cancer with resection 10+ years ago and a left nephrectomy secondary to hematuria and questionable cancer a year and a half ago performed by Dr. Dc. Patient also mentions 30 pound weight loss over the past year but denies change in appetite, change in bowel pattern, change in urine pattern, fever, chills or weakness. Presenting Symptoms: Chest Pain Severity/Quality: reports: mild, aching Location: reports: substernal Chest Pain Radiation: reports: no radiation Activities at Onset: reports: none Associated Symptoms: Yes: Cough, Chest Pain/pressure Past History - Travel Traveled outside of the country in the last 30 days: No Close contact w/someone who was outside of country & ill: No - Past Medical History Allergies/Adverse Reactions: Allergies Allergy/AdvReac Type Severity Reaction Status Date / Time Penicillins Allergy Hives, Verified 01/28/17 07:26 throat swelling Sulfa (Sulfonamide Allergy EYE Verified 01/28/17 07:26 Antibiotics) SWELLING, [Sulfa(Sulfonamide ITCHING Antibiotics)] levofloxacin [From Levaquin] AdvReac Severe Itching Verified 01/28/17 07:26 Home Medications: Ambulatory Orders Isosorbide Mononitrate [Imdur] 60 mg PO DAILY 12/16/11 Metoprolol Succinate [Toprol XL -] 100 mg PO HS 08/17/12 Atorvastatin Ca [Lipitor] 10 mg PO HS 04/28/16 Sodium Bicarbonate - 650 mg PO BID 04/29/16 Polyethylene Glycol 3350 [Miralax 119 gm Btl -] 17 gm PO DAILY bottle 07/10/16 Acetaminophen [Tylenol .Regular Strength -] 650 mg PO Q6H PRN #0 tablet Anemia: No Cancer: Yes (lung ca, bladder ca) GI Disorders: Yes (GERD, SCHATZKI'S RING, COLON POLYP, GASTRIC INTESTINAL METAPLASIA) Disorders: Yes (bladder tumor, polyps, BPH) HTN: Yes Hypercholesterolemia: Yes - Surgical History Abdominal Surgery: Yes (LEFT NEPHRECTOMY) Cardiac Surgery: Yes (PPM) Lung Surgery: Yes (left lobectomy) - Suicide/Smoking/Psychosocial Hx Smoking Status: No Smoking History: Former smoker Years of Tobacco Use: 0 Have you smoked in the past 12 months: No Number of Cigarettes Smoked Daily: 0 If you are a former smoker, when did you quit?: 1994 Cigars Per Day: 0 Information on smoking cessation initiated: No Hx Alcohol Use: No Drug/Substance Use Hx: No Substance Use Type: None Hx Substance Use Treatment: No Patient Lives Alone: No Lives with/in: spouse/[place] Cardiac Specific PMH - Complaint Specific PMHX GERD: No Pacemaker: Yes Review of Systems - Review of Systems Able to Perform ROS?: Yes Constitutional: Yes: Unintentional Wgt. Loss HEENTM: No: Symptoms Reported Respiratory: Yes: Cough, Hemoptysis Cardiac (ROS): Yes: Symptoms Reported, Chest Pain ABD/GI: No: Symptoms Reported : No: Symptoms Reported Musculoskeletal: No: Symptoms Reported Integumentary: No: Symptoms Reported Neurological: No: Symptoms reported Hematologic/Lymphatic: No: Symptoms Reported *Physical Exam - Vital Signs Last Vital Signs Temp Pulse Resp BP Pulse Ox 97.8 F 68 16 122/62 98 01/28/17 12:00 01/28/17 12:00 01/28/17 12:00 01/28/17 12:00 01/28/17 12:00 - Physical Exam General Appearance: Yes: Appropriately Dressed, Thin. No: Apparent Distress HEENT: positive: EOMI, ERI, TMs Normal, Pharynx Normal. negative: Pale Conjunctivae Neck: positive: Supple. negative: Lymphadenopathy (R), Lymphadenopathy (L) Respiratory/Chest: positive: Crackles (inspiratory with coarse breath sounds). negative: Respiratory Distress, Accessory Muscle Use Cardiovascular: positive: Regular Rhythm, Regular Rate. negative: Murmur Gastrointestinal/Abdominal: positive: Soft. negative: Tenderness Extremity: positive: Normal Capillary Refill. negative: Pedal Edema Integumentary: positive: Normal Color, Dry, Warm Neurologic: positive: Normal Mood/Affect, Motor Strength 5/5 (ambulatory) Heart Score/ECG Review - History History: Slightly suspicious - Electrocardiogram EKG: Normal - Age Age: >/= 65 - Risk Factors Risk Factors Heart Score: Yes Hx Hypertension Based on the list above the patient has:: 1-2 risk factors - Troponin Troponin: </= normal limit - Score Heart Score - Total: 3 - ECG Intrepretation Rhythm: Regular Rhythm (Paced at 96, No acute findings) ED Treatment Course - LABORATORY CBC & Chemistry Diagram: 01/28/17 08:00 01/28/17 08:00 - ADDITIONAL ORDERS Additional order review: Laboratory Results 01/28/17 08:00 Sodium 140 Potassium 4.4 Chloride 109 H Carbon Dioxide 21 Anion Gap 10 BUN 69 H D Creatinine 2.6 H Creat Clearance w eGFR 23.36 Random Glucose 104 D Calcium 8.5 Total Bilirubin 0.7 D AST 9 L D ALT 13 D Alkaline Phosphatase 87 Creatine Kinase 47 Troponin I 0.02 D Total Protein 6.7 Albumin 3.5 D 01/28/17 08:00 RBC 5.04 D MCV 63.3 L MCHC 31.0 L RDW 16.4 H D MPV 9.1 D Neutrophils % 57.6 Lymphocytes % 31.5 D Monocytes % 7.3 Eosinophils % 2.5 Basophils % 1.1 - RADIOLOGY Radiology Studies Ordered: Category Date Time Status CHEST CT WITHOUT CONTRAST [CT] Stat CT Scan 01/28/17 08:29 Completed CHEST PA & LAT [RAD] Stat Radiology 01/28/17 07:57 Completed KIDNEY / RENAL US [US] Stat Ultrasound 01/28/17 12:16 Ordered Medical Decision Making - Medical Decision Making 01/28/17 08:02 Patient with complaints of intermittent moist cough associated with blood- streaked sputum/hemoptysis for the past 3 months associated bilateral chest achiness relieved with Tylenol. Patient is followed by Dr. Ellison for pulmonology who recommended a CT and/or bronchoscopy. Patient currently is considering both. Patient had a negative chest x-ray about [address] Guillory. Patient also reports a 30 pound weight loss over the past year. Patient concerning for lung malignancy versus pneumonia. Patient ordered for cardiac workup, labs, CT of the chest without contrast due to renal disease and left nephrectomy. Patient currently states is comfortable and not requesting anything for discomfort. 01/28/17 10:05 Laboratory Tests 07/10/16 07/13/16 07/21/16 06:07 07:25 02:40 WBC Hgb 8.7 L Hct Plt Count Neutrophils % Sodium Potassium Chloride Carbon Dioxide BUN 95 H 60 H D Creatinine Creat Clearance w eGFR Random Glucose Calcium AST ALT Troponin I 07/21/16 07/22/16 07/22/16 02:40 06:00 06:00 WBC Hgb 8.7 L Hct Plt Count 297 Neutrophils % Sodium Potassium Chloride Carbon Dioxide BUN Creatinine 2.7 H 2.3 H Creat Clearance w eGFR Random Glucose Calcium AST ALT Troponin I 07/22/16 01/28/17 01/28/17 06:00 08:00 08:00 WBC 6.4 Hgb 9.9 L D Hct 31.9 L Plt Count 150 D Neutrophils % 57.6 Sodium 140 Potassium 4.4 Chloride 109 H Carbon Dioxide 21 BUN 69 H D Creatinine 2.4 H 2.6 H Creat Clearance w eGFR 23.36 Random Glucose 104 D Calcium 8.5 AST 9 L D ALT 13 D Troponin I 0.[address] of the chest. 01/28/17 13:00 CT of the chest shows a nodule that has grown in size since May of this year suspicious for malignancy. There is also multifocal patchy groundglass opacities in the upper lobes which may be attributed to an atypical pneumonia/ inflammatory pneumonitis as well as alveolar edema or hemorrhage . CT also shows severe right hydronephrosis. CT performed on 12/22/2016 showed a moderate severe hydronephrosis and hydroureter that appears to be related to a deformed urinary bladder with suspected anterior mass. cystoscopy is recommended. I will consult Dr. Durant. AAA measuring 4.4 cm which is unchanged from previous visualization. Awaiting Dr. Rosenbaum callback for admission *DC/Admit/Observation/Transfer Diagnosis at time of Disposition: Hydronephrosis, Hemoptysis, Lung nodule, Lung cancer, Bladder mass - Discharge Dispostion Admit: Yes
[2017-01-28 10:35] LABS: ANISOCYTOSIS 2+; HYPOCHROMIA 2+; OVALOCYTE FEW; PLATELET ESTIMATE ADEQUATE (NORMAL)
--- NOTE | 2017-01-28 12:58 | EKG ---
Test Reason : Blood Pressure : / mmHG Vent. Rate : 096 BPM Atrial Rate : 096 BPM P-R Int : 154 ms QRS Dur : 156 ms QT Int : 410 ms P-R-T Axes : 000 -85 090 degrees QTc Int : 517 ms AV dual-paced rhythm ABNORMAL ECG WHEN COMPARED WITH ECG OF 21-JUL-2016 05:35, ELECTRONIC VENTRICULAR PACEMAKER HAS REPLACED SINUS RHYTHM Confirmed by MARISSA GAUTHIER MD ([id number]) on 01/28/2017 12:57:42 PM Referred By: Confirmed By:MARISSA GAUTHIER MD
--- NOTE | 2017-01-28 14:00 | HP ---
Admitting History and Physical - Primary Care Physician PCP: Lida Guillory - Admission Chief Complaint: cough and chest pressure History of Present Illness: 89-year-old male presents to the emergency room with complaints of continual moist cough with intermittent blood-streaked sputum along with bilateral chest achiness relieved with Tylenol over the past 3 months. Patient states has seen his primary care physician Dr. Guillory was ordered blood work along with chest x- ray with negative findings. Patient also went to see his material planning analyst Dr. Ellison a few weeks ago who recommended a CT but patient at this time refused. Patient states has history of lung cancer with resection 10+ years ago and a left nephrectomy secondary to hematuria and questionable cancer a year and a half ago performed by Dr. Dc. Patient also mentions 30 pound weight loss over the past year but denies change in appetite, change in bowel pattern, change in urine pattern, fever, chills or weakness. Presenting Symptoms: Chest Pain Severity/Quality: reports: mild, aching Location: reports: substernal Chest Pain Radiation: reports: no radiation Activities at Onset: reports: none Associated Symptoms: Yes: Cough, Chest Pain/pressure in ER found to have lung nodule which is increased in size and kidney ultrasound moderate right hydronephrosis History Source: Patient, Medical Record - Past Medical History Cardiovascular: Yes: AFIB, CAD, CHF, HTN, Hyperlipdemia Pulmonary: Yes: Cancer (lung--s/p lobectomy), COPD Gastrointestinal: Yes: GERD Renal/: Yes: Renal Inusuff, Cancer (bladder, TCC), Hematuria, Renal Calculi Heme/Onc: Yes: Anemia - Past Surgical History Past Surgical History: Yes: Colonoscopy, Nephrectomy, Permanent Pacemaker, Thoracotomy - Smoking History Smoking history: Former smoker Have you smoked in the past 12 months: No Aproximately how many cigarettes per day: 0 If you are a former smoker, when did you quit?: 1994 - Alcohol/Substance Use Hx Alcohol Use: No - Social History ADL: Independent 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, 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[place] History of Recent Travel: No Home Medications - Allergies Allergies/Adverse Reactions: Allergies Allergy/AdvReac Type Severity Reaction Status Date / Time Penicillins Allergy Hives, Verified 01/28/17 07:26 throat swelling Sulfa (Sulfonamide Allergy EYE Verified 01/28/17 07:26 Antibiotics) SWELLING, [Sulfa(Sulfonamide ITCHING Antibiotics)] levofloxacin [From Levaquin] AdvReac Severe Itching Verified 01/28/17 07:26 - Home Medications Home Medications: Ambulatory Orders Isosorbide Mononitrate [Imdur] 60 mg PO DAILY 12/16/11 Metoprolol Succinate [Toprol XL -] 100 mg PO HS 08/17/12 Atorvastatin Ca [Lipitor] 10 mg PO HS 04/28/16 Sodium Bicarbonate - 650 mg PO BID 04/29/16 Polyethylene Glycol 3350 [Miralax 119 gm Btl -] 17 gm PO DAILY bottle 07/10/16 Acetaminophen [Tylenol .Regular Strength -] 650 mg PO Q6H PRN #0 tablet Review of Systems - Review of Systems Cardiovascular: reports: Chest Pain Respiratory: reports: Cough Musculoskeletal: reports: Back Pain Physical Examination Vital Signs: Vital Signs Temperature 97.8 F 01/28/17 12:00 Pulse Rate 68 01/28/17 12:00 Respiratory Rate 16 01/28/17 12:00 Blood Pressure 122/62 01/28/17 12:00 O2 Sat by Pulse Oximetry (%) 98 01/28/17 12:00 Findings/Remarks: awake alert Constitutional: Yes: Calm, Thin Imaging - Results Cat Scan: Report Reviewed (increase in size in lung nodule) Ultrasound: Report Reviewed (moderate right hydronephrosis) Problem List - Problems (1) Lung nodule Assessment/Plan: cough / hemoptysis increase in lung nodule size pulm eval posible broncho / IR biopsy Code(s): R91.1 - SOLITARY PULMONARY NODULE (2) Hydronephrosis Assessment/Plan: urology eval Code(s): N13.30 - UNSPECIFIED HYDRONEPHROSIS (3) CAD (coronary artery disease) Assessment/Plan: BB and statin Code(s): I25.10 - ATHSCL HEART DISEASE OF [place] CORONARY ARTERY W/O ANG PCTRS Qualifiers: Coronary Disease-Associated Artery/Lesion type: [place] artery Associated angina: without angina (4) Chronic kidney disease (CKD) Assessment/Plan: creatinine stable h/o nephrectomy on left side Code(s): N18.9 - CHRONIC KIDNEY DISEASE, UNSPECIFIED
[2017-01-28] MEDS ORDERED: ACETAMINOPHEN 325 MG TABLET (FP) PO PRN (14:15)
--- NOTE | 2017-01-28 16:32 | CON.PULM ---
Consult Consult Specialty:: PULM/CCM Referred by:: JAIRO Reason for Consultation:: Abnormal CT - History of Present Illness Chief Complaint: Left posterior CP / Hemoptysis History of Present Illness: 89 M, previous history of Lung CA that was managed by resection via a left thoracotomy, history of left nephrectomy due to CA (?), COPD, and listed history. Admitted via the ER due to a few days of hemoptysis and left posterior pain. Patient reports pain upon coughing at the base of the rib cage on the left. Patient has a known RUL mass that he reports that has been stable. No travel history or sick contact. CT reviewed : Increasing RUL semi-solid mass from last CT 05/2016. Non-specific areas with ground glass appearance. - History Source History Provided By: Patient Limitations to Obtaining History: No Limitations - Past Medical History Cardio/Vascular: Yes: AFIB, CAD, CHF, HTN, Hyperlipdemia Pulmonary: Yes: Cancer (lung--s/p lobectomy), COPD Gastrointestinal: Yes: GERD Renal/: Yes: Renal Inusuff, Cancer (bladder, TCC), Hematuria, Renal Calculi - Past Surgical History Past Surgical History: Yes: Colonoscopy, Nephrectomy, Permanent Pacemaker, Thoracotomy - Alcohol/Substance Use Hx Alcohol Use: No - Smoking History Smoking history: Former smoker Have you smoked in the past 12 months: No Aproximately how many cigarettes per day: 0 If you are a former smoker, when did you quit?: 1994 - Social History Usual Living Arrangement: With Spouse ADL: Independent 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, 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[place] History of Recent Travel: No Home Medications - Allergies Allergies/Adverse Reactions: Allergies Allergy/AdvReac Type Severity Reaction Status Date / Time Penicillins Allergy Hives, Verified 01/28/17 07:26 throat swelling Sulfa (Sulfonamide Allergy EYE Verified 01/28/17 07:26 Antibiotics) SWELLING, [Sulfa(Sulfonamide ITCHING Antibiotics)] levofloxacin [From Levaquin] AdvReac Severe Itching Verified 01/28/17 07:26 - Home Medications Home Medications: Ambulatory Orders Isosorbide Mononitrate [Imdur] 60 mg PO DAILY 12/16/11 Metoprolol Succinate [Toprol XL -] 100 mg PO HS 08/17/12 Atorvastatin Ca [Lipitor] 10 mg PO HS 04/28/16 Sodium Bicarbonate - 650 mg PO BID 04/29/16 Polyethylene Glycol 3350 [Miralax 119 gm Btl -] 17 gm PO DAILY bottle 07/10/16 Acetaminophen [Tylenol .Regular Strength -] 650 mg PO Q6H PRN #0 tablet Review of Systems - Review of Systems Constitutional: denies: Chills, Fever, Loss of Appetite, Malaise, Night Sweats, Unintentional Wgt. Loss Eyes: reports: No Symptoms HENT: reports: No Symptoms Neck: reports: No Symptoms Cardiovascular: reports: Chest Pain, Shortness of Breath. denies: Edema, Palpitations Respiratory: reports: Cough, Hemoptysis, Wheezing. denies: SOB, SOB on Exertion Gastrointestinal: reports: No Symptoms Genitourinary: reports: No Symptoms Breasts: reports: No Symptoms Reported Musculoskeletal: reports: Back Pain Integumentary: reports: No Symptoms Neurological: reports: No Symptoms Endocrine: reports: No Symptoms Hematology/Lymphatic: reports: No Symptoms Physical Exam Vital Sings: Vital Signs Temperature 97.8 F 01/28/17 15:45 Pulse Rate 67 01/28/17 15:45 Respiratory Rate 16 01/28/17 15:45 Blood Pressure 147/69 01/28/17 15:45 O2 Sat by Pulse Oximetry (%) 98 01/28/17 15:45 Constitutional: Yes: No Distress, Thin Eyes: Yes: Conjunctiva Clear, EOM Intact HENT: Yes: Atraumatic, Normocephalic Neck: Yes: Supple, Trachea Midline Cardiovascular: Yes: Regular Rate and Rhythm Respiratory: Yes: Cough, Diminished, Rhonchi. No: Accessory Muscle Use, On Nasal O2, Rales, Stridor, Tachypnea, Wheezes ...Inspection: Yes: WNL ...Clubbing: No Gastrointestinal: Yes: Normal Bowel Sounds, Soft Renal/: Yes: WNL Musculoskeletal: Yes: WNL Extremities: Yes: WNL Edema: No Peripheral Pulses WNL: Yes Integumentary: Yes: WNL Neurological: Yes: WNL, Alert, Oriented ...Motor Strength: WNL Psychiatric: Yes: WNL, Alert, Oriented Imaging - Results Chest X-ray: Report Reviewed, Image Reviewed Cat Scan: Report Reviewed, Image Reviewed Problem List - Problems (1) Back pain Code(s): M54.9 - DORSALGIA, UNSPECIFIED (2) CAD (coronary artery disease) Code(s): I25.10 - ATHSCL HEART DISEASE OF [place] CORONARY ARTERY W/O ANG PCTRS Qualifiers: Coronary Disease-Associated Artery/Lesion type: [place] artery Associated angina: without angina (3) Chest pain Code(s): R07.9 - CHEST PAIN, UNSPECIFIED Qualifiers: Chest pain type: unspecified Qualified Code(s): R07.9 - Chest pain, unspecified; R07.9 - Chest pain, unspecified (4) Chronic kidney disease (CKD) Code(s): N18.9 - CHRONIC KIDNEY DISEASE, UNSPECIFIED (5) Congestive heart failure (CHF) Code(s): I50.9 - HEART FAILURE, UNSPECIFIED Qualifiers: Congestive heart failure type: diastolic Congestive heart failure chronicity: acute on chronic Qualified Code(s): I50.33 - Acute on chronic diastolic (congestive) heart failure; I50.33 - Acute on chronic diastolic ( congestive) heart failure; I50.33 - Acute on chronic diastolic (congestive) heart failure; I50.33 - Acute on chronic diastolic (congestive) heart failure (6) Hemoptysis Code(s): R04.2 - HEMOPTYSIS (7) History of lobectomy of lung Code(s): Z98.89 - OTHER SPECIFIED POSTPROCEDURAL STATES * DO NOT USE * (8) History of permanent cardiac pacemaker placement Code(s): Z95.0 - PRESENCE OF CARDIAC PACEMAKER (9) Hypercholesteremia Code(s): E78.0 - PURE HYPERCHOLESTEROLEMIA * DO NOT USE * (10) Lung cancer Code(s): C34.90 - MALIGNANT NEOPLASM OF UNSP PART OF UNSP BRONCHUS OR LUNG (11) Lung nodule Code(s): R91.1 - SOLITARY PULMONARY NODULE (12) Sick sinus syndrome Code(s): I49.5 - SICK SINUS SYNDROME (13) Anemia Code(s): D64.9 - ANEMIA, UNSPECIFIED (14) COPD (chronic obstructive pulmonary disease) Code(s): J44.9 - CHRONIC OBSTRUCTIVE PULMONARY DISEASE, UNSPECIFIED Qualifiers : COPD type: unspecified COPD Qualified Code(s): J44.9 - Chronic obstructive pulmonary disease, unspecified; J44.9 - Chronic obstructive pulmonary disease, unspecified; J44.9 - Chronic obstructive pulmonary disease, unspecified; J44.9 - Chronic obstructive pulmonary disease, unspecified (15) History of partial cystectomy Code(s): Z98.890 - OTHER SPECIFIED POSTPROCEDURAL STATES (16) Left ventricular dysfunction Code(s): I51.9 - HEART DISEASE, UNSPECIFIED (17) Mitral regurgitation Code(s): I34.0 - NONRHEUMATIC MITRAL (VALVE) INSUFFICIENCY Qualifiers: Cardiac valve disease etiology: nonrheumatic Qualified Code(s): I34.0 - Nonrheumatic mitral (valve) insufficiency; I34.0 - Nonrheumatic mitral ( valve) insufficiency (18) Paroxysmal atrial fibrillation Code(s): I48.0 - PAROXYSMAL ATRIAL FIBRILLATION (19) Pulmonary hypertension Code(s): I27.2 - OTHER SECONDARY PULMONARY HYPERTENSION * DO NOT USE * (20) S/p nephrectomy Code(s): Z90.5 - ACQUIRED ABSENCE OF KIDNEY (21) Valvular heart disease Code(s): I38 - ENDOCARDITIS, VALVE UNSPECIFIED Assessment/Plan Short course of Medrol BD TX O2 as needed Would monitor off ABX Lesion in the RUL appears like a AIS : there are solid components : Will discuss with his Otr Tanker Truck Driver further plans Pain control Will follow Thank you. Dr Daigle
--- NOTE | 2017-01-28 18:21 | CON.GU ---
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 Has had small mass exteriorly adherent to anterior bladder wall that we have been observing. Now admitted with persistant coughing and lung mass. Denies any hematuria/dysuria - Past Medical History Cardio/Vascular: Yes: AFIB, CAD, CHF, HTN, Hyperlipdemia Pulmonary: Yes: Cancer (lung--s/p lobectomy), COPD Gastrointestinal: Yes: GERD Renal/: Yes: Renal Inusuff, Cancer (bladder, TCC), Hematuria, Renal Calculi - Past Surgical History Past Surgical History: Yes: Colonoscopy, Nephrectomy, Permanent Pacemaker, Thoracotomy - Alcohol/Substance Use Hx Alcohol Use: No - Smoking History Smoking history: Former smoker Have you smoked in the past 12 months: No Aproximately how many cigarettes per day: 0 If you are a former smoker, when did you quit?: 1994 - Social History Usual Living Arrangement: With Spouse ADL: Independent 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, 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[place] History of Recent Travel: No Home Medications - Allergies Allergies/Adverse Reactions: Allergies Allergy/AdvReac Type Severity Reaction Status Date / Time Penicillins Allergy Hives, Verified 01/28/17 07:26 throat swelling Sulfa (Sulfonamide Allergy EYE Verified 01/28/17 07:26 Antibiotics) SWELLING, [Sulfa(Sulfonamide ITCHING Antibiotics)] levofloxacin [From Levaquin] AdvReac Severe Itching Verified 01/28/17 07:26 - Home Medications Home Medications: Ambulatory Orders Isosorbide Mononitrate [Imdur] 60 mg PO DAILY 12/16/11 Metoprolol Succinate [Toprol XL -] 100 mg PO HS 08/17/12 Atorvastatin Ca [Lipitor] 10 mg PO HS 04/28/16 Sodium Bicarbonate - 650 mg PO BID 04/29/16 Polyethylene Glycol 3350 [Miralax 119 gm Btl -] 17 gm PO DAILY bottle 07/10/16 Acetaminophen [Tylenol .Regular Strength -] 650 mg PO Q6H PRN #0 tablet Physical Exam- Vital Signs: Vital Signs Temperature 97.9 F 01/28/17 18:00 Pulse Rate 79 01/28/17 18:00 Respiratory Rate 16 01/28/17 18:00 Blood Pressure 152/89 01/28/17 18:00 O2 Sat by Pulse Oximetry (%) 97 01/28/17 18:00 Renal/: Yes: WNL Problem List - Problems (1) Bladder mass Assessment/Plan: stable bladder mass, no hematuria, chronic rt hydronephrosis, will observe Code(s): N32.89 - OTHER SPECIFIED DISORDERS OF BLADDER
[2017-01-28] MEDS: methylPREDNISolone NA SUCC 40 MG/1 ML VIAL IVPUSH SCH (21:11)
[2017-01-28] MEDS ORDERED: ATORVASTATIN CA 10 MG TABLET (FP) PO SCH (22:00)
[2017-01-28] MEDS: ARFORMOTEROL TARTRATE 15 MCG/2 ML VIAL NEB SCH (22:18)
[2017-01-29 06:51] LABS: EOSINOPHIL 0.1 % (0-4.5); MCHC 30.4 g/dl (32.0-35.9); MEAN CELL VOLUME 63.3 fl (80-96); MEAN PLT VOLUME 9.2 fl (7.5-11.1); PLATELET COUNT 171 K/MM3 (134-434); WHITE BLOOD COUNT 3.8 K/mm3 (4.0-10.0)
[2017-01-29 07:01] LABS: MCH 19.3 pg (25.7-33.7)
[2017-01-29 07:06] LABS: ALBUMIN 3.9 g/dl (3.4-5.0); ANION GAP 14 (8-16); CALCIUM 9.1 mg/dL (8.5-10.1); CO2 21 mmol/L (21-32); GLUCOSE,RANDOM 125 mg/dL (74-106); MAGNESIUM 2.2 mg/dL (1.8-2.4); PHOSPHOROUS 4.2 mg/dL (2.5-4.9); SGOT/AST 13 U/L (15-37)
[2017-01-29 07:08] LABS: TROPONIN I 0.04 ng/ml (0.00-0.05)
[2017-01-29 07:09] LABS: ALK PHOS 98 U/L (45-117); BILIRUBIN,TOTAL 0.6 mg/dL (0.2-1.0); CREATININE 2.6 mg/dL (0.7-1.3); SGPT/ALT 15 U/L (12-78); TOT PROT 7.3 g/dl (6.4-8.2)
[2017-01-29 09:11] VITALS: BP 123/66; PULSE 88; TEMP 98
[2017-01-29] MEDS: methylPREDNISolone NA SUCC 40 MG/1 ML VIAL IVPUSH SCH (09:12)
--- NOTE | 2017-01-29 09:12 | DS ---
Physical Examination Vital Signs: Vital Signs Temperature 98.0 F 01/29/17 09:00 Pulse Rate 88 01/29/17 09:00 Respiratory Rate 18 01/29/17 09:00 Blood Pressure 123/66 01/29/17 09:00 O2 Sat by Pulse Oximetry (%) 97 01/28/17 18:00 Findings/Remarks: FEELS BETTER WANTS TO GO HOME Cardiovascular: Yes: Regular Rate and Rhythm Respiratory: Yes: CTA Bilaterally, Diminished Gastrointestinal: Yes: Normal Bowel Sounds, Soft Labs: CBC, BMP 01/29/17 05:45 01/29/17 05:45 Discharge Summary Reason For Visit: HEMOPTYSIS,LUNG NODULE Current Active Problems ACS (acute coronary syndrome) (Acute) Acute pulmonary edema (Acute) Acute worsening of stage 3 chronic kidney disease (Acute) Allergy to multiple antibiotics (Acute) Angina pectoris (Acute) Arrhythmia (Acute) Back pain (Acute) Bladder mass (Acute) CAD (coronary artery disease) (Acute) Chest pain (Acute) Chronic kidney disease (CKD) (Acute) Congestive heart failure (CHF) (Acute) Dysuria (Acute) Gross hematuria (Acute) HTN (hypertension) (Acute) Hemoptysis (Acute) History of lobectomy of lung (Acute) History of permanent cardiac pacemaker placement (Acute) Hydronephrosis (Acute) Hypercholesteremia (Acute) Lung cancer (Acute) Lung nodule (Acute) PNA (pneumonia) (Acute) Penile pain (Acute) Sick sinus syndrome (Acute) Urinary retention (Acute) Hospital Course: 89-year-old male presents to the emergency room with complaints of continual moist cough with intermittent blood-streaked sputum along with bilateral chest achiness relieved with Tylenol over the past 3 months. Patient states has seen his primary care physician Dr. Guillory was ordered blood work along with chest x- ray with negative findings. Patient also went to see his hot header operator Dr. Ellison a few weeks ago who recommended a CT but patient at this time refused. Patient states has history of lung cancer with resection 10+ years ago and a left nephrectomy secondary to hematuria and questionable cancer a year and a half ago performed by Dr. Dc. Patient also mentions 30 pound weight loss over the past year but denies change in appetite, change in bowel pattern, change in urine pattern, fever, chills or weakness. Presenting Symptoms: Chest Pain Severity/Quality: reports: mild, aching Location: reports: substernal Chest Pain Radiation: reports: no radiation Activities at Onset: reports: none Associated Symptoms: Yes: Cough, Chest Pain/pressure in ER found to have lung nodule which is increased in size and kidney ultrasound moderate right hydronephrosis - Problems (1) Lung nodule Assessment/Plan: cough / hemoptysis increase in lung nodule size--D/W PT-- WILL D/W DR SANDRA welch eval posible broncho / IR biopsy Code(s): R91.1 - SOLITARY PULMONARY NODULE (2) Hydronephrosis Assessment/Plan: urology eval Code(s): N13.30 - UNSPECIFIED HYDRONEPHROSIS (3) CAD (coronary artery disease) Assessment/Plan: BB and statin Code(s): I25.10 - ATHSCL HEART DISEASE OF [place] CORONARY ARTERY W/O ANG PCTRS Qualifiers: Coronary Disease-Associated Artery/Lesion type: [place] artery Associated angina: without angina (4) Chronic kidney disease (CKD) Assessment/Plan: creatinine stable h/o nephrectomy on left side Code(s): N18.9 - CHRONIC KIDNEY DISEASE, UNSPECIFIED will discharge and follow up in office - Instructions Referrals: Lida Guillory MD [Primary Care Provider] - 1 Week Disposition: HOME - Home Medications Comprehensive Discharge Medication List: Ambulatory Orders Isosorbide Mononitrate [Imdur] 60 mg PO DAILY 12/16/11 Metoprolol Succinate [Toprol XL -] 100 mg PO HS 08/17/12 Atorvastatin Ca [Lipitor] 10 mg PO HS 04/28/16 Sodium Bicarbonate - 650 mg PO BID 04/29/16 Polyethylene Glycol 3350 [Miralax 119 gm Btl -] 17 gm PO DAILY bottle 07/10/16 Acetaminophen [Tylenol .Regular Strength -] 650 mg PO Q6H PRN #0 tablet Prednisone [Deltasone -] 10 mg PO DAILY #21 tablet 01/29/17
[2017-01-29] MEDS: ARFORMOTEROL TARTRATE 15 MCG/2 ML VIAL NEB SCH (09:57)
[2017-01-29] MEDS ORDERED: METOPROLOL SUCCINATE 100 MG TAB.SR.24H (FP) PO SCH (10:00)
[2017-01-29] MEDS ORDERED: ISOSORBIDE MONONITRATE 60 MG TAB.SR.24H (FP) PO SCH (10:00)
== END 2017-01-29 12:21 | disposition home or self-care (01) | DRG 694 ==
LOC: JER 07:15 → JERBED 13:14 → J6S 18:25
PROVIDERS: ADMIT Student in an Organized Health Care Education/Training Program; ATTEND Student in an Organized Health Care Education/Training Program
DX: N13.30 Unspecified hydronephrosis (principal); R04.2 Hemoptysis; R91.1 Solitary pulmonary nodule; R07.9 Chest pain, unspecified; I25.10 Atherosclerotic heart disease of native coronary artery without angina pectoris; N18.9 Chronic kidney disease, unspecified; I12.9 Hypertensive chronic kidney disease with stage 1 through stage 4 chronic kidney disease, or unspecified chronic kidney disease
CPT/HCPCS: 36415; 71020-TC; 71250-TC; 76775-TC; 80053; 82550; 83735; 84100; 84484; 85025; 93005; 93010; 94640; 99284-25

== ENCOUNTER 2017-05-18 11:38 | Inpatient (IN) | payer BC, OTHER ==
[2017-05-18 12:01] VITALS: BMI 20.1
--- NOTE | 2017-05-18 12:53 | PDOC ---
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 He presents with 4 days of gross hematuria w/ clots. Associated with suprapubic discomfort, no flank pain. Endorses increased frequency, urgency, but denies dysuria. He follows with Dr Alicea, last 2 weeks ago, had similar symptoms, and was discharged with antibiotics, but did not take them. Denies localized trauma. Denies fevers, chills, CP, SOB. Patient was also recently seen by Dr. Cedeno, his managed services consultant, on Wednesday and was noted to have a low hemoglobin again so he was restarted on Procrit. 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 SH - Past 20+ pack year smoking history Allergies - Multiple antibiotics (Penicillin, SUlfa, Levaquin) PMD - Dr Guillory Past History - Past Medical History Allergies/Adverse Reactions: Allergies Allergy/AdvReac Type Severity Reaction Status Date / Time Penicillins Allergy Hives, Verified 05/18/17 11:54 throat swelling Sulfa (Sulfonamide Allergy EYE Verified 05/18/17 11:54 Antibiotics) SWELLING, [Sulfa(Sulfonamide ITCHING Antibiotics)] levofloxacin [From Levaquin] AdvReac Severe Itching Verified 05/18/17 11:54 morphine AdvReac Itching Verified 05/18/17 18:06 Home Medications: Ambulatory Orders Isosorbide Mononitrate [Imdur] 60 mg PO DAILY 12/16/11 Metoprolol Succinate [Toprol XL -] 100 mg PO HS 08/17/12 Atorvastatin Ca [Lipitor] 10 mg PO HS 04/28/16 Sodium Bicarbonate - 650 mg PO BID 04/29/16 Polyethylene Glycol 3350 [Miralax 119 gm Btl -] 17 gm PO DAILY bottle 07/10/16 Acetaminophen [Tylenol .Regular Strength -] 650 mg PO Q6H PRN #0 tablet Prednisone [Deltasone -] 10 mg PO DAILY #21 tablet 01/29/17 Anemia: No Asthma: No Cancer: Yes (lung ca, bladder ca) Cardiac Disorders: No CVA: No COPD: No CHF: No Dementia: No Diabetes: No GI Disorders: Yes (GERD, SCHATZKI'S RING, COLON POLYP, GASTRIC INTESTINAL METAPLASIA) Disorders: Yes (bladder tumor, polyps, BPH) HTN: Yes Hypercholesterolemia: Yes Liver Disease: No Seizures: No Thyroid Disease: No - Surgical History Abdominal Surgery: Yes (LEFT NEPHRECTOMY) Appendectomy: No Cardiac Surgery: Yes (PPM) Cholecystectomy: No Lung Surgery: Yes (left lobectomy) Neurologic Surgery: No - Suicide/Smoking/Psychosocial Hx Smoking Status: No Smoking History: Former smoker Years of Tobacco Use: 0 Have you smoked in the past 12 months: No Number of Cigarettes Smoked Daily: 0 If you are a former smoker, when did you quit?: 1994 Cigars Per Day: 0 Information on smoking cessation initiated: No Hx Alcohol Use: No Drug/Substance Use Hx: No Substance Use Type: None Hx Substance Use Treatment: No Review of Systems - Review of Systems Able to Perform ROS?: Yes Constitutional: No: Chills, Diaphoresis, Fever HEENTM: No: Eye Pain, Blurred Vision, Tearing Respiratory: No: Cough, Orthopnea, Shortness of Breath Cardiac (ROS): No: Chest Pain, Edema, Irregular Heart Rate ABD/GI: Yes: See HPI. No: Blood Streaked Bowels, Constipated, Diarrhea : Yes: Frequency, Hematuria, Urgency. No: Burning, Dysuria Musculoskeletal: No: Back Pain, Gout, Joint Pain Integumentary: No: Bruising, Change in Color, Change in Hair/Nails Neurological: No: Headache, Numbness, Paresthesia Psychiatric: No: Frequent Crying, Stressors, Sleep Pattern Change Endocrine: No: Excessive Sweating, Flushing, Intolerance to Cold Hematologic/Lymphatic: No: Anemia, Blood Clots, Easy Bleeding *Physical Exam - Vital Signs Last Vital Signs Temp Pulse Resp BP Pulse Ox 97.4 F L 76 18 142/62 97 05/18/17 11:54 05/18/17 11:54 05/18/17 11:54 05/18/17 11:54 05/18/17 11:54 - Physical Exam Comments: GEN: AAOx3, NAD, Smiling HEENT: YOLARLA, EOMi CV: S1, S2, RRR LUNG: CTABL ABD: Soft, TTP in suprapubic distribution, ND, normoactive BS MSK: No edema, no erythema NEURO: CN 2-12 intact ED Treatment Course - LABORATORY CBC & Chemistry Diagram: 05/18/17 12:48 05/18/17 12:48 Medical Decision Making - Medical Decision Making 89yo M with hx of Bladder CA s/p multiple TURBTs who presents with gross hematuria and mild suprapubic pain. Follows w/ Dr Dc. Pt is hemodynamically stable. On no blood thinners. Not obstructing leslye. I suspect this is from his bladder cancer vs a urinary tract infection. I have spoken to Dr Dc who agrees with ordering basic labs and UA. If patient continues to remain stable without grossly abnormal lab findings, he agrees to dispo home with outpatient followup. Does not want to continuously irrigate bladder due to thin bladder wall. -- CBC, CMP -- UA, UCx 05/18/17 14:40 UA and UCx show likely urinary tract infection. Patient had been prescribed Macrobid from primary care doctor, will advise to continue the antibiotic and closely followup with Dr. Dc. No change in kidney function. 05/18/17 15:32 On re-examination, patient is concerned because he is still producing clots, now having intermittent urinary obstruction. Spoke to Dr Dc again, who wants to avoid placing newman catheter for risk of complications. Prefers to observe the patient as ED Obs and PO hydrate. [facility] who agrees with the plan. If patient continues to have obstructive symptoms, and minimal urination, will call [facility] back and observe the patient in the hospital. Gave patient IV Morphine 2mg x1 but had localized pruritis, relieved w/ IV Benadryl 25mg 05/18/17 17:16 On re-examination, patient has increased pain, urgency, but complete inability to void. I am now worried about obstruction. Call placed to Dr Dc, who agrees to newman catheter w/ 3 way for possible CBI. Ordered kidney/bladder ultrasound. Spoke to Madhav (DARREN Van). Will admit for inpatient. Discussed w/ patient. *DC/Admit/Observation/Transfer Diagnosis at time of Disposition: Hematuria Qualifiers: Hematuria type: gross Qualified Code(s): R31.0 - Gross hematuria - Discharge Dispostion Condition at time of disposition: Stable Admit: Yes - Referrals - Patient Instructions - Post Discharge Activity
[2017-05-18 13:00] LABS: BASO % 1.6 % (0-2.0); EOS % 5.7 % (0-4.5); HEMATOCRIT 30.1 % (35.4-49); HEMOGLOBIN 9.1 GM/dL (11.7-16.9); LYMPH % 29.9 % (8-40); MCHC 30.4 g/dl (32.0-35.9); MEAN CELL VOLUME 63.7 fl (80-96); MEAN PLT VOLUME 8.4 fl (7.5-11.1); MONO % 9.4 % (3.8-10.2); NEUT % 53.4 % (42.8-82.8); PLATELET COUNT 340 K/MM3 (134-434); RBC 4.72 M/mm3 (4.00-5.60); RDW 15.4 % (11.9-15.9); WHITE BLOOD COUNT 9.5 K/mm3 (4.0-10.0)
[2017-05-18 13:21] LABS: ALBUMIN 3.4 g/dl (3.4-5.0); ALK PHOS 94 U/L (45-117); ANION GAP 14 (8-16); BILIRUBIN,TOTAL 0.2 mg/dL (0.2-1.0); BLOOD UREA NITROGEN 55 mg/dL (7-18); CHLORIDE 105 mmol/L (98-107); CO2 20 mmol/L (21-32); CREATININE 2.5 mg/dL (0.7-1.3); GLUCOSE,RANDOM 87 mg/dL (74-106); POTASSIUM 4.6 mmol/L (3.5-5.1); SGOT/AST 19 U/L (15-37); SGPT/ALT 20 U/L (12-78); SODIUM 139 mmol/L (136-145); TOT PROT 7.3 g/dl (6.4-8.2)
[2017-05-18 13:36] LABS: MCH 19.4 pg (25.7-33.7)
--- NOTE | 2017-05-18 13:46 | PDOC ---
Attending Attestation - Resident Resident Name: DamianCandie - ED Attending Attestation I have performed the following: I have examined & evaluated the patient, The case was reviewed & discussed with the resident, I agree w/resident's findings & plan, Exceptions are as noted - HPI HPI: 05/18/17 13:42 89y/o M h/o bladder and renal ca s/p multiple procedures complicated by recurring hematuria p/w 4 days persistent hematuria with suprapubic discomfort. Last episode was about 2 weeks ago, he was seen by Dr. Dc at that time and prescribed antibiotics, which he did not take. When the hematuria returned 4 days ago, he started the antibiotics (macrobid) and had temporary relief of hematuria yesterday, but today had larger volume with clots so he presents for evaluation. Some suprapubic discomfort but no retention, had 2 nights of night sweats, but no measured fevers or chills. Incidentally, patient was seen by Dr. Cedeno, his rock lather, on Wednesday and was noted to have a low hemoglobin again so he was restarted on Procrit. - Physicial Exam PE: 05/18/17 13:44 afebrile. Vital signs stable. Well-appearing seated in stretcher No CVA tenderness, positive suprapubic discomfort to palpation without palpable distension Grossly bloody urine at bedside - Medical Decision Making 05/18/17 13:45 Patient seen and evaluated with the resident. I agree with the overall evaluation, assessment, and management with the following summary of visit: 89-year-old male with acute on chronic gross hematuria, hemodynamically stable. Discussed with Dr. Alicea, prefers to avoid repeat CBI given increased risk of complications labs, ua reassess 05/18/17 16:06 labs wnl, ua as noted. Pt continues to have gross hematuria with clots, occasionally blocking flow but then passes clot and has adequate urine output. Given high risk for obstruction/retention, discussed again with Dr. Dc. Recommends observation to monitor extent of hematuria and clots. Prefers to not insert catheter. Pt placed on observation to evaluate for sxs of retention/obstruction as noted. If clears, can be discharged to outpatient follow-up.
[2017-05-18 13:47] LABS: PH,URINE 6.5 (5.0-8.0); URINE APPEARANCE CLEAR; URINE BILIRUBIN NEGATIVE (NEGATIVE); URINE BLOOD 3+ (NEGATIVE); URINE COLOR DK. RED; URINE GLUCOSE (UA) TRACE (NEGATIVE); URINE KETONE 1+ (NEGATIVE); URINE UROBILINOGEN 4.0 E.U/dl mg/dL (0.2-1.0)
[2017-05-18 14:17] LABS: URINE LEUK ESTERASE 2+ (NEGATIVE); URINE NITRITE POSITIVE (NEGATIVE); URINE PROTEIN 3+ (NEGATIVE)
[2017-05-18 14:21] LABS: EPI CELLS FEW /HPF; URINE BACTERIA MODERATE /hpf (NEGATIVE)
[2017-05-18] MEDS ORDERED: morphine CARPU-JECT 2 MG/1 ML DISP.SYRIN IVPUSH ONE (16:24)
[2017-05-18] MEDS ORDERED: MORPHINE SULFATE 10 MG/1 ML *VIAL ONE (16:27)
--- NOTE | 2017-05-18 17:19 | HP ---
CHIEF COMPLAINT: Hematuria PCP: Dr. Guillory Urology: Dr. Alicea Nephrology: Dr. 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 Presented to the ED today with report of gross hematuria with clots x 4 days with associated suprapubic pain, frequency, and urgency. Denies dysuria. Two weeks ago he was seen by his urologist for similar symptoms and was found to have a UTI. He was prescribed antibiotics but did not finish the course. Was seen four days ago by his consumer analyst and noted to have a low Hgb and restarted on Procrit. ER course was notable for: (1) Urinary retention (2) CBI started, dark red urine with clots (3) CTAP: 3.3 x 3cm bladder wall focus Recent Travel: No PAST MEDICAL HISTORY: Hypertension Hyperlipidemia Coronary artery disease Atrial fibrillation Systolic and diastolic heart failure Severe valvular pathology COPD CKD Renal calculi Chronic right hydronephrosis Urinary retention Lung cancer Renal cancer Bladder cancer PAST SURGICAL HISTORY: Permanent pacemaker Lung lobectomy x 10 years Left nephrouretectomy TURBT Social History: Smoking: former Alcohol: no Drugs: no Family History: Allergies Penicillins Allergy (Verified 05/18/17 11:54) Hives, throat swelling Sulfa (Sulfonamide Antibiotics) [Sulfa(Sulfonamide Antibiotics)] Allergy ( Verified 05/18/17 11:54) EYE SWELLING, ITCHING levofloxacin [From Levaquin] Adverse Reaction (Severe, Verified 05/18/17 11:54) Itching pt began itching to IV site and mild swelling HOME MEDICATIONS: Home Medications Medication Instructions Recorded Isosorbide Mononitrate [Imdur] 60 mg PO DAILY 12/16/11 Metoprolol Succinate [Toprol XL -] 100 mg PO HS 08/17/12 Atorvastatin Ca [Lipitor] 10 mg PO HS 04/28/16 Sodium Bicarbonate - 650 mg PO BID 04/29/16 Polyethylene Glycol 3350 [Miralax 17 gm PO DAILY bottle 07/10/16 119 gm Btl -] Acetaminophen [Tylenol .Regular 650 mg PO Q6H PRN #0 tablet 07/19/16 Strength -] Prednisone [Deltasone -] 10 mg PO DAILY #21 tablet 01/29/17 REVIEW OF SYSTEMS CONSTITUTIONAL: Absent: fever, chills, diaphoresis, generalized weakness, malaise, loss of appetite, weight change HEENT: Absent: rhinorrhea, nasal congestion, throat pain, throat swelling, difficulty swallowing, mouth swelling, ear pain, eye pain, visual changes CARDIOVASCULAR: Absent: chest pain, syncope, palpitations, irregular heart rate, lightheadedness , peripheral edema RESPIRATORY: Absent: cough, shortness of breath, dyspnea with exertion, orthopnea, wheezing, stridor, hemoptysis GASTROINTESTINAL: Absent: abdominal pain, abdominal distension, nausea, vomiting, diarrhea, constipation, melena, hematochezia GENITOURINARY: Absent: dysuria, frequency, urgency, hesitancy, hematuria, flank pain, genital pain MUSCULOSKELETAL: Absent: myalgia, arthralgia, joint swelling, back pain, neck pain SKIN: Absent: rash, itching, pallor HEMATOLOGIC/IMMUNOLOGIC: Absent: easy bleeding, easy bruising, lymphadenopathy, frequent infections ENDOCRINE: Absent: unexplained weight gain, unexplained weight loss, heat intolerance, cold intolerance NEUROLOGIC: Absent: headache, focal weakness or paresthesias, dizziness, unsteady gait, seizure, mental status changes, bladder or bowel incontinence PSYCHIATRIC: Absent: anxiety, depression, suicidal or homicidal ideation, hallucinations. PHYSICAL EXAMINATION Vital Signs - 24 hr 05/18/17 11:54 Temperature 97.4 F L Pulse Rate 76 Respiratory 18 Rate Blood Pressure 142/62 O2 Sat by Pulse 97 Oximetry (%) GENERAL: Awake, alert, and fully oriented, in no acute distress. HEAD: Normal with no signs of trauma. EYES: Pupils equal, round and reactive to light, extraocular movements intact, sclera anicteric, conjunctiva clear. No lid lag. EARS, NOSE, THROAT: Ears normal, nares patent, oropharynx clear without exudates. Moist mucous membranes. NECK: Normal range of motion, supple without lymphadenopathy, JVD, or masses. LUNGS: Breath sounds equal, clear to auscultation bilaterally. No wheezes, and no crackles. No accessory muscle use. HEART: Regular rate and rhythm, normal S1 and S2 without murmur, rub or gallop. ABDOMEN: Soft, nontender, not distended, normoactive bowel sounds, no guarding, no rebound, no masses. No hepatomegaly or splenomegaly. MUSCULOSKELETAL: Normal range of motion at all joints. No bony deformities or tenderness. No CVA tenderness. UPPER EXTREMITIES: 2+ pulses, warm, well-perfused. No cyanosis. No clubbing. No peripheral edema. LOWER EXTREMITIES: 2+ pulses, warm, well-perfused. No calf tenderness. No peripheral edema. NEUROLOGICAL: Cranial nerves II-XII intact. Normal speech. Normal gait. PSYCHIATRIC: Cooperative. Good eye contact. Appropriate mood and affect. SKIN: Warm, dry, normal turgor, no rashes or lesions noted, normal capillary refill. Laboratory Results - last 24 hr 05/18/17 05/18/17 05/18/17 12:46 12:48 12:48 WBC 9.5 D RBC 4.72 Hgb 9.1 L D Hct 30.1 L MCV 63.7 L MCH 19.4 L MCHC 30.4 L RDW 15.4 Plt Count 340 D MPV 8.4 Neutrophils % 53.4 D Lymphocytes % 29.9 Monocytes % 9.4 D Eosinophils % 5.7 H D Basophils % 1.6 Sodium 139 Potassium 4.6 Chloride 105 Carbon Dioxide 20 L Anion Gap 14 BUN 55 H Creatinine 2.5 H Creat Clearance w eGFR 24.44 Random Glucose 87 D Calcium 9.0 Total Bilirubin 0.2 D AST 19 D ALT 20 D Alkaline Phosphatase 94 Total Protein 7.3 Albumin 3.4 Urine Color Dk. 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 Admitted for hematuria. Urinary obstruction Hematuria with clots Bladder cancer --US pelvic/bladder: 3.3 x 3cm mildly echogenic focus within or immeidately superficial to the ventral urinary bladder wall, adherent clot v. focal soft tissue mass lesion; needs cystoscopy --could not pass urine in ED with significant suprapubic pain; 3-way newman placed prior to US; passing dark red urine with clots --urology following Anemia --h/h stable --recently restarted on Procrit Chronic kidney disease Renal calculi Chronic right hydronephrosis --Cr 2.5 on admission which is ~ baseline --continue home sodium bicarb Pyuria --10-20 WBCs --afebrile, no leukocytosis --no antibiotics pending culture Hypertension --continue Toprol XL Hyperlipidemia --continue Lipitor Coronary artery disease --continue Toprol XL, Lipitor, isosorbide Atrial fibrillation --ECG ordered; pulse is regular on exam --has PPM --not on anticoagulation due to bleeding history 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 Full code. Visit type - Emergency Visit Emergency Visit: Yes ED Registration Date: 05/18/17 Care time: The patient presented to the Emergency Department on the above date and was hospitalized for further evaluation of their emergent condition. - New Patient This patient is new to me today: Yes Date on this admission: 05/18/17 - Critical Care Critical Care patient: No
[2017-05-18] MEDS ORDERED: ALBUTEROL SO4 2.5/IPRATROPIUM 0.5 INH SOL 3 ML VIAL.NEB. NEB PRN (21:06)
[2017-05-18] MEDS ORDERED: AZTREONAM 1 GM in DEXTROSE 5%-WATER - 50 ML IVPB ONE (21:56)
[2017-05-18] MEDS ORDERED: AZTREONAM 1 GM/10 ML SYRINGE (RESTRICTED TO ID) IVPUSH ONE (22:00)
[2017-05-18] MEDS: ATORVASTATIN CA 10 MG TABLET (FP) PO SCH (23:00)
[2017-05-18] MEDS: SODIUM BICARBONATE 650 MG TABLET PO SCH (23:00)
[2017-05-19 08:22] LABS: EOS % 4.5 % (0-4.5); HEMATOCRIT 26.4 % (35.4-49); LYMPH % 18.3 % (8-40); MCHC 30.2 g/dl (32.0-35.9); MEAN CELL VOLUME 62.8 fl (80-96); MEAN PLT VOLUME 8.4 fl (7.5-11.1); MONO % 9.4 % (3.8-10.2); NEUT % 65.8 % (42.8-82.8); PLATELET COUNT 283 K/MM3 (134-434); RDW 15.1 % (11.9-15.9); WHITE BLOOD COUNT 7.4 K/mm3 (4.0-10.0)
[2017-05-19 08:23] LABS: INR 1.12 (0.82-1.09); PROTHROMBIN TIME (PATIENT) 12.6 SEC (9.98-11.88)
[2017-05-19 08:25] LABS: ACTIVATED PTT 29.1 SECONDS (26.9-34.4)
[2017-05-19 08:29] LABS: ALBUMIN 2.7 g/dl (3.4-5.0); ANION GAP 9 (8-16); BLOOD UREA NITROGEN 52 mg/dL (7-18); CALCIUM 8.2 mg/dL (8.5-10.1); CHLORIDE 104 mmol/L (98-107); CO2 25 mmol/L (21-32); GLUCOSE,RANDOM 89 mg/dL (74-106); PHOSPHOROUS 3.7 mg/dL (2.5-4.9); POTASSIUM 4.5 mmol/L (3.5-5.1); SGOT/AST 16 U/L (15-37); SODIUM 138 mmol/L (136-145)
[2017-05-19 08:32] LABS: ALK PHOS 84 U/L (45-117); BILIRUBIN,TOTAL 0.4 mg/dL (0.2-1.0); CREATININE 2.3 mg/dL (0.7-1.3); SGPT/ALT 18 U/L (12-78); TOT PROT 5.9 g/dl (6.4-8.2)
[2017-05-19 08:34] LABS: MCH 18.9 pg (25.7-33.7)
--- NOTE | 2017-05-19 09:55 | PN ---
Physical Exam: SUBJECTIVE: Patient seen and examined OBJECTIVE: Vital Signs Period Temp Pulse Resp BP Sys/Christiansen Pulse Ox Last 24 Hr 97.4 F-98.8 F 74-82 18-20 120-142/60-75 94-100 Laboratory Results - last 24 hr 05/18/17 05/18/17 05/18/17 12:46 12:48 12:48 WBC 9.5 D RBC 4.72 Hgb 9.1 L D Hct 30.1 L MCV 63.7 L MCH 19.4 L MCHC 30.4 L RDW 15.4 Plt Count 340 D MPV 8.4 Neutrophils % 53.4 D Lymphocytes % 29.9 Monocytes % 9.4 D Eosinophils % 5.7 H D Basophils % 1.6 PT with INR INR PTT (Actin FS) Sodium 139 Potassium 4.6 Chloride 105 Carbon Dioxide 20 L Anion Gap 14 BUN 55 H Creatinine 2.5 H Creat Clearance w eGFR 24.44 Random Glucose 87 D Calcium 9.0 Phosphorus Magnesium Total Bilirubin 0.2 D AST 19 D ALT 20 D Alkaline Phosphatase 94 Total Protein 7.3 Albumin 3.4 Urine Color Dk. red Urine Appearance Clear Urine pH 6.5 Ur Specific [place] 1.010 Urine Protein 3+ H Urine Glucose (UA) Trace H Urine Ketones 1+ H Urine Blood 3+ H Urine Nitrite Positive Urine Bilirubin Negative Urine Urobilinogen 4.0 e.u/dl Ur Leukocyte Esterase 2+ H Urine WBC (Auto) 10-20 Urine RBC (Auto) >100 Ur Epithelial Cells Few Urine Bacteria Moderate Blood Type Antibody Screen 05/18/17 05/19/17 05/19/17 21:34 06:00 06:00 WBC 7.4 RBC 4.20 Hgb 8.0 L D Hct 26.4 L MCV 62.8 L MCH 18.9 L MCHC 30.2 L RDW 15.1 Plt Count 283 MPV 8.4 Neutrophils % 65.8 D Lymphocytes % 18.3 D Monocytes % 9.4 Eosinophils % 4.5 Basophils % 2.0 PT with INR 12.60 H INR 1.12 PTT (Actin FS) 29.1 Sodium Potassium Chloride Carbon Dioxide Anion Gap BUN Creatinine Creat Clearance w eGFR Random Glucose Calcium Phosphorus Magnesium Total Bilirubin AST ALT Alkaline Phosphatase Total Protein Albumin Urine Color Urine Appearance Urine pH Ur Specific [place] Urine Protein Urine Glucose (UA) Urine Ketones Urine Blood Urine Nitrite Urine Bilirubin Urine Urobilinogen Ur Leukocyte Esterase Urine WBC (Auto) Urine RBC (Auto) Ur Epithelial Cells Urine Bacteria Blood Type B POSITIVE Antibody Screen Negative 05/19/17 06:00 WBC RBC Hgb Hct MCV MCH MCHC RDW Plt Count MPV Neutrophils % Lymphocytes % Monocytes % Eosinophils % Basophils % PT with INR INR PTT (Actin FS) Sodium 138 Potassium 4.5 Chloride 104 Carbon Dioxide 25 D Anion Gap 9 BUN 52 H Creatinine 2.3 H Creat Clearance w eGFR 26.91 Random Glucose 89 Calcium 8.2 L Phosphorus 3.7 Magnesium 2.0 Total Bilirubin 0.4 D AST 16 ALT 18 Alkaline Phosphatase 84 Total Protein 5.9 L Albumin 2.7 L D Urine Color Urine Appearance Urine pH Ur Specific [place] Urine Protein Urine Glucose (UA) Urine Ketones Urine Blood Urine Nitrite Urine Bilirubin Urine Urobilinogen Ur Leukocyte Esterase Urine WBC (Auto) Urine RBC (Auto) Ur Epithelial Cells Urine Bacteria Blood Type Antibody Screen Active Medications Generic Name Dose Route Start Last Admin Trade Name Freq PRN Reason Stop Dose Admin Acetaminophen 650 mg 05/18/17 17:54 Tylenol - PO Q6H PRN FEVER Albuterol/Ipratropium 1 amp 05/18/17 21:06 Duoneb - NEB Q4H PRN SHORTNESS OF BREATH Atorvastatin Calcium 10 mg 05/18/17 22:00 05/18/17 23:00 Lipitor - PO 10 mg HS BATSHEVA Administration Isosorbide Mononitrate 60 mg 05/19/17 10:00 Imdur - PO DAILY BATSHEVA Metoprolol Succinate 100 mg 05/18/17 22:00 05/18/17 23:00 Toprol Xl - PO 100 mg HS BATSHEVA Administration Polyethylene Glycol 17 gm 05/19/17 10:00 Miralax (For Daily Use) - PO DAILY BATSHEVA Prednisone 10 mg 05/19/17 10:00 Deltasone - PO DAILY BATSHEVA Sodium Bicarbonate 650 mg 05/18/17 22:00 05/18/17 23:00 Sodium Bicarbonate - PO 650 mg BID BATSHEVA Administration ASSESSMENT/PLAN:
--- NOTE | 2017-05-19 10:02 | PN ---
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 Presented to the ED today with report of gross hematuria with clots x 4 days with associated suprapubic pain, frequency, and urgency. Denies dysuria. Two weeks ago he was seen by his urologist for similar symptoms and was found to have a UTI. He was prescribed antibiotics but did not finish the course. Was seen four days ago by his nub card tender and noted to have a low Hgb and restarted on Procrit. - Current Medication List Current Medications: Active Medications Acetaminophen (Tylenol -) 650 mg PO Q6H PRN PRN Reason: FEVER Albuterol/Ipratropium (Duoneb -) 1 amp NEB Q4H PRN PRN Reason: SHORTNESS OF BREATH Atorvastatin Calcium (Lipitor -) 10 mg PO HS [facility] Last Admin: 05/18/17 23:00 Dose: 10 mg Isosorbide Mononitrate (Imdur -) 60 mg PO DAILY [facility] Metoprolol Succinate (Toprol Xl -) 100 mg PO [facility] Last Admin: 05/18/17 23:00 Dose: 100 mg Polyethylene Glycol (Miralax (For Daily Use) -) 17 gm PO DAILY [facility] Prednisone (Deltasone -) 10 mg PO DAILY [facility] Sodium Bicarbonate (Sodium Bicarbonate -) 650 mg PO BID [facility] Last Admin: 05/18/17 23:00 Dose: 650 mg - Objective Vital Signs: Vital Signs Temperature 98.8 F 05/19/17 06:00 Pulse Rate 74 05/19/17 06:00 Respiratory Rate 20 05/19/17 06:00 Blood Pressure 120/60 05/19/17 06:00 O2 Sat by Pulse Oximetry (%) 97 05/18/17 23:32 Cardiovascular: Yes: S1, S2 Respiratory: Yes: Regular, CTA Bilaterally Gastrointestinal: Yes: Normal Bowel Sounds, Soft Edema: No Labs: CBC, BMP 05/19/17 06:00 05/19/17 06:00 INR, PTT INR 1.12 (0.82-1.09) 05/19/17 06:00 Problem List - Problems (1) Hematuria Assessment/Plan: [facility] ABX Code(s): R31.9 - HEMATURIA, UNSPECIFIED Qualifiers: Hematuria type: gross Qualified Code(s): R31.0 - Gross hematuria (2) UTI (urinary tract infection) Assessment/Plan: IV ABX ID CONSULT Code(s): N39.0 - URINARY TRACT INFECTION, SITE NOT SPECIFIED Qualifiers: Urinary tract infection type: acute cystitis Hematuria presence: with hematuria Qualified Code(s): N30.01 - Acute cystitis with hematuria (3) Acute worsening of stage 3 chronic kidney disease Assessment/Plan: FOLLOW LABS Code(s): N18.3 - CHRONIC KIDNEY DISEASE, STAGE 3 (MODERATE) (4) COPD (chronic obstructive pulmonary disease) Assessment/Plan: NEBS Code(s): J44.9 - CHRONIC OBSTRUCTIVE PULMONARY DISEASE, UNSPECIFIED Qualifiers: COPD type: unspecified COPD Qualified Code(s): J44.9 - Chronic obstructive pulmonary disease, unspecified
[2017-05-19] MEDS ORDERED: PT OWN MED DRAWER 7, Y5N ONE (10:33)
[2017-05-19] MEDS: ISOSORBIDE MONONITRATE 60 MG TAB.SR.24H (FP) PO SCH (10:41)
[2017-05-19] MEDS: SODIUM BICARBONATE 650 MG TABLET PO SCH ×2 (10:41→21:48)
[2017-05-19] MEDS: predniSONE 10 MG TABLET (UD) PO SCH (10:42)
[2017-05-19] MEDS: POLYETHYLENE GLYCOL 3350 119 GM BTL PO SCH (10:43)
--- NOTE | 2017-05-19 11:00 | EKG ---
Test Reason : Blood Pressure : / mmHG Vent. Rate : 082 BPM Atrial Rate : 441 BPM P-R Int : 000 ms QRS Dur : 160 ms QT Int : 442 ms P-R-T Axes : 000 -82 092 degrees QTc Int : 516 ms AV dual-paced rhythm ABNORMAL ECG WHEN COMPARED WITH ECG OF 28-JAN-2017 07:27, VENT. RATE HAS DECREASED BY 14 BPM Confirmed by EBONI IVERSON, MARY KAY ([id number]) on 05/19/2017 11:00:09 AM Referred By: Mckay ROGEL Confirmed By:MARY KAY LYN MD
--- NOTE | 2017-05-19 11:56 | CON.ID ---
Consult Consult Specialty:: infectious disease Referred by:: dr archer Reason for Consultation:: hematuria - History of Present Illness Chief Complaint: hematuria History of Present Illness: 89 year old man with multiple antibiotic allergies, history of bladder cancer/ multiple TURBT, transitional Cancer of Kidney-s/p left nephrectomy admitted with hematuria and clots he has a known anerior bladder wall mass, and lung nodule he was seen by Dr Dc 2 weeks ago and given 7 days of macrobid to take if he developed hematuria he developed hematuria last week and took macrobid until Wednesday- urine was clear on Wednesday so he didnot take anymore antibiotic hematuria re-occured and he came to ED he has been off antibiotics since that time (3 to 4 days) no fevers or chills multiple antibiotic allergies urine cultue is negative no fevers or chills - History Source History Provided By: Patient, Family Member Limitations to Obtaining History: No Limitations - Past Medical History Cardio/Vascular: Yes: AFIB, CAD, CHF, HTN, Hyperlipdemia Pulmonary: Yes: Cancer (lung--s/p lobectomy), COPD Gastrointestinal: Yes: GERD Renal/: Yes: Renal Inusuff, Cancer (bladder, TCC), Hematuria, Renal Calculi - Past Surgical History Past Surgical History: Yes: Colonoscopy, Nephrectomy, Permanent Pacemaker, Thoracotomy Additional Surgical History: TURBT - Alcohol/Substance Use Hx Alcohol Use: No - Smoking History Smoking history: Former smoker Have you smoked in the past 12 months: No Aproximately how many cigarettes per day: 0 If you are a former smoker, when did you quit?: 1994 - Social History Usual Living Arrangement: With Spouse ADL: Independent 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, 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[place] History of Recent Travel: No Home Medications - Allergies Allergies/Adverse Reactions: Allergies Allergy/AdvReac Type Severity Reaction Status Date / Time Penicillins Allergy Hives, Verified 05/18/17 11:54 throat swelling Sulfa (Sulfonamide Allergy EYE Verified 05/18/17 11:54 Antibiotics) SWELLING, [Sulfa(Sulfonamide ITCHING Antibiotics)] levofloxacin [From Levaquin] AdvReac Severe Itching Verified 05/18/17 11:54 morphine AdvReac Itching Verified 05/19/17 06:29 - Home Medications Home Medications: Ambulatory Orders Isosorbide Mononitrate [Imdur] 60 mg PO DAILY 12/16/11 Metoprolol Succinate [Toprol XL -] 100 mg PO HS 08/17/12 Atorvastatin Ca [Lipitor] 10 mg PO HS 04/28/16 Sodium Bicarbonate - 650 mg PO BID 04/29/16 Polyethylene Glycol 3350 [Miralax 119 gm Btl -] 17 gm PO DAILY bottle 07/10/16 Acetaminophen [Tylenol .Regular Strength -] 650 mg PO Q6H PRN #0 tablet Prednisone [Deltasone -] 10 mg PO DAILY #21 tablet 01/29/17 Family Disease History - Family Disease History Family History: Denies Review of Systems - Review of Systems Constitutional: reports: Unintentional Wgt. Loss. denies: Chills, Fever Eyes: reports: No Symptoms HENT: reports: No Symptoms Neck: reports: No Symptoms Cardiovascular: reports: No Symptoms. denies: Chest Pain Respiratory: reports: No Symptoms. denies: Cough, SOB Gastrointestinal: reports: No Symptoms. denies: Abdominal Pain Genitourinary: reports: Hematuria. denies: Flank Pain Physical Exam Vital Signs: Vital Signs Temperature 98.8 F 05/19/17 06:00 Pulse Rate 74 05/19/17 06:00 Respiratory Rate 20 05/19/17 06:00 Blood Pressure 120/60 05/19/17 06:00 O2 Sat by Pulse Oximetry (%) 97 05/18/17 23:32 Constitutional: Yes: No Distress, Calm, Thin Eyes: Yes: Conjunctiva Clear HENT: Yes: Atraumatic, Normocephalic Neck: Yes: Supple Cardiovascular: Yes: Regular Rate and Rhythm Respiratory: Yes: CTA Bilaterally Gastrointestinal: Yes: Normal Bowel Sounds, Soft Renal/: Yes: Valenzuela Present, Other (suprapubic pain to palpation). No: CVA Tenderness - Left, CVA Tenderness - Right Edema: No Labs: CBC, BMP 05/19/17 06:00 05/19/17 06:00 Microbiology 05/18/17 12:46 Urine - Urine Clean Catch Urine Culture - Final NO GROWTH OBTAINED Imaging - Results Chest X-ray: Report Reviewed Ultrasound: Report Reviewed (3/3 cm bladder mass) Problem List - Problems (1) Hematuria Code(s): R31.9 - HEMATURIA, UNSPECIFIED Qualifiers: Hematuria type: gross Qualified Code(s): R31.0 - Gross hematuria (2) Bladder mass Code(s): N32.89 - OTHER SPECIFIED DISORDERS OF BLADDER (3) S/p nephrectomy Code(s): Z90.5 - ACQUIRED ABSENCE OF KIDNEY (4) Allergy to multiple antibiotics Code(s): Z88.1 - ALLERGY STATUS TO OTHER ANTIBIOTIC AGENTS STATUS Assessment/Plan urine culture (off antibiotics is negative) no fever or leukoytosis to suggest infection suspect hematuria and bladder discomfort are due to known bladder tumor very limited options for antibiotics vancomycin/azactam if he becomes symptomatic otherwise no need for antibiotics awaiting urology evaluation
--- NOTE | 2017-05-19 17:14 | CON.GU ---
Consult Consult Specialty:: Referred by:: medicine Reason for Consultation:: gross hematuria - History of Present Illness Chief Complaint: gross hematuria History of Present Illness: 89 year old male with a history of bladder cancer who presents with gross hematuria. He reports clots and difficulty voiding. CBI cath placed and irrigation begun. He is feeling more comfortable and urine is tinged on slow CBI - History Source History Provided By: Patient Limitations to Obtaining History: No Limitations - Past Medical History Cardio/Vascular: Yes: AFIB, CAD, CHF, HTN, Hyperlipdemia Pulmonary: Yes: Cancer (lung--s/p lobectomy), COPD Gastrointestinal: Yes: GERD Renal/: Yes: Renal Inusuff, Cancer (bladder, TCC), Hematuria, Renal Calculi - Past Surgical History Past Surgical History: Yes: Colonoscopy, Nephrectomy, Permanent Pacemaker, Thoracotomy Additional Surgical History: TURBT - Alcohol/Substance Use Hx Alcohol Use: No - Smoking History Smoking history: Former smoker Have you smoked in the past 12 months: No Aproximately how many cigarettes per day: 0 If you are a former smoker, when did you quit?: 1994 - Social History Usual Living Arrangement: With Spouse ADL: Independent 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, 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[place] History of Recent Travel: No Home Medications - Allergies Allergies/Adverse Reactions: Allergies Allergy/AdvReac Type Severity Reaction Status Date / Time Penicillins Allergy Hives, Verified 05/18/17 11:54 throat swelling Sulfa (Sulfonamide Allergy EYE Verified 05/18/17 11:54 Antibiotics) SWELLING, [Sulfa(Sulfonamide ITCHING Antibiotics)] levofloxacin [From Levaquin] AdvReac Severe Itching Verified 05/18/17 11:54 morphine AdvReac Itching Verified 05/19/17 06:29 - Home Medications Home Medications: Ambulatory Orders Isosorbide Mononitrate [Imdur] 60 mg PO DAILY 12/16/11 Metoprolol Succinate [Toprol XL -] 100 mg PO HS 08/17/12 Atorvastatin Ca [Lipitor] 10 mg PO HS 04/28/16 Sodium Bicarbonate - 650 mg PO BID 04/29/16 Polyethylene Glycol 3350 [Miralax 119 gm Btl -] 17 gm PO DAILY bottle 07/10/16 Acetaminophen [Tylenol .Regular Strength -] 650 mg PO Q6H PRN #0 tablet Prednisone [Deltasone -] 10 mg PO DAILY #21 tablet 01/29/17 Review of Systems - Review of Systems Genitourinary: reports: Hematuria Physical Exam- Vital Signs: Vital Signs Temperature 98.1 F 05/19/17 14:53 Pulse Rate 75 05/19/17 14:53 Respiratory Rate 18 05/19/17 14:53 Blood Pressure 116/57 05/19/17 14:53 O2 Sat by Pulse Oximetry (%) 94 L 05/19/17 09:00 Renal/: Yes: Valenzuela Present, Hematuria. No: Bladder Distention, CVA Tenderness - Left, CVA Tenderness - Right Labs: CBC, BMP 05/19/17 06:00 05/19/17 06:00 Problem List - Problems (1) Hematuria Assessment/Plan: Continue CBI for gross hematuria. Hct at 26. tranfuse as necessary. CT scan recommended. Cystoscopy if hematuria done not improve. Patient with known bladder cancer Code(s): R31.9 - HEMATURIA, UNSPECIFIED Qualifiers: Hematuria type: gross Qualified Code(s): R31.0 - Gross hematuria (2) Bladder mass Code(s): N32.89 - OTHER SPECIFIED DISORDERS OF BLADDER
[2017-05-19] MEDS: ACETAMINOPHEN 325 MG TABLET (FP) PO PRN (18:35)
[2017-05-19] MEDS: ATORVASTATIN CA 10 MG TABLET (FP) PO SCH (21:48)
[2017-05-20] MEDS: ACETAMINOPHEN 325 MG TABLET (FP) PO PRN (05:03)
--- NOTE | 2017-05-20 09:26 | PN ---
Progress Note (short form) - Note Progress Note: urine light pink on CBI CT with chronic rt hydro (stable), enlarging ant wall bladder mass Mass cannot be seen or accessed cystoscopically In the past he has refused biopsy of the mass but now is agreeable will have IR perform perc biopsy
[2017-05-20] MEDS ORDERED: PT OWN MED DRAWER 7, Y5N ONE (10:53)
[2017-05-20 10:58] LABS: ALBUMIN 2.6 g/dl (3.4-5.0); ALK PHOS 76 U/L (45-117); ANION GAP 8 (8-16); BILIRUBIN,TOTAL 0.3 mg/dL (0.2-1.0); BLOOD UREA NITROGEN 59 mg/dL (7-18); CHLORIDE 106 mmol/L (98-107); CO2 26 mmol/L (21-32); CREATININE 2.4 mg/dL (0.7-1.3); GLUCOSE,RANDOM 175 mg/dL (74-106); POTASSIUM 4.2 mmol/L (3.5-5.1); SGOT/AST 12 U/L (15-37); SGPT/ALT 16 U/L (12-78); SODIUM 140 mmol/L (136-145); TOT PROT 5.8 g/dl (6.4-8.2)
[2017-05-20] MEDS: SODIUM BICARBONATE 650 MG TABLET PO SCH ×2 (10:58→21:22)
[2017-05-20] MEDS: ISOSORBIDE MONONITRATE 60 MG TAB.SR.24H (FP) PO SCH (10:58)
[2017-05-20] MEDS: predniSONE 10 MG TABLET (UD) PO SCH (10:58)
--- NOTE | 2017-05-20 10:59 | PN ---
Progress Note, Physician Chief Complaint: Hematuria History of Present Illness: CBI running, urine light pink seen by Urology, will be going for perc biopsy - Current Medication List Current Medications: Active Medications Acetaminophen (Tylenol -) 650 mg PO Q6H PRN PRN Reason: FEVER Last Admin: 05/20/17 05:03 Dose: 650 mg Albuterol/Ipratropium (Duoneb -) 1 amp NEB Q4H PRN PRN Reason: SHORTNESS OF BREATH Atorvastatin Calcium (Lipitor -) 10 mg PO [facility] Last Admin: 05/19/17 21:48 Dose: 10 mg Isosorbide Mononitrate (Imdur -) 60 mg PO DAILY [facility] Last Admin: 05/19/17 10:41 Dose: 60 mg Metoprolol Succinate (Toprol Xl -) 100 mg PO [facility] Last Admin: 05/19/17 21:48 Dose: 100 mg Polyethylene Glycol (Miralax (For Daily Use) -) 17 gm PO DAILY [facility] Last Admin: 05/19/17 10:43 Dose: 17 gm Prednisone (Deltasone -) 10 mg PO DAILY [facility] Last Admin: 05/19/17 10:42 Dose: 10 mg Sodium Bicarbonate (Sodium Bicarbonate -) 650 mg PO BID [facility] Last Admin: 05/19/17 21:48 Dose: 650 mg - Objective Vital Signs: Vital Signs Temperature 97.9 F 05/20/17 05:00 Pulse Rate 77 05/20/17 05:00 Respiratory Rate 20 05/20/17 05:00 Blood Pressure 123/64 05/20/17 05:00 O2 Sat by Pulse Oximetry (%) 97 05/19/17 20:33 Constitutional: Yes: Well Nourished, No Distress, Calm Cardiovascular: Yes: Regular Rate and Rhythm Respiratory: Yes: Regular Gastrointestinal: Yes: Normal Bowel Sounds, Soft Genitourinary: Yes: Valenzuela Present, Hematuria Musculoskeletal: Yes: WNL Extremities: Yes: WNL Edema: No Peripheral Pulses WNL: Yes Neurological: Yes: Alert, Oriented Psychiatric: Yes: Alert, Oriented Labs: CBC, BMP 05/19/17 06:00 INR, PTT INR 1.12 (0.82-1.09) 05/19/17 06:00 Problem List - Problems (1) Hematuria Assessment/Plan: CBI -Urology on board -Perc biopsy -monitor H/H Code(s): R31.9 - HEMATURIA, UNSPECIFIED Qualifiers: Hematuria type: gross Qualified Code(s): R31.0 - Gross hematuria (2) Bladder mass Assessment/Plan: -seen by Urology -perc biopsy Code(s): N32.89 - OTHER SPECIFIED DISORDERS OF BLADDER (3) Anemia Assessment/Plan: 2/2 to blood loss -monitor H/H -normal transfusion parameters Code(s): D64.9 - ANEMIA, UNSPECIFIED Assessment/Plan see problem list
[2017-05-20] MEDS: POLYETHYLENE GLYCOL 3350 119 GM BTL PO SCH (11:02)
[2017-05-20 12:00] LABS: BASO % 0.9 % (0-2.0); HEMATOCRIT 25.9 % (35.4-49); HEMOGLOBIN 7.9 GM/dL (11.7-16.9); LYMPH % 18.3 % (8-40); MCHC 30.4 g/dl (32.0-35.9); MEAN CELL VOLUME 62.3 fl (80-96); MEAN PLT VOLUME 8.2 fl (7.5-11.1); MONO % 10.1 % (3.8-10.2); NEUT % 68.7 % (42.8-82.8); PLATELET COUNT 279 K/MM3 (134-434); RBC 4.16 M/mm3 (4.00-5.60); RDW 15.3 % (11.9-15.9); WHITE BLOOD COUNT 7.8 K/mm3 (4.0-10.0)
[2017-05-20 12:33] LABS: ALBUMIN 2.6 g/dl (3.4-5.0); ANION GAP 8 (8-16); BILIRUBIN,TOTAL 0.4 mg/dL (0.2-1.0); BLOOD UREA NITROGEN 58 mg/dL (7-18); CALCIUM 8.1 mg/dL (8.5-10.1); CHLORIDE 106 mmol/L (98-107); CO2 27 mmol/L (21-32); CREATININE 2.3 mg/dL (0.7-1.3); GLUCOSE,RANDOM 124 mg/dL (74-106); POTASSIUM 4.5 mmol/L (3.5-5.1); SGOT/AST 10 U/L (15-37); SGPT/ALT 16 U/L (12-78); SODIUM 141 mmol/L (136-145); TOT PROT 5.9 g/dl (6.4-8.2)
[2017-05-20 12:34] LABS: ALK PHOS 77 U/L (45-117)
[2017-05-20] MEDS ORDERED: FUROSEMIDE 40 MG/4 ML INJECTABLE VIAL IVPUSH ONE (18:30)
[2017-05-20] MEDS: ATORVASTATIN CA 10 MG TABLET (FP) PO SCH (21:22)
[2017-05-21 08:08] LABS: BASO % 0.8 % (0-2.0); HEMATOCRIT 30.9 % (35.4-49); HEMOGLOBIN 9.7 GM/dL (11.7-16.9); MCH 20.7 pg (25.7-33.7); MCHC 31.4 g/dl (32.0-35.9); MEAN CELL VOLUME 65.7 fl (80-96); MEAN PLT VOLUME 8.5 fl (7.5-11.1); MONO % 6.1 % (3.8-10.2); NEUT % 72.1 % (42.8-82.8); PLATELET COUNT 315 K/MM3 (134-434); RDW 16.6 % (11.9-15.9)
[2017-05-21 08:10] LABS: ALBUMIN 2.8 g/dl (3.4-5.0); ALK PHOS 82 U/L (45-117); ANION GAP 9 (8-16); BILIRUBIN,TOTAL 0.7 mg/dL (0.2-1.0); BLOOD UREA NITROGEN 65 mg/dL (7-18); CALCIUM 8.3 mg/dL (8.5-10.1); CHLORIDE 105 mmol/L (98-107); CO2 25 mmol/L (21-32); CREATININE 2.5 mg/dL (0.7-1.3); GLUCOSE,RANDOM 117 mg/dL (74-106); POTASSIUM 4.3 mmol/L (3.5-5.1); SGOT/AST 15 U/L (15-37); SGPT/ALT 20 U/L (12-78); SODIUM 139 mmol/L (136-145); TOT PROT 6.3 g/dl (6.4-8.2)
--- NOTE | 2017-05-21 08:53 | PN ---
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 Presented to the ED today with report of gross hematuria with clots x 4 days with associated suprapubic pain, frequency, and urgency. Denies dysuria. Two weeks ago he was seen by his urologist for similar symptoms and was found to have a UTI. He was prescribed antibiotics but did not finish the course. Was seen four days ago by his railway engineer and noted to have a low Hgb and restarted on Procrit. - Current Medication List Current Medications: Active Medications Acetaminophen (Tylenol -) 650 mg PO Q6H PRN PRN Reason: FEVER Last Admin: 05/20/17 05:03 Dose: 650 mg Albuterol/Ipratropium (Duoneb -) 1 amp NEB Q4H PRN PRN Reason: SHORTNESS OF BREATH Atorvastatin Calcium (Lipitor -) 10 mg PO HS [facility] Last Admin: 05/20/17 21:22 Dose: 10 mg Isosorbide Mononitrate (Imdur -) 60 mg PO DAILY [facility] Last Admin: 05/20/17 10:58 Dose: 60 mg Metoprolol Succinate (Toprol Xl -) 100 mg PO HS [facility] Last Admin: 05/20/17 21:22 Dose: 100 mg Polyethylene Glycol (Miralax (For Daily Use) -) 17 gm PO DAILY [facility] Last Admin: 05/20/17 11:02 Dose: 17 gm Prednisone (Deltasone -) 10 mg PO DAILY [facility] Last Admin: 05/20/17 10:58 Dose: 10 mg Sodium Bicarbonate (Sodium Bicarbonate -) 650 mg PO BID [facility] Last Admin: 05/20/17 21:22 Dose: 650 mg - Objective Vital Signs: Vital Signs Temperature 97.4 F L 05/20/17 17:22 Pulse Rate 93 H 05/20/17 17:22 Respiratory Rate 20 05/20/17 20:46 Blood Pressure 126/69 05/20/17 17:22 O2 Sat by Pulse Oximetry (%) 96 05/20/17 20:46 Cardiovascular: Yes: S1, S2 Respiratory: Yes: Regular, CTA Bilaterally Gastrointestinal: Yes: Normal Bowel Sounds, Soft. No: Tenderness Edema: No Labs: CBC, BMP 05/21/17 06:30 05/21/17 06:30 INR, PTT INR 1.12 (0.82-1.09) 05/19/17 06:00 Problem List - Problems (1) Hematuria Assessment/Plan: [facility] ABX Code(s): R31.9 - HEMATURIA, UNSPECIFIED Qualifiers: Hematuria type: gross Qualified Code(s): R31.0 - Gross hematuria (2) UTI (urinary tract infection) Assessment/Plan: IV ABX ID CONSULT Code(s): N39.0 - URINARY TRACT INFECTION, SITE NOT SPECIFIED Qualifiers: Urinary tract infection type: acute cystitis Hematuria presence: with hematuria Qualified Code(s): N30.01 - Acute cystitis with hematuria (3) Acute worsening of stage 3 chronic kidney disease Assessment/Plan: FOLLOW LABS Code(s): N18.3 - CHRONIC KIDNEY DISEASE, STAGE 3 (MODERATE) (4) COPD (chronic obstructive pulmonary disease) Assessment/Plan: NEBS Code(s): J44.9 - CHRONIC OBSTRUCTIVE PULMONARY DISEASE, UNSPECIFIED Qualifiers: COPD type: unspecified COPD Qualified Code(s): J44.9 - Chronic obstructive pulmonary disease, unspecified (5) Bladder mass Assessment/Plan: await path Code(s): N32.89 - OTHER SPECIFIED DISORDERS OF BLADDER
[2017-05-21] MEDS: SODIUM BICARBONATE 650 MG TABLET PO SCH ×2 (09:58→23:09)
[2017-05-21] MEDS: predniSONE 10 MG TABLET (UD) PO SCH (09:58)
[2017-05-21] MEDS: ISOSORBIDE MONONITRATE 60 MG TAB.SR.24H (FP) PO SCH (09:58)
[2017-05-21] MEDS: POLYETHYLENE GLYCOL 3350 119 GM BTL PO SCH (10:01)
[2017-05-21] MEDS: ATORVASTATIN CA 10 MG TABLET (FP) PO SCH (23:09)
[2017-05-22 07:30] LABS: BASO % 0.7 % (0-2.0); EOS % 0.9 % (0-4.5); HEMATOCRIT 29.9 % (35.4-49); HEMOGLOBIN 9.4 GM/dL (11.7-16.9); LYMPH % 20.8 % (8-40); MCH 20.6 pg (25.7-33.7); MCHC 31.5 g/dl (32.0-35.9); MEAN CELL VOLUME 65.6 fl (80-96); MEAN PLT VOLUME 8.2 fl (7.5-11.1); MONO % 7.6 % (3.8-10.2); PLATELET COUNT 302 K/MM3 (134-434); RBC 4.57 M/mm3 (4.00-5.60); RDW 16.2 % (11.9-15.9); WHITE BLOOD COUNT 9.2 K/mm3 (4.0-10.0)
[2017-05-22 08:20] LABS: ALBUMIN 2.8 g/dl (3.4-5.0); ANION GAP 7 (8-16); BILIRUBIN,TOTAL 0.3 mg/dL (0.2-1.0); BLOOD UREA NITROGEN 64 mg/dL (7-18); CALCIUM 8.4 mg/dL (8.5-10.1); CHLORIDE 107 mmol/L (98-107); CO2 27 mmol/L (21-32); CREATININE 2.5 mg/dL (0.7-1.3); GLUCOSE,RANDOM 81 mg/dL (74-106); POTASSIUM 4.8 mmol/L (3.5-5.1); SGOT/AST 16 U/L (15-37); SGPT/ALT 22 U/L (12-78); SODIUM 141 mmol/L (136-145)
[2017-05-22 08:22] LABS: ALK PHOS 77 U/L (45-117); TOT PROT 6.1 g/dl (6.4-8.2)
[2017-05-22] MEDS: ISOSORBIDE MONONITRATE 60 MG TAB.SR.24H (FP) PO SCH (10:22)
[2017-05-22] MEDS: SODIUM BICARBONATE 650 MG TABLET PO SCH ×2 (10:23→21:54)
[2017-05-22] MEDS: predniSONE 10 MG TABLET (UD) PO SCH (10:23)
[2017-05-22] MEDS: POLYETHYLENE GLYCOL 3350 119 GM BTL PO SCH (10:23)
--- NOTE | 2017-05-22 11:32 | PN ---
Progress Note (short form) - Note Progress Note: urine still light pink on CBI s/p IR perc biopsy of mass will have hematology eval for possible Amicar since persistant gross heme
--- NOTE | 2017-05-22 13:35 | PN ---
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 Presented to the ED today with report of gross hematuria with clots x 4 days with associated suprapubic pain, frequency, and urgency. Denies dysuria. Two weeks ago he was seen by his urologist for similar symptoms and was found to have a UTI. He was prescribed antibiotics but did not finish the course. Was seen four days ago by his chief accounting officer and noted to have a low Hgb and restarted on Procrit. - Current Medication List Current Medications: Active Medications Acetaminophen (Tylenol -) 650 mg PO Q6H PRN PRN Reason: FEVER Last Admin: 05/20/17 05:03 Dose: 650 mg Albuterol/Ipratropium (Duoneb -) 1 amp NEB Q4H PRN PRN Reason: SHORTNESS OF BREATH Aminocaproic Acid (Amicar -) 1,000 mg PO TID [facility] Atorvastatin Calcium (Lipitor -) 10 mg PO HS [facility] Last Admin: 05/21/17 23:09 Dose: 10 mg Isosorbide Mononitrate (Imdur -) 60 mg PO DAILY [facility] Last Admin: 05/22/17 10:22 Dose: 60 mg Metoprolol Succinate (Toprol Xl -) 100 mg PO [facility] Last Admin: 05/21/17 23:09 Dose: 100 mg Polyethylene Glycol (Miralax (For Daily Use) -) 17 gm PO DAILY [facility] Last Admin: 05/22/17 10:23 Dose: 17 gm Prednisone (Deltasone -) 10 mg PO DAILY [facility] Last Admin: 05/22/17 10:23 Dose: 10 mg Sodium Bicarbonate (Sodium Bicarbonate -) 650 mg PO BID [facility] Last Admin: 05/22/17 10:23 Dose: 650 mg - Objective Vital Signs: Vital Signs Temperature 97.5 F L 05/22/17 10:39 Pulse Rate 79 05/22/17 10:39 Respiratory Rate 20 05/22/17 10:39 Blood Pressure 121/60 05/22/17 10:39 O2 Sat by Pulse Oximetry (%) 99 05/21/17 22:00 Cardiovascular: Yes: Regular Rate and Rhythm Respiratory: Yes: Regular, CTA Bilaterally Gastrointestinal: Yes: Normal Bowel Sounds, Soft Labs: CBC, BMP 05/22/17 06:00 05/22/17 06:00 INR, PTT INR 1.12 (0.82-1.09) 05/19/17 06:00 Problem List - Problems (1) Hematuria Assessment/Plan: [facility] ABX s/p biopsy of bladder mass--path pending Code(s): R31.9 - HEMATURIA, UNSPECIFIED Qualifiers: Hematuria type: gross Qualified Code(s): R31.0 - Gross hematuria (2) UTI (urinary tract infection) Assessment/Plan: CULTURE Microbiology 05/18/17 12:46 Urine - Urine Clean Catch Urine Culture - Final NO GROWTH OBTAINED ID CONSULT Code(s): N39.0 - URINARY TRACT INFECTION, SITE NOT SPECIFIED Qualifiers: Urinary tract infection type: acute cystitis Hematuria presence: with hematuria Qualified Code(s): N30.01 - Acute cystitis with hematuria (3) Acute worsening of stage 3 chronic kidney disease Assessment/Plan: FOLLOW LABS Code(s): N18.3 - CHRONIC KIDNEY DISEASE, STAGE 3 (MODERATE) (4) COPD (chronic obstructive pulmonary disease) Assessment/Plan: NEBS Code(s): J44.9 - CHRONIC OBSTRUCTIVE PULMONARY DISEASE, UNSPECIFIED Qualifiers: COPD type: unspecified COPD Qualified Code(s): J44.9 - Chronic obstructive pulmonary disease, unspecified (5) Bladder mass Assessment/Plan: await path ONC CONSULT Code(s): N32.89 - OTHER SPECIFIED DISORDERS OF BLADDER
[2017-05-22] MEDS: AMINOCAPROIC ACID 500 MG TABLET PO SCH ×2 (17:20→21:53)
--- NOTE | 2017-05-22 18:21 | CONSULT ---
Consult Consult Specialty:: Hematology Referred by:: Urology Reason for Consultation:: Hemtaturia - use of Amicar - History of Present Illness Chief Complaint: Patient with known bladder ca, under care of urology. Recent UTI, and currently admitted for exacerbation in hematuria. Has had hematuria in the past intermittently, but as per patient never as severe as presently. Currently on CBI, with ongoing hematuria. - History Source History Provided By: Patient, Medical Record Limitations to Obtaining History: No Limitations - Past Medical History Cardio/Vascular: Yes: AFIB, CAD, CHF, HTN, Hyperlipdemia Pulmonary: Yes: Cancer (lung--s/p lobectomy), COPD Gastrointestinal: Yes: GERD Renal/: Yes: Renal Inusuff, Cancer (bladder, TCC), Hematuria, Renal Calculi - Past Surgical History Past Surgical History: Yes: Colonoscopy, Nephrectomy, Permanent Pacemaker, Thoracotomy Additional Surgical History: TURBT - Alcohol/Substance Use Hx Alcohol Use: No - Smoking History Smoking history: Former smoker Have you smoked in the past 12 months: No Aproximately how many cigarettes per day: 0 If you are a former smoker, when did you quit?: 1994 - Social History Usual Living Arrangement: With Spouse ADL: Independent 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, 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[place] History of Recent Travel: No Home Medications - Allergies Allergies/Adverse Reactions: Allergies Allergy/AdvReac Type Severity Reaction Status Date / Time Penicillins Allergy Hives, Verified 05/18/17 11:54 throat swelling Sulfa (Sulfonamide Allergy EYE Verified 05/18/17 11:54 Antibiotics) SWELLING, [Sulfa(Sulfonamide ITCHING Antibiotics)] levofloxacin [From Levaquin] AdvReac Severe Itching Verified 05/18/17 11:54 morphine AdvReac Itching Verified 05/19/17 06:29 - Home Medications Home Medications: Ambulatory Orders Isosorbide Mononitrate [Imdur] 60 mg PO DAILY 12/16/11 Metoprolol Succinate [Toprol XL -] 100 mg PO HS 08/17/12 Atorvastatin Ca [Lipitor] 10 mg PO HS 04/28/16 Sodium Bicarbonate - 650 mg PO BID 04/29/16 Polyethylene Glycol 3350 [Miralax 119 gm Btl -] 17 gm PO DAILY bottle 07/10/16 Acetaminophen [Tylenol .Regular Strength -] 650 mg PO Q6H PRN #0 tablet predniSONE [Deltasone -] 10 mg PO DAILY #21 tablet 01/29/17 Review of Systems - Review of Systems Constitutional: denies: Fever, Loss of Appetite Cardiovascular: denies: Chest Pain Genitourinary: reports: Hematuria Hematology/Lymphatic: reports: Excessive Bleeding Physical Exam Vital Signs: Vital Signs Temperature 97.7 F 05/22/17 16:54 Pulse Rate 87 05/22/17 16:54 Respiratory Rate 18 05/22/17 16:54 Blood Pressure 122/63 05/22/17 16:54 O2 Sat by Pulse Oximetry (%) 99 05/22/17 09:00 Constitutional: Yes: Thin Cardiovascular: Yes: Regular Rate and Rhythm Respiratory: Yes: CTA Bilaterally. No: SOB Gastrointestinal: Yes: Soft. No: Hepatomegaly, Palpable Mass Labs: CBC, BMP 05/22/17 06:00 05/22/17 06:00 Assessment/Plan Bladder cancer, with exacerbation in hematuria, possibly attributable to recent UTI. No contraindication to anti-fibrinolytic agent. Reasonable trial of therapy with Amicar. Marked microcytic anemia, likely attributable to underlying thalassemia, but in addition likely to have element of iron deficiency. Screen ferritin and iron - may benefit from IV iron while admitted.
[2017-05-22] MEDS: ATORVASTATIN CA 10 MG TABLET (FP) PO SCH (21:53)
[2017-05-23] MEDS: ACETAMINOPHEN 325 MG TABLET (FP) PO PRN (03:52)
[2017-05-23] MEDS: AMINOCAPROIC ACID 500 MG TABLET PO SCH ×3 (06:22→21:22)
[2017-05-23 07:59] LABS: EOS % 0.8 % (0-4.5); HEMATOCRIT 28.2 % (35.4-49); HEMOGLOBIN 8.9 GM/dL (11.7-16.9); LYMPH % 21.8 % (8-40); MCH 20.5 pg (25.7-33.7); MCHC 31.6 g/dl (32.0-35.9); MEAN CELL VOLUME 64.8 fl (80-96); MEAN PLT VOLUME 8.3 fl (7.5-11.1); MONO % 7.6 % (3.8-10.2); NEUT % 68.8 % (42.8-82.8); PLATELET COUNT 293 K/MM3 (134-434); RBC 4.34 M/mm3 (4.00-5.60); RDW 16.3 % (11.9-15.9); RETICULOCYTES 1.39 % (0.5-1.5); WHITE BLOOD COUNT 8.9 K/mm3 (4.0-10.0)
[2017-05-23] MEDS: predniSONE 10 MG TABLET (UD) PO SCH (09:15)
[2017-05-23] MEDS: SODIUM BICARBONATE 650 MG TABLET PO SCH ×2 (09:15→21:23)
[2017-05-23] MEDS: ISOSORBIDE MONONITRATE 60 MG TAB.SR.24H (FP) PO SCH (09:15)
[2017-05-23] MEDS: POLYETHYLENE GLYCOL 3350 119 GM BTL PO SCH (09:15)
--- NOTE | 2017-05-23 09:44 | PN ---
Progress Note (short form) - Note Progress Note: urine color slightly improved light pink on CBI on Amicar await path
--- NOTE | 2017-05-23 09:59 | PN ---
Progress Note, Physician Chief Complaint: Hematuria History of Present Illness: CBI running, urine light pink seen by Urology, awaiting pathology of renal iopsy started on Amicar H/H stable -CBI running pink - Current Medication List Current Medications: Active Medications Acetaminophen (Tylenol -) 650 mg PO Q6H PRN PRN Reason: FEVER Last Admin: 05/23/17 03:52 Dose: 650 mg Albuterol/Ipratropium (Duoneb -) 1 amp NEB Q4H PRN PRN Reason: SHORTNESS OF BREATH Aminocaproic Acid (Amicar -) 1,000 mg PO TID [facility] Last Admin: 05/23/17 06:22 Dose: 1,000 mg Atorvastatin Calcium (Lipitor -) 10 mg PO [facility] Last Admin: 05/22/17 21:53 Dose: 10 mg Isosorbide Mononitrate (Imdur -) 60 mg PO DAILY [facility] Last Admin: 05/23/17 09:15 Dose: 60 mg Metoprolol Succinate (Toprol Xl -) 100 mg PO [facility] Last Admin: 05/22/17 21:54 Dose: 100 mg Polyethylene Glycol (Miralax (For Daily Use) -) 17 gm PO DAILY [facility] Last Admin: 05/23/17 09:15 Dose: 17 gm Prednisone (Deltasone -) 10 mg PO DAILY [facility] Last Admin: 05/23/17 09:15 Dose: 10 mg Sodium Bicarbonate (Sodium Bicarbonate -) 650 mg PO BID [facility] Last Admin: 05/23/17 09:15 Dose: 650 mg - Objective Vital Signs: Vital Signs Temperature 97.3 F L 05/23/17 08:29 Pulse Rate 69 05/23/17 08:29 Respiratory Rate 20 05/23/17 08:29 Blood Pressure 116/58 05/23/17 08:29 O2 Sat by Pulse Oximetry (%) 97 05/22/17 21:00 Constitutional: Yes: Well Nourished, No Distress, Calm Cardiovascular: Yes: Regular Rate and Rhythm Respiratory: Yes: Regular Gastrointestinal: Yes: Normal Bowel Sounds, Soft Musculoskeletal: Yes: WNL Extremities: Yes: WNL Edema: No Peripheral Pulses WNL: Yes Neurological: Yes: Alert, Oriented Psychiatric: Yes: Alert, Oriented Labs: CBC, BMP 05/23/17 06:00 05/22/17 06:00 INR, PTT INR 1.12 (0.82-1.09) 05/19/17 06:00 Problem List - Problems (1) Hematuria Assessment/Plan: CBI -Urology on board -await pathology of renal biopsy -monitor H/H Code(s): R31.9 - HEMATURIA, UNSPECIFIED Qualifiers: Hematuria type: gross Qualified Code(s): R31.0 - Gross hematuria (2) Bladder mass Assessment/Plan: -seen by Urology -await pathology -on Amicar Code(s): N32.89 - OTHER SPECIFIED DISORDERS OF BLADDER (3) Anemia Assessment/Plan: 2/2 to blood loss -monitor H/H -normal transfusion parameters -on amicar -Iron profile pending -ferritin normal Code(s): D64.9 - ANEMIA, UNSPECIFIED Assessment/Plan see problem list
--- NOTE | 2017-05-23 11:33 | PN ---
Progress Note (short form) - Note Progress Note: Seen in follow up. No new complaints, no events noted over past 24 hours. 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 Meds reviewed. Current Medications Generic Name Dose Route Start Last Admin Trade Name Freq PRN Reason Stop Dose Admin Acetaminophen 650 mg 05/18/17 17:54 05/23/17 03:52 Tylenol - PO 650 mg Q6H PRN Administration FEVER Albuterol/Ipratropium 1 amp 05/18/17 21:06 Duoneb - NEB Q4H PRN SHORTNESS OF BREATH Aminocaproic Acid 1,000 mg 05/22/17 14:00 05/23/17 06:22 Amicar - PO 1,000 mg TID [facility] Administration Atorvastatin Calcium 10 mg 05/18/17 22:00 05/22/17 21:53 Lipitor - PO 10 mg HS [facility] Administration Isosorbide Mononitrate 60 mg 05/19/17 10:00 05/23/17 09:15 Imdur - PO 60 mg DAILY [facility] Administration Metoprolol Succinate 100 mg 05/18/17 22:00 05/22/17 21:54 Toprol Xl - PO 100 mg HS [facility] Administration Polyethylene Glycol 17 gm 05/19/17 10:00 05/23/17 09:15 Miralax (For Daily Use) - PO 17 gm DAILY [facility] Administration Prednisone 10 mg 05/19/17 10:00 05/23/17 09:15 Deltasone - PO 10 mg DAILY [facility] Administration Sodium Bicarbonate 650 mg 05/18/17 22:00 05/23/17 09:15 Sodium Bicarbonate - PO 650 mg BID [facility] Administration On exam: Last Vital Signs Temp Pulse Resp BP Pulse Ox 97.3 F L 69 20 116/58 100 05/23/17 08:29 05/23/17 08:29 05/23/17 08:29 05/23/17 08:29 05/23/17 09:00 General: In no acute distress. Extremities: No pallor, no icterus. Chest: Good air entry bilaterally, clear. Abdomen: Soft, no organomegaly, no masses. Neuro: Alert and generally oriented. CVS: Normal sinus rhythm, S1, S2, no gallop or murmur. Assessment. Bladder cancer, with exacerbation in hematuria, possibly attributable to recent UTI. Started yesterday on trial of therapy with Amicar - possible response. May increase dose if thought to be of benefit. 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 Ferritin normal - but still cannot exclude possible benefit from supplemental iron. Hold for now.
[2017-05-23] MEDS ORDERED: PT OWN MED DRAWER 7, Y5N ONE (14:37)
[2017-05-23] MEDS: ATORVASTATIN CA 10 MG TABLET (FP) PO SCH (21:23)
[2017-05-24] MEDS: AMINOCAPROIC ACID 500 MG TABLET PO SCH ×4 (05:04→21:59)
[2017-05-24 07:21] LABS: BASO % 0.9 % (0-2.0); EOS % 1.1 % (0-4.5); HEMOGLOBIN 8.9 GM/dL (11.7-16.9); LYMPH % 19.9 % (8-40); MCH 20.5 pg (25.7-33.7); MCHC 30.7 g/dl (32.0-35.9); MEAN CELL VOLUME 66.8 fl (80-96); MEAN PLT VOLUME 8.3 fl (7.5-11.1); MONO % 7.4 % (3.8-10.2); NEUT % 70.7 % (42.8-82.8); PLATELET COUNT 281 K/MM3 (134-434); RBC 4.34 M/mm3 (4.00-5.60); RDW 16.7 % (11.9-15.9); WHITE BLOOD COUNT 10.1 K/mm3 (4.0-10.0)
[2017-05-24 07:28] LABS: ADD RBC MORPHOLOGY YES
[2017-05-24 07:38] LABS: ALBUMIN 2.7 g/dl (3.4-5.0); ANION GAP 7 (8-16); BLOOD UREA NITROGEN 66 mg/dL (7-18); CALCIUM 8.7 mg/dL (8.5-10.1); CHLORIDE 107 mmol/L (98-107); CO2 29 mmol/L (21-32); CREATININE 2.4 mg/dL (0.7-1.3); GLUCOSE,RANDOM 78 mg/dL (74-106); POTASSIUM 4.8 mmol/L (3.5-5.1); SGOT/AST 18 U/L (15-37); SGPT/ALT 25 U/L (12-78); SODIUM 143 mmol/L (136-145)
[2017-05-24 07:40] LABS: ALK PHOS 72 U/L (45-117); BILIRUBIN,TOTAL 0.3 mg/dL (0.2-1.0); TOT PROT 5.9 g/dl (6.4-8.2)
[2017-05-24 09:10] LABS: OVALOCYTE 1+
[2017-05-24] MEDS: predniSONE 10 MG TABLET (UD) PO SCH (09:21)
[2017-05-24] MEDS: ISOSORBIDE MONONITRATE 60 MG TAB.SR.24H (FP) PO SCH (09:21)
[2017-05-24] MEDS: SODIUM BICARBONATE 650 MG TABLET PO SCH ×2 (09:21→21:58)
[2017-05-24] MEDS: POLYETHYLENE GLYCOL 3350 119 GM BTL PO SCH (09:21)
--- NOTE | 2017-05-24 11:11 | PN ---
Progress Note, Physician Chief Complaint: Hematuria History of Present Illness: CBI running, urine light pink seen by Urology, awaiting pathology of renal iopsy started on Amicar, responding well H/H stable -CBI running pink - Current Medication List Current Medications: Active Medications Acetaminophen (Tylenol -) 650 mg PO Q6H PRN PRN Reason: FEVER Last Admin: 05/23/17 03:52 Dose: 650 mg Aminocaproic Acid (Amicar -) 1,000 mg PO TID [facility] Last Admin: 05/24/17 05:04 Dose: 1,000 mg Atorvastatin Calcium (Lipitor -) 10 mg PO HS [facility] Last Admin: 05/23/17 21:23 Dose: 10 mg Isosorbide Mononitrate (Imdur -) 60 mg PO DAILY [facility] Last Admin: 05/24/17 09:21 Dose: 60 mg Metoprolol Succinate (Toprol Xl -) 100 mg PO [facility] Last Admin: 05/23/17 21:23 Dose: 100 mg Polyethylene Glycol (Miralax (For Daily Use) -) 17 gm PO DAILY [facility] Last Admin: 05/24/17 09:21 Dose: 17 gm Prednisone (Deltasone -) 10 mg PO DAILY [facility] Last Admin: 05/24/17 09:21 Dose: 10 mg Sodium Bicarbonate (Sodium Bicarbonate -) 650 mg PO BID [facility] Last Admin: 05/24/17 09:21 Dose: 650 mg - Objective Vital Signs: Vital Signs Temperature 98 F 05/24/17 05:00 Pulse Rate 75 05/24/17 05:00 Respiratory Rate 18 05/24/17 05:00 Blood Pressure 114/72 05/24/17 05:00 O2 Sat by Pulse Oximetry (%) 98 05/24/17 09:00 Constitutional: Yes: Well Nourished, No Distress, Calm Cardiovascular: Yes: Regular Rate and Rhythm Respiratory: Yes: Regular Gastrointestinal: Yes: Normal Bowel Sounds, Soft Musculoskeletal: Yes: WNL Extremities: Yes: WNL Edema: No Peripheral Pulses WNL: Yes Neurological: Yes: Alert, Oriented Psychiatric: Yes: Alert, Oriented Labs: CBC, BMP 05/24/17 06:30 05/24/17 06:30 INR, PTT INR 1.12 (0.82-1.09) 05/19/17 06:00 Problem List - Problems (1) Hematuria Assessment/Plan: CBI -Urology on board -await pathology of renal biopsy -monitor H/H Code(s): R31.9 - HEMATURIA, UNSPECIFIED Qualifiers: Hematuria type: gross Qualified Code(s): R31.0 - Gross hematuria (2) Bladder mass Assessment/Plan: -seen by Urology -await pathology -on Amicar Code(s): N32.89 - OTHER SPECIFIED DISORDERS OF BLADDER (3) Anemia Assessment/Plan: 2/2 to blood loss -monitor H/H -normal transfusion parameters -on amicar -Iron profile pending -ferritin normal Code(s): D64.9 - ANEMIA, UNSPECIFIED Assessment/Plan see problem list
--- NOTE | 2017-05-24 13:31 | PN ---
Progress Note (short form) - Note Progress Note: urine color slightly improved light pink on CBI on Amicar await path will have Heme increase Amicar
--- NOTE | 2017-05-24 16:47 | PN ---
Progress Note (short form) - Note Progress Note: PAtient seen and examined Still with some hematuria Last Vital Signs Temp Pulse Resp BP Pulse Ox 97.5 F L 82 18 110/51 98 05/24/17 13:42 05/24/17 13:42 05/24/17 13:42 05/24/17 13:42 05/24/17 09:00 Cor: RSR, No murmurs, No gallops Lungs: Clear to P&A Abd: Soft, Normal bowel sounds, No organomegaly Ext:No significant edema Abnormal Lab Results 05/18/17 05/24/17 05/24/17 21:34 06:30 06:30 WBC 10.1 H Hgb 8.9 L Hct 29.0 L MCV 66.8 L MCH 20.5 L MCHC 30.7 L RDW 16.7 H Anion Gap 7 L BUN 66 H Creatinine 2.4 H Total Protein 5.9 L Albumin 2.7 L Crossmatch See Detail Active Medications Generic Name Dose Route Start Last Admin Trade Name Freq PRN Reason Stop Dose Admin Acetaminophen 650 mg 05/18/17 17:54 05/23/17 03:52 Tylenol - PO 650 mg Q6H PRN Administration FEVER Aminocaproic Acid 2,000 mg 05/24/17 14:45 05/24/17 15:04 Amicar - PO 2,000 mg TID [facility] Administration Atorvastatin Calcium 10 mg 05/18/17 22:00 05/23/17 21:23 Lipitor - PO 10 mg HS [facility] Administration Isosorbide Mononitrate 60 mg 05/19/17 10:00 05/24/17 09:21 Imdur - PO 60 mg DAILY [facility] Administration Metoprolol Succinate 100 mg 05/18/17 22:00 05/23/17 21:23 Toprol Xl - PO 100 mg HS [facility] Administration Polyethylene Glycol 17 gm 05/19/17 10:00 05/24/17 09:21 Miralax (For Daily Use) - PO 17 gm DAILY [facility] Administration Prednisone 10 mg 05/19/17 10:00 05/24/17 09:21 Deltasone - PO 10 mg DAILY [facility] Administration Sodium Bicarbonate 650 mg 05/18/17 22:00 05/24/17 09:21 Sodium Bicarbonate - PO 650 mg BID B[facility]HE[facility] Administration A/P Bladder cancer, with hematuria, On amicar--increase to 2g tid Marked microcytic anemia, 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 iron deficiency = anemia of chronic disease ? CKD f/u iron studies/CBC
[2017-05-24] MEDS ORDERED: PT OWN MED DRAWER 7, Y5N ONE (21:43)
[2017-05-24] MEDS: ATORVASTATIN CA 10 MG TABLET (FP) PO SCH (21:58)
[2017-05-25 06:06] LABS: TRANSFERRIN 175 mg/dL (200-370)
[2017-05-25] MEDS: AMINOCAPROIC ACID 500 MG TABLET PO SCH ×3 (06:18→21:05)
[2017-05-25 07:32] LABS: BASO % 0.7 % (0-2.0); EOS % 0.8 % (0-4.5); HEMATOCRIT 29.2 % (35.4-49); LYMPH % 22.2 % (8-40); MCH 20.4 pg (25.7-33.7); MEAN CELL VOLUME 65.8 fl (80-96); MONO % 6.9 % (3.8-10.2); NEUT % 69.4 % (42.8-82.8); PLATELET COUNT 277 K/MM3 (134-434); RBC 4.43 M/mm3 (4.00-5.60); RDW 16.9 % (11.9-15.9)
[2017-05-25 07:57] LABS: ALBUMIN 2.7 g/dl (3.4-5.0); ANION GAP 9 (8-16); BLOOD UREA NITROGEN 77 mg/dL (7-18); CALCIUM 8.7 mg/dL (8.5-10.1); CHLORIDE 104 mmol/L (98-107); CO2 28 mmol/L (21-32); GLUCOSE,RANDOM 87 mg/dL (74-106); POTASSIUM 4.4 mmol/L (3.5-5.1); SGOT/AST 21 U/L (15-37); SGPT/ALT 30 U/L (12-78); SODIUM 141 mmol/L (136-145)
[2017-05-25 08:00] LABS: ALK PHOS 70 U/L (45-117); BILIRUBIN,TOTAL 0.3 mg/dL (0.2-1.0); CREATININE 2.2 mg/dL (0.7-1.3); TOT PROT 5.9 g/dl (6.4-8.2)
--- NOTE | 2017-05-25 08:34 | PN ---
Progress Note (short form) - Note Progress Note: urine color clear on slow CBI on Amicar await path will d/c CBI and observe
[2017-05-25] MEDS: SODIUM BICARBONATE 650 MG TABLET PO SCH ×2 (09:35→21:03)
[2017-05-25] MEDS: ISOSORBIDE MONONITRATE 60 MG TAB.SR.24H (FP) PO SCH (09:35)
[2017-05-25] MEDS: predniSONE 10 MG TABLET (UD) PO SCH (09:35)
[2017-05-25] MEDS: POLYETHYLENE GLYCOL 3350 119 GM BTL PO SCH (09:36)
--- NOTE | 2017-05-25 10:38 | PN ---
Progress Note, Physician Chief Complaint: Hematuria History of Present Illness: CBI running, urine light pink seen by Urology, awaiting pathology of renal biopsy Amicar increased, responding well H/H stable -CBI discontinued - Current Medication List Current Medications: Active Medications Acetaminophen (Tylenol -) 650 mg PO Q6H PRN PRN Reason: FEVER Last Admin: 05/23/17 03:52 Dose: 650 mg Aminocaproic Acid (Amicar -) 2,000 mg PO TID [facility] Last Admin: 05/25/17 06:18 Dose: 2,000 mg Atorvastatin Calcium (Lipitor -) 10 mg PO [facility] Last Admin: 05/24/17 21:58 Dose: 10 mg Isosorbide Mononitrate (Imdur -) 60 mg PO DAILY [facility] Last Admin: 05/25/17 09:35 Dose: 60 mg Metoprolol Succinate (Toprol Xl -) 100 mg PO [facility] Last Admin: 05/24/17 21:58 Dose: 100 mg Polyethylene Glycol (Miralax (For Daily Use) -) 17 gm PO DAILY [facility] Last Admin: 05/25/17 09:36 Dose: Not Given Prednisone (Deltasone -) 10 mg PO DAILY [facility] Last Admin: 05/25/17 09:35 Dose: 10 mg Sodium Bicarbonate (Sodium Bicarbonate -) 650 mg PO BID [facility] Last Admin: 05/25/17 09:35 Dose: 650 mg - Objective Vital Signs: Vital Signs Temperature 97.6 F 05/25/17 02:47 Pulse Rate 76 05/25/17 02:47 Respiratory Rate 18 05/25/17 02:47 Blood Pressure 124/64 05/25/17 02:47 O2 Sat by Pulse Oximetry (%) 97 05/24/17 21:00 Constitutional: Yes: Well Nourished, No Distress, Calm Cardiovascular: Yes: Regular Rate and Rhythm Respiratory: Yes: Regular Gastrointestinal: Yes: Normal Bowel Sounds, Soft Genitourinary: Yes: Valenzuela Present Musculoskeletal: Yes: WNL Extremities: Yes: WNL Edema: No Peripheral Pulses WNL: Yes Neurological: Yes: Alert, Oriented Psychiatric: Yes: Alert, Oriented Labs: CBC, BMP 05/25/17 06:00 05/25/17 06:00 INR, PTT INR 1.12 (0.82-1.09) 05/19/17 06:00 Problem List - Problems (1) Hematuria Assessment/Plan: CBI -Urology on board -await pathology of renal biopsy -monitor H/H Code(s): R31.9 - HEMATURIA, UNSPECIFIED Qualifiers: Hematuria type: gross Qualified Code(s): R31.0 - Gross hematuria (2) Bladder mass Assessment/Plan: -seen by Urology -await pathology -Amicar increased Code(s): N32.89 - OTHER SPECIFIED DISORDERS OF BLADDER (3) Anemia Assessment/Plan: 2/2 to blood loss -monitor H/H -normal transfusion parameters -on amicar -Iron profile pending -ferritin normal Code(s): D64.9 - ANEMIA, UNSPECIFIED Assessment/Plan see problem list
--- NOTE | 2017-05-25 13:20 | PN ---
Progress Note (short form) - Note Progress Note: Pt seen and examined. CBI stopped and also Valenzuela removed. As per report, urine light pink now Pt denies any complains. Cor: RSR, No murmurs, No gallops Lungs: Clear to P&A Abd: Soft, Normal bowel sounds, No organomegaly Ext:No significant edema Temp Pulse Resp BP Pulse Ox 97.7 F 76 18 136/64 99 05/25/17 10:00 05/25/17 10:00 05/25/17 10:00 05/25/17 10:00 05/25/17 09:00 CBC, BMP 05/25/17 06:00 05/25/17 06:00 Current Medications Generic Name Dose Route Start Last Admin Trade Name Freq PRN Reason Stop Dose Admin Acetaminophen 650 mg 05/18/17 17:54 05/23/17 03:52 Tylenol - PO 650 mg Q6H PRN Administration FEVER Aminocaproic Acid 2,000 mg 05/24/17 14:45 05/25/17 06:18 Amicar - PO 2,000 mg TID BATSHEVA Administration Atorvastatin Calcium 10 mg 05/18/17 22:00 05/24/17 21:58 Lipitor - PO 10 mg HS BATSHEVA Administration Isosorbide Mononitrate 60 mg 05/19/17 10:00 05/25/17 09:35 Imdur - PO 60 mg DAILY BATSHEVA Administration Metoprolol Succinate 100 mg 05/18/17 22:00 05/24/17 21:58 Toprol Xl - PO 100 mg HS BATSHEVA Administration Polyethylene Glycol 17 gm 05/19/17 10:00 05/25/17 09:36 Miralax (For Daily Use) - PO Not Given DAILY BATSHEVA Prednisone 10 mg 05/19/17 10:00 05/25/17 09:35 Deltasone - PO 10 mg DAILY BATSHEVA Administration Sodium Bicarbonate 650 mg 05/18/17 22:00 05/25/17 09:35 Sodium Bicarbonate - PO 650 mg BID BATSHEVA Administration Bladder cancer, with hematuria, On amicar- c/w 2g tid f.u noted. 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 iron deficiency = anemia of chronic disease ? CKD f/u iron studies/CBC
[2017-05-25] MEDS ORDERED: PT OWN MED DRAWER 7, Y5N ONE ×3 (14:31→20:42)
--- NOTE | 2017-05-25 17:26 | PATH ---
Surgical Pathology Report Patient Name: JAYY SPANGLER Med. Rec. #: [id number] /Age/Gender: 1925 (Age: 89) / M Account: [id number] Location: [facility] MED/SURG Taken: 05/20/2017 Received: 05/20/2017 Reported: 05/25/2017 Physicians: Heather Jackson M.D. 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 NO FLAT CARCINOMA IN SITU (CIS) IDENTIFIED. COMMENT: Immunohistochemical stains performed and interpreted at [facility] show AE1/3 and CK7 are positive. Additional immunohistochemical stains performed at [place], [place] ([id number]) and interpreted at [facility] show the tumor is positive for GATA3, uroplakin and CK20, supporting the above diagnosis. Electronically Signed Freida Castellano M.D. Gross Description Received in formalin labeled "bladder biopsy," are 4 gonzales, cylindrical portions of soft tissue ranging from 0.5-1.5 cm in length and averaging 0.1 cm in diameter. The specimens are submitted in toto in one cassette. 05/20/201705/20/2017
--- NOTE | 2017-05-25 19:27 | CON.CARD ---
Consult Consult Specialty:: Cardiology Referred by:: Dr. Goldman Reason for Consultation:: Cardiac evaluation - History of Present Illness Chief Complaint: Hematuria with bladder CA History of Present Illness: Patient is an 89 year old male well known to our service (sees Dr. 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 He has been followed closely by and is currently being managed for this. He denies chest pain, shortness of breath or palpitation. He denies paroxysmal nocturnal dyspnea or orthopnea. He denies nausea, vomiting, diarrhea or abdominal pain. He denies headache or lightheadedness. Bladder was biopsied and showed low grade urothelial carcinoma. He is also being followed by Hematology for anemia. He is an Amicar. - History Source History Provided By: Patient, Family Member, Medical Record Limitations to Obtaining History: No Limitations - Past Medical History Cardio/Vascular: Yes: AFIB, CAD, CHF, HTN, Hyperlipdemia Pulmonary: Yes: Cancer (lung--s/p lobectomy), COPD Gastrointestinal: Yes: GERD Renal/: Yes: Renal Inusuff, Cancer (bladder, TCC), Hematuria, Renal Calculi - Past Surgical History Past Surgical History: Yes: Colonoscopy, Nephrectomy, Permanent Pacemaker, Thoracotomy Additional Surgical History: TURBT - Alcohol/Substance Use Hx Alcohol Use: No - Smoking History Smoking history: Former smoker Have you smoked in the past 12 months: No Aproximately how many cigarettes per day: 0 If you are a former smoker, when did you quit?: 1994 - Social History Usual Living Arrangement: With Spouse ADL: Independent 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, 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[place] History of Recent Travel: No Home Medications - Allergies Allergies/Adverse Reactions: Allergies Allergy/AdvReac Type Severity Reaction Status Date / Time Penicillins Allergy Hives, Verified 05/18/17 11:54 throat swelling Sulfa (Sulfonamide Allergy EYE Verified 05/18/17 11:54 Antibiotics) SWELLING, [Sulfa(Sulfonamide ITCHING Antibiotics)] levofloxacin [From Levaquin] AdvReac Severe Itching Verified 05/18/17 11:54 morphine AdvReac Itching Verified 05/19/17 06:29 - Home Medications Home Medications: Ambulatory Orders Isosorbide Mononitrate [Imdur] 60 mg PO DAILY 12/16/11 Metoprolol Succinate [Toprol XL -] 100 mg PO HS 08/17/12 Atorvastatin Ca [Lipitor] 10 mg PO HS 04/28/16 Sodium Bicarbonate - 650 mg PO BID 04/29/16 Polyethylene Glycol 3350 [Miralax 119 gm Btl -] 17 gm PO DAILY bottle 07/10/16 Acetaminophen [Tylenol .Regular Strength -] 650 mg PO Q6H PRN #0 tablet predniSONE [Deltasone -] 10 mg PO DAILY #21 tablet 01/29/17 Review of Systems - Review of Systems Constitutional: denies: Chills, Fever HENT: denies: Epistaxis Cardiovascular: denies: Chest Pain, Palpitations, Shortness of Breath Respiratory: denies: Cough, Hemoptysis, Orthopnea, PND, SOB, SOB on Exertion, Wheezing Gastrointestinal: reports: Abdominal Pain. denies: Constipation, Diarrhea, Melena, Nausea, Rectal Bleeding, Vomiting Genitourinary: reports: Hematuria Neurological: denies: Dizziness, Headache, Seizure, Syncope, Weakness Vital Signs: Vital Signs Temperature 97.8 F 05/25/17 18:00 Pulse Rate 66 05/25/17 18:00 Respiratory Rate 20 05/25/17 18:00 Blood Pressure 117/62 05/25/17 18:00 O2 Sat by Pulse Oximetry (%) 99 05/25/17 09:00 Constitutional: Yes: Well Nourished Eyes: Yes: PERRL HENT: Yes: Atraumatic Neck: Yes: Supple Respiratory: Yes: CTA Bilaterally Gastrointestinal: Yes: Normal Bowel Sounds, Soft. No: Tenderness Cardiovascular: Yes: Regular Rate and Rhythm JVD: No Carotid Bruit: No PMI: Non-Displaced Heart Sounds: Yes: S1, S2. No: Gallop Murmur: Yes: Systolic Murmur, Grade 1 Edema: No - Other Data Labs, Other Data: CBC, BMP 05/25/17 06:00 05/25/17 06:00 INR, PTT INR 1.12 (0.82-1.09) 05/19/17 06:00 Laboratory Results - last 24 hr 05/23/17 05/25/17 05/25/17 06:00 06:00 06:00 WBC 11.0 H RBC 4.43 Hgb 9.0 L Hct 29.2 L MCV 65.8 L MCH 20.4 L MCHC 31.0 L RDW 16.9 H Plt Count 277 MPV 8.0 Neutrophils % 69.4 Lymphocytes % 22.2 Monocytes % 6.9 Eosinophils % 0.8 Basophils % 0.7 Sodium 141 Potassium 4.4 Chloride 104 Carbon Dioxide 28 Anion Gap 9 BUN 77 H Creatinine 2.2 H Creat Clearance w eGFR 28.32 Random Glucose 87 Calcium 8.7 Transferrin 175 L Total Bilirubin 0.3 AST 21 ALT 30 Alkaline Phosphatase 70 Total Protein 5.9 L Albumin 2.7 L AV sequential pacemaker Imaging - Results Chest X-ray: Report Reviewed (Cardiomegaly) Cat Scan: Report Reviewed (Abdominal CT) EKG: Report Reviewed Problem List - Problems (1) Hematuria Code(s): R31.9 - HEMATURIA, UNSPECIFIED Qualifiers: Hematuria type: gross Qualified Code(s): R31.0 - Gross hematuria (2) AV block Code(s): I44.30 - UNSPECIFIED ATRIOVENTRICULAR BLOCK (3) Acute on chronic systolic (congestive) heart failure Code(s): I50.23 - ACUTE ON CHRONIC SYSTOLIC (CONGESTIVE) HEART FAILURE (4) Anemia Code(s): D64.9 - ANEMIA, UNSPECIFIED (5) Aortic regurgitation Code(s): I35.1 - NONRHEUMATIC AORTIC (VALVE) INSUFFICIENCY Qualifiers: Cardiac valve disease etiology: nonrheumatic Qualified Code(s): I35.1 - Nonrheumatic aortic (valve) insufficiency (6) Bladder mass Code(s): N32.89 - OTHER SPECIFIED DISORDERS OF BLADDER (7) CAD (coronary artery disease) Code(s): I25.10 - ATHSCL HEART DISEASE OF [place] CORONARY ARTERY W/O ANG PCTRS Qualifiers: Coronary Disease-Associated Artery/Lesion type: [place] artery Associated angina: without angina (8) COPD (chronic obstructive pulmonary disease) Code(s): J44.9 - CHRONIC OBSTRUCTIVE PULMONARY DISEASE, UNSPECIFIED Qualifiers: COPD type: unspecified COPD Qualified Code(s): J44.9 - Chronic obstructive pulmonary disease, unspecified (9) Chronic kidney disease (CKD) Code(s): N18.9 - CHRONIC KIDNEY DISEASE, UNSPECIFIED (10) HTN (hypertension) Code(s): I10 - ESSENTIAL (PRIMARY) HYPERTENSION Qualifiers: Hypertension type: essential hypertension Qualified Code(s): I10 - Essential (primary) hypertension (11) History of lobectomy of lung Code(s): Z98.89 - OTHER SPECIFIED POSTPROCEDURAL STATES * DO NOT USE * (12) History of partial cystectomy Code(s): Z98.890 - OTHER SPECIFIED POSTPROCEDURAL STATES (13) History of permanent cardiac pacemaker placement Code(s): Z95.0 - PRESENCE OF CARDIAC PACEMAKER (14) Hypercholesteremia Code(s): E78.0 - PURE HYPERCHOLESTEROLEMIA * DO NOT USE * (15) Lung cancer Code(s): C34.90 - MALIGNANT NEOPLASM OF UNSP PART OF UNSP BRONCHUS OR LUNG (16) Paroxysmal atrial fibrillation Code(s): I48.0 - PAROXYSMAL ATRIAL FIBRILLATION (17) Sick sinus syndrome Code(s): I49.5 - SICK SINUS SYNDROME Assessment/Plan 1. Hematuria and bladder CA - urothelial carcinoma 2, Acute on chronic systolic LV failure and history of moderate to severe AR 3. CAD, angina 4. AV block s/p PPM 5. PAF not on anticoagulation 6. Hypertension 7. CKD 8. Anemia PLAN: 1. Follow and Hematology input 2. Continue Metoprolol and Isosorbide as tolerated 3. Continue Atorvastatin 4. Currently on Amicar Will follow with you. Thank you for consultation and follow up. Donn Batres MD
[2017-05-25] MEDS: ACETAMINOPHEN 325 MG TABLET (FP) PO PRN (21:03)
[2017-05-25] MEDS: ATORVASTATIN CA 10 MG TABLET (FP) PO SCH (21:03)
[2017-05-26] MEDS: AMINOCAPROIC ACID 500 MG TABLET PO SCH ×3 (06:18→23:09)
--- NOTE | 2017-05-26 07:34 | PN ---
Progress Note, Physician - Current Medication List Current Medications: Active Medications Acetaminophen (Tylenol -) 650 mg PO Q6H PRN PRN Reason: FEVER Last Admin: 05/25/17 21:03 Dose: 650 mg Aminocaproic Acid (Amicar -) 2,000 mg PO TID [facility] Last Admin: 05/26/17 06:18 Dose: 2,000 mg Atorvastatin Calcium (Lipitor -) 10 mg PO [facility] Last Admin: 05/25/17 21:03 Dose: 10 mg Isosorbide Mononitrate (Imdur -) 60 mg PO DAILY [facility] Last Admin: 05/25/17 09:35 Dose: 60 mg Metoprolol Succinate (Toprol Xl -) 100 mg PO [facility] Last Admin: 05/25/17 21:03 Dose: 100 mg Polyethylene Glycol (Miralax (For Daily Use) -) 17 gm PO DAILY [facility] Last Admin: 05/25/17 09:36 Dose: Not Given Prednisone (Deltasone -) 10 mg PO DAILY [facility] Last Admin: 05/25/17 09:35 Dose: 10 mg Sodium Bicarbonate (Sodium Bicarbonate -) 650 mg PO BID [facility] Last Admin: 05/25/17 21:03 Dose: 650 mg - Objective Vital Signs: Vital Signs Temperature 97.7 F 05/26/17 06:47 Pulse Rate 75 05/26/17 06:47 Respiratory Rate 20 05/26/17 06:47 Blood Pressure 107/50 05/26/17 06:47 O2 Sat by Pulse Oximetry (%) 97 05/25/17 21:08 Cardiovascular: Yes: S1, S2 Respiratory: Yes: Regular, CTA Bilaterally Gastrointestinal: Yes: Normal Bowel Sounds, Soft. No: Tenderness Genitourinary: Yes: Incontinence. No: Newman Present Labs: CBC, BMP 05/25/17 06:00 05/25/17 06:00 INR, PTT INR 1.12 (0.82-1.09) 05/19/17 06:00 Problem List - Problems (1) Hematuria Code(s): R31.9 - HEMATURIA, UNSPECIFIED Qualifiers: Hematuria type: gross Qualified Code(s): R31.0 - Gross hematuria (2) UTI (urinary tract infection) Code(s): N39.0 - URINARY TRACT INFECTION, SITE NOT SPECIFIED Qualifiers: Urinary tract infection type: acute cystitis Hematuria presence: with hematuria Qualified Code(s): N30.01 - Acute cystitis with hematuria (3) Acute worsening of stage 3 chronic kidney disease Code(s): N18.3 - CHRONIC KIDNEY DISEASE, STAGE 3 (MODERATE) (4) COPD (chronic obstructive pulmonary disease) Code(s): J44.9 - CHRONIC OBSTRUCTIVE PULMONARY DISEASE, UNSPECIFIED Qualifiers: COPD type: unspecified COPD Qualified Code(s): J44.9 - Chronic obstructive pulmonary disease, unspecified (5) Bladder mass Code(s): N32.89 - OTHER SPECIFIED DISORDERS OF BLADDER Assessment/Plan - Problems (1) Hematuria Assessment/Plan: CBI -Urology on board -await pathology of renal biopsy -monitor H/H -newman out -pt states incontinent--not urinated yet -bladder scan Code(s): R31.9 - HEMATURIA, UNSPECIFIED Qualifiers: Hematuria type: gross Qualified Code(s): R31.0 - Gross hematuria (2) Bladder mass Assessment/Plan: -seen by Urology -await pathology -Amicar increased Code(s): N32.89 - OTHER SPECIFIED DISORDERS OF BLADDER (3) Anemia Assessment/Plan: 2/2 to blood loss -monitor H/H -normal transfusion parameters -on amicar -Iron profile pending -ferritin normal -labs Code(s): D64.9 - ANEMIA, UNSPECIFIED
[2017-05-26] MEDS: predniSONE 10 MG TABLET (UD) PO SCH (09:48)
[2017-05-26] MEDS: SODIUM BICARBONATE 650 MG TABLET PO SCH ×2 (09:48→23:08)
[2017-05-26] MEDS: POLYETHYLENE GLYCOL 3350 119 GM BTL PO SCH ×2 (09:48→09:55)
[2017-05-26] MEDS: ISOSORBIDE MONONITRATE 60 MG TAB.SR.24H (FP) PO SCH (09:48)
[2017-05-26 11:15] LABS: BASO % 0.8 % (0-2.0); EOS % 1.3 % (0-4.5); HEMATOCRIT 30.5 % (35.4-49); HEMOGLOBIN 9.3 GM/dL (11.7-16.9); LYMPH % 21.7 % (8-40); MCH 20.3 pg (25.7-33.7); MCHC 30.4 g/dl (32.0-35.9); MEAN CELL VOLUME 66.7 fl (80-96); MONO % 6.6 % (3.8-10.2); NEUT % 69.6 % (42.8-82.8); PLATELET COUNT 306 K/MM3 (134-434); RBC 4.58 M/mm3 (4.00-5.60); RDW 16.9 % (11.9-15.9); WHITE BLOOD COUNT 11.7 K/mm3 (4.0-10.0)
[2017-05-26 11:46] LABS: ALBUMIN 2.9 g/dl (3.4-5.0); ANION GAP 8 (8-16); BLOOD UREA NITROGEN 68 mg/dL (7-18); CALCIUM 8.3 mg/dL (8.5-10.1); CHLORIDE 102 mmol/L (98-107); CO2 28 mmol/L (21-32); GLUCOSE,RANDOM 98 mg/dL (74-106); POTASSIUM 4.5 mmol/L (3.5-5.1); SODIUM 138 mmol/L (136-145)
[2017-05-26 11:49] LABS: ALK PHOS 73 U/L (45-117); BILIRUBIN,TOTAL 0.7 mg/dL (0.2-1.0); CREATININE 2.3 mg/dL (0.7-1.3); SGOT/AST 15 U/L (15-37); SGPT/ALT 28 U/L (12-78); TOT PROT 6.3 g/dl (6.4-8.2)
--- NOTE | 2017-05-26 12:25 | PN ---
Progress Note, Physician History of Present Illness: Recurrent hematuria with difficulty voiding. - Current Medication List Current Medications: Active Medications Acetaminophen (Tylenol -) 650 mg PO Q6H PRN PRN Reason: FEVER Last Admin: 05/25/17 21:03 Dose: 650 mg Aminocaproic Acid (Amicar -) 2,000 mg PO TID [facility] Last Admin: 05/26/17 06:18 Dose: 2,000 mg Atorvastatin Calcium (Lipitor -) 10 mg PO [facility] Last Admin: 05/25/17 21:03 Dose: 10 mg Isosorbide Mononitrate (Imdur -) 60 mg PO DAILY [facility] Last Admin: 05/26/17 09:48 Dose: 60 mg Metoprolol Succinate (Toprol Xl -) 100 mg PO [facility] Last Admin: 05/25/17 21:03 Dose: 100 mg Polyethylene Glycol (Miralax (For Daily Use) -) 17 gm PO DAILY [facility] Last Admin: 05/26/17 09:55 Dose: Not Given Prednisone (Deltasone -) 10 mg PO DAILY [facility] Last Admin: 05/26/17 09:48 Dose: 10 mg Sodium Bicarbonate (Sodium Bicarbonate -) 650 mg PO BID [facility] Last Admin: 05/26/17 09:48 Dose: 650 mg - Objective Vital Signs: Vital Signs Temperature 97.8 F 05/26/17 09:00 Pulse Rate 64 05/26/17 09:00 Respiratory Rate 20 05/26/17 09:00 Blood Pressure 113/56 05/26/17 09:00 O2 Sat by Pulse Oximetry (%) 97 05/25/17 21:08 Constitutional: Yes: No Distress, Calm, Thin Neck: Yes: Supple Cardiovascular: Yes: Regular Rate and Rhythm Respiratory: Yes: Regular, Diminished Gastrointestinal: Yes: Normal Bowel Sounds, Soft Genitourinary: Yes: Hematuria Edema: No Labs: CBC, BMP 05/26/17 11:00 05/26/17 11:00 INR, PTT INR 1.12 (0.82-1.09) 05/19/17 06:00 Problem List - Problems (1) Hematuria Code(s): R31.9 - HEMATURIA, UNSPECIFIED Qualifiers: Hematuria type: gross Qualified Code(s): R31.0 - Gross hematuria (2) AV block Code(s): I44.30 - UNSPECIFIED ATRIOVENTRICULAR BLOCK (3) CAD (coronary artery disease) Code(s): I25.10 - ATHSCL HEART DISEASE OF [place] CORONARY ARTERY W/O ANG PCTRS Qualifiers: Coronary Disease-Associated Artery/Lesion type: [place] artery Associated angina: without angina (4) Chronic kidney disease (CKD) Code(s): N18.9 - CHRONIC KIDNEY DISEASE, UNSPECIFIED (5) HTN (hypertension) Code(s): I10 - ESSENTIAL (PRIMARY) HYPERTENSION Qualifiers: Hypertension type: essential hypertension Qualified Code(s): I10 - Essential (primary) hypertension (6) History of permanent cardiac pacemaker placement Code(s): Z95.0 - PRESENCE OF CARDIAC PACEMAKER (7) Hypercholesteremia Code(s): E78.0 - PURE HYPERCHOLESTEROLEMIA * DO NOT USE * (8) Left ventricular dysfunction Code(s): I51.9 - HEART DISEASE, UNSPECIFIED (9) Sick sinus syndrome Code(s): I49.5 - SICK SINUS SYNDROME (10) Anemia Code(s): D64.9 - ANEMIA, UNSPECIFIED Qualifiers: Anemia type: other cause (11) Aortic regurgitation Code(s): I35.1 - NONRHEUMATIC AORTIC (VALVE) INSUFFICIENCY Qualifiers: Cardiac valve disease etiology: nonrheumatic Qualified Code(s): I35.1 - Nonrheumatic aortic (valve) insufficiency Assessment/Plan 1. 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 CAD, angina 4. AV block s/p PPM 5. PAF not on anticoagulation 6. Hypertension 7. CKD 8. Microcytic anemia 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 iron deficiency = anemia of chronic disease ? CKD PLAN: 1. Await cytopathology, may need reinsertion of newman given failed voiding trial 2. Continue Metoprolol 100 qhs and Imdur 60 qd as tolerated 3. Continue Atorvastatin 10 qhs 4. Currently on Amicar
[2017-05-26] MEDS ORDERED: PT OWN MED DRAWER 7, Y5N ONE ×4 (13:56→20:51)
[2017-05-26] MEDS: ATORVASTATIN CA 10 MG TABLET (FP) PO SCH (23:09)
[2017-05-27] MEDS: AMINOCAPROIC ACID 500 MG TABLET PO SCH ×3 (06:08→22:11)
[2017-05-27 07:45] LABS: BASO % 0.5 % (0-2.0); EOS % 0.9 % (0-4.5); HEMATOCRIT 26.7 % (35.4-49); HEMOGLOBIN 8.2 GM/dL (11.7-16.9); LYMPH % 16.2 % (8-40); MCH 20.5 pg (25.7-33.7); MCHC 30.6 g/dl (32.0-35.9); MEAN CELL VOLUME 66.8 fl (80-96); MEAN PLT VOLUME 8.4 fl (7.5-11.1); MONO % 7.3 % (3.8-10.2); NEUT % 75.1 % (42.8-82.8); PLATELET COUNT 226 K/MM3 (134-434); RDW 18.2 % (11.9-15.9); WHITE BLOOD COUNT 9.5 K/mm3 (4.0-10.0)
--- NOTE | 2017-05-27 07:48 | PN ---
Progress Note, Physician History of Present Illness: still with hematuria - Current Medication List Current Medications: Active Medications Acetaminophen (Tylenol -) 650 mg PO Q6H PRN PRN Reason: FEVER Last Admin: 05/25/17 21:03 Dose: 650 mg Aminocaproic Acid (Amicar -) 2,000 mg PO TID [facility] Last Admin: 05/27/17 06:08 Dose: 2,000 mg Atorvastatin Calcium (Lipitor -) 10 mg PO [facility] Last Admin: 05/26/17 23:09 Dose: 10 mg Isosorbide Mononitrate (Imdur -) 60 mg PO DAILY [facility] Last Admin: 05/26/17 09:48 Dose: 60 mg Metoprolol Succinate (Toprol Xl -) 100 mg PO [facility] Last Admin: 05/26/17 23:10 Dose: 100 mg Polyethylene Glycol (Miralax (For Daily Use) -) 17 gm PO DAILY [facility] Last Admin: 05/26/17 09:55 Dose: Not Given Prednisone (Deltasone -) 10 mg PO DAILY [facility] Last Admin: 05/26/17 09:48 Dose: 10 mg Sodium Bicarbonate (Sodium Bicarbonate -) 650 mg PO BID [facility] Last Admin: 05/26/17 23:08 Dose: 650 mg - Objective Vital Signs: Vital Signs Temperature 98 F 05/27/17 05:57 Pulse Rate 70 05/27/17 05:57 Respiratory Rate 18 05/27/17 05:57 Blood Pressure 110/55 05/27/17 05:57 O2 Sat by Pulse Oximetry (%) 100 05/26/17 22:55 Cardiovascular: Yes: Regular Rate and Rhythm Respiratory: Yes: Regular, CTA Bilaterally Gastrointestinal: Yes: Normal Bowel Sounds, Soft Genitourinary: Yes: Hematuria Labs: CBC, BMP 05/26/17 11:00 INR, PTT INR 1.12 (0.82-1.09) 05/19/17 06:00 Problem List - Problems (1) Hematuria Assessment/Plan: [facility] ABX s/p biopsy of bladder mass--path pending Code(s): R31.9 - HEMATURIA, UNSPECIFIED Qualifiers: Hematuria type: gross Qualified Code(s): R31.0 - Gross hematuria (2) UTI (urinary tract infection) Code(s): N39.0 - URINARY TRACT INFECTION, SITE NOT SPECIFIED Qualifiers: Urinary tract infection type: acute cystitis Hematuria presence: with hematuria Qualified Code(s): N30.01 - Acute cystitis with hematuria (3) Acute worsening of stage 3 chronic kidney disease Code(s): N18.3 - CHRONIC KIDNEY DISEASE, STAGE 3 (MODERATE) (4) COPD (chronic obstructive pulmonary disease) Code(s): J44.9 - CHRONIC OBSTRUCTIVE PULMONARY DISEASE, UNSPECIFIED Qualifiers: COPD type: unspecified COPD Qualified Code(s): J44.9 - Chronic obstructive pulmonary disease, unspecified (5) Bladder mass Code(s): N32.89 - OTHER SPECIFIED DISORDERS OF BLADDER Assessment/Plan - Problems (1) Hematuria Assessment/Plan: CBI -Urology on board--follow up -await pathology of renal biopsy -monitor H/H -newman out -pt states incontinent--not urinated yet -bladder scan Code(s): R31.9 - HEMATURIA, UNSPECIFIED Qualifiers: Hematuria type: gross Qualified Code(s): R31.0 - Gross hematuria (2) Bladder mass Assessment/Plan: -seen by Urology -pathology bladder ca -Amicar increased Code(s): N32.89 - OTHER SPECIFIED DISORDERS OF BLADDER (3) Anemia Assessment/Plan: 2/2 to blood loss -monitor H/H -normal transfusion parameters -on amicar -Iron profile pending -ferritin normal -labs Code(s): D64.9 - ANEMIA, UNSPECIFIED
--- NOTE | 2017-05-27 09:54 | PN ---
Progress Note (short form) - Note Progress Note: urine color pink-voiding on his own some difficulty voiding last night but better after passing clots on Amicar path shows TCC of bladder will oberve on Amicar will require surgical intervention-partial cystectomy vs radical cystectomy otherwise this will continue to recur
[2017-05-27] MEDS: SODIUM BICARBONATE 650 MG TABLET PO SCH ×2 (09:56→22:11)
[2017-05-27] MEDS: predniSONE 10 MG TABLET (UD) PO SCH (09:56)
[2017-05-27] MEDS: ISOSORBIDE MONONITRATE 60 MG TAB.SR.24H (FP) PO SCH (09:56)
[2017-05-27] MEDS: POLYETHYLENE GLYCOL 3350 119 GM BTL PO SCH (09:57)
[2017-05-27 10:30] LABS: ALBUMIN 2.6 g/dl (3.4-5.0); ALK PHOS 67 U/L (45-117); ANION GAP 8 (8-16); BILIRUBIN,TOTAL 0.4 mg/dL (0.2-1.0); BLOOD UREA NITROGEN 63 mg/dL (7-18); CALCIUM 7.6 mg/dL (8.5-10.1); CHLORIDE 103 mmol/L (98-107); CO2 25 mmol/L (21-32); CREATININE 2.2 mg/dL (0.7-1.3); GLUCOSE,RANDOM 85 mg/dL (74-106); POTASSIUM 4.5 mmol/L (3.5-5.1); SGOT/AST 14 U/L (15-37); SGPT/ALT 20 U/L (12-78); SODIUM 136 mmol/L (136-145); TOT PROT 5.5 g/dl (6.4-8.2)
--- NOTE | 2017-05-27 12:10 | PN ---
Progress Note, Physician History of Present Illness: Hematuria clearing and voiding dysfunction improved after passing clots. - Current Medication List Current Medications: Active Medications Acetaminophen (Tylenol -) 650 mg PO Q6H PRN PRN Reason: FEVER Last Admin: 05/25/17 21:03 Dose: 650 mg Aminocaproic Acid (Amicar -) 2,000 mg PO TID [facility] Last Admin: 05/27/17 06:08 Dose: 2,000 mg Atorvastatin Calcium (Lipitor -) 10 mg PO [facility] Last Admin: 05/26/17 23:09 Dose: 10 mg Isosorbide Mononitrate (Imdur -) 60 mg PO DAILY [facility] Last Admin: 05/27/17 09:56 Dose: 60 mg Metoprolol Succinate (Toprol Xl -) 100 mg PO [facility] Last Admin: 05/26/17 23:10 Dose: 100 mg Polyethylene Glycol (Miralax (For Daily Use) -) 17 gm PO DAILY [facility] Last Admin: 05/27/17 09:57 Dose: Not Given Prednisone (Deltasone -) 10 mg PO DAILY [facility] Last Admin: 05/27/17 09:56 Dose: 10 mg Sodium Bicarbonate (Sodium Bicarbonate -) 650 mg PO BID [facility] Last Admin: 05/27/17 09:56 Dose: 650 mg - Objective Vital Signs: Vital Signs Temperature 97.6 F 05/27/17 08:59 Pulse Rate 84 05/27/17 08:59 Respiratory Rate 18 05/27/17 08:59 Blood Pressure 116/58 05/27/17 08:59 O2 Sat by Pulse Oximetry (%) 99 05/27/17 09:00 Constitutional: Yes: No Distress, Calm, Thin Neck: Yes: Supple Cardiovascular: Yes: Regular Rate and Rhythm, Murmur (2/6 SM) Respiratory: Yes: Regular, CTA Bilaterally Gastrointestinal: Yes: Normal Bowel Sounds, Soft Edema: No Labs: CBC, BMP 05/27/17 06:00 05/27/17 06:45 INR, PTT INR 1.12 (0.82-1.09) 05/19/17 06:00 Problem List - Problems (1) Hematuria Code(s): R31.9 - HEMATURIA, UNSPECIFIED Qualifiers: Hematuria type: gross Qualified Code(s): R31.0 - Gross hematuria (2) AV block Code(s): I44.30 - UNSPECIFIED ATRIOVENTRICULAR BLOCK (3) CAD (coronary artery disease) Code(s): I25.10 - ATHSCL HEART DISEASE OF [place] CORONARY ARTERY W/O ANG PCTRS Qualifiers: Coronary Disease-Associated Artery/Lesion type: [place] artery Associated angina: without angina (4) Chronic kidney disease (CKD) Code(s): N18.9 - CHRONIC KIDNEY DISEASE, UNSPECIFIED (5) HTN (hypertension) Code(s): I10 - ESSENTIAL (PRIMARY) HYPERTENSION Qualifiers: Hypertension type: essential hypertension Qualified Code(s): I10 - Essential (primary) hypertension (6) History of permanent cardiac pacemaker placement Code(s): Z95.0 - PRESENCE OF CARDIAC PACEMAKER (7) Hypercholesteremia Code(s): E78.0 - PURE HYPERCHOLESTEROLEMIA * DO NOT USE * (8) Left ventricular dysfunction Code(s): I51.9 - HEART DISEASE, UNSPECIFIED (9) Sick sinus syndrome Code(s): I49.5 - SICK SINUS SYNDROME (10) Anemia Code(s): D64.9 - ANEMIA, UNSPECIFIED Qualifiers: Anemia type: other cause (11) Aortic regurgitation Code(s): I35.1 - NONRHEUMATIC AORTIC (VALVE) INSUFFICIENCY Qualifiers: Cardiac valve disease etiology: nonrheumatic Qualified Code(s): I35.1 - Nonrheumatic aortic (valve) insufficiency (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 Code(s): C67.9 - MALIGNANT NEOPLASM OF BLADDER, UNSPECIFIED (13) Mitral regurgitation Code(s): I34.0 - NONRHEUMATIC MITRAL (VALVE) INSUFFICIENCY Qualifiers: Cardiac valve disease etiology: nonrheumatic Qualified Code(s): I34.0 - Nonrheumatic mitral (valve) insufficiency (14) Pulmonary hypertension Code(s): I27.2 - OTHER SECONDARY PULMONARY HYPERTENSION * DO NOT USE * (15) Tricuspid regurgitation Code(s): I07.1 - RHEUMATIC TRICUSPID INSUFFICIENCY Qualifiers: Cardiac valve disease etiology: nonrheumatic Qualified Code(s): I36.1 - Nonrheumatic tricuspid (valve) insufficiency Assessment/Plan 07/01/2016 Echo: Mildly dilated LV with moderate decreased LV fxn, mild-mod decreased RV fxn, severe MR, TR, mod-severe AR, mod NC, RVSP 40-50 mmHg 1. 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 Chronic LV systolic dysfunction (moderate) and history of moderate to severe AR, severe MR, TR 3. CAD, angina 4. AV block s/p PPM 5. PAF not on anticoagulation 6. Hypertension 7. CKD 8. Microcytic anemia 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 iron deficiency = anemia of chronic disease ? CKD PLAN: 1. Pathology confirms TCC of bladder 2. Continue Metoprolol 100 qhs and Imdur 60 qd as tolerated 3. Continue Atorvastatin 10 qhs 4. Currently on Amicar 5. Per urology, will require surgical intervention-partial cystectomy vs radical cystectomy otherwise this will continue to recur
[2017-05-27] MEDS ORDERED: PT OWN MED DRAWER 7, Y5N ONE ×2 (13:42→21:50)
--- NOTE | 2017-05-27 16:07 | PN ---
Progress Note (short form) - Note Progress Note: Pt seen and examined. Urine much clear by the day No more newman Cor: RSR, No murmurs, No gallops Lungs: Clear to P&A Abd: Soft, Normal bowel sounds, No organomegaly Ext:No significant edema Last Vital Signs Temp Pulse Resp BP Pulse Ox 97.6 F 82 20 132/62 99 05/27/17 13:29 05/27/17 13:29 05/27/17 13:29 05/27/17 13:29 05/27/17 09:00 CBC, BMP 05/27/17 06:00 05/27/17 06:45 Current Medications Generic Name Dose Route Start Last Admin Trade Name Freq PRN Reason Stop Dose Admin Acetaminophen 650 mg 05/18/17 17:54 05/25/17 21:03 Tylenol - PO 650 mg Q6H PRN Administration FEVER Aminocaproic Acid 2,000 mg 05/24/17 14:45 05/27/17 13:44 Amicar - PO 2,000 mg TID BATSHEVA Administration Atorvastatin Calcium 10 mg 05/18/17 22:00 05/26/17 23:09 Lipitor - PO 10 mg HS BATSHEVA Administration Isosorbide Mononitrate 60 mg 05/19/17 10:00 05/27/17 09:56 Imdur - PO 60 mg DAILY B[facility]HEVA Administration Metoprolol Succinate 100 mg 05/18/17 22:00 05/26/17 23:10 Toprol Xl - PO 100 mg HS BATSHEVA Administration Polyethylene Glycol 17 gm 05/19/17 10:00 05/27/17 09:57 Miralax (For Daily Use) - PO Not Given DAILY B[facility]HEVA Prednisone 10 mg 05/19/17 10:00 05/27/17 09:56 Deltasone - PO 10 mg DAILY B[facility]HEVA Administration Sodium Bicarbonate 650 mg 05/18/17 22:00 05/27/17 09:56 Sodium Bicarbonate - PO 650 mg BID BATSHEVA Administration Bladder cancer, with hematuria, much improved On amicar- c/w 2g tid, will continue f.u noted. monitor CBC/BUN/Cr path: MIBC. follow-up noted. may also consider RT. CT with ?osseous mets ( but mentioned as stable since 06/2016), if an OP Bone scan was not done, to consider to do it. (IP/OP)
[2017-05-27] MEDS: ATORVASTATIN CA 10 MG TABLET (FP) PO SCH (22:11)
[2017-05-28] MEDS: AMINOCAPROIC ACID 500 MG TABLET PO SCH ×2 (05:45→15:27)
[2017-05-28] MEDS ORDERED: PT OWN MED DRAWER 7, Y5N ONE ×2 (05:51→15:26)
[2017-05-28 06:06] LABS: SERUM IRON SATURATION 15 % (15-55); TOTAL IRON BINDING CAPACITY 213 ug/dL (250-450); UIBC 182 ug/dL (111-343)
[2017-05-28 07:49] LABS: BASO % 0.7 % (0-2.0); EOS % 0.7 % (0-4.5); HEMATOCRIT 26.1 % (35.4-49); HEMOGLOBIN 8.1 GM/dL (11.7-16.9); LYMPH % 20.6 % (8-40); MCH 20.6 pg (25.7-33.7); MCHC 30.8 g/dl (32.0-35.9); MEAN CELL VOLUME 66.7 fl (80-96); MEAN PLT VOLUME 8.7 fl (7.5-11.1); MONO % 8.1 % (3.8-10.2); NEUT % 69.9 % (42.8-82.8); PLATELET COUNT 211 K/MM3 (134-434); RBC 3.92 M/mm3 (4.00-5.60); RDW 18.2 % (11.9-15.9)
[2017-05-28 07:58] LABS: CHLORIDE 104 mmol/L (98-107); POTASSIUM 4.4 mmol/L (3.5-5.1); SODIUM 140 mmol/L (136-145)
[2017-05-28 08:12] LABS: ALBUMIN 2.5 g/dl (3.4-5.0); ALK PHOS 65 U/L (45-117); ANION GAP 8 (8-16); BILIRUBIN,TOTAL 0.3 mg/dL (0.2-1.0); BLOOD UREA NITROGEN 59 mg/dL (7-18); CALCIUM 8.4 mg/dL (8.5-10.1); CO2 28 mmol/L (21-32); CREATININE 2.1 mg/dL (0.7-1.3); GLUCOSE,RANDOM 83 mg/dL (74-106); SGOT/AST 13 U/L (15-37); SGPT/ALT 21 U/L (12-78); TOT PROT 5.6 g/dl (6.4-8.2)
[2017-05-28] MEDS: predniSONE 10 MG TABLET (UD) PO SCH (09:26)
[2017-05-28] MEDS: SODIUM BICARBONATE 650 MG TABLET PO SCH (09:26)
[2017-05-28] MEDS: ISOSORBIDE MONONITRATE 60 MG TAB.SR.24H (FP) PO SCH (09:26)
[2017-05-28] MEDS: POLYETHYLENE GLYCOL 3350 119 GM BTL PO SCH (09:26)
--- NOTE | 2017-05-28 09:26 | DS ---
Physical Examination Vital Signs: Vital Signs Temperature 98.2 F 05/28/17 06:00 Pulse Rate 62 05/28/17 06:00 Respiratory Rate 18 05/28/17 06:00 Blood Pressure 130/57 05/28/17 06:00 O2 Sat by Pulse Oximetry (%) 98 05/27/17 21:00 Findings/Remarks: feels better wants to go home Cardiovascular: Yes: Regular Rate and Rhythm Respiratory: Yes: Regular, CTA Bilaterally Gastrointestinal: Yes: Normal Bowel Sounds, Soft. 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 Presented to the ED today with report of gross hematuria with clots x 4 days with associated suprapubic pain, frequency, and urgency. Denies dysuria. Two weeks ago he was seen by his urologist for similar symptoms and was found to have a UTI. He was prescribed antibiotics but did not finish the course. Was seen four days ago by his emergency vehicle operator and noted to have a low Hgb and restarted on Procrit. ER course was notable for: (1) Urinary retention (2) CBI started, dark red urine with clots (3) CTAP: 3.3 x 3cm bladder wall focus Recent Travel: No PAST MEDICAL HISTORY: Hypertension Hyperlipidemia Coronary artery disease Atrial fibrillation Systolic and diastolic heart failure Severe valvular pathology COPD CKD Renal calculi Chronic right hydronephrosis Urinary retention Lung cancer Renal cancer Bladder cancer PAST SURGICAL HISTORY: Permanent pacemaker Lung lobectomy x 10 years Left nephrouretectomy TURBT Social History: Smoking: former Alcohol: no - Problems (1) Hematuria Assessment/Plan: [facility] ABX s/p biopsy of bladder mass--path pending Code(s): R31.9 - HEMATURIA, UNSPECIFIED Qualifiers: Hematuria type: gross Qualified Code(s): R31.0 - Gross hematuria (2) UTI (urinary tract infection) Code(s): N39.0 - URINARY TRACT INFECTION, SITE NOT SPECIFIED Qualifiers: Urinary tract infection type: acute cystitis Hematuria presence: with hematuria Qualified Code(s): N30.01 - Acute cystitis with hematuria (3) Acute worsening of stage 3 chronic kidney disease Code(s): N18.3 - CHRONIC KIDNEY DISEASE, STAGE 3 (MODERATE) (4) COPD (chronic obstructive pulmonary disease) Code(s): J44.9 - CHRONIC OBSTRUCTIVE PULMONARY DISEASE, UNSPECIFIED Qualifiers: COPD type: unspecified COPD Qualified Code(s): J44.9 - Chronic obstructive pulmonary disease, unspecified (5) Bladder mass Code(s): N32.89 - OTHER SPECIFIED DISORDERS OF BLADDER Assessment/Plan - Problems (1) Hematuria Assessment/Plan: CBI -Urology on board--follow up -await pathology of renal biopsy -monitor H/H -newman out -pt states incontinent--not urinated yet -bladder scan Code(s): R31.9 - HEMATURIA, UNSPECIFIED Qualifiers: Hematuria type: gross Qualified Code(s): R31.0 - Gross hematuria (2) Bladder mass Assessment/Plan: -seen by Urology -pathology bladder ca-tcc--pt does not want surgery -Amicar per hem Code(s): N32.89 - OTHER SPECIFIED DISORDERS OF BLADDER (3) Anemia Assessment/Plan: \-one unit prior to dc 2/2 to blood loss -monitor H/H -normal transfusion parameters -on amicar -Iron profile pending -ferritin normal -labs Code(s): D64.9 - ANEMIA, UNSPECIFIED Condition: Stable - Instructions - Home Medications Comprehensive Discharge Medication List: Ambulatory Orders Isosorbide Mononitrate [Imdur] 60 mg PO DAILY 12/16/11 Metoprolol Succinate [Toprol XL -] 100 mg PO HS 08/17/12 Atorvastatin Ca [Lipitor] 10 mg PO HS 04/28/16 Sodium Bicarbonate - 650 mg PO BID 04/29/16 Polyethylene Glycol 3350 [Miralax 119 gm Btl -] 17 gm PO DAILY bottle 07/10/16 Acetaminophen [Tylenol .Regular Strength -] 650 mg PO Q6H PRN #0 tablet predniSONE [Deltasone -] 10 mg PO DAILY #21 tablet 01/29/17
--- NOTE | 2017-05-28 09:41 | PN ---
Progress Note (short form) - Note Progress Note: Pt seen and examined. Urine, light pink, no further voiding difficulty Cor: RSR, No murmurs, No gallops Lungs: Clear to P&A Abd: Soft, Normal bowel sounds, No organomegaly Ext:No significant edema Last Vital Signs Temp Pulse Resp BP Pulse Ox 97.8 F 81 18 135/65 98 05/28/17 09:31 05/28/17 09:31 05/28/17 09:31 05/28/17 09:31 05/27/17 21:00 CBC, BMP 05/28/17 06:12 05/28/17 06:12 Current Medications Generic Name Dose Route Start Last Admin Trade Name Freq PRN Reason Stop Dose Admin Acetaminophen 650 mg 05/18/17 17:54 05/25/17 21:03 Tylenol - PO 650 mg Q6H PRN Administration FEVER Aminocaproic Acid 2,000 mg 05/24/17 14:45 05/28/17 05:45 Amicar - PO 2,000 mg TID BATSHEVA Administration Atorvastatin Calcium 10 mg 05/18/17 22:00 05/27/17 22:11 Lipitor - PO 10 mg HS BATHSEVA Administration Isosorbide Mononitrate 60 mg 05/19/17 10:00 05/28/17 09:26 Imdur - PO 60 mg DAILY BATSHEVA Administration Metoprolol Succinate 100 mg 05/18/17 22:00 05/27/17 22:11 Toprol Xl - PO 100 mg HS BATSHEVA Administration Polyethylene Glycol 17 gm 05/19/17 10:00 05/28/17 09:26 Miralax (For Daily Use) - PO Not Given DAILY BATSHEVA Prednisone 10 mg 05/19/17 10:00 05/28/17 09:26 Deltasone - PO 10 mg DAILY B[facility]HE[facility] Administration Sodium Bicarbonate 650 mg 05/18/17 22:00 05/28/17 09:26 Sodium Bicarbonate - PO 650 mg BID BATSHEVA Administration Hematuria resolving, still light pink in color d/w , will decrease Amicar to 1000mg bid and to be discharged on it PRBC prior to d/c today d/w pt, aware Exophytic bladder mass path;MIBC for OP f/u. CT scan was also discussed with , for OP Bone scan and further treatment to be decided upon. He will f/u in their office.
--- NOTE | 2017-05-28 10:01 | PN ---
Progress Note, Physician History of Present Illness: Hematuria clearing and voiding dysfunction resolved after passing clots. - Current Medication List Current Medications: Active Medications Acetaminophen (Tylenol -) 650 mg PO Q6H PRN PRN Reason: FEVER Last Admin: 05/25/17 21:03 Dose: 650 mg Aminocaproic Acid (Amicar -) 2,000 mg PO TID [facility] Last Admin: 05/28/17 05:45 Dose: 2,000 mg Atorvastatin Calcium (Lipitor -) 10 mg PO [facility] Last Admin: 05/27/17 22:11 Dose: 10 mg Isosorbide Mononitrate (Imdur -) 60 mg PO DAILY [facility] Last Admin: 05/28/17 09:26 Dose: 60 mg Metoprolol Succinate (Toprol Xl -) 100 mg PO [facility] Last Admin: 05/27/17 22:11 Dose: 100 mg Polyethylene Glycol (Miralax (For Daily Use) -) 17 gm PO DAILY [facility] Last Admin: 05/28/17 09:26 Dose: Not Given Prednisone (Deltasone -) 10 mg PO DAILY [facility] Last Admin: 05/28/17 09:26 Dose: 10 mg Sodium Bicarbonate (Sodium Bicarbonate -) 650 mg PO BID [facility] Last Admin: 05/28/17 09:26 Dose: 650 mg - Objective Vital Signs: Vital Signs Temperature 97.8 F 05/28/17 09:31 Pulse Rate 81 05/28/17 09:31 Respiratory Rate 18 05/28/17 09:31 Blood Pressure 135/65 05/28/17 09:31 O2 Sat by Pulse Oximetry (%) 98 05/27/17 21:00 Constitutional: Yes: No Distress, Calm, Thin Neck: Yes: Supple Cardiovascular: Yes: Regular Rate and Rhythm Respiratory: Yes: Regular, CTA Bilaterally Gastrointestinal: Yes: Normal Bowel Sounds, Soft Edema: No Labs: CBC, BMP 05/28/17 06:12 05/28/17 06:12 INR, PTT INR 1.12 (0.82-1.09) 05/19/17 06:00 Problem List - Problems (1) Hematuria Code(s): R31.9 - HEMATURIA, UNSPECIFIED Qualifiers: Hematuria type: gross Qualified Code(s): R31.0 - Gross hematuria (2) AV block Code(s): I44.30 - UNSPECIFIED ATRIOVENTRICULAR BLOCK (3) CAD (coronary artery disease) Code(s): I25.10 - ATHSCL HEART DISEASE OF [place] CORONARY ARTERY W/O ANG PCTRS Qualifiers: Coronary Disease-Associated Artery/Lesion type: [place] artery Associated angina: without angina (4) Chronic kidney disease (CKD) Code(s): N18.9 - CHRONIC KIDNEY DISEASE, UNSPECIFIED (5) HTN (hypertension) Code(s): I10 - ESSENTIAL (PRIMARY) HYPERTENSION Qualifiers: Hypertension type: essential hypertension Qualified Code(s): I10 - Essential (primary) hypertension (6) History of permanent cardiac pacemaker placement Code(s): Z95.0 - PRESENCE OF CARDIAC PACEMAKER (7) Hypercholesteremia Code(s): E78.0 - PURE HYPERCHOLESTEROLEMIA * DO NOT USE * (8) Left ventricular dysfunction Code(s): I51.9 - HEART DISEASE, UNSPECIFIED (9) Sick sinus syndrome Code(s): I49.5 - SICK SINUS SYNDROME (10) Anemia Code(s): D64.9 - ANEMIA, UNSPECIFIED Qualifiers: Anemia type: other cause (11) Aortic regurgitation Code(s): I35.1 - NONRHEUMATIC AORTIC (VALVE) INSUFFICIENCY Qualifiers: Cardiac valve disease etiology: nonrheumatic Qualified Code(s): I35.1 - Nonrheumatic aortic (valve) insufficiency (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 Code(s): C67.9 - MALIGNANT NEOPLASM OF BLADDER, UNSPECIFIED (13) Mitral regurgitation Code(s): I34.0 - NONRHEUMATIC MITRAL (VALVE) INSUFFICIENCY Qualifiers: Cardiac valve disease etiology: nonrheumatic Qualified Code(s): I34.0 - Nonrheumatic mitral (valve) insufficiency (14) Pulmonary hypertension Code(s): I27.2 - OTHER SECONDARY PULMONARY HYPERTENSION * DO NOT USE * (15) Tricuspid regurgitation Code(s): I07.1 - RHEUMATIC TRICUSPID INSUFFICIENCY Qualifiers: Cardiac valve disease etiology: nonrheumatic Qualified Code(s): I36.1 - Nonrheumatic tricuspid (valve) insufficiency Assessment/Plan 07/01/2016 Echo: Mildly dilated LV with moderate decreased LV fxn, mild-mod decreased RV fxn, severe MR, TR, mod-severe AR, mod RI, RVSP 40-50 mmHg 1. 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 Chronic LV systolic dysfunction (moderate) and history of moderate to severe AR, severe MR, TR 3. CAD, angina 4. AV block s/p PPM 5. PAF not on anticoagulation 6. Hypertension 7. CKD 8. Microcytic anemia 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 iron deficiency = anemia of chronic disease ? CKD PLAN: 1. Pathology confirms TCC of bladder 2. Continue Metoprolol 100 qhs and Imdur 60 qd as tolerated 3. Continue Atorvastatin 10 qhs 4. Currently on Amicar 5. Per urology, will require surgical intervention-partial cystectomy vs radical cystectomy otherwise this will continue to recur
[2017-05-28 17:58] VITALS: BP 115/60; PULSE 73; TEMP 98
== END 2017-05-28 18:30 | disposition home or self-care (01) | DRG 669 ==
LOC: JER 11:38 → JERBED 16:48 → OBSVTOIN 19:24 → J7W 23:56
PROVIDERS: ADMIT Internal Medicine; ATTEND Family Medicine
PROC: 0TBB3ZX Excision of Bladder, Percutaneous Approach, Diagnostic (ICD-10-PCS; principal; 2017-05-20)
PROC: 30233N1 Transfusion of Nonautologous Red Blood Cells into Peripheral Vein, Percutaneous Approach (ICD-10-PCS; 2017-05-20)
DX: C67.9 Malignant neoplasm of bladder, unspecified (principal); I13.0 Hypertensive heart and chronic kidney disease with heart failure and stage 1 through stage 4 chronic kidney disease, or unspecified chronic kidney disease; I50.42 Chronic combined systolic (congestive) and diastolic (congestive) heart failure; N39.0 Urinary tract infection, site not specified; R31.0 Gross hematuria; I25.119 Atherosclerotic heart disease of native coronary artery with unspecified angina pectoris; I48.0 Paroxysmal atrial fibrillation; D50.9 Iron deficiency anemia, unspecified; I35.1 Nonrheumatic aortic (valve) insufficiency; I34.0 Nonrheumatic mitral (valve) insufficiency; I36.1 Nonrheumatic tricuspid (valve) insufficiency; E78.5 Hyperlipidemia, unspecified; I44.30 Unspecified atrioventricular block; Z95.0 Presence of cardiac pacemaker; I27.20 Pulmonary hypertension, unspecified; N18.3 Chronic kidney disease, stage 3 (moderate); J44.9 Chronic obstructive pulmonary disease, unspecified; Z87.891 Personal history of nicotine dependence; N13.9 Obstructive and reflux uropathy, unspecified
CPT/HCPCS: 36415; 36430; 50200; 71046-TC-FY; 74176-TC; 76856-TC; 76942-TC; 80053; 81003; 81015; 82728; 82784; 83036; 83540; 83550; 83735; 84100; 84155; 84165; 84466; 85025; 85044; 85610; 85730; 86334; 86850; 86900; 86901; 86922; 87086; 88305-TC; 88341-TC; 93005; 93010; 97116-GP; 97161-GP; 99285-25; G0378; P9058

== ENCOUNTER 2017-05-30 03:16 | Emergency (ER) | payer BC ==
[2017-05-30 03:28] VITALS: BP 155/70; PULSE 72; TEMP 97.4; BMI 20.7
--- NOTE | 2017-05-30 04:41 | PDOC ---
History of Present Illness - General History Source: Patient, Family Exam Limitations: No Limitations - History of Present Illness Initial Comments: 05/30/17 05:02 The patient is a 89 year old male, accompanied by son, with a significant past medical history of hypertension, hyperlipidemia, COPD, kidney stones, lung cancer, kidney cancer, bladder cancer, who presents to the emergency department with, approx. one day of hematuria and suprapubic discomfort. The patient reports that he was recently admitted here at [place] ED on May 18 for the same complaint of hematuria and discharged home on May 28. The patient reports that this evening the hematuria and suprapubic discomfort returned. The patient reports he has been unable to receive his prescribed Amicar medication from the pharmacy due to insurance issues. He denies any recent fevers, chills, headache or dizziness. He denies any recent nausea, vomit, diarrhea or constipation. He denies any recent chest pain or shortness of breath. Allergies: See nursing notes. Primary Care Physician: Dr. Guillory Urologist: Dr. Dc <Reese Oliva - Last Filed: 05/30/17 05:43> <Ana Paula Roque - Last Filed: 05/30/17 19:48> - General Chief Complaint: Hematuria Stated Complaint: BLOOD IN URINE Time Seen by Provider: 05/30/17 03:24 Past History <Reese Oliva - Last Filed: 05/30/17 05:43> - Past Medical History Anemia: No Asthma: No Cancer: Yes (lung ca, bladder ca) Cardiac Disorders: No CVA: No COPD: No CHF: No Dementia: No Diabetes: No GI Disorders: Yes (GERD, SCHATZKI'S RING, COLON POLYP, GASTRIC INTESTINAL METAPLASIA) Disorders: Yes (bladder tumor, polyps, BPH) HTN: Yes Hypercholesterolemia: Yes Liver Disease: No Seizures: No Thyroid Disease: No - Surgical History Abdominal Surgery: Yes (LEFT NEPHRECTOMY) Appendectomy: No Cardiac Surgery: Yes (PPM) Cholecystectomy: No Lung Surgery: Yes (left lobectomy) Neurologic Surgery: No - Suicide/Smoking/Psychosocial Hx Smoking Status: No Smoking History: Never smoked Years of Tobacco Use: 0 Have you smoked in the past 12 months: No Number of Cigarettes Smoked Daily: 0 If you are a former smoker, when did you quit?: 1995 Cigars Per Day: 0 Information on smoking cessation initiated: No Hx Alcohol Use: No Drug/Substance Use Hx: No Substance Use Type: None Hx Substance Use Treatment: No <Ana Paula Roque - Last Filed: 05/30/17 19:48> - Past Medical History Allergies/Adverse Reactions: Allergies Allergy/AdvReac Type Severity Reaction Status Date / Time Penicillins Allergy Hives, Verified 05/30/17 03:27 throat swelling Sulfa (Sulfonamide Allergy EYE Verified 05/30/17 03:27 Antibiotics) SWELLING, [Sulfa(Sulfonamide ITCHING Antibiotics)] levofloxacin [From Levaquin] AdvReac Severe Itching Verified 05/30/17 03:27 morphine AdvReac Itching Verified 05/30/17 03:27 Home Medications: Ambulatory Orders Isosorbide Mononitrate [Imdur] 60 mg PO DAILY 12/16/11 Metoprolol Succinate [Toprol XL -] 100 mg PO HS 08/17/12 Atorvastatin Ca [Lipitor] 10 mg PO HS 04/28/16 Sodium Bicarbonate - 650 mg PO BID 04/29/16 Polyethylene Glycol 3350 [Miralax 119 gm Btl -] 17 gm PO DAILY bottle 07/10/16 Acetaminophen [Tylenol .Regular Strength -] 650 mg PO Q6H PRN #0 tablet predniSONE [Deltasone -] 10 mg PO DAILY #21 tablet 01/29/17 Aminocaproic Acid [Amicar -] 1,000 mg PO BID #60 tablet 05/28/17 Review of Systems - Review of Systems Comments:: 05/30/17 05:04 GENERAL/CONSTITUTIONAL: No fever or chills. No weakness. HEAD, EYES, EARS, NOSE AND THROAT: No change in vision. No ear pain or discharge. No sore throat. CARDIOVASCULAR: No chest pain or shortness of breath. RESPIRATORY: No cough, wheezing, or hemoptysis. GASTROINTESTINAL: +Suprapubic discomfort. No nausea, vomiting, diarrhea or constipation. GENITOURINARY: +Dysuria. +Hematuria. MUSCULOSKELETAL: No joint or muscle swelling or pain. No neck or back pain. SKIN: No rash NEUROLOGIC: No headache, vertigo, loss of consciousness, or change in strength/ sensation. ENDOCRINE: No increased thirst. No abnormal weight change. HEMATOLOGIC/LYMPHATIC: No anemia, easy bleeding, or history of blood clots. ALLERGIC/IMMUNOLOGIC: No hives or skin allergy. <Reese Oliva - Last Filed: 05/30/17 05:43> *Physical Exam - Vital Signs Last Vital Signs Temp Pulse Resp BP Pulse Ox 97.4 F L 72 20 155/70 100 05/30/17 03:27 05/30/17 03:27 05/30/17 03:27 05/30/17 03:27 05/30/17 03:27 - Physical Exam Comments: 05/30/17 05:43 GENERAL: Afebrile. Awake, alert, and fully oriented. HEAD: No signs of trauma EYES: PERRLA, EOMI, sclera anicteric, conjunctiva clear ENT: Auricles normal inspection, hearing grossly normal, nares patent, oropharynx clear without exudates. Moist mucosa NECK: Normal ROM, supple, no lymphadenopathy, JVD, or masses LUNGS: Breath sounds equal, clear to auscultation bilaterally. No wheezes, and no crackles HEART: Regular rate and rhythm, normal S1 and S2, no murmurs, rubs or gallops ABDOMEN: +Mass/stool/fullness in the right lower abdomen and right suprapubic area. +Minimally tender RLQ and suprapubic area. Soft. No guarding, no rebound. EXTREMITIES: Normal range of motion, no edema. No clubbing or cyanosis. No cords, erythema, or tenderness NEUROLOGICAL: Cranial nerves II through XII grossly intact. Normal speech. SKIN: Warm, Dry, normal turgor, no rashes or lesions noted. <Reese Oliva - Last Filed: 05/30/17 05:43> - Vital Signs Last Vital Signs Temp Pulse Resp BP Pulse Ox 97.4 F L 72 20 155/70 100 05/30/17 03:27 05/30/17 03:27 05/30/17 03:27 05/30/17 03:27 05/30/17 03:27 <Ana Paula Roque - Last Filed: 05/30/17 19:48> Medical Decision Making - Medical Decision Making 05/30/17 05:[address] Dc at 5:00 am. Case discussed. <Reese Oliva - Last Filed: 05/30/17 05:43> - Medical Decision Making 02/18/18 19:43 Pt returns with penile bleeding from his bladder. He was admitted for the same and sent home with Amicar, as it worked to halt the bleeding. However pt was unable to fill the prescription. Medicare refused to pay for the expensive medication, so he was left with penile bleeding again. Pt's bladder was washed out with CBI here, and we have him a dose of Amicar 2g here and managed to get him a 5 day supply for 1g BID from our own hospital pharmacy. Pt is stable for discharge. He has 5 days to figure something out with medicare. <Ana Paula Roque - Last Filed: 05/30/17 19:48> *DC/Admit/Observation/Transfer - Attestations Scribe Attestion: 05/30/17 05:05 Documentation prepared by Reese Oliva, acting as medical reception specialist for Ana Paula Roque MD. <Reese Oliva - Last Filed: 05/30/17 05:43> - Discharge Dispostion Admit: No <Ana Paula Roque - Last Filed: 05/30/17 19:48> Diagnosis at time of Disposition: Hematuria - Discharge Dispostion Disposition: HOME Condition at time of disposition: Stable - Referrals Referrals: Lida Guillory MD [Primary Care Provider] - - Patient Instructions Printed Discharge Instructions: DI for Hematuria - Post Discharge Activity
[2017-05-30] MEDS ORDERED: AMINOCAPROIC ACID 500 MG TABLET PO ONE (04:50)
[2017-05-30 05:47] LABS: URINE APPEARANCE CLOUDY; URINE BILIRUBIN NEGATIVE (NEGATIVE); URINE BLOOD 2+ (NEGATIVE); URINE COLOR RED; URINE GLUCOSE (UA) 1+ (NEGATIVE); URINE KETONE NEGATIVE (NEGATIVE); URINE NITRITE NEGATIVE (NEGATIVE); URINE UROBILINOGEN NEGATIVE mg/dL (0.2-1.0)
[2017-05-30 05:50] LABS: URINE LEUK ESTERASE 1+ (NEGATIVE); URINE PROTEIN 2+ (NEGATIVE)
[2017-05-30] MEDS ORDERED: AMINOCAPROIC ACID 500 MG TABLET PO SCH (10:00)
--- NOTE | 2017-06-02 10:29 | PDOC ---
Patient Follow-up (Call Back) - Post ED Follow - Up Condition at time of discharge: Stable Disposition at time of original discharge: HOME Reason for Call Back: Abnwl. Microbiology (+ucx sensitive to macrobid and levaquin Spoke to pt and informed him of results, does Have some dysuria, no flank pain, n/v/f/c Has multiple drug allergies and macrobid contraindicated given age and renal funcion, last cr was 2.1 Told to return to ER for admission for IV abx F/u with Nixon who is on vacation)
== END 2017-05-30 06:46 | disposition home or self-care (01) ==
LOC: JER 03:16
DX: R31.9 Hematuria, unspecified (principal); I10 Essential (primary) hypertension; E78.00 Pure hypercholesterolemia, unspecified; J44.9 Chronic obstructive pulmonary disease, unspecified; Z87.442 Personal history of urinary calculi; Z85.51 Personal history of malignant neoplasm of bladder; Z85.528 Personal history of other malignant neoplasm of kidney; Z85.118 Personal history of other malignant neoplasm of bronchus and lung; Z87.19 Personal history of other diseases of the digestive system; Z95.0 Presence of cardiac pacemaker; Z90.2 Acquired absence of lung [part of]; Z90.5 Acquired absence of kidney
CPT/HCPCS: 81003; 81015; 87086; 87186; 99282-25

== ENCOUNTER 2017-06-02 11:28 | Inpatient (IN) | payer BC, OTHER ==
[2017-06-02 11:36] VITALS: BMI 20.7
--- NOTE | 2017-06-02 14:49 | PDOC ---
History of Present Illness - General Chief Complaint: Revisit, Lab Variance Stated Complaint: WEAKNESS, LAB VARIANCE (PCP SENT) Time Seen by Provider: 06/02/17 13:21 - History of Present Illness Initial Comments: 06/02/17 20:46 The patient is a 89 year old male, with a significant past medical history of HTN, HLD, COPD, kidney stones, kidney cancer, lung cancer, and bladder cancer who presents to the emergency department with revist for IV antibiotics for UTI. The patient was last seen on Sat here in the ER and found to have UTI but his sensitivities returned with a MDR organism. The patient also complains of blood clots in his urine which prescribed amicar. He denies any recent fevers, chills, headache or dizziness. He denies any recent nausea, vomit , diarrhea or constipation. He denies any recent chest pain or shortness of breath. Son also reports some increasing LE edema as he has been drinking a lot of fluids. Allergies: NKA Past surgical history: None reported. Social History: Nonsmoker. Denies EtOH use and recreational drug use. Past History - Past Medical History Allergies/Adverse Reactions: Allergies Allergy/AdvReac Type Severity Reaction Status Date / Time Penicillins Allergy Hives, Verified 06/02/17 11:36 throat swelling Sulfa (Sulfonamide Allergy EYE Verified 06/02/17 11:36 Antibiotics) SWELLING, [Sulfa(Sulfonamide ITCHING Antibiotics)] levofloxacin [From Levaquin] AdvReac Severe Itching Verified 06/02/17 11:36 morphine AdvReac Itching Verified 06/02/17 11:36 Home Medications: Ambulatory Orders Isosorbide Mononitrate [Imdur] 60 mg PO DAILY 12/16/11 Metoprolol Succinate [Toprol XL -] 100 mg PO HS 08/17/12 Atorvastatin Ca [Lipitor] 10 mg PO HS 04/28/16 Sodium Bicarbonate - 650 mg PO BID 04/29/16 Polyethylene Glycol 3350 [Miralax 119 gm Btl -] 17 gm PO DAILY bottle 07/10/16 Acetaminophen [Tylenol .Regular Strength -] 650 mg PO Q6H PRN #0 tablet predniSONE [Deltasone -] 10 mg PO DAILY #21 tablet 01/29/17 Aminocaproic Acid [Amicar -] 1,000 mg PO BID #60 tablet 05/28/17 Anemia: No Asthma: No Cancer: Yes (lung ca, bladder ca) Cardiac Disorders: No CVA: No COPD: No CHF: No Dementia: No Diabetes: No GI Disorders: Yes (GERD, SCHATZKI'S RING, COLON POLYP, GASTRIC INTESTINAL METAPLASIA) Disorders: Yes (bladder tumor, polyps, BPH) HTN: Yes Hypercholesterolemia: Yes Liver Disease: No Seizures: No Thyroid Disease: No - Surgical History Abdominal Surgery: Yes (LEFT NEPHRECTOMY) Appendectomy: No Cardiac Surgery: Yes (PPM) Cholecystectomy: No Lung Surgery: Yes (left lobectomy) Neurologic Surgery: No - Suicide/Smoking/Psychosocial Hx Smoking Status: No Smoking History: Never smoked Years of Tobacco Use: 0 Have you smoked in the past 12 months: No Number of Cigarettes Smoked Daily: 0 If you are a former smoker, when did you quit?: 1995 Cigars Per Day: 0 Hx Alcohol Use: No Drug/Substance Use Hx: No Substance Use Type: None Hx Substance Use Treatment: No Review of Systems - Review of Systems Comments:: 06/02/17 20:46 GENERAL/CONSTITUTIONAL: No fever or chills. No weakness. HEAD, EYES, EARS, NOSE AND THROAT: No change in vision. No ear pain or discharge. No sore throat. GASTROINTESTINAL: No nausea, vomiting, diarrhea or constipation. GENITOURINARY: +suprapubic abdominal pain, hematuria, dysuria. No frequency, or change in urination. CARDIOVASCULAR: No chest pain or shortness of breath. RESPIRATORY: No cough, wheezing, or hemoptysis. MUSCULOSKELETAL: No joint or muscle swelling or pain. No neck or back pain. SKIN: No rash NEUROLOGIC: No headache, vertigo, loss of consciousness, or change in strength/ sensation. ENDOCRINE: No increased thirst. No abnormal weight change. HEMATOLOGIC/LYMPHATIC: No anemia, easy bleeding, or history of blood clots. ALLERGIC/IMMUNOLOGIC: No hives or skin allergy. *Physical Exam - Vital Signs Last Vital Signs Temp Pulse Resp BP Pulse Ox 97.3 F L 91 H 18 121/57 99 06/02/17 11:33 06/02/17 11:33 06/02/17 11:33 06/02/17 11:33 06/02/17 11:33 - Physical Exam Comments: 06/02/17 20:46 GENERAL: Awake, alert, and fully oriented, in no acute distress HEAD: No signs of trauma EYES: PERRLA, EOMI, sclera anicteric, conjunctiva clear ENT: Auricles normal inspection, hearing grossly normal, nares patent, oropharynx clear without exudates. Moist mucosa NECK: Normal ROM, supple, no lymphadenopathy, JVD, or masses LUNGS: Breath sounds equal, clear to auscultation bilaterally. No wheezes, and no crackles HEART: Regular rate and rhythm, normal S1 and S2, no murmurs, rubs or gallops ABDOMEN: Soft, Suprapubic tenderness to palpation , normoactive bowel sounds. No guarding, no rebound. No masses. No CVAT EXTREMITIES: Normal range of motion, no edema. No clubbing or cyanosis. No cords , erythema, or tenderness BACK: No midline spinal tenderness in cervical/thoracic/lumbar region NEUROLOGICAL: Normal speech, cranial nerves intact, negative pronator drift, 5/ 5 strength in all 4 extremities, normal sensation to light touch in all 4 extremities, normal cerebellar exam, normal gait, normal reflexes and tone SKIN: Warm, Dry, normal turgor, no rashes or lesions noted. Heart Score/ECG Review #1 06/02/17 16:29 Twelve-lead EKG was performed and reviewed by me. AV paced rhythm, rate 67. ED Treatment Course - LABORATORY CBC & Chemistry Diagram: 06/02/17 15:10 06/02/17 15:10 Medical Decision Making - Medical Decision Making 06/02/17 16:17 89-year-old male with multiple medical problems including bladder cancer who presents the emergency department after his urine culture revealed a multidrug- resistant organism. In light of his ALLERGIES, patient needs admission for IV antibiotics. Labs are stable compared to 4 days ago, hemoglobin is in the 8s and creatinine is in the low 2s. Based on culture and sensitivities, patient ordered for vancomycin. I also ordered his evening dose of Amicar given his persistent hematuria. Case discussed with nurse practitioner Helene, who accepts pt for admission under Dr. Guillory. Dr. Dc has been consulted, we are awaiting a call back. Case discussed in detail with admitting physician including history, physical exam and ancillary studies. Admitting physician has assumed care for the patient, will follow all pending diagnostics and will complete the evaluation and treatment. *DC/Admit/Observation/Transfer Diagnosis at time of Disposition: UTI (urinary tract infection) - Discharge Dispostion Condition at time of disposition: Stable Admit: Yes - Referrals - Patient Instructions - Post Discharge Activity - Attestations Physician Attestion: 06/02/17 16:23 I, Dr. Millicent Guido MD, attest that this document has been prepared under my direction and personally reviewed by me in its entirety. I further attest, that it accurately reflects all work, treatment, procedures and medical decision -making performed by me.
[2017-06-02] MEDS ORDERED: VANCOMYCIN 1,000 MG in DEXTROSE 5%-WATER - 250 ML IVPB ONE (14:52)
[2017-06-02] MEDS ORDERED: VANCOMYCIN 1 GRAM (PRE-DOCKED) 1,000 MG/250 ML BAG IVPB ONE (15:13)
[2017-06-02 15:27] LABS: BASO % 1.2 % (0-2.0); EOS % 1.4 % (0-4.5); HEMATOCRIT 26.2 % (35.4-49); HEMOGLOBIN 8.1 GM/dL (11.7-16.9); LYMPH % 14.1 % (8-40); MCH 21.3 pg (25.7-33.7); MCHC 30.9 g/dl (32.0-35.9); MEAN CELL VOLUME 68.8 fl (80-96); MEAN PLT VOLUME 9.1 fl (7.5-11.1); MONO % 7.1 % (3.8-10.2); NEUT % 76.2 % (42.8-82.8); PLATELET COUNT 200 K/MM3 (134-434); RDW 23.7 % (11.9-15.9); WHITE BLOOD COUNT 7.7 K/mm3 (4.0-10.0)
[2017-06-02 15:41] LABS: URINE APPEARANCE SLCLOUDY; URINE BILIRUBIN NEGATIVE (NEGATIVE); URINE BLOOD 2+ (NEGATIVE); URINE COLOR RED; URINE GLUCOSE (UA) NEGATIVE (NEGATIVE); URINE KETONE NEGATIVE (NEGATIVE); URINE LEUK ESTERASE TRACE (NEGATIVE); URINE NITRITE NEGATIVE (NEGATIVE); URINE UROBILINOGEN NEGATIVE mg/dL (0.2-1.0)
[2017-06-02 15:44] LABS: INR 1.07 (0.82-1.09); PROTHROMBIN TIME (PATIENT) 12.1 SEC (9.98-11.88)
[2017-06-02 15:47] LABS: ACTIVATED PTT 28.4 SECONDS (26.9-34.4)
[2017-06-02 16:01] LABS: ALBUMIN 2.7 g/dl (3.4-5.0); ANION GAP 13 (8-16); BLOOD UREA NITROGEN 59 mg/dL (7-18); CALCIUM 8.5 mg/dL (8.5-10.1); CHLORIDE 106 mmol/L (98-107); CO2 20 mmol/L (21-32); CREATININE 2.3 mg/dL (0.7-1.3); GLUCOSE,RANDOM 78 mg/dL (74-106); MAGNESIUM 2.4 mg/dL (1.8-2.4); POTASSIUM 5.1 mmol/L (3.5-5.1); SGOT/AST 14 U/L (15-37); SGPT/ALT 13 U/L (12-78); SODIUM 139 mmol/L (136-145)
[2017-06-02 16:02] LABS: ALK PHOS 68 U/L (45-117); BILIRUBIN,TOTAL 0.5 mg/dL (0.2-1.0); TOT PROT 5.8 g/dl (6.4-8.2)
[2017-06-02 16:07] LABS: URINE PROTEIN 2+ (NEGATIVE)
[2017-06-02] MEDS ORDERED: AMINOCAPROIC ACID 500 MG TABLET PO ONE (20:00)
[2017-06-02] MEDS: SODIUM BICARBONATE 650 MG TABLET PO SCH (21:07)
[2017-06-02] MEDS: ATORVASTATIN CA 10 MG TABLET (FP) PO SCH (21:07)
[2017-06-02] MEDS: ACETAMINOPHEN 325 MG TABLET (FP) PO PRN (21:07)
[2017-06-03 08:15] LABS: BASO % 1.2 % (0-2.0); HEMATOCRIT 25.2 % (35.4-49); HEMOGLOBIN 7.8 GM/dL (11.7-16.9); MCH 21.4 pg (25.7-33.7); MCHC 31.1 g/dl (32.0-35.9); MEAN CELL VOLUME 68.9 fl (80-96); MEAN PLT VOLUME 8.9 fl (7.5-11.1); MONO % 10.9 % (3.8-10.2); NEUT % 70.9 % (42.8-82.8); PLATELET COUNT 176 K/MM3 (134-434); RBC 3.66 M/mm3 (4.00-5.60); RDW 22.2 % (11.9-15.9); WHITE BLOOD COUNT 6.5 K/mm3 (4.0-10.0)
[2017-06-03 08:43] LABS: BLOOD UREA NITROGEN 56 mg/dL (7-18); CHLORIDE 108 mmol/L (98-107); CO2 25 mmol/L (21-32); GLUCOSE,RANDOM 84 mg/dL (74-106); POTASSIUM 4.8 mmol/L (3.5-5.1); SODIUM 139 mmol/L (136-145)
[2017-06-03 08:44] LABS: ANION GAP 6 (8-16); CALCIUM 7.7 mg/dL (8.5-10.1)
[2017-06-03 08:45] LABS: CREATININE 2.6 mg/dL (0.7-1.3)
--- NOTE | 2017-06-03 10:03 | CONSULT ---
Consult - text type - Consultation Consultation Note: pt w hx of bladder tumor large anterior bladder wall mass unaccessible through cystoscopy pt previously refusing percutaneous access Hematuria now improving on and off Hct stable will follow
--- NOTE | 2017-06-03 10:57 | HOSP ---
Subjective - Review of Symptoms Events since last encounter: Hospitalist Encounter Notified by RN, that the patient had another episode of hematuria, which was concerning for the patient who requested to speak with the hospitalist. Subjective: Arrived to bedside, patient is alert, awake and oriented, hematuria noted in urinal at bedside. Patient is in no acute distress. Patient denies abdominal pain. Plan of care reinforced with patient, patient verbalized understanding. CBCD, BMP ordered for am Urology Consult pending Genitourinary: Yes: Hematuria Physical Examination Vital Signs: Vital Signs Temperature 97.4 F L 06/03/17 06:00 Pulse Rate 75 06/03/17 06:00 Respiratory Rate 20 06/03/17 06:00 Blood Pressure 119/61 06/03/17 06:00 O2 Sat by Pulse Oximetry (%) 96 06/02/17 20:08 Constitutional: Yes: No Distress, Calm, Thin Eyes: Yes: Conjunctiva Clear, EOM Intact, PERRL HENT: Yes: WNL, Atraumatic, Normocephalic Neck: Yes: WNL, Supple, Trachea Midline Cardiovascular: Yes: WNL, Regular Rate and Rhythm, S1, S2 Respiratory: Yes: WNL, Regular, CTA Bilaterally Gastrointestinal: Yes: WNL, Normal Bowel Sounds, Soft ...Rectal Exam: Yes: Deferred Renal/: Yes: Hematuria Breast(s): Yes: WNL Musculoskeletal: Yes: WNL Extremities: Yes: WNL Edema: No Peripheral Pulses WNL: Yes Integumentary: Yes: WNL Neurological: Yes: WNL, Alert, Oriented, Cran Nerves II-XII Intact ...Motor Strength: WNL Psychiatric: Yes: WNL, Alert, Oriented Labs: CBC, BMP 06/03/17 07:40 06/03/17 07:40 Laboratory Results - last 24 hr 06/02/17 06/02/17 06/02/17 15:10 15:10 15:10 WBC 7.7 RBC 3.80 L Hgb 8.1 L Hct 26.2 L MCV 68.8 L MCH 21.3 L MCHC 30.9 L RDW 23.7 H D Plt Count 200 MPV 9.1 Neutrophils % 76.2 Lymphocytes % 14.1 D Monocytes % 7.1 Eosinophils % 1.4 D Basophils % 1.2 PT with INR INR PTT (Actin FS) Sodium Potassium Chloride Carbon Dioxide Anion Gap BUN Creatinine Creat Clearance w eGFR Random Glucose Calcium Magnesium Total Bilirubin AST ALT Alkaline Phosphatase B-Natriuretic Peptide 9267.68 H Total Protein Albumin Urine Color Red Urine Appearance Slcloudy Urine pH 6.0 Ur Specific [place] 1.009 Urine Protein 2+ H Urine Glucose (UA) Negative Urine Ketones Negative Urine Blood 2+ H Urine Nitrite Negative Urine Bilirubin Negative Urine Urobilinogen Negative Ur Leukocyte Esterase Trace Urine WBC (Auto) 20 Urine RBC (Auto) 3454 Blood Type Antibody Screen 06/02/17 06/02/17 06/02/17 15:10 15:10 15:10 WBC RBC Hgb Hct MCV MCH MCHC RDW Plt Count MPV Neutrophils % Lymphocytes % Monocytes % Eosinophils % Basophils % PT with INR 12.10 H INR 1.07 PTT (Actin FS) 28.4 Sodium 139 Potassium 5.1 Chloride 106 Carbon Dioxide 20 L D Anion Gap 13 BUN 59 H Creatinine 2.3 H Creat Clearance w eGFR 26.91 Random Glucose 78 Calcium 8.5 Magnesium 2.4 Total Bilirubin 0.5 D AST 14 L ALT 13 D Alkaline Phosphatase 68 B-Natriuretic Peptide Total Protein 5.8 L Albumin 2.7 L Urine Color Urine Appearance Urine pH Ur Specific [place] Urine Protein Urine Glucose (UA) Urine Ketones Urine Blood Urine Nitrite Urine Bilirubin Urine Urobilinogen Ur Leukocyte Esterase Urine WBC (Auto) Urine RBC (Auto) Blood Type B POSITIVE Antibody Screen Negative 06/03/17 06/03/17 07:40 07:40 WBC 6.5 RBC 3.66 L Hgb 7.8 L Hct 25.2 L MCV 68.9 L MCH 21.4 L MCHC 31.1 L RDW 22.2 H Plt Count 176 MPV 8.9 Neutrophils % 70.9 Lymphocytes % 14.0 Monocytes % 10.9 H Eosinophils % 3.0 D Basophils % 1.2 PT with INR INR PTT (Actin FS) Sodium 139 Potassium 4.8 Chloride 108 H Carbon Dioxide 25 D Anion Gap 6 L BUN 56 H Creatinine 2.6 H Creat Clearance w eGFR Random Glucose 84 Calcium 7.7 L Magnesium Total Bilirubin AST ALT Alkaline Phosphatase B-Natriuretic Peptide Total Protein Albumin Urine Color Urine Appearance Urine pH Ur Specific [place] Urine Protein Urine Glucose (UA) Urine Ketones Urine Blood Urine Nitrite Urine Bilirubin Urine Urobilinogen Ur Leukocyte Esterase Urine WBC (Auto) Urine RBC (Auto) Blood Type Antibody Screen Intake & Output 02/19/18 02/20/18 02/21/18 02/22/18 23:59 23:59 23:59 23:59 Intake Total 150 100 Balance 150 100 Weight 49.924 kg Current Medications Generic Name Dose Route Start Last Admin Trade Name Freq PRN Reason Stop Dose Admin Acetaminophen 650 mg 06/02/17 20:09 06/02/17 21:07 Tylenol - PO 650 mg Q6H PRN Administration FEVER Atorvastatin Calcium 10 mg 06/02/17 22:00 06/02/17 21:07 Lipitor - PO 10 mg HS BATSHEVA Administration Isosorbide Mononitrate 60 mg 06/03/17 10:00 Imdur - PO DAILY BATSHEVA Metoprolol Succinate 100 mg 06/02/17 22:00 06/02/17 21:04 Toprol Xl - PO 100 mg HS BATSHEVA Administration Sodium Bicarbonate 650 mg 06/02/17 22:00 06/02/17 21:07 Sodium Bicarbonate - PO 650 mg BID BATSHEVA Administration
[2017-06-03] MEDS: SODIUM BICARBONATE 650 MG TABLET PO SCH ×2 (11:08→21:04)
[2017-06-03] MEDS: ISOSORBIDE MONONITRATE 60 MG TAB.SR.24H (FP) PO SCH (11:08)
--- NOTE | 2017-06-03 12:39 | PN ---
Progress Note, Physician Chief Complaint: patient complaining of frequency of urination and burning and hematuria seen by urology - Current Medication List Current Medications: Active Medications Acetaminophen (Tylenol -) 650 mg PO Q6H PRN PRN Reason: FEVER Last Admin: 06/02/17 21:07 Dose: 650 mg Atorvastatin Calcium (Lipitor -) 10 mg PO [facility] Last Admin: 06/02/17 21:07 Dose: 10 mg Isosorbide Mononitrate (Imdur -) 60 mg PO DAILY [facility] Last Admin: 06/03/17 11:08 Dose: 60 mg Metoprolol Succinate (Toprol Xl -) 100 mg PO HS [facility] Last Admin: 06/02/17 21:04 Dose: 100 mg Sodium Bicarbonate (Sodium Bicarbonate -) 650 mg PO BID [facility] Last Admin: 06/03/17 11:08 Dose: 650 mg - Objective Vital Signs: Vital Signs Temperature 97.4 F L 06/03/17 06:00 Pulse Rate 75 06/03/17 06:00 Respiratory Rate 20 06/03/17 06:00 Blood Pressure 119/61 06/03/17 06:00 O2 Sat by Pulse Oximetry (%) 96 06/02/17 20:08 Constitutional: Yes: Calm Cardiovascular: Yes: Regular Rate and Rhythm, S1, S2 Respiratory: Yes: CTA Bilaterally Gastrointestinal: Yes: Normal Bowel Sounds, Soft Edema: No Neurological: Yes: Alert, Oriented Labs: CBC, BMP 06/03/17 07:40 06/03/17 07:40 INR, PTT INR 1.07 (0.82-1.09) 06/02/17 15:10 Problem List - Problems (1) Hematuria Assessment/Plan: 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
[2017-06-03 13:51] LABS: BASO % 1.1 % (0-2.0); HEMATOCRIT 28.4 % (35.4-49); HEMOGLOBIN 8.8 GM/dL (11.7-16.9); LYMPH % 12.3 % (8-40); MCH 21.5 pg (25.7-33.7); MEAN CELL VOLUME 69.2 fl (80-96); MEAN PLT VOLUME 8.7 fl (7.5-11.1); MONO % 7.9 % (3.8-10.2); NEUT % 76.7 % (42.8-82.8); PLATELET COUNT 202 K/MM3 (134-434); RBC 4.11 M/mm3 (4.00-5.60); RDW 22.6 % (11.9-15.9); WHITE BLOOD COUNT 7.6 K/mm3 (4.0-10.0)
[2017-06-03] MEDS: ACETAMINOPHEN 325 MG TABLET (FP) PO PRN ×2 (15:36→21:04)
--- NOTE | 2017-06-03 16:09 | EKG ---
Test Reason : Blood Pressure : / mmHG Vent. Rate : 067 BPM Atrial Rate : 083 BPM P-R Int : 000 ms QRS Dur : 152 ms QT Int : 468 ms P-R-T Axes : 000 -87 085 degrees QTc Int : 494 ms AV dual-paced rhythm ABNORMAL ECG WHEN COMPARED WITH ECG OF 19-MAY-2017 10:00, VENT. RATE HAS DECREASED BY 15 BPM Confirmed by MARISSA GAUTHIER MD ([id number]) on 06/03/2017 4:08:54 PM Referred By: Confirmed By:MARISSA GAUTHIER MD
--- NOTE | 2017-06-03 16:42 | CONSULT ---
Consultation: REQUESTING PROVIDER: Dr. Reyna CONSULT REQUEST: We have been asked to medically evaluate this patient for CKD. HISTORY OF PRESENT ILLNESS: Patient is an 89 year old male with a PMHx of HTN, HLD, COPD, transitional cell carcinoma, renal cancer, lung cancer s/p lobectomy, CAD, CHF, A.Fib who was called by the hospital to return for IV antibiotics after urine cultures were found to be positive for Enterococcus Faecalis. Patient was seen on 05/30/17 for a UTI and was sent home. Patient reports hematuria with blood clot passage worsening n the last couple of days. We were consulted for patients CKD. Otherwise, patient denies chest pain, palpitations, shortness of breath, headaches, edema, fever, chills, nausea, vomiting, dizziness. PMHx: Atrial Fibrillation, CAD, CHF, HTN, HLD, GERD, COPD, Lung cancer, Transitional Cell carcinoma of the bladder, CKD, Lung cancer s/p lobectomy PSHx: Nephrectomy, Permanent pacemaker, thoracotomy, lobectomy Social: Former smoker, quit in 1994. Denies drugs and alcohol. 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 Originally from [place] REVIEW OF SYSTEMS: CONSTITUTIONAL: Absent: fever, chills, diaphoresis, generalized weakness, malaise, loss of appetite, weight change HEENT: Absent: rhinorrhea, nasal congestion, throat pain, throat swelling, difficulty swallowing, mouth swelling, ear pain, eye pain, visual changes CARDIOVASCULAR: Absent: chest pain, syncope, palpitations, irregular heart rate, lightheadedness , peripheral edema RESPIRATORY: Absent: cough, shortness of breath, dyspnea with exertion, orthopnea, wheezing, stridor, hemoptysis GASTROINTESTINAL: abdominal pain Absent: abdominal distension, nausea, vomiting, diarrhea, constipation, melena, hematochezia GENITOURINARY: hesitancy, hematuria Absent: dysuria, frequency, urgency, flank pain, genital pain MUSCULOSKELETAL: Absent: myalgia, arthralgia, joint swelling, back pain, neck pain SKIN: Absent: rash, itching, pallor HEMATOLOGIC/IMMUNOLOGIC: Absent: easy bleeding, easy bruising, lymphadenopathy, frequent infections ENDOCRINE: Absent: unexplained weight gain, unexplained weight loss, heat intolerance, cold intolerance NEUROLOGIC: Absent: headache, focal weakness or paresthesias, dizziness, unsteady gait, seizure, mental status changes, bladder or bowel incontinence PSYCHIATRIC: Absent: anxiety, depression, suicidal or homicidal ideation, hallucinations. PHYSICAL EXAMINATION Vital Signs - 24 hr 06/02/17 06/02/17 06/02/17 16:08 18:55 20:08 Temperature 98.1 F 98.1 F Pulse Rate 91 H Pulse Rate [ 78 81 Apical] Respiratory 18 18 20 Rate Blood Pressure 122/61 Blood Pressure 114/58 135/59 [Left Arm] O2 Sat by Pulse 98 97 96 Oximetry (%) 06/03/17 06/03/17 06:00 15:43 Temperature 97.4 F L 97.4 F L Pulse Rate 75 85 Pulse Rate [ Apical] Respiratory 20 20 Rate Blood Pressure 119/61 141/76 Blood Pressure [Left Arm] O2 Sat by Pulse Oximetry (%) GENERAL: Awake, alert, and fully oriented, in no acute distress. HEAD: Normal with no signs of trauma. EYES: Pupils equal, round and reactive to light, extraocular movements intact, sclera anicteric, conjunctiva clear. No lid lag. EARS, NOSE, THROAT: Oropharynx clear without exudates. Moist mucous membranes. NECK: Normal range of motion, supple without lymphadenopathy LUNGS: Breath sounds equal, clear to auscultation bilaterally. No wheezes, and no crackles. No accessory muscle use. HEART: Regular rate and rhythm, normal S1 and S2 ABDOMEN: Soft, mild suprapubic tenderness, not distended, normoactive bowel sounds, no guarding, no rebound, no masses. : Hematuria MUSCULOSKELETAL: No CVA tenderness. LOWER EXTREMITIES: No peripheral edema. NEUROLOGICAL: Cranial nerves II-XII intact. Normal speech. Normal gait. PSYCHIATRIC: Cooperative. Good eye contact. Appropriate mood and affect. SKIN: Warm, dry, normal turgor, no rashes or lesions noted. Laboratory Results - last 24 hr 06/02/17 06/02/17 06/02/17 15:10 15:10 15:10 WBC RBC Hgb Hct MCV MCH MCHC RDW Plt Count MPV Neutrophils % Lymphocytes % Monocytes % Eosinophils % Basophils % Sodium Potassium Chloride Carbon Dioxide Anion Gap BUN Creatinine Random Glucose Calcium Total Bilirubin 0.5 D Alkaline Phosphatase 68 Total Protein 5.8 L Urine Color Red Urine Appearance Slcloudy Urine pH 6.0 Ur Specific [place] 1.009 Urine Protein 2+ H Urine Glucose (UA) Negative Urine Ketones Negative Urine Blood 2+ H Urine Nitrite Negative Urine Bilirubin Negative Urine Urobilinogen Negative Ur Leukocyte Esterase Trace Urine WBC (Auto) 20 Urine RBC (Auto) 3454 Blood Type B POSITIVE Antibody Screen Negative 06/03/17 06/03/17 06/03/17 07:40 07:40 13:30 WBC 6.5 7.6 RBC 3.66 L 4.11 Hgb 7.8 L 8.8 L D Hct 25.2 L 28.4 L MCV 68.9 L 69.2 L MCH 21.4 L 21.5 L MCHC 31.1 L 31.0 L RDW 22.2 H 22.6 H Plt Count 176 202 MPV 8.9 8.7 Neutrophils % 70.9 76.7 Lymphocytes % 14.0 12.3 Monocytes % 10.9 H 7.9 Eosinophils % 3.0 D 2.0 Basophils % 1.2 1.1 Sodium 139 Potassium 4.8 Chloride 108 H Carbon Dioxide 25 D Anion Gap 6 L BUN 56 H Creatinine 2.6 H Random Glucose 84 Calcium 7.7 L Total Bilirubin Alkaline Phosphatase Total Protein Urine Color Urine Appearance Urine pH Ur Specific [place] Urine Protein Urine Glucose (UA) Urine Ketones Urine Blood Urine Nitrite Urine Bilirubin Urine Urobilinogen Ur Leukocyte Esterase Urine WBC (Auto) Urine RBC (Auto) Blood Type Antibody Screen Active Medications Generic Name Dose Route Start Last Admin Trade Name Freq PRN Reason Stop Dose Admin Acetaminophen 650 mg 06/02/17 20:09 06/03/17 15:36 Tylenol - PO 650 mg Q6H PRN Administration FEVER Atorvastatin Calcium 10 mg 06/02/17 22:00 06/02/17 21:07 Lipitor - PO 10 mg HS BATSHEVA Administration Isosorbide Mononitrate 60 mg 06/03/17 10:00 06/03/17 11:08 Imdur - PO 60 mg DAILY BATSHEVA Administration Metoprolol Succinate 100 mg 06/02/17 22:00 06/02/17 21:04 Toprol Xl - PO 100 mg HS BATSHEVA Administration Sodium Bicarbonate 650 mg 06/02/17 22:00 06/03/17 11:08 Sodium Bicarbonate - PO 650 mg BID BATSHEVA Administration IMPRESSION 1. Gross Hematuria 2. CKD 3. Transitional cell carcinoma of the bladder 4. Lung cancer s/p lobectomy 5. COPD 6. HTN 7. HLD 8. CAD 9. CHF 10. s/p Nephrectomy 11. 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 Anemia 15. History of PPM 16. UTI PLAN: -Renal function is stable and at baseline -Urology evaluation for gross hematuria -IV abx for UTI, as per ID -Continue to monitor Renal function -Continue home medications -Follow up repeat cultures -Daily BMP Dispo: We will continue to follow the patient. Thank you for this consultative opportunity. Zina Gooden [id number] Visit type - Emergency Visit Emergency Visit: Yes ED Registration Date: 06/02/17 Care time: The patient presented to the Emergency Department on the above date and was hospitalized for further evaluation of their emergent condition. - New Patient This patient is new to me today: Yes Date on this admission: 06/03/17 - Critical Care Critical Care patient: No
--- NOTE | 2017-06-03 20:09 | PN ---
Teaching Attending Note Name of Resident: Zina Gooden (Nephrology) ATTENDING PHYSICIAN STATEMENT I saw and evaluated the patient. I reviewed the resident's note and discussed the case with the resident. I agree with the resident's findings and plan as documented. Nephrology Ptis an 89 year old make with pmhx of CKD, solitary right kidney, CAD anemai, and UTI who presents to the ER with gross hematuria. He says that this has been getting worse over the last few days. He has had gross hematuria in the past. He follows with Dr Durant for CKD and does see a urologist. pmhx ckd hematuria bladder cancer pshx nephrectomy allergies pcn sulfa levaquin morphine social neg family hx denies Current Medications Generic Name Dose Route Start Last Admin Trade Name Freq PRN Reason Stop Dose Admin Acetaminophen 650 mg 06/02/17 20:09 06/03/17 15:36 Tylenol - PO 650 mg Q6H PRN Administration FEVER Atorvastatin Calcium 10 mg 06/02/17 22:00 06/02/17 21:07 Lipitor - PO 10 mg HS BATSHEVA Administration Isosorbide Mononitrate 60 mg 06/03/17 10:00 06/03/17 11:08 Imdur - PO 60 mg DAILY BATSHEVA Administration Metoprolol Succinate 100 mg 06/02/17 22:00 06/02/17 21:04 Toprol Xl - PO 100 mg HS BATSHEVA Administration Sodium Bicarbonate 650 mg 06/02/17 22:00 06/03/17 11:08 Sodium Bicarbonate - PO 650 mg BID BATSHEVA Administration Laboratory Tests 05/24/17 05/27/17 05/28/17 06:30 06:45 06:12 Hgb Plt Count Sodium Potassium BUN Creatinine 2.4 H 2.2 H 2.1 H Urine Protein Urine Blood Urine RBC (Auto) 06/02/17 06/02/17 06/03/17 15:10 15:10 07:40 Hgb 7.8 L Plt Count 176 Sodium Potassium BUN 59 H Creatinine 2.3 H Urine Protein 2+ H Urine Blood 2+ H Urine RBC (Auto) 3454 06/03/17 06/03/17 07:40 13:30 Hgb 8.8 L D Plt Count 202 Sodium 139 Potassium 4.8 BUN 56 H Creatinine 2.6 H Urine Protein Urine Blood Urine RBC (Auto) cardio s1s2 reg pulm clear GI soft ext neg jigar hematuria neuro awake and alert Impression 1. CKD 2. solitary right kidney 3. hx of bladder cancer 4. UTI 5. CHF 6. CAD 7. mod to severe AR 8. p-a-fib 9. hx PPM 10. anemia 11. s/p cysto 12. gross hematuria Plan - repeat labs in am - monitor hg and bmp - urology eval - check bladder ultrasound - follow cultures Dr Alas
[2017-06-03] MEDS: ATORVASTATIN CA 10 MG TABLET (FP) PO SCH (21:03)
[2017-06-04] MEDS ORDERED: ACETAMINOPHEN 1000 MG/100 ML VIAL (NON FORMULARY) IVPB ONE (02:08)
[2017-06-04] MEDS: ACETAMINOPHEN 325 MG TABLET (FP) PO PRN ×4 (06:24→20:53)
[2017-06-04 07:47] LABS: ALBUMIN 2.5 g/dl (3.4-5.0); BILIRUBIN,TOTAL 0.4 mg/dL (0.2-1.0); BLOOD UREA NITROGEN 69 mg/dL (7-18); CHLORIDE 104 mmol/L (98-107); POTASSIUM 4.7 mmol/L (3.5-5.1); SGOT/AST 16 U/L (15-37); SGPT/ALT 12 U/L (12-78); SODIUM 136 mmol/L (136-145)
[2017-06-04 07:48] LABS: ALK PHOS 66 U/L (45-117); ANION GAP 9 (8-16); CALCIUM 7.6 mg/dL (8.5-10.1); CO2 23 mmol/L (21-32); CREATININE 3.3 mg/dL (0.7-1.3); GLUCOSE,RANDOM 86 mg/dL (74-106); TOT PROT 5.3 g/dl (6.4-8.2)
[2017-06-04 08:07] LABS: BASO % 0.7 % (0-2.0); EOS % 0.2 % (0-4.5); HEMATOCRIT 26.8 % (35.4-49); HEMOGLOBIN 8.4 GM/dL (11.7-16.9); LYMPH % 10.5 % (8-40); MCH 21.4 pg (25.7-33.7); MCHC 31.3 g/dl (32.0-35.9); MEAN CELL VOLUME 68.2 fl (80-96); MEAN PLT VOLUME 9.1 fl (7.5-11.1); MONO % 5.7 % (3.8-10.2); NEUT % 82.9 % (42.8-82.8); PLATELET COUNT 186 K/MM3 (134-434); RBC 3.93 M/mm3 (4.00-5.60); RDW 22.5 % (11.9-15.9); WHITE BLOOD COUNT 12.2 K/mm3 (4.0-10.0)
[2017-06-04 08:13] LABS: ADD RBC MORPHOLOGY YES
[2017-06-04 08:14] LABS: ANISOCYTOSIS 3+
[2017-06-04] MEDS: ISOSORBIDE MONONITRATE 60 MG TAB.SR.24H (FP) PO SCH (10:12)
[2017-06-04] MEDS: SODIUM BICARBONATE 650 MG TABLET PO SCH ×2 (10:12→10:15)
--- NOTE | 2017-06-04 11:35 | PN ---
Progress Note, Physician Chief Complaint: newman in place hematuria - Current Medication List Current Medications: Active Medications Acetaminophen (Tylenol -) 650 mg PO Q4H PRN PRN Reason: FEVER Last Admin: 06/04/17 11:26 Dose: 650 mg Atorvastatin Calcium (Lipitor -) 10 mg PO HS [facility] Last Admin: 06/03/17 21:03 Dose: 10 mg Isosorbide Mononitrate (Imdur -) 60 mg PO DAILY [facility] Last Admin: 06/04/17 10:12 Dose: 60 mg Metoprolol Succinate (Toprol Xl -) 100 mg PO HS [facility] Last Admin: 06/03/17 21:03 Dose: 100 mg Sodium Bicarbonate (Sodium Bicarbonate -) 650 mg PO BID [facility] Last Admin: 06/04/17 10:15 Dose: Not Given - Objective Vital Signs: Vital Signs Temperature 97.9 F 06/04/17 05:23 Pulse Rate 77 06/04/17 05:23 Respiratory Rate 18 06/04/17 05:23 Blood Pressure 121/50 06/04/17 05:23 O2 Sat by Pulse Oximetry (%) 95 06/03/17 21:00 Constitutional: Yes: Calm Cardiovascular: Yes: Regular Rate and Rhythm, S1, S2 Respiratory: Yes: CTA Bilaterally Gastrointestinal: Yes: Other (suprapubic tenderness) Edema: No Labs: CBC, BMP 06/04/17 06:25 06/04/17 06:25 INR, PTT INR 1.07 (0.82-1.09) 06/02/17 15:10 Problem List - Problems (1) Hematuria Assessment/Plan: h/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 inaccesible via cystoscopy per urology note newman in place tylenol urology FU Code(s): R31.9 - HEMATURIA, UNSPECIFIED (2) CAD (coronary artery disease) Assessment/Plan: lipitor,metoprolol and imdur Code(s): I25.10 - ATHSCL HEART DISEASE OF [place] CORONARY ARTERY W/O ANG PCTRS Qualifiers: Coronary Disease-Associated Artery/Lesion type: [place] artery Associated angina: without angina (3) CKD (chronic kidney disease) stage 3, GFR 30-59 ml/min Assessment/Plan: renal consult noted renal and bladder ultrasound ordered on sodium bicarbonate Code(s): N18.3 - CHRONIC KIDNEY DISEASE, STAGE 3 (MODERATE)
--- NOTE | 2017-06-04 15:34 | CON.GU ---
Consult Consult Specialty:: Referred by:: medicine Reason for Consultation:: renal failure, gross heme. 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 It has been deemed inoperable. He represents with gross hematuria. Creatinine is also increased to 3.3. He is having generalized pain which is managed with tylenol. - History Source History Provided By: Patient, Medical Record Limitations to Obtaining History: No Limitations - Past Medical History Cardio/Vascular: Yes: AFIB, CAD, CHF, HTN, Hyperlipdemia Pulmonary: Yes: Cancer (lung--s/p lobectomy), COPD Gastrointestinal: Yes: GERD Renal/: Yes: Renal Inusuff, Cancer (bladder, TCC), Hematuria, Renal Calculi - Past Surgical History Past Surgical History: Yes: Colonoscopy, Nephrectomy, Permanent Pacemaker, Thoracotomy - Alcohol/Substance Use Hx Alcohol Use: No - Smoking History Smoking history: Never smoked Have you smoked in the past 12 months: No Aproximately how many cigarettes per day: 0 If you are a former smoker, when did you quit?: 1994 - Social History Usual Living Arrangement: With Spouse ADL: Independent 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, 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[place] History of Recent Travel: No Home Medications - Allergies Allergies/Adverse Reactions: Allergies Allergy/AdvReac Type Severity Reaction Status Date / Time Penicillins Allergy Hives, Verified 06/02/17 11:36 throat swelling Sulfa (Sulfonamide Allergy EYE Verified 06/02/17 11:36 Antibiotics) SWELLING, [Sulfa(Sulfonamide ITCHING Antibiotics)] levofloxacin [From Levaquin] AdvReac Severe Itching Verified 06/02/17 11:36 morphine AdvReac Itching Verified 06/02/17 11:36 - Home Medications Home Medications: Ambulatory Orders Isosorbide Mononitrate [Imdur] 60 mg PO DAILY 12/16/11 Metoprolol Succinate [Toprol XL -] 100 mg PO HS 08/17/12 Atorvastatin Ca [Lipitor] 10 mg PO HS 04/28/16 Sodium Bicarbonate - 650 mg PO BID 04/29/16 Polyethylene Glycol 3350 [Miralax 119 gm Btl -] 17 gm PO DAILY bottle 07/10/16 Acetaminophen [Tylenol .Regular Strength -] 650 mg PO Q6H PRN #0 tablet predniSONE [Deltasone -] 10 mg PO DAILY #21 tablet 01/29/17 Aminocaproic Acid [Amicar -] 1,000 mg PO BID #60 tablet 05/28/17 Review of Systems - Review of Systems Genitourinary: reports: Hematuria Physical Exam- Vital Signs: Vital Signs Temperature 97.6 F 06/04/17 14:12 Pulse Rate 78 06/04/17 14:12 Respiratory Rate 20 06/04/17 14:12 Blood Pressure 141/68 06/04/17 14:12 O2 Sat by Pulse Oximetry (%) 95 06/03/17 21:00 Renal/: Yes: Valenzuela Present, Hematuria. No: Bladder Distention, CVA Tenderness - Left, CVA Tenderness - Right Labs: CBC, BMP 06/04/17 06:25 06/04/17 06:25 Imaging - Results Cat Scan: Report Reviewed Problem List - Problems (1) Hematuria Assessment/Plan: continue CBI, irrigate as needed. Code(s): R31.9 - HEMATURIA, UNSPECIFIED (2) Acute worsening of stage 3 chronic kidney disease Assessment/Plan: made be related to worsening obstruction of solitary kidney. retrograde stent is not doable, will need percutaneous nephrostomy tube placement if patient agrees. Code(s): N18.3 - CHRONIC KIDNEY DISEASE, STAGE 3 (MODERATE) (3) Hydronephrosis Code(s): N13.30 - UNSPECIFIED HYDRONEPHROSIS (4) Transitional cell bladder cancer Assessment/Plan: pain management. consider hospice consultation Code(s): C67.9 - MALIGNANT NEOPLASM OF BLADDER, UNSPECIFIED
--- NOTE | 2017-06-04 16:26 | PN ---
Progress Note, Physician History of Present Illness: Pt seen and examined at bedside. He continues to have gross hematuria. He denies chest pain or shortness of breath. - Current Medication List Current Medications: Active Medications Acetaminophen (Tylenol -) 650 mg PO Q4H PRN PRN Reason: FEVER Last Admin: 06/04/17 15:19 Dose: 650 mg Atorvastatin Calcium (Lipitor -) 10 mg PO HS [facility] Last Admin: 06/03/17 21:03 Dose: 10 mg Isosorbide Mononitrate (Imdur -) 60 mg PO DAILY [facility] Last Admin: 06/04/17 10:12 Dose: 60 mg Metoprolol Succinate (Toprol Xl -) 100 mg PO HS [facility] Last Admin: 06/03/17 21:03 Dose: 100 mg Sodium Bicarbonate (Sodium Bicarbonate -) 650 mg PO BID [facility] Last Admin: 06/04/17 10:15 Dose: Not Given - Objective Vital Signs: Vital Signs Temperature 97.6 F 06/04/17 14:12 Pulse Rate 78 06/04/17 14:12 Respiratory Rate 20 06/04/17 14:12 Blood Pressure 141/68 06/04/17 14:12 O2 Sat by Pulse Oximetry (%) 95 06/03/17 21:00 Constitutional: Yes: Calm Eyes: Yes: Conjunctiva Clear HENT: Yes: Atraumatic Cardiovascular: Yes: S1, S2 Respiratory: Yes: CTA Bilaterally Gastrointestinal: Yes: Soft Genitourinary: Yes: Newman Present, Hematuria Musculoskeletal: Yes: WNL Edema: LLE: Trace, RLE: Trace Neurological: Yes: Oriented Psychiatric: Yes: Oriented Labs: CBC, BMP 06/04/17 06:25 06/04/17 06:25 INR, PTT INR 1.07 (0.82-1.09) 06/02/17 15:10 Problem List - Problems (1) CKD (chronic kidney disease) stage 3, GFR 30-59 ml/min Code(s): N18.3 - CHRONIC KIDNEY DISEASE, STAGE 3 (MODERATE) (2) Hematuria Code(s): R31.9 - HEMATURIA, UNSPECIFIED Assessment/Plan Current Medications Generic Name Dose Route Start Last Admin Trade Name Freq PRN Reason Stop Dose Admin Acetaminophen 650 mg 06/04/17 02:07 06/04/17 15:19 Tylenol - PO 650 mg Q4H PRN Administration FEVER Atorvastatin Calcium 10 mg 06/02/17 22:00 06/03/17 21:03 Lipitor - PO 10 mg HS [facility] Administration Isosorbide Mononitrate 60 mg 06/03/17 10:00 06/04/17 10:12 Imdur - PO 60 mg DAILY [facility] Administration Metoprolol Succinate 100 mg 06/02/17 22:00 06/03/17 21:03 Toprol Xl - PO 100 mg HS [facility]VA Administration Sodium Bicarbonate 650 mg 06/02/17 22:00 06/04/17 10:15 Sodium Bicarbonate - PO Not Given BID BATSHEVA Impression 1. CKD 2. solitary right kidney 3. hx of bladder cancer 4. UTI 5. CHF 6. CAD 7. mod to severe AR 8. p-a-fib 9. hx PPM 10. anemia 11. s/p cysto 12. gross hematuria Plan - renal function is worsening - urology follow up for CBI - may have an obstructive component from clots - pt does not want to take the sodium bicarb - monitor bp - repeat labs in am - will givee gently hydration now that he has a newman and is on cbi - check renal ultrasound Dr Alas
[2017-06-04] MEDS ORDERED: SODIUM CHLORIDE 0.45% 1,000 ML IV SCH (16:30)
[2017-06-04] MEDS: ATORVASTATIN CA 10 MG TABLET (FP) PO SCH (21:18)
[2017-06-05 07:51] LABS: BASO % 0.8 % (0-2.0); EOS % 0.1 % (0-4.5); HEMATOCRIT 25.5 % (35.4-49); HEMOGLOBIN 7.9 GM/dL (11.7-16.9); LYMPH % 9.3 % (8-40); MCHC 30.8 g/dl (32.0-35.9); MEAN CELL VOLUME 68.1 fl (80-96); MEAN PLT VOLUME 9.4 fl (7.5-11.1); MONO % 6.4 % (3.8-10.2); NEUT % 83.4 % (42.8-82.8); PLATELET COUNT 185 K/MM3 (134-434); RBC 3.75 M/mm3 (4.00-5.60); RDW 22.5 % (11.9-15.9); WHITE BLOOD COUNT 12.7 K/mm3 (4.0-10.0)
[2017-06-05 08:21] LABS: BLOOD UREA NITROGEN 65 mg/dL (7-18); CHLORIDE 108 mmol/L (98-107); CO2 23 mmol/L (21-32); CREATININE 3.4 mg/dL (0.7-1.3); GLUCOSE,RANDOM 89 mg/dL (74-106); SODIUM 139 mmol/L (136-145)
[2017-06-05 08:22] LABS: ALBUMIN 2.4 g/dl (3.4-5.0); ANION GAP 8 (8-16); CALCIUM 7.6 mg/dL (8.5-10.1); SGOT/AST 15 U/L (15-37); SGPT/ALT 13 U/L (12-78); TOT PROT 5.3 g/dl (6.4-8.2)
[2017-06-05 08:23] LABS: ALK PHOS 66 U/L (45-117); BILIRUBIN,TOTAL 1.1 mg/dL (0.2-1.0)
[2017-06-05] MEDS: ACETAMINOPHEN 325 MG TABLET (FP) PO PRN ×2 (09:47→21:26)
[2017-06-05] MEDS: ISOSORBIDE MONONITRATE 60 MG TAB.SR.24H (FP) PO SCH (09:48)
--- NOTE | 2017-06-05 09:53 | PN ---
Progress Note, Physician Chief Complaint: hematuria - Current Medication List Current Medications: Active Medications Acetaminophen (Tylenol -) 650 mg PO Q4H PRN PRN Reason: FEVER Last Admin: 06/04/17 20:53 Dose: 650 mg Atorvastatin Calcium (Lipitor -) 10 mg PO [facility] Last Admin: 06/04/17 21:18 Dose: 10 mg Isosorbide Mononitrate (Imdur -) 60 mg PO DAILY [facility] Last Admin: 06/04/17 10:12 Dose: 60 mg Metoprolol Succinate (Toprol Xl -) 100 mg PO HS [facility] Last Admin: 06/04/17 21:18 Dose: 100 mg - Objective Vital Signs: Vital Signs Temperature 100.5 F H 06/05/17 09:41 Pulse Rate 79 06/05/17 09:41 Respiratory Rate 18 06/05/17 09:41 Blood Pressure 128/59 06/05/17 09:41 O2 Sat by Pulse Oximetry (%) 100 06/04/17 17:21 Constitutional: Yes: Well Nourished, No Distress, Calm Eyes: Yes: WNL HENT: Yes: WNL, Atraumatic, Normocephalic Neck: Yes: WNL, Supple, Trachea Midline Cardiovascular: Yes: WNL, Regular Rate and Rhythm Respiratory: Yes: WNL, Regular, CTA Bilaterally Gastrointestinal: Yes: WNL, Normal Bowel Sounds, Soft Genitourinary: Yes: CVA Tenderness - Right, Hematuria, Other (nephrocatheter in place) Musculoskeletal: Yes: WNL Extremities: Yes: WNL Edema: LLE: Trace, RLE: Trace Peripheral Pulses WNL: Yes Integumentary: Yes: WNL Wound/Incision: Yes: Clean/Dry, Well Approximated Neurological: Yes: WNL, Alert, Oriented Labs: CBC, BMP 06/05/17 07:00 06/05/17 07:00 INR, PTT INR 1.07 (0.82-1.09) 06/02/17 15:10 Problem List - Problems (1) Hematuria Assessment/Plan: patient is has a nephrostomy drain showing hematuria he is compalining of pain at the site of insertion no erythem was noted acetaminophen 650mg q6hr prn patient does not want to use narcotics due to constipation avoid NSAIDs due to CKD stage IV with GENIA Code(s): R31.9 - HEMATURIA, UNSPECIFIED (2) UTI (urinary tract infection) Assessment/Plan: patient has low grade fever 100.5 no high grade fever noted if the patient spikes fever will obtain blood cultures and urine cultures will start the pateitn on empiric antibiotics Code(s): N39.0 - URINARY TRACT INFECTION, SITE NOT SPECIFIED Qualifiers: Urinary tract infection type: acute cystitis Hematuria presence: with hematuria Qualified Code(s): N30.01 - Acute cystitis with hematuria (3) Dysuria Assessment/Plan: s/p drainage patient stated he is feeling better today Code(s): R30.0 - DYSURIA (4) Gross hematuria Assessment/Plan: s/p nephrostomy tube drainage Code(s): R31.0 - GROSS HEMATURIA (5) HTN (hypertension) Assessment/Plan: c/w home medication Code(s): I10 - ESSENTIAL (PRIMARY) HYPERTENSION Qualifiers: Hypertension type: essential hypertension Qualified Code(s): I10 - Essential (primary) hypertension (6) GENIA (acute kidney injury) Code(s): N17.9 - ACUTE KIDNEY FAILURE, UNSPECIFIED (7) Acute kidney injury superimposed on CKD Assessment/Plan: patient with obstructive uropathy s/p nephrostomy tube placement gross hematuria was noted in the bag this morning Code(s): N17.9 - ACUTE KIDNEY FAILURE, UNSPECIFIED; N18.9 - CHRONIC KIDNEY DISEASE, UNSPECIFIED (8) Coronary artery disease without angina pectoris Assessment/Plan: c/w metoprolol c/w isosorbide Code(s): I25.10 - ATHSCL HEART DISEASE OF [place] CORONARY ARTERY W/O ANG PCTRS (9) Dyslipidemia (high LDL; low HDL) Assessment/Plan: c/w atorvastatin home dose Code(s): E78.5 - HYPERLIPIDEMIA, UNSPECIFIED
[2017-06-05] MEDS ORDERED: CEFTRIAXONE 1 GM in DEXTROSE 5%-WATER - 50 ML IVPB SCH (10:30)
--- NOTE | 2017-06-05 10:36 | PN ---
Progress Note (short form) - Note Progress Note: RENAL Pt is awake and alert appears comfortable Last Vital Signs Temp Pulse Resp BP Pulse Ox 100.5 F H 79 18 128/59 100 06/05/17 09:41 06/05/17 09:41 06/05/17 09:41 06/05/17 09:41 06/04/17 17:21 lungs clear cvs s1s2 irr abd soft, has right perc a ext no edema neuro a+ox3 gu has newman in place CBC, BMP 06/05/17 07:00 06/05/17 07:00 Current Medications Generic Name Dose Route Start Last Admin Trade Name Freq PRN Reason Stop Dose Admin Acetaminophen 650 mg 06/04/17 02:07 06/05/17 09:47 Tylenol - PO 650 mg Q4H PRN Administration FEVER Atorvastatin Calcium 10 mg 06/02/17 22:00 06/04/17 21:18 Lipitor - PO 10 mg HS [facility] Administration Ceftriaxone Sodium 1 gm/ 50 mls @ 100 mls/hr 06/05/17 10:30 Dextrose IVPB DAILY [facility] Isosorbide Mononitrate 60 mg 06/03/17 10:00 06/05/17 09:48 Imdur - PO 60 mg DAILY [facility] Administration Metoprolol Succinate 100 mg 06/02/17 22:00 06/04/17 21:18 Toprol Xl - PO 100 mg HS [facility] Administration Impression 1. CKD 2. solitary right kidney 3. bladder cancer- metastatic 4. UTI 5. CHF 6. CAD 7. mod to severe AR 8. p-a-fib 9. hx PPM 10. anemia 11. s/p cysto 12. gross hematuria Plan sono reviewed. No hydro per my eval, renal cyst continue perc drainage monitor renal function and hemoglobin. Might need transfusion, ?oral iron continue hydration MV
--- NOTE | 2017-06-05 12:35 | PN ---
Progres Note Chief Complaint: Hematuria bladder Ca Hydronephrosis - Objective Vital Signs: Vital Signs Temperature 100.5 F H 06/05/17 09:41 Pulse Rate 79 06/05/17 09:41 Respiratory Rate 18 06/05/17 09:41 Blood Pressure 128/59 06/05/17 09:41 O2 Sat by Pulse Oximetry (%) 100 06/04/17 17:21 Constitutional: Yes: Anxious Extremities: Yes: Other Labs/Additional Data: CBC, BMP 06/05/17 07:00 06/05/17 07:00 INR, PTT INR 1.07 (0.82-1.09) 06/02/17 15:10 Blood Type Blood Type B POSITIVE 06/02/17 15:10 Antibody Screen Negative 06/02/17 15:10 Imaging - Results Cat Scan: Report Reviewed Ultrasound: Report Reviewed Assessment/Plan 89 yo male w unresectable Bladder Ca consider hospice care Follow gross hematuria irrigate prn hct stable Hydronephrosis Cr 3.4 (3.3) consider pcn if clinically 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
[2017-06-05] MEDS: ATORVASTATIN CA 10 MG TABLET (FP) PO SCH (21:26)
[2017-06-06 07:43] LABS: BASO % 0.9 % (0-2.0); HEMATOCRIT 24.1 % (35.4-49); HEMOGLOBIN 7.6 GM/dL (11.7-16.9); LYMPH % 22.5 % (8-40); MCH 21.4 pg (25.7-33.7); MCHC 31.5 g/dl (32.0-35.9); MEAN PLT VOLUME 8.8 fl (7.5-11.1); MONO % 8.3 % (3.8-10.2); NEUT % 66.3 % (42.8-82.8); PLATELET COUNT 165 K/MM3 (134-434); RBC 3.55 M/mm3 (4.00-5.60); RDW 22.4 % (11.9-15.9); WHITE BLOOD COUNT 7.3 K/mm3 (4.0-10.0)
[2017-06-06 08:11] LABS: ALBUMIN 2.3 g/dl (3.4-5.0); ANION GAP 7 (8-16); BLOOD UREA NITROGEN 58 mg/dL (7-18); CALCIUM 7.6 mg/dL (8.5-10.1); CHLORIDE 109 mmol/L (98-107); CO2 23 mmol/L (21-32); GLUCOSE,RANDOM 79 mg/dL (74-106); POTASSIUM 4.7 mmol/L (3.5-5.1); SODIUM 139 mmol/L (136-145)
[2017-06-06 08:14] LABS: ALK PHOS 65 U/L (45-117); BILIRUBIN,TOTAL 0.5 mg/dL (0.2-1.0); SGOT/AST 15 U/L (15-37); SGPT/ALT 15 U/L (12-78); TOT PROT 5.1 g/dl (6.4-8.2)
--- NOTE | 2017-06-06 10:50 | PN ---
Progress Note (short form) - Note Progress Note: RENAL Pt is awake and alert appears comfortable complains of pain in right perc neph has purple urine in newman Last Vital Signs Temp Pulse Resp BP Pulse Ox 98 F 70 18 131/62 97 06/06/17 05:20 06/06/17 05:20 06/06/17 05:20 06/06/17 05:20 06/05/17 21:00 lungs clear cvs s1s2 irr abd soft, has right perc and urine is clearer ext no edema neuro a+ox3 gu has newman in place, urine is opurple CBC, BMP 06/06/17 06:00 06/06/17 06:00 Current Medications Generic Name Dose Route Start Last Admin Trade Name Freq PRN Reason Stop Dose Admin Acetaminophen 650 mg 06/04/17 02:07 06/05/17 21:26 Tylenol - PO 650 mg Q4H PRN Administration FEVER Atorvastatin Calcium 10 mg 06/02/17 22:00 06/05/17 21:26 Lipitor - PO 10 mg HS [facility] Administration Isosorbide Mononitrate 60 mg 06/03/17 10:00 06/05/17 09:48 Imdur - PO 60 mg DAILY [facility] Administration Metoprolol Succinate 100 mg 06/02/17 22:00 06/05/17 21:26 Toprol Xl - PO 100 mg HS [facility] Administration Impression 1. CKD 2. solitary right kidney 3. bladder cancer- metastatic 4. UTI likely causing color change in newman bag 5. CHF 6. CAD 7. mod to severe AR 8. p-a-fib 9. hx PPM 10. anemia 11. s/p cysto 12. gross hematuria Plan sono reviewed. No hydro per my eval, renal cyst continue perc drainage monitor renal function and hemoglobin. Might need transfusion, ?oral iron obtain urine analysis and urine culture from newman- will likely need antibiotics MV
[2017-06-06] MEDS: ACETAMINOPHEN 325 MG TABLET (FP) PO PRN ×2 (10:54→19:53)
--- NOTE | 2017-06-06 10:54 | PN ---
Progress Note, Physician Chief Complaint: hematuria - Current Medication List Current Medications: Active Medications Acetaminophen (Tylenol -) 650 mg PO Q4H PRN PRN Reason: FEVER Last Admin: 06/05/17 21:26 Dose: 650 mg Atorvastatin Calcium (Lipitor -) 10 mg PO [facility] Last Admin: 06/05/17 21:26 Dose: 10 mg Isosorbide Mononitrate (Imdur -) 60 mg PO DAILY [facility] Last Admin: 06/05/17 09:48 Dose: 60 mg Metoprolol Succinate (Toprol Xl -) 100 mg PO [facility] Last Admin: 06/05/17 21:26 Dose: 100 mg - Objective Vital Signs: Vital Signs Temperature 98 F 06/06/17 05:20 Pulse Rate 70 06/06/17 05:20 Respiratory Rate 18 06/06/17 05:20 Blood Pressure 131/62 06/06/17 05:20 O2 Sat by Pulse Oximetry (%) 97 06/05/17 21:00 Constitutional: Yes: Well Nourished, No Distress, Calm Eyes: Yes: WNL, Conjunctiva Clear HENT: Yes: WNL, Atraumatic Neck: Yes: WNL, Supple Cardiovascular: Yes: WNL, Regular Rate and Rhythm Respiratory: Yes: WNL, Regular, CTA Bilaterally Gastrointestinal: Yes: WNL, Normal Bowel Sounds, Soft ...Rectal Exam: Yes: Deferred Musculoskeletal: Yes: WNL Extremities: Yes: WNL Peripheral Pulses WNL: Yes Integumentary: Yes: WNL Wound/Incision: Yes: Clean/Dry, Well Approximated, Dressing Dry and Intact Neurological: Yes: WNL, Alert, Oriented ...Motor Strength: WNL Psychiatric: Yes: WNL, Alert, Oriented Labs: CBC, BMP 06/06/17 06:00 06/06/17 06:00 INR, PTT INR 1.07 (0.82-1.09) 06/02/17 15:10 Problem List - Problems (1) Hematuria Assessment/Plan: patient is has a nephrostomy drain showing hematuria however it is improving compared to yesterday drain he is complaining of pain at the site of insertion but much less than yesterday no erythema was noted acetaminophen 650mg q6hr prn patient does not want to use narcotics due to constipation avoid NSAIDs due to CKD stage IV with GENIA Code(s): R31.9 - HEMATURIA, UNSPECIFIED (2) UTI (urinary tract infection) Assessment/Plan: no fever was noted today he is doing well the WBC count dropped to normal without any antibiotics being given no high grade fever noted if the patient spikes fever will obtain blood cultures and urine cultures will start the patient on empiric antibiotics if he is spiking fever Code(s): N39.0 - URINARY TRACT INFECTION, SITE NOT SPECIFIED Qualifiers: Urinary tract infection type: acute cystitis Hematuria presence: with hematuria Qualified Code(s): N30.01 - Acute cystitis with hematuria (3) Dysuria Assessment/Plan: s/p drainage patient stated he is feeling better today Code(s): R30.0 - DYSURIA (4) Gross hematuria Assessment/Plan: s/p nephrostomy tube drainage less bloody than yesterday Code(s): R31.0 - GROSS HEMATURIA (5) HTN (hypertension) Assessment/Plan: c/w home medication Code(s): I10 - ESSENTIAL (PRIMARY) HYPERTENSION Qualifiers: Hypertension type: essential hypertension Qualified Code(s): I10 - Essential (primary) hypertension (6) GENIA (acute kidney injury) Code(s): N17.9 - ACUTE KIDNEY FAILURE, UNSPECIFIED (7) Acute kidney injury superimposed on CKD Assessment/Plan: patient with obstructive uropathy s/p nephrostomy tube placement gross hematuria was noted in the bag this morning resolving Creatinine dropped from 3.4 to 3.0 today will continue to monitor Code(s): N17.9 - ACUTE KIDNEY FAILURE, UNSPECIFIED; N18.9 - CHRONIC KIDNEY DISEASE, UNSPECIFIED (8) Coronary artery disease without angina pectoris Assessment/Plan: c/w metoprolol c/w isosorbide Code(s): I25.10 - ATHSCL HEART DISEASE OF [place] CORONARY ARTERY W/O ANG PCTRS (9) Dyslipidemia (high LDL; low HDL) Assessment/Plan: c/w atorvastatin home dose Code(s): E78.5 - HYPERLIPIDEMIA, UNSPECIFIED (10) Anemia associated with acute blood loss Assessment/Plan: patient has an acute drop in Hb level compare to the day admission it is dropping slowly however it is stablizing at this time will obtain type and screen for the patient will repeat the labs in the morning patient with CAD without active chest pain or discomfort with Hb 7.6 today will transfuse the patient accordingly to the recommendation of Hb 7.0, will consider transfusing a patient who has a history of CAD with chest discomfort or symptomatic the guideline recommend that the patient have a Hb > 8.0 will trend daily and reassess the need for the transfusion . Code(s): D62 - ACUTE POSTHEMORRHAGIC ANEMIA
[2017-06-06] MEDS: ISOSORBIDE MONONITRATE 60 MG TAB.SR.24H (FP) PO SCH (10:55)
[2017-06-06] MEDS: ATORVASTATIN CA 10 MG TABLET (FP) PO SCH (21:24)
[2017-06-07] MEDS: ACETAMINOPHEN 325 MG TABLET (FP) PO PRN ×3 (00:28→23:14)
[2017-06-07 01:33] LABS: URINE APPEARANCE TURBID
[2017-06-07 02:28] LABS: URINE COLOR RED
[2017-06-07 08:00] LABS: BASO % 1.2 % (0-2.0); EOS % 3.7 % (0-4.5); HEMATOCRIT 22.2 % (35.4-49); HEMOGLOBIN 7.1 GM/dL (11.7-16.9); LYMPH % 20.6 % (8-40); MCH 21.5 pg (25.7-33.7); MCHC 31.8 g/dl (32.0-35.9); MEAN CELL VOLUME 67.5 fl (80-96); MEAN PLT VOLUME 8.9 fl (7.5-11.1); MONO % 7.9 % (3.8-10.2); NEUT % 66.6 % (42.8-82.8); PLATELET COUNT 177 K/MM3 (134-434); RBC 3.29 M/mm3 (4.00-5.60); RDW 21.7 % (11.9-15.9); WHITE BLOOD COUNT 5.8 K/mm3 (4.0-10.0)
[2017-06-07 08:10] LABS: ALBUMIN 2.1 g/dl (3.4-5.0); BLOOD UREA NITROGEN 49 mg/dL (7-18); CALCIUM 7.5 mg/dL (8.5-10.1); CHLORIDE 111 mmol/L (98-107); POTASSIUM 4.6 mmol/L (3.5-5.1); SGOT/AST 16 U/L (15-37); SODIUM 141 mmol/L (136-145)
[2017-06-07 08:13] LABS: ALK PHOS 62 U/L (45-117); ANION GAP 6 (8-16); BILIRUBIN,TOTAL 0.3 mg/dL (0.2-1.0); CO2 24 mmol/L (21-32); CREATININE 2.5 mg/dL (0.7-1.3); GLUCOSE,RANDOM 84 mg/dL (74-106); SGPT/ALT 16 U/L (12-78); TOT PROT 4.9 g/dl (6.4-8.2)
[2017-06-07 08:14] LABS: ADD RBC MORPHOLOGY YES
[2017-06-07 08:16] LABS: ANISOCYTOSIS 2+
[2017-06-07] MEDS ORDERED: FUROSEMIDE 40 MG/4 ML INJECTABLE VIAL IVPUSH ONE ×2 (08:44→16:00)
--- NOTE | 2017-06-07 08:44 | PN ---
Progress Note, Physician - Current Medication List Current Medications: Active Medications Acetaminophen (Tylenol -) 650 mg PO Q4H PRN PRN Reason: FEVER Last Admin: 06/07/17 00:28 Dose: 650 mg Atorvastatin Calcium (Lipitor -) 10 mg PO HS [facility] Last Admin: 06/06/17 21:24 Dose: 10 mg Isosorbide Mononitrate (Imdur -) 60 mg PO DAILY [facility] Last Admin: 06/06/17 10:55 Dose: 60 mg Metoprolol Succinate (Toprol Xl -) 100 mg PO HS [facility] Last Admin: 06/06/17 21:24 Dose: 100 mg - Objective Vital Signs: Vital Signs Temperature 98.1 F 06/07/17 05:35 Pulse Rate 72 06/07/17 05:35 Respiratory Rate 18 06/07/17 05:35 Blood Pressure 132/62 06/07/17 05:35 O2 Sat by Pulse Oximetry (%) 97 06/06/17 21:00 Labs: CBC, BMP 06/07/17 06:30 06/07/17 06:30 INR, PTT INR 1.07 (0.82-1.09) 06/02/17 15:10 Assessment/Plan - Problems (1) Hematuria--Bladder cancer Assessment/Plan: patient is has a nephrostomy drain showing hematuria he is complaining of pain at the site of insertion no erythema was noted acetaminophen 650mg q6hr prn patient does not want to use narcotics due to constipation avoid NSAIDs due to CKD stage IV with GENIA -will discuss with uro Code(s): R31.9 - HEMATURIA, UNSPECIFIED (2) UTI (urinary tract infection) Assessment/Plan: patient has low grade fever 100.5 no high grade fever noted if the patient spikes fever will obtain blood cultures and urine cultures will start the pateitn on empiric antibiotics Code(s): N39.0 - URINARY TRACT INFECTION, SITE NOT SPECIFIED Qualifiers: Urinary tract infection type: acute cystitis Hematuria presence: with hematuria Qualified Code(s): N30.01 - Acute cystitis with hematuria (3) Dysuria Assessment/Plan: s/p drainage patient stated he is feeling better today Code(s): R30.0 - DYSURIA (4) Gross hematuria Assessment/Plan: s/p nephrostomy tube drainage Code(s): R31.0 - GROSS HEMATURIA (5) HTN (hypertension) Assessment/Plan: c/w home medication Code(s): I10 - ESSENTIAL (PRIMARY) HYPERTENSION Qualifiers: Hypertension type: essential hypertension Qualified Code(s): I10 - Essential (primary) hypertension (6) GENIA (acute kidney injury) Code(s): N17.9 - ACUTE KIDNEY FAILURE, UNSPECIFIED (7) Acute kidney injury superimposed on CKD Assessment/Plan: patient with obstructive uropathy s/p nephrostomy tube placement gross hematuria was noted in the bag this morning Code(s): N17.9 - ACUTE KIDNEY FAILURE, UNSPECIFIED; N18.9 - CHRONIC KIDNEY DISEASE, UNSPECIFIED (8) Coronary artery disease without angina pectoris Assessment/Plan: c/w metoprolol c/w isosorbide Code(s): I25.10 - ATHSCL HEART DISEASE OF [place] CORONARY ARTERY W/O ANG PCTRS (9) Dyslipidemia (high LDL; low HDL) Assessment/Plan: c/w atorvastatin home dose Code(s): E78.5 - HYPERLIPIDEMIA, UNSPECIFIED
[2017-06-07] MEDS: ISOSORBIDE MONONITRATE 60 MG TAB.SR.24H (FP) PO SCH (09:37)
--- NOTE | 2017-06-07 15:35 | PN ---
Progress Note, Physician History of Present Illness: Pt seen and examined at bedside. He is awake and alert. He has nephrostomy tube and is making urine. - Current Medication List Current Medications: Active Medications Acetaminophen (Tylenol -) 650 mg PO Q4H PRN PRN Reason: FEVER Last Admin: 06/07/17 13:37 Dose: 650 mg Atorvastatin Calcium (Lipitor -) 10 mg PO HS [facility] Last Admin: 06/06/17 21:24 Dose: 10 mg Furosemide (Lasix Injection -) 20 mg IVPUSH ONCE ONE Stop: 06/07/17 16:01 Last Admin: 06/07/17 15:19 Dose: 20 mg Isosorbide Mononitrate (Imdur -) 60 mg PO DAILY [facility] Last Admin: 06/07/17 09:37 Dose: 60 mg Metoprolol Succinate (Toprol Xl -) 100 mg PO [facility] Last Admin: 06/06/17 21:24 Dose: 100 mg - Objective Vital Signs: Vital Signs Temperature 97.8 F 06/07/17 13:13 Pulse Rate 72 06/07/17 13:13 Respiratory Rate 18 06/07/17 13:13 Blood Pressure 116/69 06/07/17 13:13 O2 Sat by Pulse Oximetry (%) 97 06/07/17 09:00 Constitutional: Yes: Calm Eyes: Yes: Conjunctiva Clear Cardiovascular: Yes: S1, S2 Respiratory: Yes: CTA Bilaterally Gastrointestinal: Yes: Normal Bowel Sounds, Soft Genitourinary: Yes: Newman Present, Hematuria, Other (nephrostomy tube clear) Musculoskeletal: Yes: WNL Edema: No Neurological: Yes: Oriented Psychiatric: Yes: Oriented Labs: CBC, BMP 06/07/17 06:30 06/07/17 06:30 INR, PTT INR 1.07 (0.82-1.09) 06/02/17 15:10 Problem List - Problems (1) CKD (chronic kidney disease) stage 3, GFR 30-59 ml/min Code(s): N18.3 - CHRONIC KIDNEY DISEASE, STAGE 3 (MODERATE) (2) Hematuria Code(s): R31.9 - HEMATURIA, UNSPECIFIED Assessment/Plan Current Medications Generic Name Dose Route Start Last Admin Trade Name Freq PRN Reason Stop Dose Admin Acetaminophen 650 mg 06/04/17 02:07 06/07/17 13:37 Tylenol - PO 650 mg Q4H PRN Administration FEVER Atorvastatin Calcium 10 mg 06/02/17 22:00 06/06/17 21:24 Lipitor - PO 10 mg HS BATSHEVA Administration Furosemide 20 mg 06/07/17 16:00 06/07/17 15:19 Lasix Injection - IVPUSH 06/07/17 16:01 20 mg ONCE ONE Administration Isosorbide Mononitrate 60 mg 06/03/17 10:00 06/07/17 09:37 Imdur - PO 60 mg DAILY BATSHEVA Administration Metoprolol Succinate 100 mg 06/02/17 22:00 06/06/17 21:24 Toprol Xl - PO 100 mg HS BATSHEVA Administration Impression 1. CKD 2. solitary right kidney 3. hx of bladder cancer 4. UTI 5. CHF 6. CAD 7. mod to severe AR 8. p-a-fib 9. hx PPM 10. anemia 11. s/p cysto 12. gross hematuria Plan - renal function is improved - monitor output from newman and nephrostomy - repeat labs in am - follow up Dr Alas
[2017-06-07] MEDS: ATORVASTATIN CA 10 MG TABLET (FP) PO SCH (21:39)
[2017-06-08] MEDS: ACETAMINOPHEN 325 MG TABLET (FP) PO PRN ×2 (06:52→16:36)
--- NOTE | 2017-06-08 08:07 | PN ---
Progress Note (short form) - Note Progress Note: above noted s/p rt PCNT urine from NT clear and output 2500-3000cc urine from newman dark red and output 200-250cc will obtain bone scan to r/o mets
--- NOTE | 2017-06-08 09:19 | PN ---
Progress Note, Physician History of Present Illness: s/p prbc for bone scan - Current Medication List Current Medications: Active Medications Acetaminophen (Tylenol -) 650 mg PO Q4H PRN PRN Reason: FEVER Last Admin: 06/08/17 06:52 Dose: 650 mg Atorvastatin Calcium (Lipitor -) 10 mg PO HS [facility] Last Admin: 06/07/17 21:39 Dose: 10 mg Isosorbide Mononitrate (Imdur -) 60 mg PO DAILY [facility] Last Admin: 06/07/17 09:37 Dose: 60 mg Metoprolol Succinate (Toprol Xl -) 100 mg PO HS [facility] Last Admin: 06/07/17 21:39 Dose: 100 mg - Objective Vital Signs: Vital Signs Temperature 97.6 F 06/08/17 05:30 Pulse Rate 62 06/08/17 05:30 Respiratory Rate 18 06/08/17 05:30 Blood Pressure 140/58 06/08/17 05:30 O2 Sat by Pulse Oximetry (%) 97 06/07/17 21:07 Cardiovascular: Yes: Regular Rate and Rhythm Respiratory: Yes: Regular, CTA Bilaterally Gastrointestinal: Yes: Normal Bowel Sounds, Soft Genitourinary: Yes: Other (nephrostomy tube-dark urine) Labs: CBC, BMP 06/07/17 06:30 06/07/17 06:30 INR, PTT INR 1.07 (0.82-1.09) 06/02/17 15:10 Assessment/Plan - Problems (1) Hematuria--Bladder cancer Assessment/Plan: patient has a nephrostomy drain showing dark urine less pain at the site of insertion no erythema was noted acetaminophen 650mg q6hr prn patient does not want to use narcotics due to constipation avoid NSAIDs due to CKD stage IV with GENIA -will discuss with uro--bone scan Code(s): R31.9 - HEMATURIA, UNSPECIFIED (2) UTI (urinary tract infection) Assessment/Plan: afebrile blood cultures and urine cultures on empiric antibiotics Code(s): N39.0 - URINARY TRACT INFECTION, SITE NOT SPECIFIED Qualifiers: Urinary tract infection type: acute cystitis Hematuria presence: with hematuria Qualified Code(s): N30.01 - Acute cystitis with hematuria (3) Dysuria Assessment/Plan: s/p drainage patient stated he is feeling better today Code(s): R30.0 - DYSURIA (4) Gross hematuria Assessment/Plan: s/p nephrostomy tube drainage Code(s): R31.0 - GROSS HEMATURIA (5) HTN (hypertension) Assessment/Plan: c/w home medication Code(s): I10 - ESSENTIAL (PRIMARY) HYPERTENSION Qualifiers: Hypertension type: essential hypertension Qualified Code(s): I10 - Essential (primary) hypertension (6) GENIA (acute kidney injury) Code(s): N17.9 - ACUTE KIDNEY FAILURE, UNSPECIFIED (7) Acute kidney injury superimposed on CKD Assessment/Plan: patient with obstructive uropathy s/p nephrostomy tube placement gross hematuria was noted in the bag this morning Code(s): N17.9 - ACUTE KIDNEY FAILURE, UNSPECIFIED; N18.9 - CHRONIC KIDNEY DISEASE, UNSPECIFIED (8) Coronary artery disease without angina pectoris Assessment/Plan: c/w metoprolol c/w isosorbide Code(s): I25.10 - ATHSCL HEART DISEASE OF [place] CORONARY ARTERY W/O ANG PCTRS (9) Dyslipidemia (high LDL; low HDL) Assessment/Plan: c/w atorvastatin home dose Code(s): E78.5 - HYPERLIPIDEMIA, UNSPECIFIED
[2017-06-08] MEDS: ISOSORBIDE MONONITRATE 60 MG TAB.SR.24H (FP) PO SCH (09:47)
[2017-06-08 11:00] LABS: ALBUMIN 2.5 g/dl (3.4-5.0); ANION GAP 9 (8-16); BLOOD UREA NITROGEN 40 mg/dL (7-18); CALCIUM 7.9 mg/dL (8.5-10.1); CHLORIDE 107 mmol/L (98-107); CO2 26 mmol/L (21-32); CREATININE 2.4 mg/dL (0.7-1.3); GLUCOSE,RANDOM 169 mg/dL (74-106); POTASSIUM 4.1 mmol/L (3.5-5.1); SGOT/AST 26 U/L (15-37); SGPT/ALT 30 U/L (12-78); SODIUM 142 mmol/L (136-145)
[2017-06-08 11:02] LABS: ALK PHOS 75 U/L (45-117); BILIRUBIN,TOTAL 0.5 mg/dL (0.2-1.0); TOT PROT 5.8 g/dl (6.4-8.2)
[2017-06-08 11:09] LABS: BASO % 1.2 % (0-2.0); EOS % 3.6 % (0-4.5); HEMATOCRIT 31.4 % (35.4-49); HEMOGLOBIN 9.9 GM/dL (11.7-16.9); LYMPH % 16.7 % (8-40); MCHC 31.4 g/dl (32.0-35.9); MEAN CELL VOLUME 70.2 fl (80-96); MEAN PLT VOLUME 8.7 fl (7.5-11.1); MONO % 5.8 % (3.8-10.2); NEUT % 72.7 % (42.8-82.8); PLATELET COUNT 218 K/MM3 (134-434); RBC 4.48 M/mm3 (4.00-5.60); RDW 23.1 % (11.9-15.9); WHITE BLOOD COUNT 6.7 K/mm3 (4.0-10.0)
--- NOTE | 2017-06-08 17:29 | PN ---
Progress Note, Physician History of Present Illness: Pt seen and examined at bedside. He is awake and alert. He denies shortness of breath. - Current Medication List Current Medications: Active Medications Acetaminophen (Tylenol -) 650 mg PO Q4H PRN PRN Reason: FEVER Last Admin: 06/08/17 16:36 Dose: 650 mg Atorvastatin Calcium (Lipitor -) 10 mg PO HS [facility] Last Admin: 06/07/17 21:39 Dose: 10 mg Isosorbide Mononitrate (Imdur -) 60 mg PO DAILY [facility] Last Admin: 06/08/17 09:47 Dose: 60 mg Metoprolol Succinate (Toprol Xl -) 100 mg PO HS [facility] Last Admin: 06/07/17 21:39 Dose: 100 mg - Objective Vital Signs: Vital Signs Temperature 97.8 F 06/08/17 14:31 Pulse Rate 83 06/08/17 14:31 Respiratory Rate 20 06/08/17 14:31 Blood Pressure 126/68 06/08/17 14:31 O2 Sat by Pulse Oximetry (%) 97 06/08/17 09:00 Constitutional: Yes: Calm Eyes: Yes: Conjunctiva Clear HENT: Yes: Atraumatic Neck: Yes: Supple Cardiovascular: Yes: S1, S2 Respiratory: Yes: CTA Bilaterally Gastrointestinal: Yes: Soft Genitourinary: Yes: Valenzuela Present, Hematuria, Other (right nephrostomy tube) Musculoskeletal: Yes: WNL Edema: No Neurological: Yes: Oriented Psychiatric: Yes: Oriented Labs: CBC, BMP 06/08/17 09:30 06/08/17 09:30 INR, PTT INR 1.07 (0.82-1.09) 06/02/17 15:10 Problem List - Problems (1) CKD (chronic kidney disease) stage 3, GFR 30-59 ml/min Code(s): N18.3 - CHRONIC KIDNEY DISEASE, STAGE 3 (MODERATE) (2) Hematuria Code(s): R31.9 - HEMATURIA, UNSPECIFIED Assessment/Plan Current Medications Generic Name Dose Route Start Last Admin Trade Name Freq PRN Reason Stop Dose Admin Acetaminophen 650 mg 06/04/17 02:07 06/08/17 16:36 Tylenol - PO 650 mg Q4H PRN Administration FEVER Atorvastatin Calcium 10 mg 06/02/17 22:00 06/07/17 21:39 Lipitor - PO 10 mg HS BATSHEVA Administration Isosorbide Mononitrate 60 mg 06/03/17 10:00 06/08/17 09:47 Imdur - PO 60 mg DAILY BATSHEVA Administration Metoprolol Succinate 100 mg 06/02/17 22:00 06/07/17 21:39 Toprol Xl - PO 100 mg HS BATSHEVA Administration Impression 1. CKD 2. solitary right kidney 3. hx of bladder cancer 4. UTI 5. CHF 6. CAD 7. mod to severe AR 8. p-a-fib 9. hx PPM 10. anemia 11. s/p cysto 12. gross hematuria Plan - follow up bone scan - renal function is improved - nephrostomy is draining - urology follow up - repeat labs in am - follow up Dr Alas
[2017-06-08] MEDS: ATORVASTATIN CA 10 MG TABLET (FP) PO SCH (21:11)
[2017-06-08] MEDS ORDERED: ACETAMINOPHEN 1000 MG/100 ML VIAL (NON FORMULARY) IVPB ONE (23:01)
[2017-06-09 07:02] LABS: BASO % 1.3 % (0-2.0); EOS % 3.7 % (0-4.5); HEMATOCRIT 28.8 % (35.4-49); HEMOGLOBIN 9.1 GM/dL (11.7-16.9); LYMPH % 18.7 % (8-40); MCH 22.3 pg (25.7-33.7); MCHC 31.6 g/dl (32.0-35.9); MEAN CELL VOLUME 70.6 fl (80-96); MEAN PLT VOLUME 8.5 fl (7.5-11.1); MONO % 6.3 % (3.8-10.2); PLATELET COUNT 209 K/MM3 (134-434); RBC 4.08 M/mm3 (4.00-5.60); RDW 22.9 % (11.9-15.9); WHITE BLOOD COUNT 7.2 K/mm3 (4.0-10.0)
[2017-06-09 07:09] LABS: ANION GAP 11 (8-16); BLOOD UREA NITROGEN 40 mg/dL (7-18); CHLORIDE 108 mmol/L (98-107); CO2 24 mmol/L (21-32); CREATININE 2.1 mg/dL (0.7-1.3); GLUCOSE,RANDOM 82 mg/dL (74-106); POTASSIUM 4.8 mmol/L (3.5-5.1); SODIUM 143 mmol/L (136-145)
--- NOTE | 2017-06-09 09:11 | PN ---
Progress Note, Physician History of Present Illness: s/p prbc for bone scan - Current Medication List Current Medications: Active Medications Acetaminophen (Tylenol -) 650 mg PO Q4H PRN PRN Reason: FEVER Last Admin: 06/08/17 16:36 Dose: 650 mg Atorvastatin Calcium (Lipitor -) 10 mg PO [facility] Last Admin: 06/08/17 21:11 Dose: 10 mg Isosorbide Mononitrate (Imdur -) 60 mg PO DAILY [facility] Last Admin: 06/08/17 09:47 Dose: 60 mg Metoprolol Succinate (Toprol Xl -) 100 mg PO HS [facility] Last Admin: 06/08/17 21:11 Dose: 100 mg - Objective Vital Signs: Vital Signs Temperature 98.1 F 06/09/17 05:56 Pulse Rate 72 06/09/17 05:56 Respiratory Rate 18 06/09/17 05:56 Blood Pressure 135/65 06/09/17 05:56 O2 Sat by Pulse Oximetry (%) 98 06/08/17 21:00 Cardiovascular: Yes: Regular Rate and Rhythm Respiratory: Yes: Regular, CTA Bilaterally Gastrointestinal: Yes: Normal Bowel Sounds, Soft Labs: CBC, BMP 06/09/17 05:35 06/09/17 05:35 INR, PTT INR 1.07 (0.82-1.09) 06/02/17 15:10 Assessment/Plan - Problems (1) Hematuria--Bladder cancer Assessment/Plan: patient has a nephrostomy drain showing dark urine less pain at the site of insertion no erythema was noted acetaminophen 650mg q6hr prn patient does not want to use narcotics due to constipation avoid NSAIDs due to CKD stage IV with GENIA -will discuss with uro--bone scan noted -d/w pt will need to evaluate hip Code(s): R31.9 - HEMATURIA, UNSPECIFIED (2) UTI (urinary tract infection) Assessment/Plan: afebrile blood cultures and urine cultures on empiric antibiotics Code(s): N39.0 - URINARY TRACT INFECTION, SITE NOT SPECIFIED Qualifiers: Urinary tract infection type: acute cystitis Hematuria presence: with hematuria Qualified Code(s): N30.01 - Acute cystitis with hematuria (3) Dysuria Assessment/Plan: s/p drainage patient stated he is feeling better today Code(s): R30.0 - DYSURIA (4) Gross hematuria Assessment/Plan: s/p nephrostomy tube drainage Code(s): R31.0 - GROSS HEMATURIA (5) HTN (hypertension) Assessment/Plan: c/w home medication Code(s): I10 - ESSENTIAL (PRIMARY) HYPERTENSION Qualifiers: Hypertension type: essential hypertension Qualified Code(s): I10 - Essential (primary) hypertension (6) GENIA (acute kidney injury) Code(s): N17.9 - ACUTE KIDNEY FAILURE, UNSPECIFIED (7) Acute kidney injury superimposed on CKD Assessment/Plan: patient with obstructive uropathy s/p nephrostomy tube placement gross hematuria was noted in the bag this morning Code(s): N17.9 - ACUTE KIDNEY FAILURE, UNSPECIFIED; N18.9 - CHRONIC KIDNEY DISEASE, UNSPECIFIED (8) Coronary artery disease without angina pectoris Assessment/Plan: c/w metoprolol c/w isosorbide Code(s): I25.10 - ATHSCL HEART DISEASE OF [place] CORONARY ARTERY W/O ANG PCTRS (9) Dyslipidemia (high LDL; low HDL) Assessment/Plan: c/w atorvastatin home dose Code(s): E78.5 - HYPERLIPIDEMIA, UNSPECIFIED
[2017-06-09] MEDS: ISOSORBIDE MONONITRATE 60 MG TAB.SR.24H (FP) PO SCH (09:25)
--- NOTE | 2017-06-09 14:01 | PN ---
Progress Note, Physician History of Present Illness: Pt seen and examined at bedside. He is awake and alert. He denies shortness of breath. - Current Medication List Current Medications: Active Medications Acetaminophen (Tylenol -) 650 mg PO Q4H PRN PRN Reason: FEVER Last Admin: 06/08/17 16:36 Dose: 650 mg Atorvastatin Calcium (Lipitor -) 10 mg PO HS [facility] Last Admin: 06/08/17 21:11 Dose: 10 mg Isosorbide Mononitrate (Imdur -) 60 mg PO DAILY [facility] Last Admin: 06/09/17 09:25 Dose: 60 mg Metoprolol Succinate (Toprol Xl -) 100 mg PO HS [facility] Last Admin: 06/08/17 21:11 Dose: 100 mg - Objective Vital Signs: Vital Signs Temperature 97.7 F 06/09/17 09:00 Pulse Rate 66 06/09/17 09:00 Respiratory Rate 20 06/09/17 09:00 Blood Pressure 140/53 06/09/17 09:00 O2 Sat by Pulse Oximetry (%) 98 06/09/17 09:00 Constitutional: Yes: Calm Eyes: Yes: Conjunctiva Clear HENT: Yes: Atraumatic Cardiovascular: Yes: S1, S2 Respiratory: Yes: CTA Bilaterally Gastrointestinal: Yes: Soft Genitourinary: Yes: Valenzuela Present, Hematuria, Other (right nephrostomy) Musculoskeletal: Yes: WNL Edema: No Neurological: Yes: Oriented Psychiatric: Yes: Oriented Labs: CBC, BMP 06/09/17 05:35 06/09/17 05:35 INR, PTT INR 1.07 (0.82-1.09) 06/02/17 15:10 Problem List - Problems (1) CKD (chronic kidney disease) stage 3, GFR 30-59 ml/min Code(s): N18.3 - CHRONIC KIDNEY DISEASE, STAGE 3 (MODERATE) (2) Hematuria Code(s): R31.9 - HEMATURIA, UNSPECIFIED Assessment/Plan Current Medications Generic Name Dose Route Start Last Admin Trade Name Freq PRN Reason Stop Dose Admin Acetaminophen 650 mg 06/04/17 02:07 06/08/17 16:36 Tylenol - PO 650 mg Q4H PRN Administration FEVER Atorvastatin Calcium 10 mg 06/02/17 22:00 06/08/17 21:11 Lipitor - PO 10 mg HS BATSHEVA Administration Isosorbide Mononitrate 60 mg 06/03/17 10:00 06/09/17 09:25 Imdur - PO 60 mg DAILY BATSHEVA Administration Metoprolol Succinate 100 mg 06/02/17 22:00 06/08/17 21:11 Toprol Xl - PO 100 mg HS BATSHEVA Administration Impression 1. CKD 2. solitary right kidney 3. hx of bladder cancer 4. UTI 5. CHF 6. CAD 7. mod to severe AR 8. p-a-fib 9. hx PPM 10. anemia 11. s/p cysto 12. gross hematuria Plan - renal function is stable - monitor urine output - repeat labs in am - urology follow up for plan Dr Alas
--- NOTE | 2017-06-09 16:07 | CON.ORTH ---
Consult Reason for Consultation:: abnormal bone scan - Past Medical History Cardio/Vascular: Yes: AFIB, CAD, CHF, HTN, Hyperlipdemia Pulmonary: Yes: Cancer (lung--s/p lobectomy), COPD Gastrointestinal: Yes: GERD Renal/: Yes: Renal Inusuff, Cancer (bladder, TCC), Hematuria, Renal Calculi - Past Surgical History Past Surgical History: Yes: Colonoscopy, Nephrectomy, Permanent Pacemaker, Thoracotomy - Alcohol/Substance Use Hx Alcohol Use: No - Smoking History Smoking history: Never smoked Have you smoked in the past 12 months: No Aproximately how many cigarettes per day: 0 If you are a former smoker, when did you quit?: 1994 - Social History Usual Living Arrangement: With Spouse ADL: Independent 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, 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[place] History of Recent Travel: No Home Medications - Allergies Allergies/Adverse Reactions: Allergies Allergy/AdvReac Type Severity Reaction Status Date / Time Penicillins Allergy Hives, Verified 06/02/17 11:36 throat swelling Sulfa (Sulfonamide Allergy EYE Verified 06/02/17 11:36 Antibiotics) SWELLING, [Sulfa(Sulfonamide ITCHING Antibiotics)] levofloxacin [From Levaquin] AdvReac Severe Itching Verified 06/02/17 11:36 morphine AdvReac Itching Verified 06/02/17 11:36 - Home Medications Home Medications: Ambulatory Orders Isosorbide Mononitrate [Imdur] 60 mg PO DAILY 12/16/11 Metoprolol Succinate [Toprol XL -] 100 mg PO HS 08/17/12 Atorvastatin Ca [Lipitor] 10 mg PO HS 04/28/16 Sodium Bicarbonate - 650 mg PO BID 04/29/16 Polyethylene Glycol 3350 [Miralax 119 gm Btl -] 17 gm PO DAILY bottle 07/10/16 Acetaminophen [Tylenol .Regular Strength -] 650 mg PO Q6H PRN #0 tablet predniSONE [Deltasone -] 10 mg PO DAILY #21 tablet 01/29/17 Aminocaproic Acid [Amicar -] 1,000 mg PO BID #60 tablet 05/28/17 Physical Exam for Ortho Vital Signs: Vital Signs Temperature 97.5 F L 06/09/17 14:23 Pulse Rate 73 06/09/17 14:23 Respiratory Rate 20 06/09/17 14:23 Blood Pressure 121/66 06/09/17 14:23 O2 Sat by Pulse Oximetry (%) 98 06/09/17 09:00 Labs: CBC, BMP 06/09/17 05:35 06/09/17 05:35 INR, PTT INR 1.07 (0.82-1.09) 06/02/17 15:10 - Lower Extremity Hip: Yes: Exam WNL, Left, Right, Other (nvi) Imaging - Results Other: Report Reviewed, Image Reviewed, Other (bone scan) Assessment/Plan 89 year old male with a PMHx of HTN, HLD, COPD, transitional cell carcinoma, renal cancer, lung cancer s/p lobectomy, CAD, CHF, A.Fib who was called by the hospital to return for IV antibiotics after urine cultures were found to be positive for Enterococcus Faecalis. Patient was seen on 05/30/17 for a UTI and was sent home. Patient reports hematuria with blood clot passage worsening n the last couple of days. We were consulted for patients CKD. Denies any pain in either hip or LS spine. a/p abnormal signal in SI joints- either mets vs degenerative changes As patient has no pain or complaints in either LS spine/ b/l hips there is no orthopedic intervention necessary Given pts status having inoperable bladder CA with mets no further treatment recommended NTD d/w Dr. Carmen
[2017-06-09] MEDS: ATORVASTATIN CA 10 MG TABLET (FP) PO SCH (22:42)
[2017-06-10] MEDS: ACETAMINOPHEN 325 MG TABLET (FP) PO PRN ×2 (00:57→23:53)
[2017-06-10] MEDS ORDERED: MAGNESIUM HYDROX 2400MG/30ML ORAL SUSPENSION 30 ML CUP PO ONE (06:45)
--- NOTE | 2017-06-10 09:25 | PN ---
Progress Note (short form) - Note Progress Note: Pt with possible metastatic bladder cancer. Bone scan shows increased uptake at SI joint, but that is non specific. I spoke with urologist, Dr Camacho about specificity of that test from an orthopedic pov. We discussed the possibility of doing a CT guided biopsy of the SI joint to r/o mets vs OA. We will follow, but NTD from an orthopedic pov at this time
[2017-06-10] MEDS: ISOSORBIDE MONONITRATE 60 MG TAB.SR.24H (FP) PO SCH (09:36)
[2017-06-10] MEDS: POLYETHYLENE GLYCOL 3350 119 GM BTL PO SCH (09:36)
--- NOTE | 2017-06-10 16:41 | PN ---
Progress Note, Physician History of Present Illness: Pt seen and examined at bedside. He is awake and alert. He denies shortness of breath. - Current Medication List Current Medications: Active Medications Acetaminophen (Tylenol -) 650 mg PO Q4H PRN PRN Reason: FEVER Last Admin: 06/10/17 00:57 Dose: 650 mg Atorvastatin Calcium (Lipitor -) 10 mg PO [facility] Last Admin: 06/09/17 22:42 Dose: 10 mg Isosorbide Mononitrate (Imdur -) 60 mg PO DAILY [facility] Last Admin: 06/10/17 09:36 Dose: 60 mg Metoprolol Succinate (Toprol Xl -) 100 mg PO [facility] Last Admin: 06/09/17 22:42 Dose: 100 mg Polyethylene Glycol (Miralax (For Daily Use) -) 17 gm PO DAILY [facility] Last Admin: 06/10/17 09:36 Dose: 17 grams - Objective Vital Signs: Vital Signs Temperature 97.8 F 06/10/17 14:54 Pulse Rate 74 06/10/17 14:54 Respiratory Rate 20 06/10/17 14:54 Blood Pressure 131/68 06/10/17 14:54 O2 Sat by Pulse Oximetry (%) 96 06/10/17 09:00 Constitutional: Yes: Calm Eyes: Yes: Conjunctiva Clear HENT: Yes: Atraumatic Neck: Yes: Supple Cardiovascular: Yes: S1, S2 Respiratory: Yes: CTA Bilaterally Gastrointestinal: Yes: Soft Genitourinary: Yes: Valenzuela Present, Hematuria, Other (right nephrostomy) Musculoskeletal: Yes: WNL Edema: No Neurological: Yes: Oriented Psychiatric: Yes: Oriented Labs: CBC, BMP 06/09/17 05:35 06/09/17 05:35 INR, PTT INR 1.07 (0.82-1.09) 06/02/17 15:10 Problem List - Problems (1) CKD (chronic kidney disease) stage 3, GFR 30-59 ml/min Code(s): N18.3 - CHRONIC KIDNEY DISEASE, STAGE 3 (MODERATE) (2) Hematuria Code(s): R31.9 - HEMATURIA, UNSPECIFIED Assessment/Plan Current Medications Generic Name Dose Route Start Last Admin Trade Name Freq PRN Reason Stop Dose Admin Acetaminophen 650 mg 06/04/17 02:07 06/10/17 00:57 Tylenol - PO 650 mg Q4H PRN Administration FEVER Atorvastatin Calcium 10 mg 06/02/17 22:00 06/09/17 22:42 Lipitor - PO 10 mg HS BATSHEVA Administration Isosorbide Mononitrate 60 mg 06/03/17 10:00 06/10/17 09:36 Imdur - PO 60 mg DAILY BATSHEVA Administration Metoprolol Succinate 100 mg 06/02/17 22:00 06/09/17 22:42 Toprol Xl - PO 100 mg HS BATSHEVA Administration Polyethylene Glycol 17 gm 06/10/17 10:00 06/10/17 09:36 Miralax (For Daily Use) - PO 17 grams DAILY BATSHEVA Administration Impression 1. CKD 2. solitary right kidney 3. hx of bladder cancer 4. UTI 5. CHF 6. CAD 7. mod to severe AR 8. p-a-fib 9. hx PPM 10. anemia 11. s/p cysto 12. gross hematuria Plan - will order bmp for am - urology follow up - ortho input appreciated - discussed case with pt and his - monitor urine output Dr Alas
[2017-06-10] MEDS: ATORVASTATIN CA 10 MG TABLET (FP) PO SCH (21:01)
--- NOTE | 2017-06-10 22:33 | PN ---
Progress Note, Physician Chief Complaint: Bladder CA, Hematuria History of Present Illness: -sitting in chair, hematuria via newman -Nephrostomy tube clear urine -Bone scan reviewed -Bone Biopsy by IR - Current Medication List Current Medications: Active Medications Acetaminophen (Tylenol -) 650 mg PO Q4H PRN PRN Reason: FEVER Last Admin: 06/10/17 00:57 Dose: 650 mg Atorvastatin Calcium (Lipitor -) 10 mg PO HS [facility] Last Admin: 06/10/17 21:01 Dose: 10 mg Isosorbide Mononitrate (Imdur -) 60 mg PO DAILY [facility] Last Admin: 06/10/17 09:36 Dose: 60 mg Metoprolol Succinate (Toprol Xl -) 100 mg PO HS [facility] Last Admin: 06/10/17 21:01 Dose: 100 mg Polyethylene Glycol (Miralax (For Daily Use) -) 17 gm PO DAILY [facility] Last Admin: 06/10/17 09:36 Dose: 17 grams - Objective Vital Signs: Vital Signs Temperature 97.7 F 06/10/17 20:55 Pulse Rate 69 06/10/17 20:55 Respiratory Rate 18 06/10/17 21:00 Blood Pressure 121/63 06/10/17 20:55 O2 Sat by Pulse Oximetry (%) 96 06/10/17 21:00 Constitutional: Yes: Well Nourished, No Distress, Calm Cardiovascular: Yes: Regular Rate and Rhythm Respiratory: Yes: Regular Genitourinary: Yes: Newman Present, Other (nephrostomy tube) Musculoskeletal: Yes: WNL Extremities: Yes: WNL Edema: No Peripheral Pulses WNL: Yes Neurological: Yes: Alert, Oriented Psychiatric: Yes: Alert, Oriented Labs: CBC, BMP 06/09/17 05:35 06/09/17 05:35 INR, PTT INR 1.07 (0.82-1.09) 06/02/17 15:10 Problem List - Problems (1) Bladder cancer Assessment/Plan: -seen by Urology and nephrology -Newman present Code(s): C67.9 - MALIGNANT NEOPLASM OF BLADDER, UNSPECIFIED (2) Anemia associated with acute blood loss Assessment/Plan: -on Amicar -H/H stable for now Code(s): D62 - ACUTE POSTHEMORRHAGIC ANEMIA (3) Hematuria Assessment/Plan: -monitor H/H -normal transfusion parameters Code(s): R31.9 - HEMATURIA, UNSPECIFIED (4) S/p nephrectomy Assessment/Plan: -clear urine Code(s): Z90.5 - ACQUIRED ABSENCE OF KIDNEY Assessment/Plan see problem list
[2017-06-11 07:22] LABS: BASO % 1.3 % (0-2.0); EOS % 5.3 % (0-4.5); HEMATOCRIT 28.1 % (35.4-49); HEMOGLOBIN 9.1 GM/dL (11.7-16.9); LYMPH % 19.9 % (8-40); MCH 22.8 pg (25.7-33.7); MCHC 32.4 g/dl (32.0-35.9); MEAN CELL VOLUME 70.5 fl (80-96); MONO % 6.7 % (3.8-10.2); NEUT % 66.8 % (42.8-82.8); PLATELET COUNT 227 K/MM3 (134-434); RBC 3.98 M/mm3 (4.00-5.60); RDW 23.6 % (11.9-15.9); WHITE BLOOD COUNT 5.9 K/mm3 (4.0-10.0)
[2017-06-11 08:00] LABS: ANION GAP 8 (8-16); BLOOD UREA NITROGEN 34 mg/dL (7-18); CALCIUM 8.7 mg/dL (8.5-10.1); CHLORIDE 105 mmol/L (98-107); CO2 27 mmol/L (21-32); CREATININE 2.1 mg/dL (0.7-1.3); GLUCOSE,RANDOM 88 mg/dL (74-106); POTASSIUM 4.9 mmol/L (3.5-5.1); SODIUM 140 mmol/L (136-145)
--- NOTE | 2017-06-11 10:42 | DS ---
Physical Examination Vital Signs: Vital Signs Temperature 98.0 F 06/11/17 09:22 Pulse Rate 76 06/11/17 09:22 Respiratory Rate 18 06/11/17 09:22 Blood Pressure 103/69 06/11/17 09:22 O2 Sat by Pulse Oximetry (%) 97 06/11/17 09:00 Constitutional: Yes: Well Nourished, No Distress, Calm Labs: CBC, BMP 06/11/17 06:15 06/11/17 06:15 Discharge Summary Reason For Visit: URINARY TRACT INFECTION Current Active Problems GENIA (acute kidney injury) (Acute) Acute kidney injury superimposed on CKD (Acute) Anemia associated with acute blood loss (Acute) Bladder cancer (Acute) Coronary artery disease without angina pectoris (Acute) Dyslipidemia (high LDL; low HDL) (Acute) Hematuria (Acute) UTI (urinary tract infection) (Acute) Hospital Course: The patient is a 89 year old male, with a significant past medical history of HTN, HLD, COPD, kidney stones, kidney cancer with Left nephrectomy, lung cancer , and bladder cancer who presents to the emergency department with revist for IV antibiotics for UTI. The patient was last seen on Sat here in the ER and found to have UTI but his sensitivities returned with a MDR organism. The patient also complains of blood clots in his urine which prescribed amicar. He denies any recent fevers, chills, headache or dizziness. He denies any recent nausea, vomit, diarrhea or constipation. He denies any recent chest pain or shortness of breath. Son also reports some increasing LE edema as he has been drinking a lot of fluids. During his stay he was evaluated by Urology, Valenzuela was place on admission with gross hematuria in return. CBI was started. Percutaneous nephrostomy tube was placed on 07/02/17 for right hydronephrosis Bone scan was done to r/o mets which showed increased uptake in left sacro- iliac region. Patient had Bone biopsy today. Pathology results are pending. Condition: Guarded - Instructions Referrals: Lida Guillory MD [Primary Care Provider] - Disposition: TRANSFER ACUTE CARE/OTHER HOSP - Home Medications Comprehensive Discharge Medication List: Ambulatory Orders Isosorbide Mononitrate [Imdur] 60 mg PO DAILY 12/16/11 Metoprolol Succinate [Toprol XL -] 100 mg PO HS 08/17/12 Atorvastatin Ca [Lipitor] 10 mg PO HS 04/28/16 Sodium Bicarbonate - 650 mg PO BID 04/29/16 Polyethylene Glycol 3350 [Miralax 119 gm Btl -] 17 gm PO DAILY bottle 07/10/16 Acetaminophen [Tylenol .Regular Strength -] 650 mg PO Q6H PRN #0 tablet predniSONE [Deltasone -] 10 mg PO DAILY #21 tablet 01/29/17 Aminocaproic Acid [Amicar -] 1,000 mg PO BID #60 tablet 05/28/17
--- NOTE | 2017-06-11 11:31 | PN ---
Progress Note (short form) - Note Progress Note: RTNT output clear newman output dark red-100cc past 24hrs plan for CT guided bone bx today transfer to [facility] for Cystectomy/Ileal conduit-pt in agreement
[2017-06-11] MEDS: POLYETHYLENE GLYCOL 3350 119 GM BTL PO SCH (11:47)
[2017-06-11] MEDS: ISOSORBIDE MONONITRATE 60 MG TAB.SR.24H (FP) PO SCH (11:53)
[2017-06-11] MEDS: ACETAMINOPHEN 325 MG TABLET (FP) PO PRN ×2 (11:57→21:07)
--- NOTE | 2017-06-11 16:26 | PN ---
Progress Note, Physician History of Present Illness: Pt seen and examined at bedside. He is awake and alert. He is being transferred for an Ileal conduit. - Current Medication List Current Medications: Active Medications Acetaminophen (Tylenol -) 650 mg PO Q4H PRN PRN Reason: FEVER Last Admin: 06/11/17 11:57 Dose: 650 mg Atorvastatin Calcium (Lipitor -) 10 mg PO HS [facility] Last Admin: 06/10/17 21:01 Dose: 10 mg Isosorbide Mononitrate (Imdur -) 60 mg PO DAILY [facility] Last Admin: 06/11/17 11:53 Dose: 60 mg Metoprolol Succinate (Toprol Xl -) 100 mg PO [facility] Last Admin: 06/10/17 21:01 Dose: 100 mg Polyethylene Glycol (Miralax (For Daily Use) -) 17 gm PO DAILY [facility] Last Admin: 06/11/17 11:47 Dose: Not Given - Objective Vital Signs: Vital Signs Temperature 97.8 F 06/11/17 14:10 Pulse Rate 89 06/11/17 14:10 Respiratory Rate 18 06/11/17 14:10 Blood Pressure 138/62 06/11/17 14:10 O2 Sat by Pulse Oximetry (%) 99 06/11/17 11:07 Constitutional: Yes: Calm Eyes: Yes: Conjunctiva Clear HENT: Yes: Atraumatic Cardiovascular: Yes: S1, S2 Respiratory: Yes: CTA Bilaterally Gastrointestinal: Yes: Normal Bowel Sounds, Soft Genitourinary: Yes: Valenzuela Present, Hematuria, Other (right nephrostomy) Musculoskeletal: Yes: Muscle Weakness Edema: No Neurological: Yes: Oriented Psychiatric: Yes: Oriented Labs: CBC, BMP 06/11/17 06:15 06/11/17 06:15 INR, PTT INR 1.07 (0.82-1.09) 06/02/17 15:10 Problem List - Problems (1) CKD (chronic kidney disease) stage 3, GFR 30-59 ml/min Code(s): N18.3 - CHRONIC KIDNEY DISEASE, STAGE 3 (MODERATE) (2) Hematuria Code(s): R31.9 - HEMATURIA, UNSPECIFIED Assessment/Plan Current Medications Generic Name Dose Route Start Last Admin Trade Name Freq PRN Reason Stop Dose Admin Acetaminophen 650 mg 06/04/17 02:07 06/11/17 11:57 Tylenol - PO 650 mg Q4H PRN Administration FEVER Atorvastatin Calcium 10 mg 06/02/17 22:00 06/10/17 21:01 Lipitor - PO 10 mg HS BATSHEVA Administration Isosorbide Mononitrate 60 mg 06/03/17 10:00 06/11/17 11:53 Imdur - PO 60 mg DAILY BATSHEVA Administration Metoprolol Succinate 100 mg 06/02/17 22:00 06/10/17 21:01 Toprol Xl - PO 100 mg HS BATSHEVA Administration Polyethylene Glycol 17 gm 06/10/17 10:00 06/11/17 11:47 Miralax (For Daily Use) - PO Not Given DAILY BATSHEVA Impression 1. CKD 2. solitary right kidney 3. hx of bladder cancer 4. UTI 5. CHF 6. CAD 7. mod to severe AR 8. p-a-fib 9. hx PPM 10. anemia 11. s/p cysto 12. gross hematuria Plan - renal function is stable - pt going for Ileal conduit - urology input appreciated - ortho input appreciated - monitor urine output Dr Alas
[2017-06-11] MEDS: ATORVASTATIN CA 10 MG TABLET (FP) PO SCH (21:06)
[2017-06-12] MEDS: ISOSORBIDE MONONITRATE 60 MG TAB.SR.24H (FP) PO SCH (09:19)
[2017-06-12] MEDS: POLYETHYLENE GLYCOL 3350 119 GM BTL PO SCH (09:20)
--- NOTE | 2017-06-12 09:52 | PN ---
Progress Note, Physician History of Present Illness: s/p prbc BONE SCAN NOTED --D/W PT--BIOPSY DONE FOR TRANSFER TO [place] - Current Medication List Current Medications: Active Medications Acetaminophen (Tylenol -) 650 mg PO Q4H PRN PRN Reason: FEVER Last Admin: 06/11/17 21:07 Dose: 650 mg Atorvastatin Calcium (Lipitor -) 10 mg PO [facility] Last Admin: 06/11/17 21:06 Dose: 10 mg Isosorbide Mononitrate (Imdur -) 60 mg PO DAILY [facility] Last Admin: 06/12/17 09:19 Dose: 60 mg Metoprolol Succinate (Toprol Xl -) 100 mg PO [facility] Last Admin: 06/11/17 21:07 Dose: 100 mg Polyethylene Glycol (Miralax (For Daily Use) -) 17 gm PO DAILY [facility] Last Admin: 06/12/17 09:20 Dose: Not Given - Objective Vital Signs: Vital Signs Temperature 97.9 F 06/12/17 05:55 Pulse Rate 78 06/12/17 05:55 Respiratory Rate 20 06/12/17 05:55 Blood Pressure 139/65 06/12/17 05:55 O2 Sat by Pulse Oximetry (%) 98 06/11/17 21:00 Cardiovascular: Yes: Regular Rate and Rhythm Respiratory: Yes: Regular, CTA Bilaterally Gastrointestinal: Yes: Normal Bowel Sounds, Soft Genitourinary: Yes: Valenzuela Present, Hematuria Labs: CBC, BMP 06/11/17 06:15 06/11/17 06:15 INR, PTT INR 1.07 (0.82-1.09) 06/02/17 15:10 Assessment/Plan - Problems (1) Hematuria--Bladder cancer Assessment/Plan: patient has a nephrostomy drain showing dark urine less pain at the site of insertion no erythema was noted acetaminophen 650mg q6hr prn patient does not want to use narcotics due to constipation avoid NSAIDs due to CKD stage IV with GENIA -will discuss with uro--bone scan noted -d/w pt will need to evaluate hip Transfer to [place] Code(s): R31.9 - HEMATURIA, UNSPECIFIED (2) UTI (urinary tract infection) Assessment/Plan: afebrile blood cultures and urine cultures on empiric antibiotics Code(s): N39.0 - URINARY TRACT INFECTION, SITE NOT SPECIFIED Qualifiers: Urinary tract infection type: acute cystitis Hematuria presence: with hematuria Qualified Code(s): N30.01 - Acute cystitis with hematuria (3) Dysuria Assessment/Plan: s/p drainage patient stated he is feeling better today Code(s): R30.0 - DYSURIA (4) Gross hematuria Assessment/Plan: s/p nephrostomy tube drainage Code(s): R31.0 - GROSS HEMATURIA (5) HTN (hypertension) Assessment/Plan: c/w home medication Code(s): I10 - ESSENTIAL (PRIMARY) HYPERTENSION Qualifiers: Hypertension type: essential hypertension Qualified Code(s): I10 - Essential (primary) hypertension (6) GENIA (acute kidney injury) Code(s): N17.9 - ACUTE KIDNEY FAILURE, UNSPECIFIED (7) Acute kidney injury superimposed on CKD Assessment/Plan: patient with obstructive uropathy s/p nephrostomy tube placement gross hematuria was noted in the bag this morning Code(s): N17.9 - ACUTE KIDNEY FAILURE, UNSPECIFIED; N18.9 - CHRONIC KIDNEY DISEASE, UNSPECIFIED (8) Coronary artery disease without angina pectoris Assessment/Plan: c/w metoprolol c/w isosorbide Code(s): I25.10 - ATHSCL HEART DISEASE OF [place] CORONARY ARTERY W/O ANG PCTRS (9) Dyslipidemia (high LDL; low HDL) Assessment/Plan: c/w atorvastatin home dose Code(s): E78.5 - HYPERLIPIDEMIA, UNSPECIFIED
[2017-06-12 13:44] VITALS: TEMP 97.9
[2017-06-12 20:29] VITALS: BP 141/62; PULSE 81
--- NOTE | 2017-06-14 14:52 | PATH ---
Surgical Pathology Report Patient Name: JAYY SPANGLER Med. Rec. #: [id number] /Age/Gender: 1925 (Age: 89) / M Account: [id number] Location: [facility] MED/SURG Taken: 06/11/2017 Received: 06/11/2017 Reported: 06/14/2017 Physicians: Jace Xie M.D. Specimen(s) Received BX BONE FROM ILIAC Clinical History It and are 89-year-old male with bladder cancer, and left iliac bone that is positive on bone scan Final Diagnosis ILIAC BONE, LEFT, BIOPSY: BONE WITH TRILINEAGE HEMATOPOIESIS. NO CARCINOMA IDENTIFIED. Comment: Immunohistochemical stain performed and interpreted at [facility] show cytokeratin AE1/3 is negative. Suggest clinical/radiologic correlation. Prior history of low grade urothelial carcinoma is in a noted ([id number]). Electronically Signed Freida Castellano M.D. Gross Description Received in formalin labeled "bone," is a 1.0 x 0.5 x 0.2 cm aggregate of gonzales bone fragments. The formalin is filtered and the specimen is entirely submitted in one cassette, following decalcification. 06/11/201706/11/2017
== END 2017-06-12 20:39 | disposition short-term general hospital (02) | DRG 674 ==
LOC: JER 11:28 → JERBED 16:23 → J7W 19:15
PROVIDERS: ADMIT Family Medicine; ATTEND Family Medicine
PROC: 0T9030Z Drainage of Right Kidney with Drainage Device, Percutaneous Approach (ICD-10-PCS; 2017-06-04)
PROC: 30233N1 Transfusion of Nonautologous Red Blood Cells into Peripheral Vein, Percutaneous Approach (ICD-10-PCS; 2017-06-07)
PROC: 0QB33ZX Excision of Left Pelvic Bone, Percutaneous Approach, Diagnostic (ICD-10-PCS; principal; 2017-06-11)
DX: C67.3 Malignant neoplasm of anterior wall of bladder (principal); N39.0 Urinary tract infection, site not specified; I13.0 Hypertensive heart and chronic kidney disease with heart failure and stage 1 through stage 4 chronic kidney disease, or unspecified chronic kidney disease; N13.30 Unspecified hydronephrosis; D62 Acute posthemorrhagic anemia; N17.9 Acute kidney failure, unspecified; E78.5 Hyperlipidemia, unspecified; J44.9 Chronic obstructive pulmonary disease, unspecified; Z88.0 Allergy status to penicillin; Z88.2 Allergy status to sulfonamides; I25.10 Atherosclerotic heart disease of native coronary artery without angina pectoris; N18.3 Chronic kidney disease, stage 3 (moderate); I50.9 Heart failure, unspecified; K21.9 Gastro-esophageal reflux disease without esophagitis; I48.91 Unspecified atrial fibrillation; R31.0 Gross hematuria; I35.1 Nonrheumatic aortic (valve) insufficiency; N28.1 Cyst of kidney, acquired; B95.2 Enterococcus as the cause of diseases classified elsewhere; Z85.528 Personal history of other malignant neoplasm of kidney; Z85.118 Personal history of other malignant neoplasm of bronchus and lung; Z95.0 Presence of cardiac pacemaker; Z79.01 Long term (current) use of anticoagulants; Z87.891 Personal history of nicotine dependence; Z90.5 Acquired absence of kidney
CPT/HCPCS: 20225; 36415; 36430; 50432; 71045-TC-FY; 76000-TC-FY; 76098-TC-FY; 76775-TC; 76856-TC; 76998-TC; 77012-TC; 78306-TC; 80048; 80053; 81003; 81015; 83735; 83880; 85025; 85610; 85730; 86850; 86900; 86901; 86922; 87040; 87086; 87186; 87899; 88305-TC; 88311-TC; 93005; 93010; 99284-25; A4358; A9503; C1729; C1769; P9038; P9058